=== PATIENT | male | born 1960 | race Caucasian/White ===

== ENCOUNTER 2017-06-14 07:39 | Day surgery (SDC) | payer BC, SELFPAY ==
[2017-06-09 12:35] VITALS: BMI 35.5
--- NOTE | 2017-06-10 13:46 | SUR.PREOP ---
amadeo at [facility] office notified of need for cardiac clearance on 06/09/17 0630 mayte lo
[2017-06-14] VITALS (8 sets, daily range): BP systolic 84–133; BP diastolic 56–92; PULSE 73–80; RESP 18–20; TEMP 36.2–36.7; O2SAT 92–98
--- NOTE | 2017-06-14 08:28 | HMH.ANESCL ---
[facility] Anesthesia Checklist - Patient Identification Patient Identification: Arm Band, Verbal (Name & ) - Structural Data Admitted From: Home Planned Operative Procedure/s: egd/colon Consent for Planned Operative Procedure(s) Verified: Yes Verified Documents: Surgical Consent - NPO Status Verified Time NPO: 00:00 - Chart Verification Results Verified: CBC, BMP - Additional verifications Patient : No Anesthesia Reactions: No Cephalosporin Allergy: No Previous Colonoscopy: No - Cardiovascular Assessment Heart Sounds: S1 & S2 Pulse Strength: Strong Pulse Rhythm: Regular Peripheral Edema: No - Airway Assessment C-Spine Mobility Assessed: Yes TMJ Mobility Assessed: Yes Dentition: Good Dentition - Neurological Assessment Level of Consciousness: Awake, Alert, Appropriate Hx Seizures: No Numbness or tingling in extremities: No - Genitourinary Assessment 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 No: Pacemaker Amputation: No Fractures: No *Family Hx:: Unable to obtain
--- NOTE | 2017-06-14 08:31 | P.PN_ITS ---
[facility] Anesthesia Checklist - Patient Identification Patient Identification: Arm Band, Verbal (Name & ) - Structural Data Admitted From: Home Planned Operative Procedure/s: egd/colon Consent for Planned Operative Procedure(s) Verified: Yes Verified Documents: Surgical Consent - NPO Status Verified Time NPO: 00:00 - Chart Verification Results Verified: CBC, BMP - Additional verifications Patient : No Anesthesia Reactions: No Cephalosporin Allergy: No Previous Colonoscopy: No - Cardiovascular Assessment Heart Sounds: S1 & S2 Pulse Strength: Strong Pulse Rhythm: Regular Peripheral Edema: No - Airway Assessment C-Spine Mobility Assessed: Yes TMJ Mobility Assessed: Yes Dentition: Good Dentition - Neurological Assessment Level of Consciousness: Awake, Alert, Appropriate Hx Seizures: No Numbness or tingling in extremities: No - Genitourinary Assessment 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 No: Pacemaker Amputation: No Fractures: No *Family Hx:: Unable to obtain
--- NOTE | 2017-06-14 09:31 | HMH.PROC ---
[facility] Procedure Note Procedure Note:: Upper Endoscopy Procedure Report: Esophagogastroduodenoscopy with cold biopsies and TTS balloon dilation Endoscopost: Des Rawls II, MD Referring Physician: Valerio Joseph MD/Piyush Malik M.D. Date of Procedure: June 14, 2017 Equipment: Olympus GIF 180 standard upper endoscope Sedation: MAC sedation Indications: Mr. Denis is a 56-year-old gentleman who is here for diagnostic upper endoscopy. He does have globus sensation with phlegm in the throat and frequent clearance of the throat. He does have chronic heartburn controlled with Protonix 40 mg p.o. twice daily. He still has some occasional reflux. He reports moderate belching and some bloating. He reports some left upper quadrant and left-sided abdominal discomfort. He has regular bowel function but does state that he has obstipation/incomplete defecation. Procedure: Prior to the procedure, a history and physical exam was performed, and patient's medications and allergies were reviewed. The risks, benefits and alternatives of the sedation and procedure were discussed with the patient. All questions were answered and informed consent was obtained. The patient was brought to the procedure room. Patient identification and proposed procedure were verified by the physician and the nurse. The patient was placed in a left lateral decubitus position and the scope was passed under direct vision. Throughout the procedure, the patient's blood pressure, pulse, and oxygen saturations were monitored continuously. The upper GI endoscopy was accomplished without difficulty. The patient tolerated the procedure well. Findings: The scope was passed directly into the upper esophagus and advanced to the third portion of the duodenum. The post bulbar duodenum and duodenal bulb were normal with normal mucosa and conniventes. The scope was withdrawn through a normal duodenal bulb and pylorus into the stomach. There was some mild linear erythema of the antrum with bile reflux. The remainder of the antrum, body and fundus of the stomach were grossly normal. Upon retroflexion there was no hiatal hernia. 2 biopsies were taken in the antrum and along the lesser curvature for histology and/or CLOtest. The scope was then withdrawn into the esophagus. There was a serrated Z line with one linear erosion distally. There were tertiary contractions and moderate esophageal dysmotility. The entire esophagus was dilated to 60 Setswana/20 mm with a TTS hydrostatic balloon. There was mild resistance at the cricopharyngeus. The remainder of the esophageal mucosa was normal. Impression: 1. 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 I will discuss additional measures including dietary measures, promotility therapy and fiber bowel regimen. I will proceed with screening colonoscopy.
--- NOTE | 2017-06-14 09:41 | HMH.PROC ---
[facility] Procedure Note Procedure Note:: Colonoscopy Procedure Report: Colonoscopy with cold snare polypectomy Endoscopist: Des Rawls II, MD Referring physician: Piyush Malik M.D. Date of Procedure: June 14, 2017 Equipment: Olympus 180 variable stiffness pediatric colonoscope Sedation: MAC sedation Indication: Mr. Denis is a 56-year-old gentleman who is here for follow-up screening/surveillance colonoscopy. His last colonoscopy in [place] (Dr. Jeremiah Smallwood) in 2003 was normal. The patient's father had colon cancer in his early 70s. He does have some left upper quadrant and left-sided abdominal discomfort. He also reports some obstipation/incomplete defecation but reports regular bowel function and no change in bowel habits. He reports no rectal bleeding or weight loss. Procedure: Prior to the procedure, a history and physical exam was performed, and patient's medications and allergies were reviewed. The risks, benefits and alternatives of the sedation and procedure were discussed with the patient. All questions were answered and informed consent was obtained. The patient was brought to the procedure room. Patient identification and proposed procedure were verified by the physician and the nurse. The patient was placed in a left lateral decubitus position and the scope was passed under direct vision. Throughout the procedure, the patient's blood pressure, pulse, and oxygen saturations were monitored continuously. The colonoscopy was accomplished without difficulty. The patient tolerated the procedure well. Findings: On digital rectal examination there was normal rectal tone. There were no external hemorrhoids. The prostate was 2+, mildly firm with greater firmness in the left upper margin. The colonoscope was introduced through the anal canal to the rectum and advanced to the cecum. The ileocecal valve and appendiceal orifice were identified. The scope was advanced a short distance into the ileum which appeared grossly normal. The scope was then withdrawn into the colon. There were 3 colon polyps identified in the descending ?2 and sigmoid ?1. These ranged in size from 4-6 mm and were all removed via cold snare polypectomy. The remaining cecum, ascending, transverse, descending, sigmoid and rectum were grossly normal. There were no other mucosal abnormalities identified. Upon retroflexion within the rectum there were grade 1 internal hemorrhoids. Impression: 1. Diminutive colonic polyps ?3 2. Grade 1 internal hemorrhoids 3. Prostate firmness/asymmetry left upper margin Plan: I will follow up the polyp pathology and recommend repeat colonoscopy again in 5 years based upon the patient's family history and polyp histology. I would encourage fiber supplementation on a long-term daily maintenance basis.
--- NOTE | 2017-06-14 09:56 | P.PCN_ITS ---
[facility] Procedure Note Procedure Note:: Colonoscopy Procedure Report: Colonoscopy with cold snare polypectomy Endoscopist: Des Rawls II, MD Referring physician: Piyush Malik M.D. Date of Procedure: June 14, 2017 Equipment: Olympus 180 variable stiffness pediatric colonoscope Sedation: MAC sedation Indication: Mr. Denis is a 56-year-old gentleman who is here for follow-up screening/surveillance colonoscopy. His last colonoscopy in [place] (Dr. Jeremiah Smallwood) in 2003 was normal. The patient's father had colon cancer in his early 70s. He does have some left upper quadrant and left-sided abdominal discomfort. He also reports some obstipation/incomplete defecation but reports regular bowel function and no change in bowel habits. He reports no rectal bleeding or weight loss. Procedure: Prior to the procedure, a history and physical exam was performed, and patient' s medications and allergies were reviewed. The risks, benefits and alternatives of the sedation and procedure were discussed with the patient. All questions were answered and informed consent was obtained. The patient was brought to the procedure room. Patient identification and proposed procedure were verified by the physician and the nurse. The patient was placed in a left lateral decubitus position and the scope was passed under direct vision. Throughout the procedure, the patient's blood pressure, pulse, and oxygen saturations were monitored continuously. The colonoscopy was accomplished without difficulty. The patient tolerated the procedure well. Findings: On digital rectal examination there was normal rectal tone. There were no external hemorrhoids. The prostate was 2+, mildly firm with greater firmness in the left upper margin. The colonoscope was introduced through the anal canal to the rectum and advanced to the cecum. The ileocecal valve and appendiceal orifice were identified. The scope was advanced a short distance into the ileum which appeared grossly normal. The scope was then withdrawn into the colon. There were 3 colon polyps identified in the descending ?2 and sigmoid ?1. These ranged in size from 4-6 mm and were all removed via cold snare polypectomy. The remaining cecum, ascending, transverse, descending, sigmoid and rectum were grossly normal. There were no other mucosal abnormalities identified. Upon retroflexion within the rectum there were grade 1 internal hemorrhoids. Impression: 1. Diminutive colonic polyps ?3 2. Grade 1 internal hemorrhoids 3. Prostate firmness/asymmetry left upper margin Plan: I will follow up the polyp pathology and recommend repeat colonoscopy again in 5 years based upon the patient's family history and polyp histology. I would encourage fiber supplementation on a long-term daily maintenance basis.
== END 2017-06-14 11:00 | disposition home or self-care (01) ==
LOC: OUTP 07:41
PROVIDERS: PCP Internal Medicine Adolescent Medicine; Visit Provider Internal Medicine Gastroenterology
PROC: 0DJ08ZZ Inspection of Upper Intestinal Tract, Via Natural or Artificial Opening Endoscopic (ICD-10-PCS; CPT 43235; principal; 2017-06-14 09:00)
DX: Z12.11 Encounter for screening for malignant neoplasm of colon; K21.0 Gastro-esophageal reflux disease with esophagitis; K22.4 Dyskinesia of esophagus; D12.4 Benign neoplasm of descending colon; D12.5 Benign neoplasm of sigmoid colon; K29.50 Unspecified chronic gastritis without bleeding; K64.0 First degree hemorrhoids; Z80.0 Family history of malignant neoplasm of digestive organs
CPT/HCPCS: 43239; 43249; 45380; C1726

== ENCOUNTER 2017-07-07 22:35 | Emergency (ER) | payer BC, SELFPAY ==
[2017-07-07 22:41] VITALS: BMI 36.3
--- NOTE | 2017-07-07 22:42 | XR_ITS ---
XR chest portable HISTORY: ITS.REASON: SOB ORDERING PHYSICIAN: Denny Hardin MD PATIENT AGE: 56 years COMPARISON: 03/24/2017 FINDINGS: The cardiomediastinal silhouette and pulmonary vascularity are within normal limits. Prominent pericardial fat pad is noted on the right. In addition there may be associated atelectasis or infiltrate in the right lung base lateral to the fat pad. Recommend upright PA and lateral chest for further evaluation. No acute bony anomalies. IMPRESSION: Prominent pericardial fat pad on the right with possible superimposed atelectasis or infiltrate
[2017-07-07 22:44] VITALS: BP 141/109; PULSE 80; RESP 18; TEMP 36.4; O2SAT 95; BMI 36.3
[2017-07-07 23:13] LABS: Basophils % 0.2 % (0.1-2.0); Eosinophils # 0.1 K/mm3 (0.0-0.4); Eosinophils % 0.4 % (0.1-12.0); Hematocrit 42.8 % (42.0-52.0); Hemoglobin 14.4 g/dL (14.1-18.0); Lymphocytes # 1.1 K/mm3 (0.7-4.5); Lymphocytes % 8.1 K/mm3 (10-50); Mean Corpuscular HGB Conc 33.6 g/dL (31.8-35.4); Mean Corpuscular Hemoglobin 29.4 pg (27.0-31.2); Mean Corpuscular Volume 87.4 fl (80-94); Monocytes # 1.1 K/mm3 (0.1-1.0); Monocytes % 8.1 % (1.7-9.3); Neutrophils # 10.8 K/mm3 (1.8-7.8); Neutrophils % 83.1 % (37.0-80.0); Platelet Count 215 K/mm3 (142-424); Red Blood Count 4.89 M/mm3 (4.60-6.20); Red Cell Distribution Width 13.5 % (11.5-17.5)
[2017-07-07 23:37] LABS: Strep Scrn Group A (Rapid) Negative (Negative)
[2017-07-07 23:38] LABS: Alanine Aminotransferase 66 U/L (12-78); Albumin Level 3.5 gm/dL (3.4-5.0); Alkaline Phosphatase 120 U/L (46-116); Anion Gap 14.4 mEq/L (5-15); Aspartate Amino Transferase 26 U/L (15-37); Bilirubin,Total 0.3 mg/dL (0.2-1.0); Blood Urea Nitrogen 36 mg/dL (7-18); Calcium 8.6 mg/dL (8.5-10.1); Carbon Dioxide 26 mmol/L (21.0-32.0); Chloride 101 mmol/L (98-107); Creatine Kinase 93 U/L (39-308); Creatine Kinase MB 0.9 mg/ml (0.0-3.6); Creatinine Clearance Estimated 60 mL/min (0-300); Creatinine,Serum 1.97 mg/dL (0.70-1.30); Estimated Glomerular Filt Rate 35 ml/min (>60); GFR (African American) 43 ML/MIN (>60); Globulin 3.5 gm/dl (1.3-3.2); Glucose 236 mg/dL (74-106); Potassium 3.4 mmoL/L (3.5-5.1); Sodium 138 mmol/L (136-145); Troponin I < 0.02 ng/ml (0.00-0.06)
--- NOTE | 2017-07-08 | HMH.EDSOB ---
ED Disposition Clinical Impression: Influenza Disposition: Home, Self-Care Condition on Discharge: Good Instructions: Influenza Additional Instructions: fluids and see pcp for follow up Prescriptions: Benzonatate [Tessalon Perle 100mg Cap] 100 mg PO TID #30 cap Oseltamivir Phosphate [Tamiflu 75mg Capsule] 75 mg PO BID #10 cap Referrals: Piyush Serrano MD [Primary Care Provider] - - Critical Care Critical Care Time: No Attestation: On 07/07/17, the high probability of a clinically significant, sudden or life threatening deterioration of the following system(s) required my full and direct attention, intervention and personal management. The time I documented below is in addition to time spent performing reported procedures but includes the following listed in this critical care notation. Medical Decision Making - Medical Records Medical records reviewed: Yes: I reviewed the patient's medical records. Vital Signs: 07/07/17 22:44 Temperature 97.6 F Temperature Source Oral Pulse Rate [Right Brachial] 80 Respiratory Rate 18 Blood Pressure [Right Arm] 141/109 Blood Pressure Mean [Right Arm] 119 Blood Pressure Source [Right Arm] Automatic Cuff Blood Pressure Position [Right Arm] Supine 02 Sat by Pulse Oximetry 95 Oxygen Delivery Method Room Air - Lab Data Lab results reviewed: Yes: I reviewed the patient's lab results. Lab Results 07/07/17 23:00: WBC 13.0 H, RBC 4.89, Hgb 14.4, Hct 42.8, MCV 87.4, MCH 29.4, MCHC 33.6, RDW 13.5, Plt Count 215, MPV 9.0, Neut % (Auto) 83.1 H, Lymph % (Auto) 8.1 L, [place] % (Auto) 8.1, Eos % (Auto) 0.4, Baso % (Auto) 0.2, Neut # (Auto) 10.8 H, Lymph # (Auto) 1.1, [place] # (Auto) 1.1 H, Eos # (Auto) 0.1, Baso # (Auto) 0.0 07/07/17 23:00: Sodium 138, Potassium 3.4 L, Chloride 101, Carbon Dioxide 26, Anion Gap 14.4, BUN 36 H, Creatinine 1.97 H, Estimated Creat Clear 60, Estimated GFR 35 L, Est GFR ( Amer) 43 L, Glucose 236 H, Calcium 8.6, Total Bilirubin 0.3, AST 26, ALT 66, Alkaline Phosphatase 120 H, Total Creatine Kinase 93, CK-MB (CK-2) 0.9, CK-MB (CK-2) Rel Index 1.0, Troponin I < 0.02, Total Protein 7.0, Albumin 3.5, Globulin 3.5 H, Albumin/Globulin Ratio 1.0 L 07/07/17 23:00: Influenza Type A Ag Negative, Influenza Type B Ag Positive A, Group A Strep Rapid Negative Result diagrams: 07/07/17 23:00 07/07/17 23:00 Orders (Tests/Meds): ED MEDICATIONS Discontinued Medications Generic Name Dose Route Start Last Admin Trade Name Freq PRN Reason Stop Dose Admin Aspirin 243 mg 07/07/17 22:42 07/07/17 22:54 Aspirin 81mg Chewable Tablet PO 07/07/17 22:43 243 mg ONCE ONE Administration ORDERS Category Date Time Status XR chest portable Stat Exams 07/07/17 22:42 Taken Strep Screen Confirmation Stat Micro 07/07/17 23:00 Received ECG Request by /Dinah Stat Y 07/07/17 22:42 Ordered - Radiology Data #1 Image(s): Chest Image Reviewed: Yes I reviewed the patient's radiology image Preliminary Findings: Abnormal - ECG Data Tracing #1 I reviewed this ECG and interpreted as documented below: Normal Sinus Rhythm: Yes Ischemic changes: non-specific ST-T wave changes - Physician Consults Physician Consulted: shaan Reason -: Pt condition - Theodore Inquiry Pt receiving controlled substance: No Resp/SOB HPI - General Chief Complaint: Upper Respiratory Infection Stated Complaint: SOA Time Seen by Provider: 07/08/17 00:00 Mode of Arrival: Family Vehicle Source of Information: Patient, Spouse, Medical Record Limitations: No Limitations Description of Symptoms (Recalled from ER Triage Doc. by RN): C/O SOB AND MID CHEST PAIN WITH COUGH NONPRODUCTIVE. HAD BLACKOUT SPELL TODAY WHILE COUGHING. 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
--- NOTE | 2017-07-08 00:08 | ED_ITS ---
ED Disposition Clinical Impression: Influenza Disposition: Home, Self-Care Condition on Discharge: Good Instructions: Influenza Additional Instructions: fluids and see pcp for follow up Prescriptions: Benzonatate [Tessalon Perle 100mg Cap] 100 mg PO TID #30 cap Oseltamivir Phosphate [Tamiflu 75mg Capsule] 75 mg PO BID #10 cap Referrals: Piyush Malik MD [Primary Care Provider] - - Critical Care Critical Care Time: No Attestation: On 07/07/17, the high probability of a clinically significant, sudden or life threatening deterioration of the following system(s) required my full and direct attention, intervention and personal management. The time I documented below is in addition to time spent performing reported procedures but includes the following listed in this critical care notation. Medical Decision Making - Medical Records Medical records reviewed: Yes: I reviewed the patient's medical records. Vital Signs: 07/07/17 22:44 Temperature 97.6 F Temperature Source Oral Pulse Rate [Right Brachial] 80 Respiratory Rate 18 Blood Pressure [Right Arm] 141/109 Blood Pressure Mean [Right Arm] 119 Blood Pressure Source [Right Arm] Automatic Cuff Blood Pressure Position [Right Arm] Supine 02 Sat by Pulse Oximetry 95 Oxygen Delivery Method Room Air - Lab Data Lab results reviewed: Yes: I reviewed the patient's lab results. Lab Results 07/07/17 23:00: WBC 13.0 H, RBC 4.89, Hgb 14.4, Hct 42.8, MCV 87.4, MCH 29.4, MCHC 33.6, RDW 13.5, Plt Count 215, MPV 9.0, Neut % (Auto) 83.1 H, Lymph % (Auto ) 8.1 L, [place] % (Auto) 8.1, Eos % (Auto) 0.4, Baso % (Auto) 0.2, Neut # (Auto) 10.8 H, Lymph # (Auto) 1.1, [place] # (Auto) 1.1 H, Eos # (Auto) 0.1, Baso # (Auto ) 0.0 07/07/17 23:00: Sodium 138, Potassium 3.4 L, Chloride 101, Carbon Dioxide 26, Anion Gap 14.4, BUN 36 H, Creatinine 1.97 H, Estimated Creat Clear 60, Estimated GFR 35 L, Est GFR ( Amer) 43 L, Glucose 236 H, Calcium 8.6, Total Bilirubin 0.3, AST 26, ALT 66, Alkaline Phosphatase 120 H, Total Creatine Kinase 93, CK-MB (CK-2) 0.9, CK-MB (CK-2) Rel Index 1.0, Troponin I < 0.02, Total Protein 7.0, Albumin 3.5, Globulin 3.5 H, Albumin/Globulin Ratio 1.0 L 07/07/17 23:00: Influenza Type A Ag Negative, Influenza Type B Ag Positive A, Group A Strep Rapid Negative Result diagrams: 07/07/17 23:00 07/07/17 23:00 Orders (Tests/Meds): ED MEDICATIONS Discontinued Medications Generic Name Dose Route Start Last Admin Trade Name Freq PRN Reason Stop Dose Admin Aspirin 243 mg 07/07/17 22:42 07/07/17 22:54 Aspirin 81mg Chewable Tablet PO 07/07/17 22:43 243 mg ONCE ONE Administration ORDERS Category Date Time Status XR chest portable Stat Exams 07/07/17 22:42 Taken Strep Screen Confirmation Stat Micro 07/07/17 23:00 Received ECG Request by /Dinah Stat Y 07/07/17 22:42 Ordered - Radiology Data #1 Image(s): Chest Image Reviewed: Yes I reviewed the patient's radiology image Preliminary Findings: Abnormal - ECG Data Tracing #1 I reviewed this ECG and interpreted as documented below: Normal Sinus Rhythm: Yes Ischemic changes: non-specific ST-T wave changes - Physician Consults Physician Consulted: shaan Reason -: Pt condition - Theodore Inquiry Pt receiving controlled substance: No Resp/SOB HPI
[2017-07-08 01:17] VITALS: BP 148/88; PULSE 80; RESP 16; TEMP 37.2; O2SAT 98
== END 2017-07-08 01:20 | disposition home or self-care (01) ==
PROVIDERS: Emergency Provider Emergency Medicine; PCP Internal Medicine Adolescent Medicine
DX: J11.1 Influenza due to unidentified influenza virus with other respiratory manifestations (principal); E78.5 Hyperlipidemia, unspecified; I10 Essential (primary) hypertension; I25.10 Atherosclerotic heart disease of native coronary artery without angina pectoris; I25.2 Old myocardial infarction; G47.30 Sleep apnea, unspecified; Z79.899 Other long term (current) drug therapy
CPT/HCPCS: 71045; 80053; 82550; 82553; 84484; 85025; 87275; 87276; 87430; 93005; 99282

== ENCOUNTER → 2017-07-19 13:57 | Outpatient (CLI) | payer BC, SELFPAY | PROVIDERS: PCP Internal Medicine Adolescent Medicine; Visit Provider Internal Medicine Adolescent Medicine | DX: R55 Syncope and collapse (principal) | CPT/HCPCS: 93270 ==

== ENCOUNTER → 2017-09-06 08:42 | Outpatient (POV) | payer BC, SELFPAY | PROVIDERS: Visit Provider Nurse Practitioner Acute Care | DX: Z00.00 Encounter for general adult medical examination without abnormal findings (principal) ==

== ENCOUNTER → 2017-09-09 07:36 | Outpatient (CLI) | payer BC, SELFPAY ==
--- NOTE | 2017-09-09 07:45 | CA_ITS ---
CA echo doppler complete PROCEDURE: INDICATIONS FOR THE TEST: Chest pain COPD Heart Murmur Tobacco SmokingEX Palpitations Fatigue Syncope EdemaX HypertensionXDiabetes Mellitus Rheumatic Fever SOB DOEXObesityXHyperlipidemiaX Family History HD Additional History CAD,CHF,MARIELENA TDS POOR ACOUSTIC WINDOWS AND OBESITY PATIENT INFORMATION HEIGHT: 66 WEIGHT:230 GENDER: Male B/P:141/109 2-D/M-MODE INTERPRETATION: 2-D MEASUREMENTS OBSERVED VALUES IN CMS Right Ventricular Dimension (RVDd) 4.0 Interventricular Septum (Thickness)(IVsd) 1.0 Left Ventricular Internal Dimensions(LVIDd) 4.2 Left Ventricular Posterior Wall (Thickness)(LVPWd) 1.0 Aortic Root 4.2 Aortic Cusp Separation 2.2 Left Atrial Dimensions (LAD) 2.8 2D 1. Left atrium is qualitatively mildly enlarged, left ventricle is normal size, there is mild concentric left ventricular hypertrophy, visually estimated ejection fraction 55% with no obvious regional wall motion abnormality. 2. The right atrium and right ventricle are moderately enlarged with normal contractility. 3. The aortic valve is minimally thickened and fibrosed. 4. The mitral and tricuspid valve leaflets are minimally thickened. 5. The pulmonic valve is poorly visualized. 6. Trivial Pericardial effusion noted. DOPPLER INTERROGATION: Doppler interrogation of the aortic, mitral and tricuspid valve reveals presence of mild mitral and tricuspid regurgitation, tricuspid and jet velocity insufficient for calculation of the right ventricular systolic pressure, grade 1 diastolic dysfunction seen with tissue Doppler evidence of raised left atrial pressure. CONCLUSION: 1. Mildly enlarged left atrium, normal left ventricular size, visually estimated ejection fraction 55% with no obvious regional wall motion abnormality, endocardial surfaces are poorly visualized. Grade 1 diastolic dysfunction seen with tissue Doppler evidence of raised left atrial pressure. 2. Enlarged right atrium and right ventricle, contractility of the right ventricle is normal 3. Mild mitral and tricuspid regurgitation 4. Trivial pericardial effusion noted.
== END ==
PROVIDERS: PCP Internal Medicine Adolescent Medicine; Visit Provider Internal Medicine Adolescent Medicine
DX: I50.30 Unspecified diastolic (congestive) heart failure (principal)
CPT/HCPCS: 93306

== ENCOUNTER → 2017-11-24 07:06 | Outpatient (CLI) | payer BC, SELFPAY ==
[2017-11-24 07:10] LABS: Microscopic, Urine URINE MICROSCOPIC (MICROSCOPIC)
[2017-11-24 13:37] LABS: Appearance,Urine CLEAR (Clear); Basophils # 0.1 K/mm3 (0-0.2); Basophils % 0.6 % (0.1-2.0); Bilirubin,Urine Negative (Negative); Blood, Urine Negative (Negative); Color,Urine YELLOW (Yellow); Eosinophils # 0.3 K/mm3 (0.0-0.4); Eosinophils % 3.4 % (0.1-12.0); Glucose,Urine (UA) Negative (Negative); Hematocrit 45.4 % (42.0-52.0); Hemoglobin 14.7 g/dL (14.1-18.0); Ketones,Urine Negative (Negative); Leukocyte Esterase,Urine Negative (Negative); Lymphocytes # 1.8 K/mm3 (0.7-4.5); Lymphocytes % 22.3 K/mm3 (10-50); Mean Corpuscular HGB Conc 32.5 g/dL (31.8-35.4); Mean Corpuscular Hemoglobin 28.5 pg (27.0-31.2); Mean Corpuscular Volume 87.7 fl (80-94); Mean Platelet Volume 9.2 fl (7.4-10.4); Monocytes # 0.6 K/mm3 (0.1-1.0); Monocytes % 7.1 % (1.7-9.3); Neutrophils # 5.3 K/mm3 (1.8-7.8); Neutrophils % 66.6 % (37.0-80.0); Nitrate,Urine Negative (Negative); PH,Urine 6.5 (5.0-8.5); Platelet Count 223 K/mm3 (142-424); Protein,Urine Negative (Negative); Red Blood Count 5.18 M/mm3 (4.60-6.20); Red Cell Distribution Width 13.3 % (11.5-17.5); Urobilinogen,Urine 0.2 EU/dl (0.2)
[2017-11-24 14:09] LABS: Alanine Aminotransferase 80 U/L (12-78); Albumin Level 3.6 gm/dL (3.4-5.0); Albumin/Globulin Ratio 1.1 (1.1-1.8); Alkaline Phosphatase 105 U/L (46-116); Anion Gap 13.4 mEq/L (5-15); Aspartate Amino Transferase 38 U/L (15-37); Bilirubin,Total 0.5 mg/dL (0.2-1.0); Blood Urea Nitrogen 18 mg/dL (7-18); Calcium 8.2 mg/dL (8.5-10.1); Carbon Dioxide 27 mmol/L (21.0-32.0); Chloride 103 mmol/L (98-107); Chol/HDL Ratio 4.9 (1-3.5); Cholesterol 156 mg/dL (140-200); Creatinine,Serum 1.42 mg/dL (0.70-1.30); Estimated Glomerular Filt Rate 51 ml/min (>60); GFR (African American) 62 ML/MIN (>60); Globulin 3.2 gm/dl (1.3-3.2); Glucose 129 mg/dL (74-106); HDL Cholesterol 32 mg/dL (27-67); LDL Cholesterol 86 mg/dL (0-130); Potassium 3.4 mmoL/L (3.5-5.1); Sodium 140 mmol/L (136-145); Total Protein,Serum 6.8 gm/dL (6.4-8.2); Triglycerides 190 mg/dL (30-200); VLDL Cholesterol 38 mg/dL (0-40)
== END ==
PROVIDERS: Visit Provider Internal Medicine Adolescent Medicine
DX: R60.9 Edema, unspecified (principal); I25.10 Atherosclerotic heart disease of native coronary artery without angina pectoris
CPT/HCPCS: 36415; 80053; 80061; 81001; 85025; 87205

== ENCOUNTER → 2018-04-13 07:07 | Outpatient (CLI) | payer BC, SELFPAY ==
[2018-04-13 13:31] LABS: Alanine Aminotransferase 71 U/L (12-78); Albumin Level 3.7 gm/dL (3.4-5.0); Albumin/Globulin Ratio 1.2 (1.1-1.8); Alkaline Phosphatase 119 U/L (46-116); Anion Gap 0.6 mEq/L (5-15); Aspartate Amino Transferase 22 U/L (15-37); Bilirubin,Total 0.8 mg/dL (0.2-1.0); Blood Urea Nitrogen 25 mg/dL (7-18); Carbon Dioxide 24 mmol/L (21.0-32.0); Chloride 104 mmol/L (98-107); Chol/HDL Ratio 3.8 (1-3.5); Cholesterol 173 mg/dL (140-200); Creatinine,Serum 1.69 mg/dL (0.70-1.30); Estimated Glomerular Filt Rate 42 ml/min (>60); GFR (African American) 51 ML/MIN (>60); Globulin 3.1 gm/dl (1.3-3.2); Glucose 368 mg/dL (74-106); HDL Cholesterol 45 mg/dL (27-67); LDL Cholesterol 92 mg/dL (0-130); Potassium 3.6 mmoL/L (3.5-5.1); Sodium 125 mmol/L (136-145); Total Protein,Serum 6.8 gm/dL (6.4-8.2); Triglycerides 182 mg/dL (30-200); VLDL Cholesterol 36 mg/dL (0-40)
[2018-04-13 13:41] LABS: Basophils # 0.1 K/mm3 (0-0.2); Basophils % 0.4 % (0.1-2.0); Eosinophils # 0.2 K/mm3 (0.0-0.4); Hematocrit 47.4 % (42.0-52.0); Hemoglobin 15.5 g/dL (14.1-18.0); Lymphocytes # 2.6 K/mm3 (0.7-4.5); Lymphocytes % 21.9 % (10-50); Mean Corpuscular HGB Conc 32.7 g/dL (31.8-35.4); Mean Corpuscular Hemoglobin 27.6 pg (27.0-31.2); Mean Corpuscular Volume 84.4 fl (80-94); Mean Platelet Volume 9.6 fl (7.4-10.4); Monocytes # 0.6 K/mm3 (0.1-1.0); Monocytes % 4.9 % (1.7-9.3); Neutrophils # 8.4 K/mm3 (1.8-7.8); Neutrophils % 70.8 % (37.0-80.0); Platelet Count 208 K/mm3 (142-424); Red Blood Count 5.62 M/mm3 (4.60-6.20); Red Cell Distribution Width 13.7 % (11.5-17.5); White Blood Count 11.8 K/mm3 (4.8-10.8)
[2018-04-13 14:52] LABS: Hemoglobin A1C 9.8 % (0.0-7.0)
== END ==
PROVIDERS: PCP Internal Medicine Adolescent Medicine; Visit Provider Internal Medicine Adolescent Medicine
DX: I25.10 Atherosclerotic heart disease of native coronary artery without angina pectoris (principal); R35.8 Other polyuria
CPT/HCPCS: 36415; 80053; 80061; 83036; 85025

== ENCOUNTER 2018-04-19 16:42 | Observation (INO) ==
--- NOTE | 2018-04-19 17:23 | History & Physical Report ---
*Admission Date: 04/19/18 *Chief complaint: New onset diabetes, hyperglycemia *History of present illness: 57 year old male with history of CAD, sp STEMI last spring, with COPD/chronic bronchitis and hyperlipidemia and obesity who saw me last week with fatigue, polyuria. Fasting labs obtained with glucose levels >300 and creatinine 1.64 - came to office to discuss starting DM meds. Was tired, c/o blurry vision and polyuria. FSBS in office HI/>600 and referred to direct admit at [facility] for labs, IVF and in itiation of therapy. [facility] History I have reviewed the patient's past medical history: Yes Medical History: Reports:: Coronary Artery Disease, Hyperlipidemia, Hypertension, Lung Disease, Myocardial Infarction Denies:: Diabetes Mellitus Type 1, Diabetes Mellitus Type 2, Internal Pacemaker, Seizures Other Surgeries: Yes: Appendectomy, Cardiac Catheterization, Colonoscopy, Coronary Stent (x2), EGD. No: Pacemaker Amputation: No Fractures: No - *Social History Smoking Status: Former smoker Alcohol Intake: never Alcohol Intake Frequency:: other *Family Hx:: No significant family history, Non-contributory, Cancer, Heart Attack Review of Systems - Review of Systems Review of systems:: pertinent systems reviewed and negative unless documented below - Constitutional Reports excessive sweating, Reports fatigue, Reports increased appetite, Reports lack of energy, Denies fever(s), Denies headache(s) - Eyes Reports blurry vision, Reports change in vision, Reports double vision, Denies discharge, Denies dry eyes, Denies bulging eyes - ENT Reports dry mouth, Denies abnormal hearing, Denies difficulty swallowing, Denies ear pain - *Cardiovascular Reports shortness of breath, Reports shortness of breath with activity, Denies chest pain, Denies chest pain at rest, Denies chest pain with activity, Denies leg pain with activity, Denies irregular heart rhythm - *Respiratory Denies change in phlegm color, Denies chest congestion, Denies cough, Denies shortness of breath with activity - *Gastrointestinal Denies abdominal pain, Denies belching, Denies coffee ground vomit, Denies constipation - *Genitourinary Reports frequent nighttime urination, Reports urinary frequency, Denies difficulty urinating, Denies painful urination - *Musculoskeletal Denies abnormal walking, Denies joint pain, Denies decreased muscle mass - Integumentary/Breasts Denies acne, Denies bleeding lesions, Denies change in hair, Denies change in skin color, Denies changing lesions, Denies non-healing lesions - *Neurologic Reports loss of vision, Denies abnormal walking, Denies abnormal hearing, Denies burning sensations, Denies dizziness, Denies localized weakness, Denies memory loss - Endocrine Reports increased thirst, Reports increased hunger, Reports increased urination - Hematologic/Lymphatic Denies easy bleeding, Denies easy bruising, Denies enlarged lymph nodes Meds Home Medications Medication Instructions Recorded Confirmed Type Aspirin [Aspirin 81mg chewable 81 mg PO DAILY 06/09/17 07/07/17 History tab] Atorvastatin Calcium [Atorvastatin 80 mg PO DAILY 06/09/17 07/07/17 History 80mg Tab] Fluticasone/Vilanterol [Breo 1 each IH DAILY 06/09/17 07/07/17 History Ellipta 200-25 Mcg INH] Losartan Potassium [Cozaar] 25 mg PO DAILY 06/09/17 07/07/17 History Nitroglycerin 0.4 mg SL NEEDED PRN 06/09/17 07/07/17 History Pantoprazole Sodium [Protonix 40mg 40 mg PO BID 06/09/17 07/07/17 History tablet] Tamsulosin HCl [Flomax] 0.4 mg PO DAILY 06/09/17 07/07/17 History Bumetanide 2 mg PO BID 07/07/17 07/07/17 History Doxycycline Hyclate [Doxycycline 100 mg PO BID 07/07/17 07/07/17 History 100mg Capsule] Tiotropium [place] [Spiriva 1 caplet PO DAILY 07/07/17 07/07/17 History 18mcg/puff inhaler] Allergies Allergy/AdvReac Type Severity Reaction Status Date / Time No Known Allergies Allergy Verified 10/07/17 09:30 Exam - Constitutional no acute distress, morbidly obese - *Routine HEENT Exam Head: Present: normocephalic, atraumatic Eye: Present: EOMI, PERRL, normal accommodation ENT: Present: mucous membranes moist, dentition normal - *Routine Neck Exam Present: supple, full ROM. Absent: JVD, carotid bruit - *Routine Respiratory Exam Present: CTA bilaterally. Absent: accessory muscle use - *Routine Cardiovascular Exam Present: RRR, Normal S1, Normal S2 - *Routine Abdominal Exam Present: soft, normoactive bowel sounds. Absent: tenderness, distended - *Routine Extremities Exam Present: full ROM, pulses intact. Absent: cyanosis, clubbing, edema - *Routine Neurological Exam Present: alert, oriented X3, CN II-XII intact, moving all extremities, hearing grossly intact, normal speech. Absent: facial asymmetry Assessment and Plan (1) Hyperglycemia, unspecified Status: Acute Category: Medical Code(s): R73.9 - Hyperglycemia, unspecified Probable new onset DM II - admit for labs, IVF and assessement of plan going forward. Doubt DKA given normal VS in office.
[2018-04-19 18:34] LABS: Basophils % 0.4 % (0.1-2.0); Eosinophils # 0.1 K/mm3 (0.0-0.4); Eosinophils % 1.1 % (0.1-12.0); Hematocrit 47.1 % (42.0-52.0); Lymphocytes # 1.8 K/mm3 (0.7-4.5); Lymphocytes % 15.9 % (10-50); Mean Corpuscular HGB Conc 31.8 g/dL (31.8-35.4); Mean Corpuscular Hemoglobin 28.1 pg (27.0-31.2); Mean Corpuscular Volume 88.5 fl (80-94); Mean Platelet Volume 9.4 fl (7.4-10.4); Monocytes # 0.7 K/mm3 (0.1-1.0); Neutrophils # 8.5 K/mm3 (1.8-7.8); Neutrophils % 76.7 % (37.0-80.0); Platelet Count 220 K/mm3 (142-424); Red Blood Count 5.32 M/mm3 (4.60-6.20); Red Cell Distribution Width 13.6 % (11.5-17.5)
--- NOTE | 2018-04-19 18:48 | Pharmacy Consult Notes ---
[facility] Pharmacy VTE Monitoring - Patient Demographics Admission date: 04/19/18 Report Date: 04/19/18 Time: 18:47 Allergies/Adverse Reactions: Patient Allergies No Known Allergies Allergy (Verified 10/07/17 09:30) Height: 1.68 m Weight: 97.522 kg - VTE Risk Labs: VTE Related Lab Results Hgb 15.0 g/dL (14.1-18.0) 04/19/18 18:10 Hct 47.1 % (42.0-52.0) 04/19/18 18:10 Plt Count 220 K/mm3 (142-424) 04/19/18 18:10 Was VTE Risk Assessment Performed: Yes VTE Score: 4 VTE Risk Level: Low Risk Clinical Trial Participant: No - Prophylaxis VTE Prophylaxis Ordered?: Yes Types of VTE Prophylaxis: TEDS Knee High
[2018-04-19 19:08] LABS: Albumin Level 3.7 gm/dL (3.4-5.0); Albumin/Globulin Ratio 1.2 (1.1-1.8); Anion Gap 18.1 mEq/L (5-15); Bilirubin,Total 1.2 mg/dL (0.2-1.0); Calcium 8.4 mg/dL (8.5-10.1); Potassium 4.1 mmoL/L (3.5-5.1); Total Protein,Serum 6.7 gm/dL (6.4-8.2)
[2018-04-19 19:41] LABS: Microscopic, Urine URINE MICROSCOPIC (MICROSCOPIC)
[2018-04-19 19:48] LABS: Appearance,Urine CLEAR (Clear); Bilirubin,Urine Negative (Negative); Blood, Urine Negative (Negative); Color,Urine YELLOW (Yellow); Glucose,Urine (UA) 3+ (Negative); Ketones,Urine Negative (Negative); Leukocyte Esterase,Urine Negative (Negative); Protein,Urine Negative (Negative); Specific Gravity, Urine <= 1.005 (1.005-1.030); Urobilinogen,Urine 0.2 EU/dl (0.2)
[2018-04-19 20:02] LABS: Bacteria,Urine Trace /lpf; Squamous Epithelial Cell,Urine Occasional #/hpf (0-5); WBC,Urine Occasional #/hpf (0-3)
[2018-04-19 21:59] LABS: Phosphorous 3.9 mg/dL (2.4-4.9)
[2018-04-20 09:04] LABS: Eosinophils # 0.2 K/mm3 (0.0-0.4); Lymphocytes # 1.8 K/mm3 (0.7-4.5)
[2018-04-20 09:10] LABS: Anion Gap 11.4 mEq/L (5-15); Calcium 7.9 mg/dL (8.5-10.1); Potassium 3.4 mmoL/L (3.5-5.1)
[2018-04-20 09:15] LABS: Basophils % 0.4 % (0.1-2.0); Eosinophils % 1.8 % (0.1-12.0); Hematocrit 40.8 % (42.0-52.0); Lymphocytes % 22.1 % (10-50); Mean Corpuscular HGB Conc 32.6 g/dL (31.8-35.4); Mean Corpuscular Hemoglobin 27.6 pg (27.0-31.2); Mean Corpuscular Volume 84.7 fl (80-94); Mean Platelet Volume 9.6 fl (7.4-10.4); Monocytes # 0.4 K/mm3 (0.1-1.0); Monocytes % 5.1 % (1.7-9.3); Neutrophils # 5.8 K/mm3 (1.8-7.8); Neutrophils % 70.6 % (37.0-80.0); Platelet Count 158 K/mm3 (142-424); Red Blood Count 4.82 M/mm3 (4.60-6.20); Red Cell Distribution Width 13.8 % (11.5-17.5); White Blood Count 8.2 K/mm3 (4.8-10.8)
[2018-04-20 09:21] LABS: Hemoglobin 13.3 g/dL (14.1-18.0)
--- NOTE | 2018-04-20 11:54 | Progress Note ---
Internal Medicine - PN: Subj *Date: 04/20/18 *Time: 09:20 Interval history: Patient did well overnight, remained hemodynamically stable. Afebrile. Tolerating regular diet. Initiated insulin on arrival, required 50 units of short acting insulin with 20 units of Lantus at bedtime. Did have episode of low blood sugar in the high 60s overnight, improved with p.o. glucose intake. Denies any syncope, chest pain, nausea or vomiting. Improvement and polyuria. Exam Vital signs and Labs for Last 24 Hours: Temp Pulse Resp BP Pulse Ox 98.1 F 81 17 102/75 L 95 04/20/18 11:48 04/20/18 11:48 04/20/18 11:48 04/20/18 11:48 04/20/18 11:48 Laboratory Results - last 24 hr 04/19/18 18:10: WBC 11.0 H, RBC 5.32, Hgb 15.0, Hct 47.1, MCV 88.5, MCH 28.1, MCHC 31.8, RDW 13.6, Plt Count 220, MPV 9.4, Neut % (Auto) 76.7, Lymph % (Auto) 15.9, [place] % (Auto) 6.0, Eos % (Auto) 1.1, Baso % (Auto) 0.4, Neut # (Auto) 8.5 H, Lymph # (Auto) 1.8, [place] # (Auto) 0.7, Eos # (Auto) 0.1, Baso # (Auto) 0.0 04/19/18 18:10: Phosphorus 3.9, Magnesium 2.1 04/19/18 18:10: Acetone Level None detected 04/19/18 18:10: Sodium 123 L, Potassium 4.1, Chloride 86 L, Carbon Dioxide 23, Anion Gap 18.1 H, BUN 31 H, Creatinine 1.94 H, Estimated Creat Clear 58, Estimated GFR 36 L, Est GFR ( Amer) 43 L, Glucose 798 H*, Calcium 8.4 L, Total Bilirubin 1.2 H, AST 38 H, ALT 86 H, Alkaline Phosphatase 121 H, Total Protein 6.7, Albumin 3.7, Globulin 3.0, Albumin/Globulin Ratio 1.2 04/19/18 19:19: Urine Color Yellow, Urine Appearance Clear, Urine pH 6.0, Ur Specific [place] <= 1.005, Urine Protein Negative, Urine Glucose (UA) 3+, Urine Ketones Negative, Urine Blood Negative, Urine Nitrate Negative, Urine Bilirubin Negative, Urine Urobilinogen 0.2, Ur Leukocyte Esterase Negative, Urine RBC None, Urine WBC Occasional, Ur Squamous Epith Cells Occasional, Urine Bacteria Trace 04/19/18 21:01: POC Glucose 563 H* 04/19/18 21:27: Random Glucose 624 H* 04/20/18 00:11: POC Glucose 316 H* 04/20/18 02:59: POC Glucose 62 L 04/20/18 03:17: POC Glucose 107 04/20/18 08:59: WBC 8.2 D, RBC 4.82, Hgb 13.3 L D, Hct 40.8 L, MCV 84.7, MCH 27.6, MCHC 32.6, RDW 13.8, Plt Count 158 D, MPV 9.6, Neut % (Auto) 70.6, Lymph % (Auto) 22.1, [place] % (Auto) 5.1, Eos % (Auto) 1.8, Baso % (Auto) 0.4, Neut # (Auto) 5.8, Lymph # (Auto) 1.8, [place] # (Auto) 0.4, Eos # (Auto) 0.2, Baso # (Auto) 0.0 04/20/18 08:59: Sodium 136, Potassium 3.4 L, Chloride 101, Carbon Dioxide 27, Anion Gap 11.4, BUN 19 H D, Creatinine 1.47 H D, Estimated Creat Clear 76, Estimated GFR 49 L, Est GFR ( Amer) 60 D, Glucose 308 H D, Calcium 7.9 L I & O for Last 24 hours: Intake & Output 04/17/18 04/18/18 04/19/18 04/20/18 23:59 23:59 23:59 23:59 Intake Total 600 / 600 2928 / 2928 Output Total 500 / 500 Balance 100 / 100 2928 / 2928 Weight 97.522 kg 96.672 kg - *Routine HEENT Exam Head: Present: normocephalic, atraumatic Eye: Present: EOMI, PERRL ENT: Present: mucous membranes moist Comments: Mild pharyngeal erythema - *Routine Neck Exam Present: supple, full ROM. Absent: JVD - *Routine Respiratory Exam Present: CTA bilaterally. Absent: prolonged expiratory phase, rales, wheezes - *Routine Cardiovascular Exam Present: RRR, Normal S1, Normal S2. Absent: murmur - *Routine Abdominal Exam Present: soft, normoactive bowel sounds. Absent: tenderness - *Routine Rectal Exam Patient deferred: visual exam - *Routine Exam Patient deferred: penile exam - *Routine Extremities Exam Absent: cyanosis, clubbing, edema - *Routine Skin Exam Present: intact. Absent: cyanosis, erythema, lesions - *Routine Neurological Exam Present: alert, oriented X3, CN II-XII intact. Absent: altered mental status Assessment and Plan (1) Hyperglycemia, unspecified Current visit: No Status: Acute Category: Medical Code(s): R73.9 - Hyperglycemia, unspecified Improving with insulin treatment. Continue sliding scale insulin today. C ontinue Lantus 25 units tonight at bedtime. -Nutrition consult for diabetic education. -Instructed nursing to have patient administer own insulin as he will be doing this at time of discharge -No oral anti-hyperglycemics at this time, we will initiate on discharge -Continue fingersticks before meals and at bedtime (2) Hypertension Current visit: Yes Status: Chronic Qualifiers: Hypertension type: essential hypertension Qualified Code(s): I10 - Essential (primary) hypertension Category: Medical Code(s): I10 - Essential (primary) hypertension Holding on home antihypertensive patient is normotensive and he came in with acute kidney injury. -Resumed metoprolol -Hold losartan and Bumex at this time -Consider resumption of losartan at time of discharge if becoming hypertensive and kidney function is normal (3) Acute kidney injury Current visit: Yes Status: Acute Category: Medical Code(s): N17.9 - Acute kidney failure, unspecified Baseline creatinine approximately 1.4, elevated on admission with elevated BUN, suggestive of prerenal -Was this morning on labs. -Continue to avoid nephrotoxic's -Due to fluid rehydration, and normalization of kidney function, discontinue IV fluids, continue p.o. hydration (4) Hyponatremia Current visit: Yes Status: Acute Category: Medical Code(s): E87.1 - Hypo- osmolality and hyponatremia Present on admission, suspect due to hyperglycemia making a pseudohyponatremia -Normalized with fluid resuscitation and correction of hyperglycemia, monitor with morning labs (5) Hypokalemia Current visit: Yes Status: Acute Category: Medical Code(s): E87.6 - Hypokalemia Suspect due to treatment of diabetes and insulin use -P.o. replacement with 20 mg twice daily -Reassess with morning labs
--- NOTE | 2018-04-20 12:01 | Discharge Summary ---
General - General Admission date:: 04/19/18 <Piyush Mendez - 04/21/18 07:17> 04/19/18 <Reed Delgado - 04/20/18 12:01> Discharge date: 04/21/18 <Reed Delgado - 04/20/18 12:01> HPI HPI: 57 year old male with history of CAD, sp STEMI last spring, with COPD/chronic bronchitis and hyperlipidemia and obesity who saw me last week with fatigue, polyuria. Fasting labs obtained with glucose levels >300 and creatinine 1.64 - came to office to discuss starting DM meds. Was tired, c/o blurry vision and polyuria. FSBS in office HI/>600 and referred to direct admit at [facility] for labs, IVF and initiation of therapy. <Reed Delgado - 04/20/18 12:01> Hospital Course Hospital Course: Patient admitted for hyperglycemia, pseudohyponatremia, and [place]. Treated with aggressive fluid rehydration, IV insulin, and cessation of antihypertensive medications. Frequently improved in the first 24 hours with correction of hyperglycemia, and hyponatremia. Kidney injury resolved with aggressive hydration. Transition to oral intake. Diabetic counseling performed, patient instructed on how to give insulin. Tolerated self administration with clear goals on treatment at time of discharge. Hemodynamically stable, appropriate glucose for 24 hours prior to discharge. Plan to discharge home with continued insulin use, Lantus 25u nightly, and initiation of metformin 500mg BID. Plan for follow-up next week in [place]. Provided with basaglar pen and needles for home use during titration period. <Reed Delgado - 04/20/18 23:49> Objective Vital signs: Temp Pulse Resp BP Pulse Ox 97.6 F 70 18 110/65 95 04/21/18 03:39 04/21/18 04:00 04/21/18 03:39 04/21/18 03:39 04/21/18 03:39 <Piyush Mendez - 04/21/18 07:17> Temp Pulse Resp BP Pulse Ox 98.1 F 81 17 102/75 L 95 04/20/18 11:48 04/20/18 11:48 04/20/18 11:48 04/20/18 11:48 04/20/18 11:48 <Reed Delgado - 11/21/18 12:01> Results Labs on day of discharge: Labs from last 24 hours 04/21/18 04/21/18 04/21/18 06:00 06:00 03:35 WBC 6.5 RBC 4.40 L Hgb 12.3 L Hct 38.2 L MCV 86.7 MCH 28.0 MCHC 32.2 RDW 13.9 Plt Count 143 MPV 9.6 Neut % (Auto) 61.6 Lymph % (Auto) 29.2 [place] % (Auto) 6.2 Eos % (Auto) 2.5 Baso % (Auto) 0.6 Neut # (Auto) 4.0 Lymph # (Auto) 1.9 [place] # (Auto) 0.4 Eos # (Auto) 0.2 Baso # (Auto) 0.0 Sodium 140 Potassium 3.7 Chloride 108 H Carbon Dioxide 25 Anion Gap 10.7 BUN 14 D Creatinine 1.14 D Estimated Creat Clear 100 Estimated GFR 66 Est GFR ( Amer) 80 D Glucose 214 H D POC Glucose 201 H Calcium 8.0 L Phosphorus 2.4 D Magnesium 1.8 D 04/21/18 04/20/18 04/20/18 00:51 20:49 16:49 WBC RBC Hgb Hct MCV MCH MCHC RDW Plt Count MPV Neut % (Auto) Lymph % (Auto) [place] % (Auto) Eos % (Auto) Baso % (Auto) Neut # (Auto) Lymph # (Auto) [place] # (Auto) Eos # (Auto) Baso # (Auto) Sodium Potassium Chloride Carbon Dioxide Anion Gap BUN Creatinine Estimated Creat Clear Estimated GFR Est GFR ( Amer) Glucose POC Glucose 162 H 331 H* 279 H Calcium Phosphorus Magnesium 04/20/18 04/20/18 04/20/18 11:58 08:59 08:59 WBC 8.2 D RBC 4.82 Hgb 13.3 L D Hct 40.8 L MCV 84.7 MCH 27.6 MCHC 32.6 RDW 13.8 Plt Count 158 D MPV 9.6 Neut % (Auto) 70.6 Lymph % (Auto) 22.1 [place] % (Auto) 5.1 Eos % (Auto) 1.8 Baso % (Auto) 0.4 Neut # (Auto) 5.8 Lymph # (Auto) 1.8 [place] # (Auto) 0.4 Eos # (Auto) 0.2 Baso # (Auto) 0.0 Sodium 136 Potassium 3.4 L Chloride 101 Carbon Dioxide 27 Anion Gap 11.4 BUN 19 H D Creatinine 1.47 H D Estimated Creat Clear 76 Estimated GFR 49 L Est GFR ( Amer) 60 D Glucose 308 H D POC Glucose 253 H Calcium 7.9 L Phosphorus Magnesium <Piyush Mendez - 04/21/18 07:17> Labs from last 24 hours 04/20/18 04/20/18 04/20/18 08:59 08:59 03:17 WBC 8.2 D RBC 4.82 Hgb 13.3 L D Hct 40.8 L MCV 84.7 MCH 27.6 MCHC 32.6 RDW 13.8 Plt Count 158 D MPV 9.6 Neut % (Auto) 70.6 Lymph % (Auto) 22.1 [place] % (Auto) 5.1 Eos % (Auto) 1.8 Baso % (Auto) 0.4 Neut # (Auto) 5.8 Lymph # (Auto) 1.8 [place] # (Auto) 0.4 Eos # (Auto) 0.2 Baso # (Auto) 0.0 Sodium 136 Potassium 3.4 L Chloride 101 Carbon Dioxide 27 Anion Gap 11.4 BUN 19 H D Creatinine 1.47 H D Estimated Creat Clear 76 Estimated GFR 49 L Est GFR ( Amer) 60 D Glucose 308 H D POC Glucose 107 Random Glucose Calcium 7.9 L Phosphorus Magnesium Total Bilirubin AST ALT Alkaline Phosphatase Total Protein Albumin Globulin Albumin/Globulin Ratio Urine Color Urine Appearance Urine pH Ur Specific [place] Urine Protein Urine Glucose (UA) Urine Ketones Urine Blood Urine Nitrate Urine Bilirubin Urine Urobilinogen Ur Leukocyte Esterase Urine RBC Urine WBC Ur Squamous Epith Cells Urine Bacteria Acetone Level 04/20/18 04/20/18 04/19/18 02:59 00:11 21:27 WBC RBC Hgb Hct MCV MCH MCHC RDW Plt Count MPV Neut % (Auto) Lymph % (Auto) [place] % (Auto) Eos % (Auto) Baso % (Auto) Neut # (Auto) Lymph # (Auto) [place] # (Auto) Eos # (Auto) Baso # (Auto) Sodium Potassium Chloride Carbon Dioxide Anion Gap BUN Creatinine Estimated Creat Clear Estimated GFR Est GFR ( Amer) Glucose POC Glucose 62 L 316 H* Random Glucose 624 H* Calcium Phosphorus Magnesium Total Bilirubin AST ALT Alkaline Phosphatase Total Protein Albumin Globulin Albumin/Globulin Ratio Urine Color Urine Appearance Urine pH Ur Specific [place] Urine Protein Urine Glucose (UA) Urine Ketones Urine Blood Urine Nitrate Urine Bilirubin Urine Urobilinogen Ur Leukocyte Esterase Urine RBC Urine WBC Ur Squamous Epith Cells Urine Bacteria Acetone Level 04/19/18 04/19/18 04/19/18 21:01 19:19 18:10 WBC RBC Hgb Hct MCV MCH MCHC RDW Plt Count MPV Neut % (Auto) Lymph % (Auto) [place] % (Auto) Eos % (Auto) Baso % (Auto) Neut # (Auto) Lymph # (Auto) [place] # (Auto) Eos # (Auto) Baso # (Auto) Sodium 123 L Potassium 4.1 Chloride 86 L Carbon Dioxide 23 Anion Gap 18.1 H BUN 31 H Creatinine 1.94 H Estimated Creat Clear 58 Estimated GFR 36 L Est GFR ( Amer) 43 L Glucose 798 H* POC Glucose 563 H* Random Glucose Calcium 8.4 L Phosphorus Magnesium Total Bilirubin 1.2 H AST 38 H ALT 86 H Alkaline Phosphatase 121 H Total Protein 6.7 Albumin 3.7 Globulin 3.0 Albumin/Globulin Ratio 1.2 Urine Color Yellow Urine Appearance Clear Urine pH 6.0 Ur Specific [place] <= 1.005 Urine Protein Negative Urine Glucose (UA) 3+ Urine Ketones Negative Urine Blood Negative Urine Nitrate Negative Urine Bilirubin Negative Urine Urobilinogen 0.2 Ur Leukocyte Esterase Negative Urine RBC None Urine WBC Occasional Ur Squamous Epith Cells Occasional Urine Bacteria Trace Acetone Level 04/19/18 04/19/18 04/19/18 18:10 18:10 18:10 WBC 11.0 H RBC 5.32 Hgb 15.0 Hct 47.1 MCV 88.5 MCH 28.1 MCHC 31.8 RDW 13.6 Plt Count 220 MPV 9.4 Neut % (Auto) 76.7 Lymph % (Auto) 15.9 [place] % (Auto) 6.0 Eos % (Auto) 1.1 Baso % (Auto) 0.4 Neut # (Auto) 8.5 H Lymph # (Auto) 1.8 [place] # (Auto) 0.7 Eos # (Auto) 0.1 Baso # (Auto) 0.0 Sodium Potassium Chloride Carbon Dioxide Anion Gap BUN Creatinine Estimated Creat Clear Estimated GFR Est GFR ( Amer) Glucose POC Glucose Random Glucose Calcium Phosphorus 3.9 Magnesium 2.1 Total Bilirubin AST ALT Alkaline Phosphatase Total Protein Albumin Globulin Albumin/Globulin Ratio Urine Color Urine Appearance Urine pH Ur Specific [place] Urine Protein Urine Glucose (UA) Urine Ketones Urine Blood Urine Nitrate Urine Bilirubin Urine Urobilinogen Ur Leukocyte Esterase Urine RBC Urine WBC Ur Squamous Epith Cells Urine Bacteria Acetone Level None detected <Reed Delgado - 04/20/18 12:01> DS: Diagnosis - Discharge Diagnosis (1) Hyperglycemia, unspecified Status: Acute (2) Hypertension Status: Chronic (3) Acute kidney injury Status: Acute (4) Hyponatremia Status: Acute (5) Hypokalemia Status: Acute <Reed Delgado - 05/01/18 23:57> (1) Hyperglycemia, unspecified Status: Acute (2) Hypertension Status: Chronic (3) Acute kidney injury Status: Acute (4) Hyponatremia Status: Acute (5) Hypokalemia Status: Acute (6) Type 2 diabetes mellitus with hyperglycemia Status: Acute <Piyush Mendez - 04/21/18 07:17> Discharge Plan - Patient Discharge Instructions ACTIVITY: Continue current activity <Reed Delgado - 04/20/18 12:01> DIET: diabetic diet <Reed Delgado - 04/20/18 12:01> Patient Instructions: DI for Diabetes Type 2, DI for Hyperglycemia -- Adult <Reed Delgado - 04/20/18 12:01> Forms: <Reed Delgado - 04/20/18 12:01> - Follow up Plan Follow up with: Piyush Malik MD [Primary Care Provider] - <Reed Delgado - 04/20/18 12:01> Disposition: Home, Self-Care <Reed Delgado - 04/20/18 12:01> Home Medications: Home Medications Medication Instructions Recorded Confirmed Type RX: Aspirin [Aspirin 81mg chewable 81 mg PO DAILY 06/09/17 04/19/18 History tab] RX: Atorvastatin Calcium 80 mg PO DAILY 06/09/17 04/19/18 History [Atorvastatin 80mg Tab] RX: Fluticasone/Vilanterol [Breo 1 each IH DAILY 06/09/17 04/19/18 History Ellipta 200-25 Mcg INH] RX: Losartan Potassium [Cozaar] 25 mg PO DAILY 06/09/17 04/19/18 History RX: Nitroglycerin 0.4 mg SL NEEDED PRN 06/09/17 04/19/18 History RX: Pantoprazole Sodium [Protonix 40 mg PO BID 06/09/17 04/20/18 History 40mg tablet] RX: Metoprolol Succinate 50 mg PO DAILY 04/19/18 04/19/18 History RX: raNITIdine HCl [Ranitidine HCl] 300 mg PO HS 04/19/18 04/19/18 History RX: Clopidogrel Bisulfate [Plavix 75 mg PO DAILY 04/20/18 04/19/18 History 75mg Tab] RX: Tamsulosin HCl [Flomax 0.4mg 0.4 mg PO HS 04/20/18 04/20/18 History capsule] <Reed Delgado - 04/20/18 12:01> Prescriptions/Medication Reconciliation: New RX: Metformin HCl [Glucophage 500mg Tablet] 500 mg PO BID #60 tab RX: Insulin Glargine,Hum.rec.anlog [Insulin Glargine 100 Units/mL 3mL flexpen] 25 unit SQ HS insuln.pen Continue montelukast 10 mg tablet 10 mg PO HS 90 Days #90 tab fluticasone 50 mcg/actuation nasal spray,suspension 2 spray INTRANASAL DAILY #9.9 g RX: Aspirin [Aspirin 81mg chewable tab] 81 mg PO DAILY RX: Nitroglycerin 0.4 mg SL NEEDED PRN PRN Reason: Chest Pain RX: Losartan Potassium [Cozaar] 25 mg PO DAILY RX: Fluticasone/Vilanterol [Breo Ellipta 200-25 Mcg INH] 1 each IH DAILY RX: Atorvastatin Calcium [Atorvastatin 80mg Tab] 80 mg PO DAILY RX: Metoprolol Succinate 50 mg PO DAILY RX: raNITIdine HCl [Ranitidine HCl] 300 mg PO HS RX: Clopidogrel Bisulfate [Plavix 75mg Tab] 75 mg PO DAILY RX: Pantoprazole Sodium [Protonix 40mg tablet] 40 mg PO BID RX: Tamsulosin HCl [Flomax 0.4mg capsule] 0.4 mg PO HS Discontinued RX: Bumetanide 2 mg PO BID <Reed Delgado - 04/20/18 12:01>
[2018-04-21 06:17] LABS: Basophils % 0.6 % (0.1-2.0); Eosinophils # 0.2 K/mm3 (0.0-0.4); Eosinophils % 2.5 % (0.1-12.0); Hematocrit 38.2 % (42.0-52.0); Hemoglobin 12.3 g/dL (14.1-18.0); Lymphocytes # 1.9 K/mm3 (0.7-4.5); Lymphocytes % 29.2 % (10-50); Mean Corpuscular HGB Conc 32.2 g/dL (31.8-35.4); Mean Corpuscular Volume 86.7 fl (80-94); Mean Platelet Volume 9.6 fl (7.4-10.4); Monocytes # 0.4 K/mm3 (0.1-1.0); Monocytes % 6.2 % (1.7-9.3); Neutrophils % 61.6 % (37.0-80.0); Platelet Count 143 K/mm3 (142-424); Red Cell Distribution Width 13.9 % (11.5-17.5); White Blood Count 6.5 K/mm3 (4.8-10.8)
[2018-04-21 06:29] LABS: Anion Gap 10.7 mEq/L (5-15); Phosphorous 2.4 mg/dL (2.4-4.9); Potassium 3.7 mmoL/L (3.5-5.1)
--- NOTE | 2018-04-21 07:15 | Progress Note ---
Internal Medicine - PN: Subj *Date: 04/21/18 *Time: 07:13 Interval history: Patient reports feeling well this morning. He thought he was having a hypoglycemic event overnight, but his blood sugar was 162. This morning his biggest complaint is head and chest congestion. Exam Vital signs and Labs for Last 24 Hours: Temp Pulse Resp BP Pulse Ox 97.6 F 70 18 110/65 95 04/21/18 03:39 04/21/18 04:00 04/21/18 03:39 04/21/18 03:39 04/21/18 03:39 Laboratory Results - last 24 hr 04/20/18 08:59: WBC 8.2 D, RBC 4.82, Hgb 13.3 L D, Hct 40.8 L, MCV 84.7, MCH 27.6, MCHC 32.6, RDW 13.8, Plt Count 158 D, MPV 9.6, Neut % (Auto) 70.6, Lymph % (Auto) 22.1, [place] % (Auto) 5.1, Eos % (Auto) 1.8, Baso % (Auto) 0.4, Neut # (Auto) 5.8, Lymph # (Auto) 1.8, [place] # (Auto) 0.4, Eos # (Auto) 0.2, Baso # (Auto) 0.0 04/20/18 08:59: Sodium 136, Potassium 3.4 L, Chloride 101, Carbon Dioxide 27, Anion Gap 11.4, BUN 19 H D, Creatinine 1.47 H D, Estimated Creat Clear 76, Estimated GFR 49 L, Est GFR ( Amer) 60 D, Glucose 308 H D, Calcium 7.9 L 04/20/18 11:58: POC Glucose 253 H 04/20/18 16:49: POC Glucose 279 H 04/20/18 20:49: POC Glucose 331 H* 04/21/18 00:51: POC Glucose 162 H 04/21/18 03:35: POC Glucose 201 H 04/21/18 06:00: WBC 6.5, RBC 4.40 L, Hgb 12.3 L, Hct 38.2 L, MCV 86.7, MCH 28.0, MCHC 32.2, RDW 13.9, Plt Count 143, MPV 9.6, Neut % (Auto) 61.6, Lymph % (Auto) 29.2, [place] % (Auto) 6.2, Eos % (Auto) 2.5, Baso % (Auto) 0.6, Neut # (Auto) 4.0, Lymph # (Auto) 1.9, [place] # (Auto) 0.4, Eos # (Auto) 0.2, Baso # (Auto) 0.0 04/21/18 06:00: Sodium 140, Potassium 3.7, Chloride 108 H, Carbon Dioxide 25, An ion Gap 10.7, BUN 14 D, Creatinine 1.14 D, Estimated Creat Clear 100, Estimated GFR 66, Est GFR ( Amer) 80 D, Glucose 214 H D, Calcium 8.0 L, Phosphorus 2.4 D, Magnesium 1.8 D I & O for Last 24 hours: Intake & Output 04/18/18 04/19/18 04/20/18 04/21/18 11:59 11:59 11:59 11:59 Intake Total 3528 / 3528 1353 / 1353 Output Total 500 / 500 Balance 3028 / 3028 1353 / 1353 Weight 213 lb 2 oz 217 lb Narrative: He is awake and alert. Lungs are clear to auscultation. Heart has a regular rate and rhythm. The abdomen is soft Assessment and Plan (1) Hyperglycemia, unspecified Current visit: No Status: Acute Category: Medical Code(s): R73.9 - Hyperglycemia, unspecified (2) Hypertension Current visit: Yes Status: Chronic Qualifiers: Hypertension type: essential hypertension Qualified Code(s): I10 - Essential (primary) hypertension Category: Medical Code(s): I10 - Essential (primary) hypertension (3) Acute kidney injury Current visit: Yes Status: Acute Category: Medical Code(s): N17.9 - Acute kidney failure, unspecified (4) Hyponatremia Current visit: Yes Status: Acute Category: Medical Code(s): E87.1 - Hypo- osmolality and hyponatremia (5) Hypokalemia Current visit: Yes Status: Acute Category: Medical Code(s): E87.6 - Hypokalemia (6) Type 2 diabetes mellitus with hyperglycemia Current visit: Yes Status: Acute Category: Medical Code(s): E11.65 - Type 2 diabetes mellitus with hyperglycemia - Assessment and plan all Dx Assessment and Plan for all problems:: Plan will be to discharge home today. Patient will gradually titrate his insulin and will be started on metformin 500 mg twice daily
== END 2018-04-21 09:00 | disposition home or self-care (01) ==
LOC: 2ND
PROVIDERS: ADMIT Internal Medicine Adolescent Medicine; ATTEND Internal Medicine Adolescent Medicine

== ENCOUNTER 2018-05-14 18:18 | Observation (INO) ==
--- NOTE | 2018-05-14 18:27 | Emergency Department Note ---
ED Disposition Clinical Impression: Chest pain, Coronary artery disease, Hypertension, Diabetes mellitus Disposition: Still a Patient Condition on Discharge: Fair - Critical Care Critical Care Time: No Attestation: On , the high probability of a clinically significant, sudden or life threatening deterioration of the following system(s) required my full and direct attention, intervention and personal management. The time I documented below is in addition to time spent performing reported procedures but includes the following listed in this critical care notation. Medical Decision Making - Theodore Inquiry Pt receiving controlled substance: No Theodore was queried for this patient: No Vital Signs: 05/14/18 18:21 Temperature 97.8 F Temperature Source Oral Pulse Rate [Right Brachial] 82 Respiratory Rate 17 Blood Pressure [Right Arm] 145/97 H Blood Pressure Mean [Right Arm] 113 Blood Pressure Source [Right Arm] Automatic Cuff Blood Pressure Position [Right Arm] Sitting 02 Sat by Pulse Oximetry 96 Oxygen Delivery Method Room Air - Lab Data Lab Results 05/14/18 18:20: WBC 9.8, RBC 5.13, Hgb 14.7, Hct 45.2, MCV 88.1, MCH 28.6, MCHC 32.5, RDW 15.1, Plt Count 262, MPV 7.7, Neut % (Auto) 70.5, Lymph % (Auto) 18.4, [place] % (Auto) 7.5, Eos % (Auto) 3.2, Baso % (Auto) 0.4, Neut # (Auto) 6.9, Lymph # (Auto) 1.8, [place] # (Auto) 0.7, Eos # (Auto) 0.3, Baso # (Auto) 0.0 05/14/18 18:20: D-Dimer 114 05/14/18 18:20: Sodium 137, Potassium 4.3, Chloride 105, Carbon Dioxide 23, Anion Gap 13.3, BUN 23 H, Creatinine 1.17, Estimated Creat Clear 96, Estimated GFR 64, Est GFR ( Amer) 78, Glucose 114 H, Calcium 8.6, Total Bilirubin 0.5, AST 30, ALT 65, Alkaline Phosphatase 97, Troponin I < 0.02, Total Protein 7.3, Albumin 3.5, Globulin 3.8 H, Albumin/Globulin Ratio 0.9 L 05/14/18 18:20: B-Natriuretic Peptide 24 Result diagrams: 05/14/18 18:20 05/14/18 18:20 Orders (Tests/Meds): ED MEDICATIONS Generic Name Dose Route Start Last Admin Trade Name Freq PRN Reason Stop Dose Admin Sodium Chloride 1,000 mls @ 500 mls/hr 05/14/18 18:30 05/14/18 18:26 Sod Chlor 0.9% 1000ml Bag IV 05/14/18 20:29 500 mls/hr .Q2H ILENE Administration Discontinued Medications Generic Name Dose Route Start Last Admin Trade Name Freq PRN Reason Stop Dose Admin Enoxaparin Sodium 80 mg 05/14/18 18:22 05/14/18 18:25 Lovenox 80mg/0.8ml Syringe SQ 05/14/18 18:23 80 mg ONCE ONE Administration Famotidine 20 mg 05/14/18 18:22 05/14/18 18:25 Pepcid 20mg/2ml Vial IV 05/14/18 18:23 20 mg ONCE ONE Administration Metoprolol Tartrate 5 mg 05/14/18 18:28 Metoprolol Tartrate 5mg/5ml Vial IV 05/14/18 18:29 ONCE ONE Morphine Sulfate 2 mg 05/14/18 18:23 05/14/18 18:25 Morphine 2mg/Ml Syringe IV 05/14/18 18:24 2 mg ONCE ONE Administration Nitroglycerin 0.5 gm 05/14/18 18:22 05/14/18 18:25 Nitroglycerin 1 Inch Oint Udp TD 05/14/18 18:23 0.5 gm ONCE ONE Administration ORDERS Category Date Time Status Chest XR -- portable [XR chest portable] Stat Exams 05/14/18 18:22 Taken - ECG Data Tracing #1 Normal sinus rhythm 82/min nonspecific ST segment changes normal T waves no acute finding. ECG initial impression date: 05/14/18 ECG initial impression time: 18:20 Medical Decision Narrative: She will receive the Lovenox nitroglycerin paste and Lopressor IV with reduction of his chest pain to 2/10. His first set of enzymes are negative so I spoke with Dr. Mendez who agreed to admit him for symmetry and serial enzymes. I discussed with the patient was agreeable.. Chest Pain HPI - General Chief Complaint: Chest Pain Stated Complaint: chest pain,jaw pain Time Seen by Provider: 05/14/18 18:20 Mode of Arrival: Ambulatory Source of Information: Patient, Spouse Limitations: No Limitations - History of Present Illness HPI narrative: 57 years old white male with history of coronary artery disease status post stenting 2 years ago recently diagnosed with diabetes mellitus. Today at 2:30 PM he developed retrosternal chest pressure radiating to the jaws similar to his prior STEMI. The patient rated the pain/3/10 use nitroglycerin with relief but the pain came back rated 6/10 was brought by his for evaluation underwent the study 1212-lead EKG which was normal sinus rhythm 82/min nonspecific ST and T wave changes no acute finding. He denies having shortness of breath palpitations nausea vomiting diarrhea hematuria dysuria or frequency.. Denies having hematemesis coffee-ground emesis melanotic stool or bleeding per rectum.. MD complaint: chest pain indicative of cardiac Onset (ago): hour(s) (4 hours.) Time: 14:30 Duration: constant Activity at onset: during rest Pain location: substernal Severity: moderate Severity scale (1-10): 6 Quality: aching, dull Pain radiation: jaw/teeth Relieving factors: nitroglycerin Exacerbating factors: nothing Risk Factors for CAD: Hypertension, Diabetes Treatments prior to or on arrival for Cardiac Chest Pain: aspirin, nitroglycerin - Related Data Home Medications Medication Instructions Recorded Confirmed Aspirin [Aspirin 81mg chewable 81 mg PO DAILY 06/09/17 04/19/18 tab] Atorvastatin Calcium [Atorvastatin 80 mg PO DAILY 06/09/17 04/19/18 80mg Tab] Fluticasone/Vilanterol [Breo 1 each IH DAILY 06/09/17 04/19/18 Ellipta 200-25 Mcg INH] Losartan Potassium [Cozaar] 25 mg PO DAILY 06/09/17 04/19/18 Nitroglycerin 0.4 mg SL NEEDED PRN 06/09/17 04/19/18 Pantoprazole Sodium [Protonix 40mg 40 mg PO BID 06/09/17 04/20/18 tablet] Metoprolol Succinate 50 mg PO DAILY 04/19/18 04/19/18 raNITIdine HCl [Ranitidine HCl] 300 mg PO HS 04/19/18 04/19/18 Tamsulosin HCl [Flomax 0.4mg 0.4 mg PO HS 04/20/18 04/20/18 capsule] Previous Rx's Medication Instructions Recorded montelukast 10 mg tablet 10 mg PO HS 90 Days #90 tab 09/17/17 fluticasone 50 mcg/actuation nasal 2 spray INTRANASAL DAILY #9.9 g 09/30/17 spray,suspension Insulin Glargine,Hum.rec.anlog 25 unit SQ HS insuln.pen 04/20/18 [Insulin Glargine 100 Units/mL 3mL flexpen] Metformin HCl [Glucophage 500mg 500 mg PO BID #60 tab 04/20/18 Tablet] clopidogrel 75 mg tablet 75 mg PO DAILY #30 tab 05/03/18 Allergies Allergy/AdvReac Type Severity Reaction Status Date / Time No Known Allergies Allergy Verified 10/07/17 09:30 [facility] History - Hepatitis A Screen Attestation statement:: This patient has been screened for Hepatitis A risk factors. Medical History: Reports:: Coronary Artery Disease, Hyperlipidemia, Hypertension, Lung Disease, Myocardial Infarction Denies:: Cancer, Diabetes Mellitus Type 1, Diabetes Mellitus Type 2, Internal Pacemaker, MRSA, Seizures Other Medical History: Reports: Arthritis Other Surgeries: Yes: Appendectomy, Cardiac Catheterization, Colonoscopy, Coronary Stent (x2), EGD. No: Pacemaker Amputation: No Fractures: No - Social History Smoking Status: Former smoker Tobacco Type: cigarettes #Yrs smoked (if former smoker): 30 Alcohol Intake: never Alcohol Intake Frequency:: other Occupational Status: employed Housing: house Household Members: spouse Family Hx:: No significant family history, Non-contributory, Cancer, Heart Attack ROS Obtained: Yes All systems reviewed & no additional complaints Physical Exam - General General appearance: alert, in no apparent distress - Head Head exam: atraumatic, normocephalic, normal inspection - Eye Eye exam: Present: normal appearance, PERRL, EOMI. Absent: scleral icterus, nystagmus - ENT ENT exam: Present: normal exam, normal oropharynx, mucous membranes moist, TM's normal bilaterally, normal external ear exam - Neck Neck exam: Present: normal inspection, full ROM, trachea midline. Absent: tenderness, meningismus, lymphadenopathy - Chest Chest inspection: Present: normal inspection, symmetric chest wall rise. Absent: tenderness - Respiratory Respiratory exam: Present: normal lung sounds bilaterally. Absent: respiratory distress - Cardiovascular Cardiovascular exam: Present: regular rate, normal rhythm, normal heart sounds. Absent: JVD - Abdominal Exam Abdominal exam: Present: soft, normal bowel sounds, other (Large obese abdomen. ). Absent: distention, tenderness, guarding, rebound, rigidity, Noble's sign, tenderness at McBurney's Point - Extremities Exam Extremities exam: Present: normal inspection, full ROM, normal capillary refill. Absent: calf tenderness - Back Exam Back exam: Present: normal inspection. Absent: tenderness, CVA tenderness (R), CVA tenderness (L) - Neurological Exam Neurological exam: Present: alert, oriented X3, CN II-XII intact, motor sensory deficit, reflexes normal - Psychiatric Psychiatric exam: Present: normal affect, normal mood - Skin Skin exam: Present: warm, dry, intact, normal color - Lymphatic Lymphatic Findings: no adenopathy
[2018-05-14 18:38] LABS: Basophils % 0.4 % (0.1-2.0); Eosinophils # 0.3 K/mm3 (0.0-0.4); Eosinophils % 3.2 % (0.1-12.0); Hematocrit 45.2 % (42.0-52.0); Hemoglobin 14.7 g/dL (14.1-18.0); Lymphocytes # 1.8 K/mm3 (0.7-4.5); Lymphocytes % 18.4 % (10-50); Mean Corpuscular HGB Conc 32.5 g/dL (31.8-35.4); Mean Corpuscular Hemoglobin 28.6 pg (27.0-31.2); Mean Corpuscular Volume 88.1 fl (80-94); Mean Platelet Volume 7.7 fl (7.4-10.4); Monocytes # 0.7 K/mm3 (0.1-1.0); Monocytes % 7.5 % (1.7-9.3); Neutrophils # 6.9 K/mm3 (1.8-7.8); Neutrophils % 70.5 % (37.0-80.0); Platelet Count 262 K/mm3 (142-424); Red Blood Count 5.13 M/mm3 (4.60-6.20); Red Cell Distribution Width 15.1 % (11.5-17.5); White Blood Count 9.8 K/mm3 (4.8-10.8)
[2018-05-14 18:49] LABS: Alanine Aminotransferase 65 U/L (12-78); Albumin Level 3.5 gm/dL (3.4-5.0); Albumin/Globulin Ratio 0.9 (1.1-1.8); Alkaline Phosphatase 97 U/L (46-116); Anion Gap 13.3 mEq/L (5-15); Aspartate Amino Transferase 30 U/L (15-37); Bilirubin,Total 0.5 mg/dL (0.2-1.0); Blood Urea Nitrogen 23 mg/dL (7-18); Calcium 8.6 mg/dL (8.5-10.1); Carbon Dioxide 23 mmol/L (21.0-32.0); Chloride 105 mmol/L (98-107); Globulin 3.8 gm/dl (1.3-3.2); Glucose 114 mg/dL (74-106); Potassium 4.3 mmoL/L (3.5-5.1); Sodium 137 mmol/L (136-145); Total Protein,Serum 7.3 gm/dL (6.4-8.2)
[2018-05-15 06:13] LABS: Basophils % 0.4 % (0.1-2.0); Eosinophils # 0.3 K/mm3 (0.0-0.4); Eosinophils % 3.9 % (0.1-12.0); Hematocrit 39.8 % (42.0-52.0); Lymphocytes # 1.7 K/mm3 (0.7-4.5); Lymphocytes % 26.2 % (10-50); Mean Corpuscular Hemoglobin 28.1 pg (27.0-31.2); Mean Corpuscular Volume 87.9 fl (80-94); Mean Platelet Volume 8.9 fl (7.4-10.4); Monocytes # 0.6 K/mm3 (0.1-1.0); Monocytes % 9.6 % (1.7-9.3); Neutrophils # 3.8 K/mm3 (1.8-7.8); Neutrophils % 59.8 % (37.0-80.0); Platelet Count 204 K/mm3 (142-424); Red Blood Count 4.52 M/mm3 (4.60-6.20); Red Cell Distribution Width 15.1 % (11.5-17.5); White Blood Count 6.4 K/mm3 (4.8-10.8)
[2018-05-15 06:15] LABS: Hemoglobin 12.7 g/dL (14.1-18.0)
[2018-05-15 06:21] LABS: Anion Gap 10.5 mEq/L (5-15); Calcium 7.9 mg/dL (8.5-10.1); Potassium 4.5 mmoL/L (3.5-5.1)
--- NOTE | 2018-05-15 11:03 | H&P/Discharge Summary ---
General - General Admission date:: 05/14/18 Discharge date: 05/15/18 *Admission Date: 05/14/18 *Chief complaint: chest pain *History of present illness: Mr. Saucedo is a 57-year-old patient well-known to our practice with history of coronary artery disease, hiatal hernia, insulin-dependent diabetes, who presented yesterday to the ER with severe substernal and epigastric chest pain with radiation to right shoulder. Had tried nitroglycerin at home with brief benefit and then recurrence. Received treatment for angina in the ER with no benefit. EKG normal, troponins negative. Had resolution of pain after receiv ing GI cocktail. Admitted to medicine service for further management. [facility] History I have reviewed the patient's past medical history: Yes Medical History: Reports:: Coronary Artery Disease, Diabetes Mellitus Type 2, Hyperlipidemia, Hypertension, Lung Disease, Myocardial Infarction Denies:: Cancer, Diabetes Mellitus Type 1, Internal Pacemaker, MRSA, Seizures Other Medical History: Reports: Arthritis Other Surgeries: Yes: Appendectomy, Cardiac Catheterization, Colonoscopy, Coronary Stent (x2), EGD. No: Pacemaker Amputation: No Fractures: No - *Social History Educational Level: Completed GED/General Educational Development Smoking Status: Former smoker Tobacco Type: cigarettes #Yrs smoked (if former smoker): 30 Alcohol Intake: never Alcohol Intake Frequency:: other Occupational Status: employed Housing: house Household Members: spouse - Psychiatric History Expresses thoughts of harming self/others: None Suicide Plan Description: No Plan *Family Hx:: No significant family history, Non-contributory, Cancer, Heart Attack Review of Systems - Review of Systems Review of systems:: pertinent systems reviewed and negative unless documented below - Constitutional Denies body ache(s), Denies chills - Eyes Reports blurry vision - *Cardiovascular Reports chest pain, Denies chest pain with activity, Denies shortness of breath - *Respiratory Denies change in phlegm color, Denies chest congestion - *Gastrointestinal Reports abdominal pain (Epigastric) Exam Vital signs and Labs for Last 24 Hours: Temp Pulse Resp BP Pulse Ox 98.1 F 80 17 126/82 95 05/15/18 08:00 05/15/18 08:00 05/15/18 08:00 05/15/18 08:00 05/15/18 08:00 Laboratory Results - last 24 hr 05/14/18 18:20: WBC 9.8, RBC 5.13, Hgb 14.7, Hct 45.2, MCV 88.1, MCH 28.6, MCHC 32.5, RDW 15.1, Plt Count 262, MPV 7.7, Neut % (Auto) 70.5, Lymph % (Auto) 18.4, [place] % (Auto) 7.5, Eos % (Auto) 3.2, Baso % (Auto) 0.4, Neut # (Auto) 6.9, Lymph # (Auto) 1.8, [place] # (Auto) 0.7, Eos # (Auto) 0.3, Baso # (Auto) 0.0 05/14/18 18:20: D-Dimer 114 05/14/18 18:20: Sodium 137, Potassium 4.3, Chloride 105, Carbon Dioxide 23, Anion Gap 13.3, BUN 23 H, Creatinine 1.17, Estimated Creat Clear 96, Estimated GFR 64, Est GFR ( Amer) 78, Glucose 114 H, Calcium 8.6, Total Bilirubin 0.5, AST 30, ALT 65, Alkaline Phosphatase 97, Troponin I < 0.02, Total Protein 7 .3, Albumin 3.5, Globulin 3.8 H, Albumin/Globulin Ratio 0.9 L 05/14/18 18:20: B-Natriuretic Peptide 24 05/14/18 19:07: POC Glucose 84 05/14/18 22:25: Troponin I < 0.02 05/14/18 23:50: POC Glucose 129 H 05/15/18 01:20: Troponin I < 0.02 05/15/18 05:55: WBC 6.4 D, RBC 4.52 L, Hgb 12.7 L D, Hct 39.8 L, MCV 87.9, MCH 28.1, MCHC 32.0, RDW 15.1, Plt Count 204, MPV 8.9, Neut % (Auto) 59.8, Lymph % (Auto) 26.2, [place] % (Auto) 9.6 H, Eos % (Auto) 3.9, Baso % (Auto) 0.4, Neut # (Auto) 3.8, Lymph # (Auto) 1.7, [place] # (Auto) 0.6, Eos # (Auto) 0.3, Baso # ( Auto) 0.0 05/15/18 05:55: Sodium 141, Potassium 4.5, Chloride 109 H, Carbon Dioxide 26, Anion Gap 10.5, BUN 16 D, Creatinine 1.17, Estimated Creat Clear 98, Estimated GFR 64, Est GFR ( Amer) 78, Glucose 88 D, Calcium 7.9 L I & O for Last 24 hours: Intake & Output 05/12/18 05/13/18 05/14/18 05/15/18 23:59 23:59 23:59 23:59 Intake Total 240 / 240 Balance 240 / 240 Weight 99.337 kg - Constitutional no acute distress, obese - *Routine HEENT Exam Head: Present: normocephalic, atraumatic Eye: Present: EOMI, PERRL ENT: Present: mucous membranes moist - *Routine Neck Exam Present: supple. Absent: JVD, lymphadenopathy - *Routine Respiratory Exam Present: CTA bilaterally. Absent: accessory muscle use, prolonged expiratory phase, wheezes, crackles - *Routine Cardiovascular Exam Present: RRR, Normal S1, Normal S2. Absent: murmur - *Routine Abdominal Exam Present: soft, tenderness (Epigastric) - *Routine Rectal Exam Patient deferred: visual exam - *Routine Exam Patient deferred: penile exam - *Routine Extremities Exam Absent: cyanosis, clubbing, edema - *Routine Skin Exam Present: intact. Absent: cyanosis, erythema - *Routine Neurological Exam Present: alert. Absent: altered mental status Hospital Course Hospital Course: Admitted to medicine overnight. Troponin monitored and negative on serial measurements. EKG normal with no changes. Received GI cocktail with resolution of presenting symptoms. Remained asymptomatic thereafter. Tolerating regular diet. Hemodynamically stable and afebrile. Medically stable for discharge home. Patient ready has follow-up scheduled for Wednesday, will keep this appointment. Have contacted PCP office to try and schedule appointment for patient to see gastroenterology or surgery to address his hiatal hernia and came for repair to decrease recurrence of symptoms. Initiated patient on Protonix twice daily and ranitidine at time of discharge. Results Labs on day of discharge: Labs from last 24 hours 05/15/18 05/15/18 05/15/18 05:55 05:55 01:20 WBC 6.4 D RBC 4.52 L Hgb 12.7 L D Hct 39.8 L MCV 87.9 MCH 28.1 MCHC 32.0 RDW 15.1 Plt Count 204 MPV 8.9 Neut % (Auto) 59.8 Lymph % (Auto) 26.2 [place] % (Auto) 9.6 H Eos % (Auto) 3.9 Baso % (Auto) 0.4 Neut # (Auto) 3.8 Lymph # (Auto) 1.7 [place] # (Auto) 0.6 Eos # (Auto) 0.3 Baso # (Auto) 0.0 D-Dimer Sodium 141 Potassium 4.5 Chloride 109 H Carbon Dioxide 26 Anion Gap 10.5 BUN 16 D Creatinine 1.17 Estimated Creat Clear 98 Estimated GFR 64 Est GFR ( Amer) 78 Glucose 88 D POC Glucose Calcium 7.9 L Total Bilirubin AST ALT Alkaline Phosphatase Troponin I < 0.02 B-Natriuretic Peptide Total Protein Albumin Globulin Albumin/Globulin Ratio 05/14/18 05/14/18 05/14/18 23:50 22:25 19:07 WBC RBC Hgb Hct MCV MCH MCHC RDW Plt Count MPV Neut % (Auto) Lymph % (Auto) [place] % (Auto) Eos % (Auto) Baso % (Auto) Neut # (Auto) Lymph # (Auto) [place] # (Auto) Eos # (Auto) Baso # (Auto) D-Dimer Sodium Potassium Chloride Carbon Dioxide Anion Gap BUN Creatinine Estimated Creat Clear Estimated GFR Est GFR ( Amer) Glucose POC Glucose 129 H 84 Calcium Total Bilirubin AST ALT Alkaline Phosphatase Troponin I < 0.02 B-Natriuretic Peptide Total Protein Albumin Globulin Albumin/Globulin Ratio 05/14/18 05/14/18 05/14/18 18:20 18:20 18:20 WBC RBC Hgb Hct MCV MCH MCHC RDW Plt Count MPV Neut % (Auto) Lymph % (Auto) [place] % (Auto) Eos % (Auto) Baso % (Auto) Neut # (Auto) Lymph # (Auto) [place] # (Auto) Eos # (Auto) Baso # (Auto) D-Dimer 114 Sodium 137 Potassium 4.3 Chloride 105 Carbon Dioxide 23 Anion Gap 13.3 BUN 23 H Creatinine 1.17 Estimated Creat Clear 96 Estimated GFR 64 Est GFR ( Amer) 78 Glucose 114 H POC Glucose Calcium 8.6 Total Bilirubin 0.5 AST 30 ALT 65 Alkaline Phosphatase 97 Troponin I < 0.02 B-Natriuretic Peptide 24 Total Protein 7.3 Albumin 3.5 Globulin 3.8 H Albumin/Globulin Ratio 0.9 L 05/14/18 18:20 WBC 9.8 RBC 5.13 Hgb 14.7 Hct 45.2 MCV 88.1 MCH 28.6 MCHC 32.5 RDW 15.1 Plt Count 262 MPV 7.7 Neut % (Auto) 70.5 Lymph % (Auto) 18.4 [place] % (Auto) 7.5 Eos % (Auto) 3.2 Baso % (Auto) 0.4 Neut # (Auto) 6.9 Lymph # (Auto) 1.8 [place] # (Auto) 0.7 Eos # (Auto) 0.3 Baso # (Auto) 0.0 D-Dimer Sodium Potassium Chloride Carbon Dioxide Anion Gap BUN Creatinine Estimated Creat Clear Estimated GFR Est GFR ( Amer) Glucose POC Glucose Calcium Total Bilirubin AST ALT Alkaline Phosphatase Troponin I B-Natriuretic Peptide Total Protein Albumin Globulin Albumin/Globulin Ratio DS: Diagnosis - Discharge Diagnosis (1) GERD (gastroesophageal reflux disease) Status: Acute Problem details: Presenting symptoms most consistent with severe GERD, resolved with GI cocktail. Continue Protonix twice daily along with ranitidine. Prescribed viscous lidocaine and Maalox for home use if has recurrence of symptoms. follow-up Wednesday. Referred to GI/surgery for discussion of hiatal hernia repair (2) Chest pain Status: Resolved (3) Coronary artery disease Status: Chronic Problem details: Continued home medications (4) Diabetes mellitus Status: Chronic Problem details: Continued insulin (5) Hypertension Status: Chronic Problem details: Continued home meds. Stable during admission Discharge Medications - Medications for Discharge Home Medication List at Discharge: Continue montelukast 10 mg tablet 10 mg PO HS 90 Days #90 tab clopidogrel 75 mg tablet 75 mg PO DAILY #30 tab fluticasone 50 mcg/actuation nasal spray,suspension 2 spray INTRANASAL DAILY #9.9 g Aspirin [Aspirin 81mg chewable tab] 81 mg PO DAILY Nitroglycerin 0.4 mg SL NEEDED PRN PRN Reason: Chest Pain Losartan Potassium [Cozaar] 25 mg PO DAILY Fluticasone/Vilanterol [Breo Ellipta 200-25 Mcg INH] 1 each IH DAILY Atorvastatin Calcium [Atorvastatin 80mg Tab] 80 mg PO DAILY Metoprolol Succinate 50 mg PO DAILY raNITIdine HCl [Ranitidine HCl] 300 mg PO HS Metformin HCl [Glucophage 500mg Tablet] 500 mg PO BID #60 tab Insulin Glargine,Hum.rec.anlog [Insulin Glargine 100 Units/mL 3mL flexpen] 25 unit SQ HS Pantoprazole Sodium [Protonix 40mg tablet] 40 mg PO BID Tamsulosin HCl [Flomax 0.4mg capsule] 0.4 mg PO HS Disposition Disposition: Home, Self-Care
--- NOTE | 2018-05-15 11:17 | Pharmacy Consult Notes ---
[facility] Pharmacy VTE Monitoring - Patient Demographics Admission date: 05/14/18 Report Date: 05/15/18 Time: 11:16 Allergies/Adverse Reactions: Patient Allergies No Known Allergies Allergy (Verified 10/07/17 09:30) Height: 1.68 m Weight: 99.337 kg Patient Problems: Current Active Problems Hypertension (Chronic) Coronary artery disease (Chronic) Diabetes mellitus (Chronic) GERD (gastroesophageal reflux disease) (Acute) - VTE Risk Labs: VTE Related Lab Results Hgb 12.7 g/dL (14.1-18.0) L D 05/15/18 05:55 Hct 39.8 % (42.0-52.0) L 05/15/18 05:55 Plt Count 204 K/mm3 (142-424) 05/15/18 05:55 BUN 16 mg/dL (7-18) D 05/15/18 05:55 Creatinine 1.17 mg/dL (0.70-1.30) 05/15/18 05:55 Estimated Creat Clear 98 mL/min (50-200) 05/15/18 05:55 Was VTE Risk Assessment Performed: Yes VTE Score: 7 VTE Risk Level: Moderate Risk - Prophylaxis VTE Prophylaxis Ordered?: Yes Types of VTE Prophylaxis: Pharmacological Pharmacologic Type: Enoxaparin
== END 2018-05-15 11:38 | disposition home or self-care (01) ==
LOC: 2ND 18:18 → ER 18:18 → 2ND 21:03
PROVIDERS: ADMIT Family Medicine; ATTEND Internal Medicine Adolescent Medicine

== ENCOUNTER → 2018-06-07 09:27 | Outpatient (CLI) | payer BC, SELFPAY | PROVIDERS: PCP Internal Medicine Adolescent Medicine; Visit Provider Internal Medicine Adolescent Medicine | DX: Z71.3 Dietary counseling and surveillance (principal); E11.69 Type 2 diabetes mellitus with other specified complication | CPT/HCPCS: 97802 ==

== ENCOUNTER → 2018-06-20 14:09 | Outpatient (POV) | payer BC, SELFPAY | PROVIDERS: Visit Provider Nurse Practitioner Acute Care | DX: Z00.00 Encounter for general adult medical examination without abnormal findings (principal) ==

== ENCOUNTER → 2018-07-06 07:06 | Outpatient (CLI) | payer BC, SELFPAY ==
[2018-07-06 14:00] LABS: Basophils % 0.4 % (0.1-2.0); Eosinophils # 0.2 K/mm3 (0.0-0.4); Eosinophils % 2.3 % (0.1-12.0); Hemoglobin 15.1 g/dL (14.1-18.0); Lymphocytes # 1.6 K/mm3 (0.7-4.5); Lymphocytes % 20.9 % (10-50); Mean Corpuscular HGB Conc 33.6 g/dL (31.8-35.4); Mean Corpuscular Hemoglobin 29.1 pg (27.0-31.2); Mean Corpuscular Volume 86.7 fl (80-94); Mean Platelet Volume 8.1 fl (7.4-10.4); Monocytes # 0.6 K/mm3 (0.1-1.0); Monocytes % 7.5 % (1.7-9.3); Neutrophils # 5.3 K/mm3 (1.8-7.8); Platelet Count 228 K/mm3 (142-424); Red Blood Count 5.19 M/mm3 (4.60-6.20); Red Cell Distribution Width 14.1 % (11.5-17.5); White Blood Count 7.6 K/mm3 (4.8-10.8)
[2018-07-06 14:53] LABS: Alanine Aminotransferase 48 U/L (12-78); Albumin Level 3.9 gm/dL (3.4-5.0); Albumin/Globulin Ratio 1.3 (1.1-1.8); Alkaline Phosphatase 80 U/L (46-116); Aspartate Amino Transferase 21 U/L (15-37); Bilirubin,Total 0.4 mg/dL (0.2-1.0); Blood Urea Nitrogen 23 mg/dL (7-18); Calcium 9.6 mg/dL (8.5-10.1); Carbon Dioxide 24 mmol/L (21.0-32.0); Chloride 104 mmol/L (98-107); Chol/HDL Ratio 4.3 (1-3.5); Cholesterol 146 mg/dL (140-200); Creatinine,Serum 1.26 mg/dL (0.70-1.30); Estimated Glomerular Filt Rate 59 ml/min (>60); GFR (African American) 71 ML/MIN (>60); Glucose 116 mg/dL (74-106); HDL Cholesterol 34 mg/dL (27-67); LDL Cholesterol 79 mg/dL (0-130); Sodium 141 mmol/L (136-145); Total Protein,Serum 6.9 gm/dL (6.4-8.2); Triglycerides 165 mg/dL (30-200); VLDL Cholesterol 33 mg/dL (0-40)
[2018-07-06 17:04] LABS: Hemoglobin A1C 6.3 % (0.0-7.0)
== END ==
PROVIDERS: PCP Internal Medicine Adolescent Medicine; Visit Provider Internal Medicine Adolescent Medicine
DX: I25.10 Atherosclerotic heart disease of native coronary artery without angina pectoris (principal); E11.69 Type 2 diabetes mellitus with other specified complication; I10 Essential (primary) hypertension
CPT/HCPCS: 36415; 80053; 80061; 83036; 85025

== ENCOUNTER → 2018-07-27 16:28 | Outpatient (CLI) | payer BC, SELFPAY ==
--- NOTE | 2018-07-27 16:33 | XR_ITS ---
EXAM: XR lumbar spine min 4V HISTORY: Low back pain ORDERING PHYSICIAN: Piyush Malik MD PATIENT AGE: 57 years COMPARISON: None FINDINGS: Normal alignment. No fracture or dislocation. There is mild degenerative disc disease in the lower thoracic spine and at L1-L2. There is a faint longitudinal density along the anterior aspect of L3 vertebral body at the cortex region. This is of questionable clinical significance and may be due to subadjacent vascular calcification. IMPRESSION: 1. Mild degenerative change. 2. Faint longitudinal density along the anterior aspect of L3 vertebral body of questioned clinical significance and may be better evaluated with CT if clinically warranted
--- NOTE | 2018-07-27 16:33 | XR_ITS ---
EXAM: XR thoracic spine 3V HISTORY: Back pain Comparison: None FINDINGS: There is minimal lower thoracic curvature convex left. There is normal alignment. No fracture or dislocation. There is mild spurring with slight decrease in the disc space in the lower thoracic spine. No lytic or blastic change. IMPRESSION: Minimal degenerative change, no acute finding
== END ==
PROVIDERS: PCP Internal Medicine Adolescent Medicine; Visit Provider Internal Medicine Adolescent Medicine
DX: M54.6 Pain in thoracic spine (principal); M54.5 Low back pain
CPT/HCPCS: 72072; 72110

== ENCOUNTER 2018-08-22 16:30 | Outpatient (RCR) | payer BC, SELFPAY ==
--- NOTE | 2018-08-02 18:02 | HMH.PTOPEV ---
PT Outpatient Evaluation Rehab PT Outpatient Evaluation Start: 08/02/18 17:40 Freq: Status: Active Protocol: Document 08/02/18 17:40 PDESEROUX (Rec: 08/02/18 18:02 PDESEROUX [id number]) Electronically Signed By Jean Claude Castorena PT 08/02/18 17:40 Outpatient Therapy Subjective History Subjective History Pt. is a 57 year old male who presents to outpatient PT with complaints of R shoulder/RUE acute pain of insidious onset since 05/31. Pt. reports a constant, sharp ache in his R shoulder and down to his R elbow that gets worse with sitting. Pt. reports elevating and positioning his RUE over his head provides some symptom relief. Pt. denies having recent diagnostic imaging nor injections for his current pathology. Pt. denies radiating pain inferior to R elbow. Pt. reports he RTMD on 08/16/18. See chart for current medications. PMH includes an appendectomy, herniorrhaphy, 2 cardiovascular stents in and July of 2016, HTN, high cholesterol, and diabetes. Chief Complaint Pain Symptom Type Sharp Shooting Symptoms Relieved By Rest/Positioning Symptoms Aggravated By Sitting Prior Functional Limitations None Current Functional Limitations Lifting Desk Work/Reading Sleeping Sitting Recreation Activity Symptom Description Constant and Continuous Level of pain today (0-10) 7 Pain scale - at its best (0-10) 4 Pain scale - at its worst (0-10) 10 Cervical Eval Palpation Cervical Muscles R SCM L SCM R CT Junction L CT Junction R Upper Trapezius L Upper Trapezius Cervical/Thoracic Palpation Findings Tenderness Posture Head/C-Spine Posture Sitting Position Flexed Head/C-Spine Posture Standing Position Flexed Flexibility Deficits Upper Trapezius Muscle Length (R) Severe Tig
== END 2018-09-12 14:27 | disposition home or self-care (01) ==
LOC: PT 16:30
PROVIDERS: Visit Provider Internal Medicine Adolescent Medicine
DX: M54.6 Pain in thoracic spine (principal); M54.5 Low back pain
CPT/HCPCS: 97010; 97012; 97014; 97110; 97163; G0283

== ENCOUNTER → 2018-11-29 09:19 | Outpatient (POV) | payer BC, SELFPAY | PROVIDERS: Visit Provider Dermatology | DX: Z00.00 Encounter for general adult medical examination without abnormal findings (principal) ==

== ENCOUNTER → 2019-03-22 15:10 | Outpatient (CLI) | payer BC, SELFPAY ==
--- NOTE | 2019-03-22 15:12 | CT_ITS ---
PROCEDURE: CT LUNG SCREENING CLINICAL INDICATION: HX TOBACCO USE Eighty pack-year smoking history, asymptomatic for lung cancer COMPARISON: LDCTLCAS LDCT FOR LUNG CA SCREEN from 01/18/2017 TECHNIQUE: The exam was performed on a GE Light Speed [address] scanner using 2.90 mGy CTDI. A low dose helical CT CHEST was performed on a multi-detector scanner. All CT scans at the facility use one or more dose reduction, viz: automated exposure control, ma/kV adjustment per patient size (including targeted exams where dose is matched to indication, i.e. head), or iterative reconstruction technique. The LDCT was performed in a facility that meets the criteria for the screening program. Data regarding this exam was submitted to ACR which is an approved registry. The order for this exam indicates that it came as a result of a lung cancer screening counseling shard decision-making visit that included all the elements required of such a visit including smoking cessation. The radiologist interpreting this exam meets the CMS criteria for the LDCT lung cancer screening program. The exam is reported using the Lung-RADS classification scale and reported to the ACR registry. NOTE: This study was performed for the specific purposes of lung cancer screening and is not an alternative to diagnostic chest CT. RADIATION DOSE: CTDI vol(CT dose Index-volume) = 2.90mG DLP (Dose Length Product) = 105.51 mGcm FINDINGS: Coronary artery calcifications. Minimal calcification noted along the left ventricle medially. COPD with scarring in scattered areas. Minimal atelectatic change right lung base. 4 mm nodule extreme right lung base able OTHER FINDINGS: No other pertinent findings evident. IMPRESSION: Lung rads category 2 benign Recommend continued annual screening LD CT Dictated by: Jj Harris MD 03/23/2019 06:41 Electronically signed by Jj Harris MD in [place] 04/09/2019 06:13
== END ==
PROVIDERS: PCP Internal Medicine Adolescent Medicine; Visit Provider Internal Medicine Adolescent Medicine
DX: Z87.891 Personal history of nicotine dependence (principal); Z12.2 Encounter for screening for malignant neoplasm of respiratory organs

== ENCOUNTER → 2019-04-11 13:28 | Outpatient (CLI) | payer BC, SELFPAY ==
--- NOTE | 2019-04-11 13:58 | MR_ITS ---
PROCEDURE: MR HEAD/BRAIN WO CON CLINICAL INDICATION: head ache Severe headache with blurry vision COMPARISON: CT HEAD/BRAIN WO CON from 04/04/2019 TECHNIQUE: Routine multiplanar multi echo sequences are performed without gadolinium enhancement. FINDINGS: No midline shift, mass effect, intracranial hemorrhage, or hydrocephalus. No evidence of acute infarction. The cerebellopontine angles, cerebellum and brainstem have an unremarkable appearance. The pituitary, optic chiasm, corpus callosum, and craniocervical junction have an unremarkable appearance. No mastoid effusion or sinus air-fluid level. There is mild mucosal thickening of the right maxillary sinus.. IMPRESSION: No acute intracranial findings Dictated by: Jj Harris MD 04/11/2019 17:59 Electronically signed by Jj Harris MD in [place] 04/12/2019 05:01
== END ==
PROVIDERS: PCP Internal Medicine Adolescent Medicine; Visit Provider Nurse Practitioner Family
DX: R51 Headache (principal); I25.10 Atherosclerotic heart disease of native coronary artery without angina pectoris
CPT/HCPCS: 70551

== ENCOUNTER → 2019-07-12 07:00 | Outpatient (CLI) | payer BC, SELFPAY ==
[2019-07-12 14:15] LABS: Basophils % 0.6 % (0.1-2.0); Eosinophils # 0.2 K/mm3 (0.0-0.4); Eosinophils % 3.8 % (0.1-12.0); Hematocrit 44.3 % (42.0-52.0); Hemoglobin 14.7 g/dL (14.1-18.0); Lymphocytes # 1.5 K/mm3 (0.7-4.5); Lymphocytes % 25.9 % (10-50); Mean Corpuscular HGB Conc 33.1 g/dL (31.8-35.4); Mean Corpuscular Hemoglobin 28.8 pg (27.0-31.2); Mean Corpuscular Volume 87.1 fl (80-94); Mean Platelet Volume 9.5 fl (7.4-10.4); Monocytes # 0.5 K/mm3 (0.1-1.0); Monocytes % 8.5 % (1.7-9.3); Neutrophils # 3.6 K/mm3 (1.8-7.8); Neutrophils % 61.3 % (37.0-80.0); Platelet Count 202 K/mm3 (142-424); Red Blood Count 5.09 M/mm3 (4.60-6.20); Red Cell Distribution Width 13.1 % (11.5-17.5); White Blood Count 5.9 K/mm3 (4.8-10.8)
[2019-07-12 14:21] LABS: Hemoglobin A1C 6.2 % (0.0-7.0)
[2019-07-12 14:30] LABS: Alanine Aminotransferase 65 U/L (21-72); Albumin Level 3.5 g/dL (3.4-5.0); Albumin/Globulin Ratio 1.3 (1.1-1.8); Alkaline Phosphatase 64 U/L (46-116); Anion Gap 15.5 mEq/L (5-15); Aspartate Amino Transferase 29 U/L (15-37); Bilirubin,Total 0.3 mg/dL (0.2-1.0); Blood Urea Nitrogen 16 mg/dL (7-18); Calcium 8.1 mg/dL (8.5-10.1); Carbon Dioxide 24 mmol/L (21.0-32.0); Chloride 111 mmol/L (98-107); Chol/HDL Ratio 5.2 (1-3.5); Cholesterol 124 mg/dL (140-200); Creatinine,Serum 1.47 mg/dL (0.70-1.30); Estimated Glomerular Filt Rate 49 ml/min (>60); GFR (African American) 60 ML/MIN (>60); Globulin 2.7 gm/dl (1.3-3.2); Glucose 102 mg/dL (74-106); HDL Cholesterol 24 mg/dL (27-67); LDL Cholesterol 65 mg/dL (0-130); Potassium 4.5 mmoL/L (3.5-5.1); Sodium 146 mmol/L (137-145); Total Protein,Serum 6.2 g/dL (6.4-8.2); Triglycerides 176 mg/dL (30-200); VLDL Cholesterol 35 mg/dL (0-40)
== END ==
PROVIDERS: Visit Provider Internal Medicine Adolescent Medicine
DX: I50.30 Unspecified diastolic (congestive) heart failure (principal); E11.9 Type 2 diabetes mellitus without complications; Z79.84 Long term (current) use of oral hypoglycemic drugs
CPT/HCPCS: 36415; 80053; 80061; 83036; 85025

== ENCOUNTER → 2019-12-06 06:56 | Outpatient (CLI) | payer BC, SELFPAY ==
[2019-12-06 13:32] LABS: Basophils % 0.5 % (0.1-2.0); Eosinophils # 0.2 K/mm3 (0.0-0.4); Eosinophils % 2.6 % (0.1-12.0); Hematocrit 44.6 % (42.0-52.0); Lymphocytes # 1.5 K/mm3 (0.7-4.5); Mean Corpuscular HGB Conc 33.7 g/dL (31.8-35.4); Mean Corpuscular Hemoglobin 29.5 pg (27.0-31.2); Mean Corpuscular Volume 87.4 fl (80-94); Mean Platelet Volume 9.8 fl (7.4-10.4); Monocytes # 0.6 K/mm3 (0.1-1.0); Monocytes % 8.7 % (1.7-9.3); Neutrophils # 4.6 K/mm3 (1.8-7.8); Neutrophils % 66.2 % (37.0-80.0); Platelet Count 177 K/mm3 (142-424); Red Blood Count 5.11 M/mm3 (4.60-6.20); Red Cell Distribution Width 14.2 % (11.5-17.5); White Blood Count 6.9 K/mm3 (4.8-10.8)
[2019-12-06 13:36] LABS: Alanine Aminotransferase 36 U/L (12-78); Albumin/Globulin Ratio 1.7 (1.1-1.8); Alkaline Phosphatase 88 U/L (38-126); Anion Gap 14.3 mEq/L (5-15); Aspartate Amino Transferase 37 U/L (17-59); Bilirubin,Total 0.6 mg/dl (0.2-1.3); Blood Urea Nitrogen 18 mg/dl (9-20); Calcium 9.1 mg/dl (8.4-10.2); Carbon Dioxide 22 mmol/L (22.0-30.0); Chloride 105 mmol/L (98-107); Chol/HDL Ratio 3.7 (1-3.5); Cholesterol 141 mg/dl (140-200); Estimated Glomerular Filt Rate 57 ml/min (>60); GFR (African American) 68 ML/MIN (>60); Globulin 2.3 g/dL (1.3-3.2); Glucose 114 mg/dl (74-100); HDL Cholesterol 38 mg/dl (40-60); Potassium 4.3 mmoL/L (3.5-5.1); Sodium 137 mmol/L (136-145); Total Protein,Serum 6.3 g/dl (6.3-8.2); Triglycerides 124 mg/dl (30-150); VLDL Cholesterol 25 mg/dL (0-40)
[2019-12-06 13:47] LABS: Direct LDL Cholesterol 86.47 mg/dL (100-129)
[2019-12-06 14:07] LABS: Prostate Specific Ag Screen 0.3 ng/ml (0.0-4.0)
== END ==
PROVIDERS: Visit Provider Internal Medicine Adolescent Medicine
DX: I25.10 Atherosclerotic heart disease of native coronary artery without angina pectoris (principal); I10 Essential (primary) hypertension; E11.69 Type 2 diabetes mellitus with other specified complication; Z79.84 Long term (current) use of oral hypoglycemic drugs
CPT/HCPCS: 36415; 80053; 80061; 83036; 85025; G0103

== ENCOUNTER → 2020-01-08 17:04 | Outpatient (CLI) | payer BC, SELFPAY | PROVIDERS: PCP Internal Medicine Adolescent Medicine; Visit Provider Internal Medicine Adolescent Medicine | DX: Z03.818 Encounter for observation for suspected exposure to other biological agents ruled out (principal); R05 Cough | CPT/HCPCS: U0003 ==

== ENCOUNTER → 2020-01-12 06:14 | Outpatient (CLI) | payer BC, SELFPAY ==
--- NOTE | 2020-01-12 06:18 | CA_ITS ---
APPROVED REPORT EXAM: Comprehensive 2D, Doppler, and color-flow Echocardiogram Radio Station Operator: Christina Garibay RT(R) Ht: 5 ft 6 in Wt: 220lbs BSA: 2.08 BP: 127/86 mmHg Indications: CP, COPD, ex smoker, HTN, hyperlipidemia, DM, stent, CAD, GERD, PAD 2D Dimensions LVOT 2.01 cm (M/F) 1.5-2.5 M-Mode Dimensions RVDd 2.66 cm (0.9-2.6) LVDd 5.52 cm (3.5-5.7) LVDs 4.59 cm (3.5-5.7) IVSd 0.74 cm (0.6-1.1) PWd 0.89 cm (0.6-1.1) EF (Teich) 34.90% FS 16.80% EDV (Teich) 148.70 mL ESV (Teich) 96.80 mL LV Diastology E/A Ratio 1.29 Mitral Valve MV A Velocity 76.00 (40-130 cm/s) Left Ventricle Left atrium is mildly enlarged, left ventricle is normal size, mild concentric left ventricular hypertrophy, visually estimated ejection fraction 50%, there is moderate hypokinesis involving the inferior basal wall, endocardial surfaces are poorly visualized, grade 2 diastolic dysfunction seen with tissue Doppler evidence of raise left atrial pressure. Right Ventricle Right atrium and right ventricular qualitatively mildly enlarged with normal contractility. Aortic Valve Aortic valve is minimally thickened and fibrosed, there is no aortic stenosis or aortic insufficiency. Mitral Valve Mitral valve leaflets are minimally thickened, there is mild mitral regurgitation. Tricuspid Valve Tricuspid valve is grossly normal, there is mild tricuspid regurgitation, tricuspid regurgitation jet velocity is inadequate for calculation of the right ventricular systolic pressure. Pulmonic Valve Pulmonic valve is poorly visualized. Great Vessels Aortic root is normal size. Pericardium No significant pericardial effusion noted. Conclusion 1. Mild biatrial enlargement, normal left ventricular size, mild concentric left ventricular hypertrophy, visually estimated ejection fraction 50% with segmental wall motion abnormality, endocardial surfaces are poorly visualized. Grade 2 diastolic dysfunction seen with tissue Doppler evidence of raise left atrial pressure. 2. Mildly enlarged right ventricle with normal contractility. 3. Mild mitral and tricuspid regurgitation. 4. No significant pericardial effusion noted. Electronically signed by : Peewee Yoder, 01/12/2020 13:26:13
--- NOTE | 2020-01-12 06:23 | CA_ITS ---
APPROVED REPORT Exam: Pharmacologic Technologist: Brittany Sanchez, Ht: 5 ft 6 in Wt: 223 lbs BSA: 2.09 m2 HR: 66 bpm BP: 138/52 mmHg Rhythm: NSR,ANTERIOR T WAVE ABN Medical History Medical History: HTN, Hyperlipidemia, Diabetic ??? Noninsulin Medications: Metoprolol,,,,, Metformin,,,,, Trazadone,,,,, Gabapentin,,,,, Losartan,,,,, Pantoprazole,,,,, Atorvastatin,,,,, Montelukast,,,,, MeLOXICAM,,,,, Plavix,,,,, Sitagliptin,,,,, Allergies: No known drug allergies Cardiac Risk Factors: HTN, Hyperlipidemia, Diabetes (non-insulin) Stress Test Details Test: LEXISCAN HR Resting HR: 66 bpm Max Heart Rate (APMHR): 161 bpm Max HR Achieved: 99 bpm Target HR (85% APMHR): 136 bpm % of APMHR: 61 Recovery HR: 86 bpm BP Resting BP: 138.0/82.0 mmHg Max BP: 138.0/82.0 mmHg Recovery BP: 125.0/86.0 mmHg ECG Resting ECG: NSR,ANTERIOR T WAVE ABN Clinical Exercise duration: 04:16 min Highest Stage Achieved: Exercise capacity: 1.0 METs Stress ECG Conclusion DURING INFUSION PATIENT HAD SOA,MALAISE AND MILD NAUSEA. NO CHEST PAIN. NO ARRHYTHMIAS/ECTOPY. NO SIGNIFICANT ST-T CHANGES. UNREMARKABLE LEXISCAN STRESS. MYOVIEW IMAGES REPORTED SEPARATELY. Test Summary RECOVERY 03:31 . . 88 . 134/ 85 . . REST 02:41 . . 66 . 138/ 82 . . Stage 1 . . . . . . . Cardiolite injected Stage 1 01:00 . . 96 . . . . Stage 2 01:00 . . 91 . 134/ 81 . . Stage 3 01:00 . . 84 . 135/ 82 . . Stage 4 01:00 . . 82 . 129/ 83 . . Stage 4 01:16 . . 82 . 133/ 81 . Stop exercise at 04:16 RECOVERY 01:00 . . 79 . . . . RECOVERY 02:00 . . 85 . 125/ 86 . . RECOVERY 03:00 . . 80 . 124/ 89 . . RECOVERY 03:31 . . 88 . 134/ 85 . . Electronically signed by : Peewee Yoder, 01/12/2020 12:25:54
--- NOTE | 2020-01-12 06:23 | NM_ITS ---
APPROVED REPORT Exam: Nuclear Stress Test Indication: CAD,1 STENT, HX DC, HTN, DM, HYPERLIPIDEMIA Patient Location: Outpatient Stress Tech: Annie Harveynkson DC Tech:AMANDA Sheriff RT(R)(N) Ht: 5 ft 6 in Wt: 220 lbs HR: 66 bpm BP: 131/82 mmHg BSA: 2.08 m2 BMI: 35.5 History: CAD,1 STENT, HX DC, HTN, DM, HYPERLIPIDEMIA Procedure: Patient received a 0.4 mg of intravenous Lexiscan, resting heart rate 66 bpm, resting blood pressure 131/82 mmHg, with Lexiscan maximum heart rate achived was 97 bpm which is Less than 85 % of the maximum predicted heart rate and blood pressure was 134/81 mmHg. Electrocardiogram Resting electrocardiogram showed sinus rhythm nonspecific ST-T changes, with Lexiscan there is less than 1.[address] segment depression noted from the baseline EKG. The EKG portion of the Lexiscan Myoview is nondiagnostic. Cardiac Stress and Resting SPECT Images: Cardiac Stress and Resting SPECT images were obtained using technetium 99m Myoview 31.4 mCi stress and 10.33 mCi at rest. Gated SPECT with analysis of segmental wall motion and calculation of the ejection fraction also done. Cardiac stress and resting SPECT images show a fixed defect at the apex with normal contractility gated SPECT is likely secondary to apical thinning, no reversible ischemia seen. Computer derived ejection fraction is over 65% with no regional wall motion abnormality, right ventricle is normal size and contractility. Conclusion: 1. The EKG portion of the Lexiscan Myoview is nondiagnostic. 2. No scintigraphic evidence of reversible ischemia seen, computer derived ejection fraction is over 65% with no regional wall motion abnormality, right ventricle is normal size and contractility. 3. Likely normal Lexiscan Myoview study. Electronically signed by : Peewee Yoder, 01/12/2020 12:28:48
== END ==
PROVIDERS: PCP Internal Medicine Adolescent Medicine; Visit Provider Urology
DX: I20.9 Angina pectoris, unspecified (principal)
CPT/HCPCS: 78452; 93017; 93306; A9502; J2785

== ENCOUNTER → 2020-04-10 14:31 | Outpatient (CLI) | payer BC, SELFPAY ==
--- NOTE | 2020-04-10 | CT_ITS ---
PROCEDURE: CT LUNG SCREENING CLINICAL INDICATION: H/O NICOTINE DEPENDENCE FORMER SMOKER QUIT 3 YEARS AGO 60 pack year smoking history CAD PRIOR 03/22/19 COMPARISON: CT CHWO CT CHEST W/O CONTRAST from 06/25/[address] LUNG SCREENING from 03/22/2019 TECHNIQUE: The exam was performed on a [employer] Light Speed [address] scanner using 2.90 mGy CTDI. A low dose helical CT CHEST was performed on a multi-detector scanner. All CT scans at the facility use one or more dose reduction, viz: automated exposure control, ma/kV adjustment per patient size (including targeted exams where dose is matched to indication, i.e. head), or iterative reconstruction technique. The LDCT was performed in a facility that meets the criteria for the screening program. Data regarding this exam was submitted to ACR which is an approved registry. The order for this exam indicates that it came as a result of a lung cancer screening counseling shard decision-making visit that included all the elements required of such a visit including smoking cessation. The radiologist interpreting this exam meets the CMS criteria for the LDCT lung cancer screening program. The exam is reported using the Lung-RADS classification scale and reported to the ACR registry. NOTE: This study was performed for the specific purposes of lung cancer screening and is not an alternative to diagnostic chest CT. RADIATION DOSE: CTDI vol(CT dose Index-volume) = 2.90mG DLP (Dose Length Product) = 96.38 mGcm FINDINGS: COPD changes. Scattered areas of scarring. No suspicious pulmonary nodules apparent. No change 4 mm nodule right lung base. OTHER FINDINGS: Coronary artery calcifications and/or stent IMPRESSION: Lung-RADS Category 1 Negative Follow-up: Continue annual screening with LDCT in 12 months Dictated by: Jj Harris MD 04/27/2020 12:03 Jj Harris MD in [place] 04/27/2020 12:03
== END ==
PROVIDERS: PCP Internal Medicine Adolescent Medicine; Visit Provider Internal Medicine Adolescent Medicine
DX: Z87.891 Personal history of nicotine dependence (principal); Z12.2 Encounter for screening for malignant neoplasm of respiratory organs

== ENCOUNTER → 2020-09-18 06:59 | Outpatient (CLI) | payer BC, OTHER, SELFPAY ==
[2020-09-18 13:52] LABS: Basophils % 0.5 % (0.1-2.0); Eosinophils # 0.2 K/mm3 (0.0-0.4); Eosinophils % 3.2 % (0.1-12.0); Hematocrit 43.4 % (42.0-52.0); Hemoglobin 14.4 g/dL (14.1-18.0); Lymphocytes # 1.7 K/mm3 (0.7-4.5); Lymphocytes % 24.7 % (10-50); Mean Corpuscular HGB Conc 33.3 g/dL (31.8-35.4); Mean Corpuscular Hemoglobin 29.1 pg (27.0-31.2); Mean Corpuscular Volume 87.4 fl (80-94); Monocytes # 0.5 K/mm3 (0.1-1.0); Monocytes % 6.9 % (1.7-9.3); Neutrophils # 4.4 K/mm3 (1.8-7.8); Neutrophils % 64.7 % (37.0-80.0); Platelet Count 201 K/mm3 (142-424); Red Blood Count 4.96 M/mm3 (4.60-6.20); Red Cell Distribution Width 14.3 % (11.5-17.5); White Blood Count 6.8 K/mm3 (4.8-10.8)
[2020-09-18 13:57] LABS: Chloride 105 mmol/L (98-107); Potassium 4.4 mmoL/L (3.5-5.1); Sodium 139 mmol/L (136-145)
[2020-09-18 13:59] LABS: Alanine Aminotransferase 58 U/L (12-78); Alkaline Phosphatase 79 U/L (38-126); Aspartate Amino Transferase 39 U/L (17-59); Bilirubin,Total 0.8 mg/dl (0.2-1.3); Blood Urea Nitrogen 14 mg/dl (9-20); Estimated Glomerular Filt Rate 56 ml/min (>60); GFR (African American) 68 ML/MIN (>60)
[2020-09-18 14:00] LABS: Albumin Level 4.2 g/dl (3.5-5.0); Albumin/Globulin Ratio 1.8 (1.1-1.8); Anion Gap 14.4 mEq/L (5-15); Calcium 9.5 mg/dl (8.4-10.2); Carbon Dioxide 24 mmol/L (22.0-30.0); Chol/HDL Ratio 4.1 (1-3.5); Cholesterol 140 mg/dl (140-200); Globulin 2.4 g/dL (1.3-3.2); Glucose 126 mg/dl (74-100); HDL Cholesterol 34 mg/dl (40-60); Total Protein,Serum 6.6 g/dl (6.3-8.2); Triglycerides 127 mg/dl (30-150); VLDL Cholesterol 25 mg/dL (0-40)
[2020-09-18 14:11] LABS: Direct LDL Cholesterol 81.43 mg/dL (100-129)
[2020-09-18 14:55] LABS: Hemoglobin A1C 6.5 % (4.0-6.0)
== END ==
PROVIDERS: Visit Provider Internal Medicine Adolescent Medicine
DX: I25.10 Atherosclerotic heart disease of native coronary artery without angina pectoris (principal); E11.69 Type 2 diabetes mellitus with other specified complication; Z79.4 Long term (current) use of insulin
CPT/HCPCS: 36415; 80053; 80061; 83036; 85025

== ENCOUNTER 2020-11-28 19:52 | Observation (INO) | payer BC, OTHER, SELFPAY ==
[2020-11-28] VITALS (8 sets, daily range): BP systolic 109–134; BP diastolic 75–92; PULSE 53–79; RESP 11–18; TEMP 36.7; O2SAT 95–99; BMI 36.5; BMI 36.8
--- NOTE | 2020-11-28 19:52 | ECG_ITS ---
APPROVED REPORT Exam: Resting ECG HR:64 bpm ECG Measurements Heart Rate 64 AXES SD 144 P 49 QRSd 66 QRS 76 QT 404 T 50 QTc 416 Conclusion Normal sinus rhythm Normal ECG Electronically signed by : Piyush Malik, 11/30/2020 07:30:35
--- NOTE | 2020-11-28 20:06 | XR_ITS ---
PROCEDURE INFORMATION: Exam: XR Chest Exam date and time: 11/28/2020 8:06 PM Age: 60 years old Clinical indication: Angina pectoris; Patient HX: Chest pain. HX of stents in 2017. Non smoker TECHNIQUE: Imaging protocol: XR of the chest. Views: 1 view. Total images: 1 COMPARISON: CR XR CHEST 2V 04/04/2019 8:16 AM FINDINGS: Lungs: Normal pulmonary expansion. Pulmonary vasculature grossly normal. No gross pulmonary infiltrates. Indistinct right and left heart margins is unchanged from 2019 and felt to be due to pericardial fat pads. Pleural spaces: No pleural effusion. No pneumothorax. Heart/Mediastinum: Heart size within normal limits for portable AP technique. No tracheal/mediastinal shift. Bones/joints: No acute osseous abnormalities are identified. IMPRESSION: No acute thoracic process.
[2020-11-28 20:15] LABS: Chloride 105 mmol/L (98-107); Potassium 4.1 mmoL/L (3.5-5.1); Sodium 140 mmol/L (136-145)
[2020-11-28 20:17] LABS: Blood Urea Nitrogen 14 mg/dl (9-20); Creatinine Clearance Estimated 101 mL/min (50-200); Estimated Glomerular Filt Rate 62 ml/min (>60); GFR (African American) 75 ML/MIN (>60)
[2020-11-28 20:18] LABS: Alanine Aminotransferase 55 U/L (12-78); Albumin Level 4.3 g/dl (3.5-5.0); Alkaline Phosphatase 81 U/L (38-126); Anion Gap 12.1 mEq/L (5-15); Aspartate Amino Transferase 36 U/L (17-59); Bilirubin,Direct 0.4 mg/dl (0.0-0.4); Bilirubin,Indirect 0.1 mg/dL (0.0-0.9); Bilirubin,Total 0.5 mg/dl (0.2-1.3); Bilirubin,Unconjugated 0.1 mg/dL (0.0-1.1); Calcium 9.1 mg/dl (8.4-10.2); Carbon Dioxide 27 mmol/L (22.0-30.0); Glucose 147 mg/dl (74-100); Total Protein,Serum 6.8 g/dl (6.3-8.2)
[2020-11-28 20:20] LABS: Basophils # 0.1 K/mm3 (0-0.2); Basophils % 0.6 % (0.1-2.0); Eosinophils # 0.3 K/mm3 (0.0-0.4); Eosinophils % 2.9 % (0.1-12.0); Hematocrit 42.7 % (42.0-52.0); Hemoglobin 14.3 g/dL (14.1-18.0); Lymphocytes # 2.4 K/mm3 (0.7-4.5); Lymphocytes % 23.9 % (10-50); Mean Corpuscular HGB Conc 33.5 g/dL (31.8-35.4); Mean Corpuscular Hemoglobin 28.8 pg (27.0-31.2); Mean Corpuscular Volume 85.7 fl (80-94); Mean Platelet Volume 8.8 fl (7.4-10.4); Monocytes # 0.7 K/mm3 (0.1-1.0); Monocytes % 7.2 % (1.7-9.3); Neutrophils # 6.6 K/mm3 (1.8-7.8); Neutrophils % 65.5 % (37.0-80.0); Platelet Count 195 K/mm3 (142-424); Red Blood Count 4.98 M/mm3 (4.60-6.20); Red Cell Distribution Width 13.5 % (11.5-17.5); White Blood Count 10.1 K/mm3 (4.8-10.8)
[2020-11-28 20:31] LABS: Troponin I < 0.01 ng/ml (0.00-0.034)
--- NOTE | 2020-11-28 20:34 | HMH.EDGENADL ---
ED Disposition Clinical Impression: Chest pain Qualifiers: Chest pain type: unspecified Qualified Code(s): R07.9 - Chest pain, unspecified Disposition: Admitted as Observation Condition on Discharge: Fair Time of Disposition: 00:00 - Critical Care Critical Care Time: No Attestation: On 11/28/20, the high probability of a clinically significant, sudden or life threatening deterioration of the following system(s) required my full and direct attention, intervention and personal management. The time I documented below is in addition to time spent performing reported procedures but includes the following listed in this critical care notation. Medical Decision Making - Medical Records Medical records reviewed: Yes: I reviewed the patient's medical records. - Theodore Inquiry Pt receiving controlled substance: No Vital Signs: 11/28/20 19:52 11/28/20 20:00 11/28/20 20:30 Temperature 98.1 F Temperature Source Oral Pulse Rate 70 69 Pulse Rate [Right Brachial] 79 Respiratory Rate 14 13 Blood Pressure 121/76 114/77 Blood Pressure [Right Arm] 128/91 H Blood Pressure Mean [Right Arm] 103 Blood Pressure Source [Right Arm] Automatic Cuff Blood Pressure Position [Right Arm] Sitting 02 Sat by Pulse Oximetry 96 95 97 Oxygen Delivery Method Room Air 11/28/20 21:00 11/28/20 21:30 11/28/20 22:45 Temperature Temperature Source Pulse Rate 63 53 L 66 Pulse Rate [Right Brachial] Respiratory Rate 14 17 11 L Blood Pressure 115/84 109/75 L 122/90 Blood Pressure [Right Arm] Blood Pressure Mean [Right Arm] Blood Pressure Source [Right Arm] Blood Pressure Position [Right Arm] 02 Sat by Pulse Oximetry 95 99 96 Oxygen Delivery Method 11/28/20 23:00 11/28/20 23:30 11/29/20 00:00 Temperature Temperature Source Pulse Rate 67 62 59 L Pulse Rate [Right Brachial] Respiratory Rate 17 18 16 Blood Pressure 134/92 H 113/86 114/83 Blood Pressure [Right Arm] Blood Pressure Mean [Right Arm] Blood Pressure Source [Right Arm] Blood Pressure Position [Right Arm] 02 Sat by Pulse Oximetry 95 96 96 Oxygen Delivery Method Room Air Room Air 11/29/20 00:22 Temperature Temperature Source Pulse Rate Pulse Rate [Right Brachial] Respiratory Rate Blood Pressure Blood Pressure [Right Arm] Blood Pressure Mean [Right Arm] Blood Pressure Source [Right Arm] Blood Pressure Position [Right Arm] 02 Sat by Pulse Oximetry Oxygen Delivery Method Room Air - Lab Data Lab Results 11/28/20 19:54: WBC 10.1, RBC 4.98, Hgb 14.3, Hct 42.7, MCV 85.7, MCH 28.8, MCHC 33.5, RDW 13.5, Plt Count 195, MPV 8.8, Neut % (Auto) 65.5, Lymph % (Auto) 23.9, George % (Auto) 7.2, Eos % (Auto) 2.9, Baso % (Auto) 0.6, Neut # (Auto) 6.6, Lymph # (Auto) 2.4, George # (Auto) 0.7, Eos # (Auto) 0.3, Baso # (Auto) 0.1 11/28/20 19:54: Sodium 140, Potassium 4.1, Chloride 105, Carbon Dioxide 27, Anion Gap 12.1, BUN 14, Creatinine 1.20, Estimated Creat Clear 101, Estimated GFR 62, Est GFR ( Amer) 75, Glucose 147 H, Calcium 9.1, Total Bilirubin 0.5, Direct Bilirubin 0.4, Conjugated Bilirubin 0.0, Indirect Bilirubin 0.1, Unconjugated Bilirubin 0.1, AST 36, ALT 55, Alkaline Phosphatase 81, Troponin I < 0.01, Total Protein 6.8, Albumin 4.3 11/28/20 20:45: Troponin I < 0.01 Result diagrams: 11/28/20 19:54 11/28/20 19:54 Orders (Tests/Meds): ED MEDICATIONS Generic Name Dose Route Start Last Admin Trade Name Freq PRN Reason Stop Dose Admin Nitroglycerin 0.4 mg 11/28/20 20:06 11/28/20 19:55 Nitroglycerin 0.4mg Sl Tablet SL 12/28/20 20:05 1 tab [id number] PRN Administration Chest Pain Sodium Chloride 8 ml 11/28/20 21:18 Sodium Chloride 0.9% 10ml Vial IV 12/28/20 21:17 NEEDED PRN dilute pepcid Discontinued Medications Generic Name Dose Route Start Last Admin Trade Name Freq PRN Reason Stop Dose Admin Aspirin 324 mg 11/28/20 20:06 11/28/20 20:09 Aspirin 81mg
--- NOTE | 2020-11-28 20:37 | PC.NURSE ---
Pt and family updated on POC and lab times
--- NOTE | 2020-11-28 21:18 | ECG_ITS ---
APPROVED REPORT Exam: Resting ECG HR:55 bpm ECG Measurements Heart Rate 55 AXES VA 152 P 55 QRSd 80 QRS 70 QT 430 T 55 QTc 411 Conclusion Sinus bradycardia Otherwise normal ECG Electronically signed by : Piyush Malik, 11/30/2020 07:30:23
[2020-11-28 23:19] LABS: Troponin I < 0.01 ng/ml (0.00-0.034)
--- NOTE | 2020-11-28 23:26 | PC.NURSE ---
dr bolaños called back.
[2020-11-29] VITALS (8 sets, daily range): BP systolic 105–133; BP diastolic 53–83; PULSE 50–80; RESP 16–18; TEMP 36.4–36.8; O2SAT 93–98; BMI 36.6
--- NOTE | 2020-11-29 00:24 | PC.NURSE ---
called report to Shahid Powell RN
[2020-11-29 00:30] LABS: Coronavirus 19, PCR Not Detected (NotDetected); Influenza A, PCR Not Detected (NotDetected); Influenza B, PCR Not Detected (NotDetected)
--- NOTE | 2020-11-29 00:39 | PC.NURSE ---
patient up to floor via wheelchair.
[2020-11-29 03:37] LABS: Troponin I < 0.01 ng/ml (0.00-0.034)
[2020-11-29 06:14] LABS: Basophils # 0.1 K/mm3 (0-0.2); Basophils % 0.6 % (0.1-2.0); Eosinophils # 0.2 K/mm3 (0.0-0.4); Eosinophils % 2.5 % (0.1-12.0); Hematocrit 38.3 % (42.0-52.0); Lymphocytes % 22.3 % (10-50); Mean Corpuscular HGB Conc 33.9 g/dL (31.8-35.4); Mean Corpuscular Hemoglobin 29.3 pg (27.0-31.2); Mean Corpuscular Volume 86.3 fl (80-94); Mean Platelet Volume 8.8 fl (7.4-10.4); Monocytes # 0.8 K/mm3 (0.1-1.0); Monocytes % 8.3 % (1.7-9.3); Neutrophils # 6.1 K/mm3 (1.8-7.8); Neutrophils % 66.4 % (37.0-80.0); Platelet Count 173 K/mm3 (142-424); Red Blood Count 4.44 M/mm3 (4.60-6.20); Red Cell Distribution Width 13.7 % (11.5-17.5); White Blood Count 9.2 K/mm3 (4.8-10.8)
--- NOTE | 2020-11-29 06:31 | ECG_ITS ---
APPROVED REPORT Exam: Resting ECG HR:61 bpm ECG Measurements Heart Rate 61 AXES IA 148 P 47 QRSd 74 QRS 51 QT 438 T 36 QTc 440 Conclusion Normal sinus rhythm Low voltage QRS T wave abnormality, consider anterior ischemia Abnormal ECG Electronically signed by : Piyush Malik, 11/30/2020 07:30:15
[2020-11-29 06:39] LABS: Anion Gap 11.4 mEq/L (5-15); Blood Urea Nitrogen 15 mg/dl (9-20); Calcium 8.4 mg/dl (8.4-10.2); Carbon Dioxide 26 mmol/L (22.0-30.0); Chloride 105 mmol/L (98-107); Creatinine Clearance Estimated 96 mL/min (50-200); Estimated Glomerular Filt Rate 62 ml/min (>60); GFR (African American) 75 ML/MIN (>60); Glucose 108 mg/dl (74-100); Potassium 4.4 mmoL/L (3.5-5.1); Sodium 138 mmol/L (136-145)
--- NOTE | 2020-11-29 07:38 | P.CONPHA_ITS ---
[facility] Pharmacy VTE Monitoring - Patient Demographics Admission date: 11/29/20 Report Date: 11/29/20 Time: 07:38 Allergies/Adverse Reactions: Patient Allergies No Known Allergies Allergy (Verified 08/30/20 08:50) Height: 1.68 m Weight: 103.476 kg Patient Problems: Current Active Problems (Last Updated 01/20/19 @ 09:41 by Kanchan Shetty RN) Chest pain (Acute) - VTE Risk Labs: VTE Related Lab Results Hgb 13.0 g/dL (14.1-18.0) L 11/29/20 05:38 Hct 38.3 % (42.0-52.0) L 11/29/20 05:38 Plt Count 173 K/mm3 (142-424) 11/29/20 05:38 BUN 15 mg/dl (9-20) 11/29/20 06:00 Creatinine 1.20 mg/dl (0.66-1.25) 11/29/20 06:00 Estimated Creat Clear 96 mL/min (50-200) 11/29/20 06:00 Clinical Trial Participant: No - Prophylaxis VTE Prophylaxis Ordered?: Yes Types of VTE Prophylaxis: TEDS Knee High
--- NOTE | 2020-11-29 07:53 | HMH.CNCARD ---
History of Present Illness Consult date: 11/29/20 Requesting physician: Reed Delgado Consult reason: chest pain Chief complaint: chest pain Additional Medical History:: 1. Hypertension 2. Cardiomegaly by chest x-ray 3. Tobacco abuse, stopped 2016 4. Hyperlipidemia 5. Reflux A. History of esophageal dilatation B. Hiatal hernia by history 6. History of asbestos exposure 7. Umbilical hernia repair 2013 8. CAD A. History of normal cardiac cath 2011 Dr. Hardin [facility] B. STEMI, 07/2016, SOHEILA to RCA C. [place] with abnormal stress test, 07/2016, SOHEILA to LAD D. LHC, 10/2016, patent LAD and RCA stents. Endothelial dysfunction noted. E. [facility], 2018, Widely patent ostial proximal left main stent, Evidence of endothelial dysfunction involving the dominant right coronary artery Normal ejection fraction Mildly elevated LVEDP F. Darshan myoview, 12/2019, 1. The EKG portion of the Lexiscan Myoview is nondiagnostic. 2. No scintigraphic evidence of reversible ischemia seen, computer derived ejection fraction is over 65% with no regional wall motion abnormality, right ventricle is normal size and contractility. 3. Likely normal Lexiscan Myoview study. 10. Abnormal electrocardiogram June 25, 2014 possible old anterior myocardial infarction 11. MARIELENA, untreated History of present illness: 60 yo male presenting to the emergency department with chest pain. Started earlier this evening, around 1 hour ago, while he was sitting at home. Pain is described as tightness and squeezing. Located anterior. Radiates in the left side of his jaw. Not to back or arm. No shortness of breath. No pain with inspiration. No leg swelling. No headache, vomiting, syncope. No recent exertional chest pain. he took nitro prior to arrival, this helped. No other medication. No aspirin. takes daily Plavix. He had an LAD stent a few years ago. [facility] 01/2019 showed patent stent. Stress test 12/2019 was stopped due to SOA and malaise. In summary this is a 60-year-old male with history of coronary artery disease and hypertension presenting to the emergency department with chest pain. Patient clinically stable on arrival. Vital signs are within normal limits. Concern for ACS, vasospasm, stent occlusion. Will obtain CBC, BMP, chest x-ray, EKG, troponin profile. Patient given 325 chewable aspirin. Given additional dose of 0.4 mg sublingual nitroglycerin. EKG reassuring. T wave inversions in V1. No signs of evolving or changing ischemia. Patient felt better after nitroglycerin, but had recurrence of pain. Nitropaste applied. Initial labs reassuring. Troponin undetectable. No anemia. No elevation in BUN to suggest GI bleed. On reassessment patient continues to have epigastric pain. Nausea. Repeat EKG and troponin do not show signs of ischemia. Patient has significant cardiac history. Will admit for trending of troponin and further management as indicated. Cardiology consult in the morning. Case discussed with Dr. Delgado on-call for Dr. Malik. The Above per Dr. Pitts The above confirmed with patient. No recent exertional CP, SOA. While speaking to patient, he relayed some left sided chest sensation that resolved within 5 min without associated Nausea, diaphoresis, SOA or radiation of symptoms. He did eat breakfast this AM. Last esophageal dilatation was 2018. Troponins normal X 3 with EKG showing NSR and old anteroseptal LA changes. [facility] History Medical History: Reports:: Chronic Obstructive Pulmonary Disease (COPD), Coronary Artery Disease, Diabetes Mellitus Type 2, Gastroesophageal Reflux Disease(GERD), Hyperlipidemia, Hypertension, Lung Disease, Myocardial Infarction, Peripheral Artery Disease Denies:: Cancer, Diabetes Mellitus Type 1, Internal Pacemaker, MRSA, Seizures *Have you ever received a pneumonia vaccine?: Yes *Have you received a flu vaccine this season?: Yes Other Medical History: Reports: Arthritis Other Surgeries: Ye
--- NOTE | 2020-11-29 07:55 | HMH.PHAINT ---
home medication list clarified using list from [facility] Pharm[facility]
--- NOTE | 2020-11-29 07:59 | HMH.HPDC ---
General - General Admission date:: 11/29/20 Discharge date: 11/29/20 *Admission Date: 11/29/20 *Chief complaint: chest pain *History of present illness: Gunjan is a 60-year-old male with history of coronary artery disease, last heart cath January 2019, who presented to the ER last night because of onset of chest pain. States he was at rest at home sitting in his chair when he had acute onset of chest pain across his chest that radiated to his jaw. Developed pain into his lower back after getting to the hospital. No referred pain to either shoulder. Took nitro at home with improvement in pain by the time he arrived to the ER via personal vehicle. Denies having any shortness of breath, altered mental status, palpitations, headache, nausea or vomiting. Additionally he denies any exertional chest pain. Initial work-up with EKG and troponins unremarkable in the ER however given risk factors and history, patient was admitted for observation overnight and serial enzymes. On assessment this morning, he complains of back pain but chest pain is resolved. Also states he has some mild discomfort in left chest that is vague and around his nipple. Known history of GERD. Recent concern per outpatient notes of possible gallbladder disease. Denies any alcohol intake. Denies pain with exertion. Denies pain associated with eating. Overall feels well this morning Afebrile and hemodynamically stable Troponins normal X 3 with EKG showing NSR and old anteroseptal PA changes. [facility] History I have reviewed the patient's past medical history: Yes Medical History: Reports:: Chronic Obstructive Pulmonary Disease (COPD), Coronary Artery Disease, Diabetes Mellitus Type 2, Gastroesophageal Reflux Disease(GERD), Hyperlipidemia, Hypertension, Lung Disease, Myocardial Infarction, Peripheral Artery Disease Denies:: Cancer, Diabetes Mellitus Type 1, Internal Pacemaker, MRSA, Seizures *Have you ever received a pneumonia vaccine?: Yes *Have you received a flu vaccine this season?: Yes Other Medical History: Reports: Arthritis Other Surgeries: Yes: Appendectomy, Cardiac Catheterization, Colonoscopy, Coronary Stent (x2), EGD. No: Pacemaker Amputation: No Fractures: No - *Social History Last grade of school completed: Some college Smoking Status: Former smoker Tobacco Type: cigarettes #Yrs smoked (if former smoker): 30 Alcohol Intake: former Alcohol Intake Frequency:: 0-2 drinks per day Substance Use Type: denies use *Occupational Status:: employed Housing: house Household Members: spouse *Travel in the last 8 weeks: None Family Hx:: Unable to obtain Review of Systems - Review of Systems Review of systems:: pertinent systems reviewed and negative unless documented below (14 point review of systems performed, pertinent positives and negatives as per HPI) - *Neurologic Denies headache(s), Denies numbness, Denies fainting Exam Vital signs and Labs for Last 24 Hours: Temp Pulse Resp BP Pulse Ox 98.1 F 64 18 133/77 96 11/29/20 07:33 11/29/20 07:33 11/29/20 07:33 11/29/20 07:33 11/29/20 07:33 Laboratory Results - last 24 hr 11/28/20 19:54: WBC 10.1, RBC 4.98, Hgb 14.3, Hct 42.7, MCV 85.7, MCH 28.8, MCHC 33.5, RDW 13.5, Plt Count 195, MPV 8.8, Neut % (Auto) 65.5, Lymph % (Auto) 23.9, [place] % (Auto) 7.2, Eos % (Auto) 2.9, Baso % (Auto) 0.6, Neut # (Auto) 6.6, Lymph # (Auto) 2.4, [place] # (Auto) 0.7, Eos # (Auto) 0.3, Baso # (Auto) 0.1 11/28/20 19:54: Sodium 140, Potassium 4.1, Chloride 105, Carbon Dioxide 27, Anion Gap 12.1, BUN 14, Creatinine 1.20, Estimated Creat Clear 101, Estimated GFR 62, Est GFR ( Amer) 75, Glucose 147 H, Calcium 9.1, Total Bilirubin 0.5, Direct Bilirubin 0.4, Conjugated Bilirubin 0.0, Indirect Bilirubin 0.1, Unconjugated Bilirubin 0.1, AST 36, ALT 55, Alkaline Phosphatase 81, Troponin I < 0.01, Total Protein 6.8, Albumin 4.3 11/28/20 20:45: Troponin I < 0.01 11/29/20 00:00: SARS-CoV-2 (PCR) Not detected, Influenza
--- NOTE | 2020-11-29 08:40 | CT_ITS ---
PROCEDURE: CT ABDOMEN PELVIS W CON CLINICAL INDICATION: abdominal pain, CVA tenderness COMPARISON: No exams were available for comparison TECHNIQUE: IV Contrast: 75ML Isovue 370 Oral Contrast None Axial images obtained with sagittal and coronal reformats. All CT scans at the facility use one or more dose reduction, viz: automated exposure control, ma/kV adjustment per patient size (including targeted exams where dose is matched to indication, i.e. head), or iterative reconstruction technique. FINDINGS: LOWER THORAX: There is some minimal coronary artery and mitral valve annular calcification. ABDOMEN & PELVIS: Diffuse fatty liver infiltration. Small hiatal hernia. The liver, spleen, pancreas, adrenal glands, and kidneys have an unremarkable appearance other than a small right renal cortical cyst. No renal or ureteral calculi.. No hydronephrosis. The urinary bladder has an unremarkable appearance. No intestinal obstruction or free air. There is some increased density posterior to the and bili cul region which could be due to postsurgical changes. No acute bony anomalies. IMPRESSION: No acute finding Dictated by: Jj Harris MD 11/29/2020 11:28 Jj Harris MD in [facility] 11/29/2020 11:28
[2020-11-29 09:42] LABS: Microscopic, Urine URINE MICROSCOPIC (MICROSCOPIC)
[2020-11-29 09:50] LABS: Appearance,Urine CLEAR (Clear); Bilirubin,Urine Negative (Negative); Blood, Urine Negative (Negative); Color,Urine YELLOW (Yellow); Glucose,Urine (UA) Negative (Negative); Ketones,Urine Negative (Negative); Leukocyte Esterase,Urine Negative (Negative); Nitrate,Urine Negative (Negative); Protein,Urine Negative (Negative); Urobilinogen,Urine 0.2 EU/dl (0.2)
[2020-11-29 10:02] LABS: Bacteria,Urine Trace /lpf; Squamous Epithelial Cell,Urine Occasional #/hpf (0-5)
[2020-11-29 10:20] LABS: Troponin I < 0.01 ng/ml (0.00-0.034)
== END 2020-11-29 14:00 | disposition home or self-care (01) ==
LOC: ER 21:41 → 2ND 11-29 00:45
PROVIDERS: Admitting Provider Internal Medicine Adolescent Medicine; Emergency Provider Emergency Medicine; PCP Internal Medicine Adolescent Medicine; Visit Provider Internal Medicine Adolescent Medicine
DX: I25.118 Atherosclerotic heart disease of native coronary artery with other forms of angina pectoris (principal); E11.9 Type 2 diabetes mellitus without complications; K21.9 Gastro-esophageal reflux disease without esophagitis; I10 Essential (primary) hypertension; Z95.5 Presence of coronary angioplasty implant and graft; I25.2 Old myocardial infarction; J44.9 Chronic obstructive pulmonary disease, unspecified; Z79.84 Long term (current) use of oral hypoglycemic drugs; Z79.899 Other long term (current) drug therapy
CPT/HCPCS: 36415; 71045; 74177; 80048; 80076; 81001; 84484; 85025; 93005; 96375; 99284; 99291; G0378; J2405; Q9967; U0003

== ENCOUNTER → 2020-12-05 08:41 | Outpatient (CLI) | payer BC, OTHER, SELFPAY ==
--- NOTE | 2020-12-05 08:43 | US_ITS ---
PROCEDURE: US GALLBLADDER CLINICAL INDICATION: RUQ PAIN COMPARISON: CT CT ABDOMEN PELVIS W CON from 11/29/2020 FINDINGS: Pancreas: Unremarkable/Not well seen Liver: Diffuse increased echogenicity of the liver with poor through transmission of sound consistent with hepatic steatosis. No focal liver lesion demonstrated. There is appropriate direction of blood flow within non dilated portal vein.There is appropriate direction of blood flow within a non dilated portal vein. Right kidney: Unremarkable appearing. No hydronephrosis. Gallbladder: No stones are evident. There is no gallbladder wall thickening. Common duct is normal in diameter. IMPRESSION: Fatty liver otherwise negative Dictated by: Jj Harris MD 12/05/2020 09:59 Jj Harris MD in [facility] 12/05/2020 09:59
== END ==
PROVIDERS: PCP Internal Medicine Adolescent Medicine; Visit Provider Nurse Practitioner Family
DX: R10.11 Right upper quadrant pain (principal)
CPT/HCPCS: 76705

== ENCOUNTER → 2020-12-19 06:33 | Outpatient (CLI) | payer BC, OTHER, SELFPAY ==
--- NOTE | 2020-12-19 06:57 | NM_ITS ---
PROCEDURE: NM HEPATOBILIARY W PHARM CLINICAL INDICATION: RUQ ABD PAIN COMPARISON: No exams were available for comparison TECHNIQUE: DOSE: 5.1 mCi of TC Choletec. Ensure was given. FINDINGS: Homogeneous activity is present within the hepatic parenchyma. Activity is present in the gallbladder by 20 minutes. Activity is present in the small bowel by 40 minutes. The gallbladder ejection fraction is calculated to be 68 percent. CCK-The patient did not report pain or other symptoms during CCK infusion. IMPRESSION: Unremarkable HIDA scan. Dictated by: Joycelyn Gar 12/19/2020 13:53 Joycelyn Gar in [facility] 12/19/2020 13:53
== END ==
PROVIDERS: PCP Internal Medicine Adolescent Medicine; Visit Provider Internal Medicine Adolescent Medicine
DX: R10.11 Right upper quadrant pain (principal)
CPT/HCPCS: 78227; A9537

== ENCOUNTER → 2021-01-03 09:32 | Outpatient (CLI) | payer BC, OTHER, SELFPAY ==
--- NOTE | 2021-01-03 09:35 | FL_ITS ---
PROCEDURE: FL UPPER GI SMALL BOWEL CLINICAL INDICATION: RUQ ABD PAIN,ABD DISTENTION COMPARISON: No exams were available for comparison FINDINGS: The esophagus, stomach, and duodenum have an unremarkable appearance. No evidence of hiatal hernia ulcer or mass. The small bowel has an unremarkable appearance. No obstructing lesions, mass, or mucosal abnormalities are evident. Fluoroscopy time: 3.34 minutes IMPRESSION: Negative upper GI and small-bowel follow-through. Dictated by: Jj Harris MD 01/03/2021 12:11 Jj Harris MD in [facility] 01/03/2021 12:11
== END ==
PROVIDERS: PCP Internal Medicine Adolescent Medicine; Visit Provider Internal Medicine Adolescent Medicine
DX: R10.11 Right upper quadrant pain (principal); R14.0 Abdominal distension (gaseous)
CPT/HCPCS: 74246; 74248

== ENCOUNTER → 2021-01-27 09:44 | Outpatient (POV) | payer BC, OTHER, SELFPAY | PROVIDERS: Visit Provider Nurse Practitioner Family | DX: Z00.00 Encounter for general adult medical examination without abnormal findings (principal) ==

== ENCOUNTER 2021-01-31 10:23 | Outpatient (CLI) | payer BC, OTHER, SELFPAY ==
[2021-01-31] VITALS (10 sets, daily range): BP systolic 113–127; BP diastolic 64–73; PULSE 70–93; RESP 15–20; TEMP 36.9; O2SAT 95–97
== END 2021-01-31 12:30 | disposition home health service (06) ==
LOC: INF 10:24
PROVIDERS: PCP Internal Medicine Adolescent Medicine; Visit Provider Internal Medicine Adolescent Medicine
DX: U07.1 COVID-19 (principal)
CPT/HCPCS: 96365

== ENCOUNTER → 2021-03-18 18:42 | Outpatient (CLI) | payer BC, OTHER, SELFPAY ==
[2021-03-18 19:16] LABS: Basophils # 0.1 K/mm3 (0-0.2); Basophils % 0.6 % (0.1-2.0); Eosinophils # 0.2 K/mm3 (0.0-0.4); Eosinophils % 2.1 % (0.1-12.0); Hematocrit 47.3 % (42.0-52.0); Hemoglobin 14.8 g/dL (14.1-18.0); Lymphocytes # 2.2 K/mm3 (0.7-4.5); Lymphocytes % 21.3 % (10-50); Mean Corpuscular HGB Conc 31.4 g/dL (31.8-35.4); Mean Corpuscular Hemoglobin 28.8 pg (27.0-31.2); Mean Corpuscular Volume 91.8 fl (80-94); Mean Platelet Volume 8.9 fl (7.4-10.4); Monocytes # 0.8 K/mm3 (0.1-1.0); Monocytes % 8.1 % (1.7-9.3); Neutrophils # 6.9 K/mm3 (1.8-7.8); Neutrophils % 67.9 % (37.0-80.0); Platelet Count 218 K/mm3 (142-424); Red Blood Count 5.15 M/mm3 (4.60-6.20); Red Cell Distribution Width 13.6 % (11.5-17.5); White Blood Count 10.1 K/mm3 (4.8-10.8)
[2021-03-18 19:51] LABS: Alanine Aminotransferase 57 U/L (12-78); Albumin Level 4.1 g/dl (3.5-5.0); Albumin/Globulin Ratio 1.6 (1.1-1.8); Alkaline Phosphatase 73 U/L (38-126); Anion Gap 13.6 mEq/L (5-15); Aspartate Amino Transferase 41 U/L (17-59); Bilirubin,Total 0.5 mg/dl (0.2-1.3); Blood Urea Nitrogen 13 mg/dl (9-20); Calcium 9.4 mg/dl (8.4-10.2); Carbon Dioxide 27 mmol/L (22.0-30.0); Chloride 104 mmol/L (98-107); Chol/HDL Ratio 4.5 (1-3.5); Cholesterol 154 mg/dl (140-200); Estimated Glomerular Filt Rate 62 ml/min (>60); GFR (African American) 75 ML/MIN (>60); Globulin 2.6 g/dL (1.3-3.2); Glucose 103 mg/dl (74-100); HDL Cholesterol 34 mg/dl (40-60); Potassium 4.6 mmoL/L (3.5-5.1); Sodium 140 mmol/L (136-145); Total Protein,Serum 6.7 g/dl (6.3-8.2); Triglycerides 237 mg/dl (30-150); VLDL Cholesterol 47 mg/dL (0-40)
[2021-03-18 20:01] LABS: Direct LDL Cholesterol 82.54 mg/dL (100-129)
[2021-03-18 20:02] LABS: Hemoglobin A1C 8.3 % (4.0-6.0)
[2021-03-18 20:19] LABS: Prostate Specific Ag Screen 0.3 ng/ml (0.0-4.0)
== END ==
PROVIDERS: Visit Provider Internal Medicine Adolescent Medicine
DX: I25.10 Atherosclerotic heart disease of native coronary artery without angina pectoris (principal); E11.69 Type 2 diabetes mellitus with other specified complication; N40.1 Benign prostatic hyperplasia with lower urinary tract symptoms; Z12.5 Encounter for screening for malignant neoplasm of prostate
CPT/HCPCS: 80053; 80061; 83036; 85025; G0103

== ENCOUNTER → 2021-04-01 15:20 | Outpatient (POV) | payer BC, OTHER, SELFPAY | PROVIDERS: Visit Provider Dermatology | DX: Z00.00 Encounter for general adult medical examination without abnormal findings (principal) ==

== ENCOUNTER → 2021-04-14 12:34 | Outpatient (CLI) | payer BC, OTHER, SELFPAY ==
--- NOTE | 2021-04-14 12:42 | CT_ITS ---
PROCEDURE: CT LUNG SCREENING CLINICAL INDICATION: H/O NICTOINE DEPENDENCE COMPARISON: CT CT LUNG SCREENING from 04/10/[address] ABDOMEN PELVIS W CON from 11/29/2020 TECHNIQUE: The exam was performed on a [employer] Light Speed [address] scanner using 2.90 mGy CTDI. A low dose helical CT CHEST was performed on a multi-detector scanner. All CT scans at the facility use one or more dose reduction, viz: automated exposure control, ma/kV adjustment per patient size (including targeted exams where dose is matched to indication, i.e. head), or iterative reconstruction technique. The LDCT was performed in a facility that meets the criteria for the screening program. Data regarding this exam was submitted to ACR which is an approved registry. The order for this exam indicates that it came as a result of a lung cancer screening counseling shard decision-making visit that included all the elements required of such a visit including smoking cessation. The radiologist interpreting this exam meets the CMS criteria for the LDCT lung cancer screening program. The exam is reported using the Lung-RADS classification scale and reported to the ACR registry. NOTE: This study was performed for the specific purposes of lung cancer screening and is not an alternative to diagnostic chest CT. RADIATION DOSE: CTDI vol(CT dose Index-volume) = 2.90mG DLP (Dose Length Product) = 103.94 mGcm FINDINGS: COPD changes with scattered areas of scarring. Stable 4 mm mm nodule right upper lobe laterally image 35 series 3. Stable 4 mm nodule right lung base centrally. OTHER FINDINGS: Coronary artery calcifications and/or stents. IMPRESSION: Lung-RADS Category 2 Benign Appearance or Behavior Follow-up: Continue annual screening with LDCT in 12 months Dictated by: Jj Harris MD 04/19/2021 08:32 Jj Harris MD in [place] 04/19/2021 08:32
== END ==
PROVIDERS: PCP Internal Medicine Adolescent Medicine; Visit Provider Internal Medicine Adolescent Medicine
DX: Z87.891 Personal history of nicotine dependence (principal); Z12.2 Encounter for screening for malignant neoplasm of respiratory organs
CPT/HCPCS: 71271

== ENCOUNTER → 2021-05-19 07:02 | Outpatient (CLI) | payer BC, OTHER, SELFPAY | PROVIDERS: Visit Provider Surgery | DX: Z01.812 Encounter for preprocedural laboratory examination (principal); Z11.52 Encounter for screening for COVID-19; Z12.11 Encounter for screening for malignant neoplasm of colon | CPT/HCPCS: C9803; U0003; U0005 ==

== ENCOUNTER 2021-05-21 06:21 | Day surgery (SDC) | payer BC, OTHER, SELFPAY ==
[2021-05-14 16:12] VITALS: BMI 37.9
[2021-05-21 06:37] VITALS: BP 116/84; PULSE 99; RESP 18; TEMP 36.3; O2SAT 95
[2021-05-21 07:16] VITALS: O2SAT 95
--- NOTE | 2021-05-21 07:39 | HMH.SCOPE ---
- Procedure: Date: 05/21/21 Patient Date of :: 1960 Procedure Performed:: Total colonoscopy to terminal ileum Indications:: Patient is a 60-year-old male from [place] with history of coronary artery disease, previous myocardial infarction, hypertension, diabetes mellitus. He was scheduled for a colonoscopy. Patient did have a upper endoscopy and colonoscopy by Dr. Des Rawls on 06/14/2017. EGD revealed reflux esophagitis, mild linear reactive gastropathy, mild esophageal dysmotility, cricopharyngeal spasm. Colonoscopy revealed diminutive polyp x3 with some grade 1 internal hemorrhoids. Patient did undergo another EGD by Dr. Rawls on 07/04/2018 for atypical chest pain which revealed nonerosive GERD, moderate esophageal dysmotility/dyskinesia, linear reactive gastropathy with bile reflux. He was dilated to 20 cm. Patient does have a family history of colon cancer in his father in his 70s. Recently he has had some right-sided abdominal pain. This seems to be a constant ache and discomfort. He did undergo gallbladder work-up reportedly which was unremarkable. He was scheduled for colonoscopy. Performing Provider:: Vlad Meehan MD Referring Provider:: Piyush Malik MD Sedation:: MAC sedation Procedure:: Patient was taken to endoscopy procedure room. He was positioned in lateral decubitus position. Adequate intravenous sedation was achieved with anesthesia titration of propofol. Digital examination was performed which revealed minimally uniformly enlarged prostate. Variable stiffness Olympus colonoscope was inserted via the anus. Advanced to the cecum without difficulty. Colonic preparation was good. Visualization was good. Ileocecal valve and appendiceal orifice were clearly identified. Colonoscope was advanced generous distance into the terminal ileum which appeared grossly normal. Colonoscope was slowly withdrawn through the colon with very careful surveillance. There were 1 or 2 minimal small sigmoid diverticuli. Retroflexion within the rectum revealed nonpathologic internal hemorrhoids. Colonoscope was withdrawn. Findings:: Very rare, 1 or 2, sigmoid diverticuli Otherwise unremarkable colonoscopy to terminal ileum Recommendations:: No etiology for his right-sided abdominal pain on colonoscopy. Given family history likely repeat colonoscopy 5 years. Complications:: None Estimated blood obtained (mL): 0
[2021-05-21 07:41] VITALS: BP 105/54; PULSE 94; RESP 18; TEMP 36.4; O2SAT 90
[2021-05-21 08:04] VITALS: BP 136/82; PULSE 87; RESP 18; TEMP 36.4; O2SAT 96
[2021-05-21 08:13] VITALS: BP 132/86; PULSE 87; RESP 18; TEMP 36.4; O2SAT 97
--- NOTE | 2021-05-21 11:57 | P.PN_ITS ---
[facility] Anesthesia Checklist - Patient Identification Patient Identification: Arm Band, Verbal (Name & ) - Structural Data Admitted From: Home Planned Operative Procedure/s: Colonoscopy Consent for Planned Operative Procedure(s) Verified: Yes Verified Documents: Surgical Consent - Chart Verification Results Verified: None - Additional verifications Anesthesia Reactions: No - Airway Assessment C-Spine Mobility Assessed: Yes TMJ Mobility Assessed: Yes Dentition: Good Dentition - Neurological Assessment Level of Consciousness: Awake, Alert, Appropriate - Anesthesia Plan Anesthesia Risk discussed: Yes ASA Class: III Anesthesia Type: General [facility] History Medical History: Reports:: Chronic Obstructive Pulmonary Disease (COPD), Coronary Artery Disease, Diabetes Mellitus Type 2, Gastroesophageal Reflux Disease(GERD), Hyperlipidemia, Hypertension, Lung Disease, Myocardial Infarction, Peripheral Artery Disease Denies:: Cancer, Diabetes Mellitus Type 1, Internal Pacemaker, MRSA, Seizures *Have you ever received a pneumonia vaccine?: No *Have you received a flu vaccine this season?: No Other Medical History: Reports: Arthritis Anesthesia experience/problems:: none Other Surgeries: Yes: Appendectomy, Cardiac Catheterization, Colonoscopy, Coronary Stent, EGD. No: Pacemaker Amputation: No Fractures: No - *Social History Last grade of school completed: High school graduate Smoking Status: Former smoker Tobacco Type: cigarettes #Yrs smoked (if former smoker): 30 Alcohol Intake: former Alcohol Intake Frequency:: 0-2 drinks per day Substance Use Type: denies use *Occupational Status:: employed Housing: house Household Members: spouse *Travel in the last 8 weeks: Inside the [facility] Family Hx:: Unable to obtain
[2022-02-26 10:55] LABS: POC Glucose,Bedside 120 (70-110)
== END 2021-05-21 08:24 | disposition home or self-care (01) ==
LOC: OUTP 06:23
PROVIDERS: PCP Internal Medicine Adolescent Medicine; Visit Provider Surgery
PROC: 0DJD8ZZ Inspection of Lower Intestinal Tract, Via Natural or Artificial Opening Endoscopic (ICD-10-PCS; CPT 45378; principal; 2021-05-21 07:30)
DX: Z12.11 Encounter for screening for malignant neoplasm of colon (principal); Z86.010 Personal history of colon polyps; Z80.0 Family history of malignant neoplasm of digestive organs; Z87.19 Personal history of other diseases of the digestive system; K57.30 Diverticulosis of large intestine without perforation or abscess without bleeding; I25.10 Atherosclerotic heart disease of native coronary artery without angina pectoris; I10 Essential (primary) hypertension; E11.9 Type 2 diabetes mellitus without complications; J44.9 Chronic obstructive pulmonary disease, unspecified; K21.9 Gastro-esophageal reflux disease without esophagitis; E78.5 Hyperlipidemia, unspecified; I73.9 Peripheral vascular disease, unspecified
CPT/HCPCS: 45378; 82962

== ENCOUNTER → 2021-07-10 07:01 | Outpatient (CLI) | payer BC, OTHER, SELFPAY ==
[2021-07-10 15:04] LABS: Alanine Aminotransferase 51 U/L (12-78); Albumin Level 4.5 g/dl (3.5-5.0); Albumin/Globulin Ratio 1.9 (1.1-1.8); Alkaline Phosphatase 77 U/L (38-126); Anion Gap 14.6 mEq/L (5-15); Aspartate Amino Transferase 35 U/L (17-59); Bilirubin,Total 0.9 mg/dl (0.2-1.3); Blood Urea Nitrogen 20 mg/dl (9-20); Calcium 9.4 mg/dl (8.4-10.2); Carbon Dioxide 22 mmol/L (22.0-30.0); Chloride 105 mmol/L (98-107); Cholesterol 140 mg/dl (140-200); Estimated Glomerular Filt Rate 52 ml/min (>60); GFR (African American) 63 ML/MIN (>60); Globulin 2.4 g/dL (1.3-3.2); Glucose 135 mg/dl (74-100); HDL Cholesterol 35 mg/dl (40-60); Potassium 4.6 mmoL/L (3.5-5.1); Sodium 137 mmol/L (136-145); Total Protein,Serum 6.9 g/dl (6.3-8.2); Triglycerides 146 mg/dl (30-150); VLDL Cholesterol 29 mg/dL (0-40)
[2021-07-10 15:13] LABS: Basophils # 0.1 K/mm3 (0-0.2); Basophils % 0.5 % (0.1-2.0); Eosinophils # 0.3 K/mm3 (0.0-0.4); Eosinophils % 2.2 % (0.1-12.0); Hematocrit 48.1 % (42.0-52.0); Hemoglobin 15.1 g/dL (14.1-18.0); Lymphocytes # 1.8 K/mm3 (0.7-4.5); Lymphocytes % 15.5 % (10-50); Mean Corpuscular HGB Conc 31.4 g/dL (31.8-35.4); Mean Corpuscular Hemoglobin 28.1 pg (27.0-31.2); Mean Corpuscular Volume 89.6 fl (80-94); Mean Platelet Volume 10.3 fl (7.4-10.4); Monocytes # 0.8 K/mm3 (0.1-1.0); Monocytes % 7.3 % (1.7-9.3); Neutrophils # 8.4 K/mm3 (1.8-7.8); Neutrophils % 74.5 % (37.0-80.0); Platelet Count 247 K/mm3 (142-424); Red Blood Count 5.37 M/mm3 (4.60-6.20); Red Cell Distribution Width 14.1 % (11.5-17.5); White Blood Count 11.3 K/mm3 (4.8-10.8)
[2021-07-10 15:15] LABS: Direct LDL Cholesterol 83.07 mg/dL (100-129)
[2021-07-10 16:59] LABS: Hemoglobin A1C 6.3 % (4.0-6.0)
== END ==
PROVIDERS: Visit Provider Internal Medicine Adolescent Medicine
DX: E11.69 Type 2 diabetes mellitus with other specified complication (principal); Z86.79 Personal history of other diseases of the circulatory system; Z79.84 Long term (current) use of oral hypoglycemic drugs
CPT/HCPCS: 36415; 80053; 80061; 83036; 85025

== ENCOUNTER 2021-07-22 20:01 | Emergency (ER) | payer BC, OTHER, SELFPAY ==
[2021-07-22 20:02] VITALS: BP 141/99; PULSE 73; RESP 20; TEMP 36.6; O2SAT 98; BMI 37.1
[2021-07-22 20:07] VITALS: BMI 37.1
--- NOTE | 2021-07-22 20:08 | CT_ITS ---
PROCEDURE INFORMATION: Exam: CT Chest Without Contrast; Diagnostic Exam date and time: 07/22/2021 8:08 PM Age: 60 years old Clinical indication: Chest wall pain and left-sided; Patient HX: PT states he sneezed and his now having left sided chest/rib pain; Additional info: Injured ribs TECHNIQUE: Imaging protocol: Diagnostic computed tomography of the chest without contrast. 3D rendering (Not supervised by radiologist): MIP and/or 3D reconstructed images were created by the technologist. Total images: 521 Radiation optimization: All CT scans at this facility use at least one of these dose optimization techniques: automated exposure control; mA and/or kV adjustment per patient size (includes targeted exams where dose is matched to clinical indication); or iterative reconstruction. COMPARISON: CR XR CHEST 2V 07/22/2021 8:07 PM FINDINGS: Thyroid: The visualized thyroid gland is unremarkable. Lungs: No acute tracheobronchial abnormalities. No infiltrates or edema. Mild atelectasis in the lung bases. 3 mm juxtapleural nodule versus nodular scarring in the lateral right upper lobe on series 3, image 23 is unchanged from 04/10/2020 and does not require further assessment. 3.5 mm noncalcified juxtapleural nodule in the lateral right upper lobe on image 43 is unchanged from 04/10/2020 and does not require further assessment. Mild centrilobular emphysematous changes in the pulmonary apices. Pleural spaces: No pleural effusions. No pneumothorax. Mild bilateral apical pleural/parenchymal scarring. Heart: Heart size normal. Probable stents in the mid LAD and mid RCA distributions, correlate with procedural history. Mediastinal space: The esophagus is largely contracted without gross abnormality. Pulmonary arteries: The pulmonary arteries demonstrate no gross abnormality. Aorta: Unremarkable. No aortic aneurysm. Other arteries: Mild aortic calcific atherosclerosis. No mediastinal hematoma. Lymph nodes: No supraclavicular or axillary adenopathy. No mediastinal or hilar adenopathy. Liver: Question mild generalized fatty infiltration of the liver. Kidneys and ureters: Mild bilateral symmetrical perinephric stranding, nonspecific. This is unchanged and may relate to chronic perirenal scarring. Bones/joints: No acute osseous abnormalities are identified. Soft tissues: Soft tissues of the thoracic wall demonstrate no acute abnormality. IMPRESSION: 1. No acute thoracic process is identified. No fractures or pneumothorax. 2. Nonemergent findings detailed above.
--- NOTE | 2021-07-22 20:08 | XR_ITS ---
PROCEDURE INFORMATION: Exam: XR Chest Exam date and time: 07/22/2021 8:08 PM Age: 60 years old Clinical indication: Chest wall pain and left-sided; Patient HX: PT states he sneezed and his now having left sided chest/rib pain; Additional info: Injured ribs TECHNIQUE: Imaging protocol: XR of the chest. Views: 2 views. Total images: 2 COMPARISON: CR XR CHEST PORTABLE 11/28/2020 8:24 PM FINDINGS: Lungs: Low lung volumes. Pulmonary vasculature grossly normal. No gross pulmonary infiltrates or edema pattern. Pleural spaces: No pleural effusion. No pneumothorax. Heart/Mediastinum: Heart size normal. No tracheal/mediastinal shift. Bones/joints: No fractures are evident with routine two-view chest x-ray technique. CT or rib detail views would be more sensitive if clinically indicated. IMPRESSION: No acute thoracic process.
--- NOTE | 2021-07-22 20:24 | HMH.EDGENADL ---
ED Disposition Clinical Impression: Acute chest wall pain Disposition: Home, Self-Care Condition on Discharge: Good Instructions: DI for Acute Pain -- Adult Additional Instructions: use meds and call pcp for follow up Prescriptions: Ketorolac Tromethamine [Toradol 10mg tablet] 10 mg PO Q6HP PRN #8 tab MDD 40mg/day PRN Reason: Moderate To Severe Pain Transmission Status: Pending to Clinic Pharm[facility] Referrals: Piyush Malik MD [Primary Care Provider] - - Critical Care Critical Care Time: No Attestation: On 07/22/21, the high probability of a clinically significant, sudden or life threatening deterioration of the following system(s) required my full and direct attention, intervention and personal management. The time I documented below is in addition to time spent performing reported procedures but includes the following listed in this critical care notation. Medical Decision Making - Medical Records Medical records reviewed: Yes: I reviewed the patient's medical records. - Theodore Inquiry Pt receiving controlled substance: No Vital Signs: 07/22/21 20:02 Temperature 98 F Temperature Source Oral Pulse Rate [Left Radial] 73 Respiratory Rate 20 Blood Pressure [Right Arm] 141/99 H Blood Pressure Mean [Right Arm] 113 Blood Pressure Source [Right Arm] Automatic Cuff Blood Pressure Position [Right Arm] Sitting 02 Sat by Pulse Oximetry 98 Oxygen Delivery Method Room Air - Lab Data Lab results reviewed: Yes: I reviewed the patient's lab results. Orders (Tests/Meds): ED MEDICATIONS Discontinued Medications Generic Name Dose Route Start Last Admin Trade Name Freq PRN Reason Stop Dose Admin Ketorolac Tromethamine 60 mg 07/22/21 20:52 07/22/21 20:55 Ketorolac 60mg/2ml Vial IM 07/22/21 20:53 60 mg ONCE ONE Administration - Radiology Data #1 Image(s): Chest Image Reviewed: Yes I have reviewed radiologist's interpretation Preliminary Findings: Normal/NAD - CT Data CT Scan: Chest Time Received: 20:[address] Reviewed: Yes: I have viewed the radiologist's interpretation Preliminary Findings: Normal/NAD, Abnormal Medical Decision Narrative: has chest wall pain after cough and stable exam and xrays General Adult HPI - General Chief complaint: PAIN Stated complaint: ribs injured Time Seen by Provider: 07/22/21 20:24 Mode of Arrival: Ambulatory Source of Information: Patient, Medical Record Limitations: No Limitations Description of Symptoms (Recalled from ER Triage Doc. by RN): COLD SYMPTOMS X 1 WEEK; HAS BEEN TESTED FOR COVID AND WAS NEG. PT REPORTS SNEEZING AND NOW HAVING RIB PAIN 12/07. PT STATES THIS HAS HAPPENED PREVIOUSLY WITH COUGHING. - History of Present Illness HPI narrative: had recent resp illness and tonight after cough had lt lat rib pain - on abx Onset (ago): hour(s) Location: chest Severity: moderate Associated symptoms: denies other symptoms Treatments prior to arrival: none - Related Data Home Medications Medication Instructions Recorded Confirmed Atorvastatin Calcium [Lipitor 80mg 80 mg PO DAILY 06/09/17 07/22/21 Tab] Losartan Potassium [Cozaar 25mg 25 mg PO DAILY 06/09/17 07/22/21 Tablets] Tamsulosin HCl [Flomax 0.4mg 0.4 mg PO HS 04/20/18 07/22/21 capsule] pantoprazole 40 mg tablet,delayed 40 mg PO DAILY tab 07/22/18 07/22/21 release trazodone 50 mg tablet 50 mg PO DAILY 07/22/18 07/22/21 Montelukast Sodium [Montelukast 10 mg PO QPM 04/04/19 07/22/21 10mg Tab] meloxicam 7.5 mg tablet 7.5 mg PO DAILY tab 01/03/20 07/22/21 metformin 1,000 mg tablet 1,000 mg PO BID tab 01/03/20 07/22/21 sitagliptin 100 mg tablet 100 mg PO DAILY tab 01/03/20 07/22/21 metoprolol succinate 50 mg 50 mg PO DAILY tab 08/30/20 07/22/21 tablet,extended release 24 hr nitroglycerin 0.4 mg sublingual 0.4 mg SUBLINGUAL Q5-15M PRN tab 08/30/20 07/22/21 tablet Clopidogrel Bisulfate [Plavix] 75 mg PO DAILY 11/28/20 07/22/21
[2021-07-22 21:00] VITALS: BP 139/90; PULSE 71; O2SAT 96
[2021-07-22 21:17] VITALS: BP 140/90; PULSE 70; RESP 20; TEMP 36.7; O2SAT 99
== END 2021-07-22 21:21 | disposition home or self-care (01) ==
PROVIDERS: Emergency Provider Emergency Medicine; PCP Internal Medicine Adolescent Medicine
DX: R07.89 Other chest pain (principal); I25.10 Atherosclerotic heart disease of native coronary artery without angina pectoris; E11.9 Type 2 diabetes mellitus without complications; K21.9 Gastro-esophageal reflux disease without esophagitis; I10 Essential (primary) hypertension; J44.9 Chronic obstructive pulmonary disease, unspecified; Z79.899 Other long term (current) drug therapy
CPT/HCPCS: 71046; 71250; 96372; 99282; 99284

== ENCOUNTER → 2022-02-20 09:39 | Outpatient (CLI) | payer BC, OTHER, SELFPAY ==
[2022-02-20 11:59] LABS: Chloride 104 mmol/L (98-107); Potassium 4.2 mmoL/L (3.5-5.1); Sodium 141 mmol/L (136-145)
[2022-02-20 12:02] LABS: Anion Gap 16.2 mEq/L (5-15); Blood Urea Nitrogen 17 mg/dl (9-20); Calcium 8.9 mg/dl (8.4-10.2); Carbon Dioxide 25 mmol/L (22.0-30.0); Estimated Glomerular Filt Rate 52 ml/min (>60); GFR (African American) 62 ML/MIN (>60); Glucose 130 mg/dl (74-100)
[2022-02-20 12:12] LABS: NT Pro Brain Natriuretic Pep. 77.5 pg/mL (0-125)
== END ==
PROVIDERS: PCP Internal Medicine Adolescent Medicine; Visit Provider Internal Medicine Cardiovascular Disease
DX: R06.00 Dyspnea, unspecified (principal); I25.10 Atherosclerotic heart disease of native coronary artery without angina pectoris; I10 Essential (primary) hypertension; I25.2 Old myocardial infarction; E78.2 Mixed hyperlipidemia; Z95.5 Presence of coronary angioplasty implant and graft
CPT/HCPCS: 36415; 80048; 83880

== ENCOUNTER → 2022-03-03 06:05 | Outpatient (CLI) | payer BC, OTHER, SELFPAY ==
--- NOTE | 2022-03-03 06:07 | CA_ITS ---
APPROVED REPORT EXAM: Comprehensive 2D, Doppler, and color-flow Echocardiogram Piping Manager: Emily Martinez, JOEL, RVS Ht: 5 ft 6 in Wt: 228lbs BSA: 2.11 BP: 135/78 mmHg Indications: SOB, COPD, CAD, Hx- old MS, Ex-smoker, dm,htn, hld 2D Dimensions Aortic Root 3.24 cm LA Volume 51.80 mL Left Atrium 3.43 cm LA Volume Index [id number] mL/m2 (M/F) 16-34 LVOT 2.10 cm (M/F) 1.5-2.5 M-Mode Dimensions RVDd 2.12 cm (0.9-2.6) LA Diam 4.00 cm (1.9-4.0) LVDd 5.68 cm (3.5-5.7) Ao Diam 3.24 cm (2.0-3.7) LVDs 4.24 cm (3.5-5.7) IVSd 1.31 cm (0.6-1.1) PWd 0.76 cm (0.6-1.1) EF (Teich) 49.40% EPSs 0.68 cm FS 25.40% EDV (Teich) 158.80 mL TAPSE 1.66 (<1.7) ESV (Teich) 80.40 mL LV Diastology E Decel Time 213.00 (160-240 msec) E/A Ratio 0.77 MED E' 8.20 (< 7 cm/sec) MED A' 11.80 cm/s E'/MED E' Ratio 10.05 (>14) LAT E' 5.00 (<10 cm/sec) LAT A' 8.10 cm/s E/LAT E' Ratio 16.48 (>14) Aortic Valve LVOT Max 81.00 (70-110 cm/s) LVOT VTI 19.51 cm AoV Peak Blanco. 112.00 (50-130 cm/s) AO Peak GR. 5.00 mmHg AO Mean GR. 2.50 (<5 mmHg) AO VTI 24.54 (18-25 cm) GIL (VTI) 2.75 (2.5-4.5 cm2) Mitral Valve MV A Velocity 107.00 (40-130 cm/s) E/A Ratio 0.77 MV Decel. Time 213.00 (160-240 ms) MV Mean Gr. 2.50 (<2mmHg) Pulmonary Valve PV Peak Velocity 83.00 (50-150 cm/s) Left Ventricle Left atrium is mildly enlarged, left ventricle is normal size mild concentric left ventricular hypertrophy, estimated ejection fraction 55% with no regional wall motion abnormality, endocardial surfaces are poorly visualized, grade 1 diastolic dysfunction seen without tissue Doppler evidence of raise left atrial pressure. Right Ventricle Right atrium and right ventricle are mildly enlarged with normal contractility. Aortic Valve Aortic valve is minimally thickened and calcified without aortic stenosis or aortic insufficiency. Mitral Valve Mitral valve leaflets are minimally thickened, there is mild to moderate mitral regurgitation. Tricuspid Valve Tricuspid valve is grossly normal, there is mild tricuspid regurgitation, tricuspid regurgitation jet velocity is inadequate for calculation of the right ventricular systolic pressure. Pulmonic Valve Pulmonic valve is poorly visualized. Great Vessels Aortic root is normal size. Inferior vena cava is poorly visualized. Pericardium Trivial pericardial effusion noted. Conclusion 1. Biatrial enlargement, normal left ventricular size, mild concentric left ventricular hypertrophy, estimated ejection fraction 55% with no regional wall motion abnormality, grade 1 diastolic dysfunction seen without tissue Doppler evidence of raise left atrial pressure, endocardial surfaces are poorly visualized. 2. Mildly enlarged right ventricle with normal contractility. 3. Mild to moderate mitral and mild tricuspid regurgitation. 4. Trivial pericardial effusion noted. 5. Inferior vena cava is poorly visualized. Electronically signed by : Peewee Yoder MD 03/04/2022 05:30:27
--- NOTE | 2022-03-03 06:07 | NM_ITS ---
APPROVED REPORT Exam: Nuclear Stress Test Indication: SOB, Fatigue, CAD, HTN, DM, High cholesterol, Family history Patient Location: Outpatient Stress Tech: Kenia Mercado [place] Tech:Kirstie Franklin, ARRT, RT (R)(N) Ht: 5 ft 6 in Wt: 230 lbs HR: 65 bpm BP: 118/76 mmHg BSA: 2.12 m2 TID: 1.15 BMI: 37.1 History: SOB, Fatigue, CAD, HTN, DM, High cholesterol, Family history Procedure: Patient received a 0.4 mg of intravenous Lexiscan, resting heart rate 65 bpm, resting blood pressure 118/76 mmHg, with Lexiscan maximum heart rate achived was 106 bpm which is Less than 85 % of the maximum predicted heart rate and blood pressure was 145/82 mmHg. With Lexiscan, patient denied any complaint of chest pain. Electrocardiogram Resting electrocardiogram showed sinus rhythm with anterior ST-T changes, with Lexiscan there is less than 1.[address] segment depression noted from the baseline EKG. The EKG portion of the Lexiscan is nondiagnostic. Cardiac Stress and Resting SPECT Images: Cardiac Stress and Resting SPECT images were obtained using technetium 99m Myoview 29.7 mCi stress and 10.43 mCi at rest. Gated SPECT analysis of segmental wall motion and calculation of the ejection fraction also done. Cardiac stress and rest SPECT images show reversible ischemia involving the apex and anterolateral wall, computer ejection fraction is 54% with no regional wall motion abnormality, right ventricle is normal size and contractility. Conclusion: 1. The EKG portion of the Lexiscan is nondiagnostic. 2. Scintigraphic evidence of reversible ischemia involving the apex and inferolateral wall, computer derived ejection fraction 54% with no regional wall motion abnormality, right ventricle is normal size and contractility. 3. Abnormal Lexiscan Myoview study. Electronically signed by : Peewee Yoder MD 03/04/2022 06:33:44
--- NOTE | 2022-03-03 06:07 | CA_ITS ---
APPROVED REPORT Exam: Pharmacologic Technologist: Kenia Mercado Ht: 5 ft 6 in Wt: 228 lbs BSA: 2.11 m2 HR: 62 bpm BP: 118/76 mmHg Indications: Shortness of Air (R06.02) Medical History Medications: Metoprolol,,,,, Metformin,,,,, Losartan,,,,, Atorvastatin,,,,, TAMSULOSIN,,,,, Montelukast,,,,, MeLOXICAM,,,,, CloPIdogrel,,,,, Nitroglycerin,,,,, Trazodone,,,,, JaRDiance,,,,, Flucticasone,,,,, Stress Test Details Test: LEXISCAN HR Resting HR: 65 bpm Max Heart Rate (APMHR): 159.999906 bpm Max HR Achieved: 106 bpm Target HR (85% APMHR): 135.469569 bpm % of APMHR: 66.67 Recovery HR: 82 bpm BP Resting BP: 118.0/76.0 mmHg Max BP: 145.0/82.0 mmHg Recovery BP: 145.0/82.0 mmHg ECG Resting ECG: Normal sinus rhythm, low voltage QRS, anterior T wave abnormalities. Clinical Exercise duration: 04:00 min Highest Stage Achieved: Exercise capacity: 1.0 METs Stress ECG Conclusion Symptoms: Shortness of air, mild [place], head discomfort. No chest pain. Arrhythmias/Ectopy: None ST-T Changes: No significant changes. Conclusion: Unremarkable Lexiscan stress. Myoview images reported separately. Electronically signed by : Peewee Yoder MD 03/04/2022 06:27:52
--- NOTE | 2022-03-03 08:14 | HMH.ITSHM ---
Current Home Medications as stated by this patient Santhosh Denis or field service representative. []TRAZODONE TAMSULOSIN SITAGLIPTIN PANTOPRAZOLE NITRO MONTELUKAST METOPROLOL LOSARTAN FLUTICASONE EMPAGLIFLOZIN CLOPIDOGREL ATORVASTATIN
== END ==
PROVIDERS: PCP Family Medicine; Visit Provider Internal Medicine Cardiovascular Disease
DX: I10 Essential (primary) hypertension (principal); I25.10 Atherosclerotic heart disease of native coronary artery without angina pectoris; R06.00 Dyspnea, unspecified; I25.2 Old myocardial infarction; E78.2 Mixed hyperlipidemia; Z95.5 Presence of coronary angioplasty implant and graft
CPT/HCPCS: 78452; 93017; 93306; A9502; J2785

== ENCOUNTER 2022-03-06 11:13 | Observation (INO) | payer BC, OTHER, SELFPAY ==
[2022-03-06] VITALS (10 sets, daily range): BP systolic 105–142; BP diastolic 70–81; PULSE 64–92; RESP 15–20; TEMP 36.6–36.9; O2SAT 95–98; BMI 37.1
--- NOTE | 2022-03-06 11:13 | ECG_ITS ---
APPROVED REPORT Exam: Resting ECG HR:94 bpm ECG Measurements Heart Rate 94 AXES KS 140 P 38 QRSd 85 QRS 52 QT 334 T 19 QTc 386 Conclusion SINUS RHYTHM LOW QRS VOLTAGE IN PRECORDIAL LEADS [QRS DEFLECTION < 1.0 mV IN CHEST LEADS] NONSPECIFIC T-WAVE ABNORMALITY BORDERLINE ECG UNCONFIRMED REPORT Electronically signed by : Piyush Malik MD 03/09/2022 18:03:18
--- NOTE | 2022-03-06 11:29 | XR_ITS ---
FINAL REPORT CLINICAL HISTORY: Precordial chest pain COMPARISON: 07/23/2021 FINDINGS: A single view of the chest was obtained. The heart is enlarged. The mediastinum is unremarkable. Is mild right base atelectasis or scarring. There is no acute pulmonary abnormality. There is no pleural effusion. There is no pneumothorax. There is no acute osseous abnormality. IMPRESSION: No acute cardiopulmonary process. Reviewed, Interpreted and Dictated by Vlad Fernandes III, MD Transcribed by Michelle Witt Authenticated and [facility]
--- NOTE | 2022-03-06 11:33 | PC.NURSE ---
IV established and blood sent to the lab. daughter in law at the bedside
--- NOTE | 2022-03-06 11:36 | HMH.EDGENADL ---
Discharge Plan Disposition Patient Disposition: Admitted As Inpatient Clinical Impressions Clinical Impression: Unstable angina Discharge ED Provider: Cyril Stephenson General Adult HPI General Chief complaint: Chest Pain Stated complaint: chest pain Time Seen by Provider: 03/06/22 11:30 History of Present Illness HPI narrative: Patient is a 61-year-old male with past medical history of diabetes, CKD, prior ACS status post stenting who presents emergency department for evaluation of chest pain. Onset was acute occurring midmorning, substernal, intermittently radiating to his jaws, moderate in intensity, nonmodifiable. Symptoms are refractory to ACS in route. Related Data Home Medications Medication Instructions Recorded Confirmed atorvastatin 80 mg tablet 80 mg PO DAILY Cholesterol 06/09/17 03/06/22 losartan 25 mg tablet 25 mg PO DAILY Hypertension 06/09/17 03/06/22 tamsulosin 0.4 mg capsule 0.4 mg PO HS prostate 04/20/18 03/06/22 pantoprazole 40 mg tablet,delayed 40 mg PO DAILY acid reflux 07/22/18 03/06/22 release trazodone 50 mg tablet 50 mg PO HS sleep 07/22/18 03/06/22 montelukast 10 mg tablet 10 mg PO QPM Allergy symptoms 04/04/19 03/06/22 meloxicam 7.5 mg tablet 7.5 mg PO DAILY Pain 01/03/20 03/06/22 sitagliptin 100 mg tablet 100 mg PO DAILY Diabetes 01/03/20 03/06/22 nitroglycerin 0.4 mg sublingual 0.4 mg sublingual Q5-15M PRN Chest 08/30/20 03/06/22 tablet Pain fluticasone propionate 50 1 spray intranasal DAILY Allergy 11/29/20 03/06/22 mcg/actuation nasal symptoms spray,suspension metformin 1,000 mg tablet 1,000 mg PO BID Diabetes 02/20/22 03/06/22 empagliflozin 25 mg tablet 25 mg PO DAILY Diabetes 03/06/22 03/06/22 (Jardiance) fluticasone furoate 200 1 inh inhalation DAILY lung disease 03/06/22 03/06/22 mcg-vilanterol 25 mcg/dose inhalation powder (Breo Ellipta) metoprolol succinate 50 mg 50 mg PO DAILY Hypertension 03/06/22 03/06/22 tablet,extended release 24 hr Previous Rx's Medication Instructions Recorded clopidogrel 75 mg tablet 75 mg PO DAILY platelet inhibitor 01/28/22 #90 tabs albuterol sulfate 90 mcg/actuation 1 inh inhalation QID PRN shortness 03/05/22 aerosol inhaler of breath or wheezing #8.5 grams Allergies Allergy/AdvReac Type Severity Reaction Status Date / Time No Known Allergies Allergy Verified 03/05/22 08:11 PFSH PFSH Medical History Coronary artery disease Diabetes mellitus Diastolic dysfunction Hernia HLD (hyperlipidemia) Hypertension Type 2 diabetes mellitus with hyperglycemia Family History Family history of gout Family history of acute heart failure Family history of prostate cancer Prostate cancer Family history of arthritis Family history of hypertension Family history of Alzheimer's disease Family history of diabetes mellitus type II Family history of myocardial infarction Family history of cataracts Social History Smoking Status: Former smoker pack-years: 30 second hand exposure: No alcohol intake: current substance use type: denies use current occupational status: employed Travel in the last 8 weeks: Inside the [place] household members: spouse housing: house current occupation: [employer] current occupational exposures/hazards: Yes caffeine: Yes ROS Obtained: Yes All systems reviewed & no additional complaints except as documented Physical Exam General General appearance: alert and in no apparent distress Head Head exam: atraumatic and normocephalic Eye Eye exam: Present PERRL and EOMI ENT ENT exam: Present mucous membranes moist Neck Neck exam: Present normal inspection Chest Chest inspection: Present normal inspection and symmetric chest wall rise Respiratory Respiratory exam: Present normal lung sounds bilaterally;
--- NOTE | 2022-03-06 11:39 | PC.NURSE ---
verbal order for aspirin given by
[2022-03-06 11:42] LABS: Chloride 107 mmol/L (98-107)
[2022-03-06 11:43] LABS: Potassium 3.9 mmoL/L (3.5-5.1); Sodium 142 mmol/L (136-145)
[2022-03-06 11:45] LABS: Alanine Aminotransferase 38 U/L (12-78); Albumin Level 4.2 g/dl (3.5-5.0); Albumin/Globulin Ratio 1.8 (1.1-1.8); Alkaline Phosphatase 86 U/L (38-126); Anion Gap 13.9 mEq/L (5-15); Aspartate Amino Transferase 40 U/L (17-59); Bilirubin,Total 0.3 mg/dl (0.2-1.3); Blood Urea Nitrogen 13 mg/dl (9-20); Carbon Dioxide 25 mmol/L (22.0-30.0); Creatinine Clearance Estimated 88 mL/min (50-200); Estimated Glomerular Filt Rate 56 ml/min (>60); GFR (African American) 68 ML/MIN (>60); Globulin 2.3 g/dL (1.3-3.2); Total Protein,Serum 6.5 g/dl (6.3-8.2)
[2022-03-06 11:46] LABS: Basophils % 0.5 % (0.1-2.0); Calcium 8.8 mg/dl (8.4-10.2); Eosinophils # 0.2 K/mm3 (0.0-0.4); Eosinophils % 1.9 % (0.1-12.0); Glucose 176 mg/dl (74-100); Hematocrit 41.2 % (42.0-52.0); Hemoglobin 11.6 g/dL (14.1-18.0); Lymphocytes # 1.6 K/mm3 (0.7-4.5); Lymphocytes % 19.9 % (10-50); Mean Corpuscular HGB Conc 28.3 g/dL (31.8-35.4); Mean Corpuscular Hemoglobin 23.2 pg (27.0-31.2); Mean Corpuscular Volume 81.9 fl (80-94); Mean Platelet Volume 8.4 fl (7.4-10.4); Monocytes # 0.6 K/mm3 (0.1-1.0); Monocytes % 7.2 % (1.7-9.3); Neutrophils # 5.6 K/mm3 (1.8-7.8); Neutrophils % 70.6 % (37.0-80.0); Platelet Count 235 K/mm3 (142-424); Red Blood Count 5.03 M/mm3 (4.60-6.20); Red Cell Distribution Width 14.7 % (11.5-17.5); White Blood Count 7.9 K/mm3 (4.8-10.8)
[2022-03-06 11:58] LABS: Troponin I < 0.01 ng/ml (0.00-0.034)
--- NOTE | 2022-03-06 12:04 | PC.NURSE ---
rounded on pt. no needs voiced
--- NOTE | 2022-03-06 12:33 | PC.NURSE ---
obtained covid swab
[2022-03-06 12:42] LABS: Coronavirus 19, PCR Not Detected (NotDetected); Influenza A, PCR Not Detected (NotDetected); Influenza B, PCR Not Detected (NotDetected)
--- NOTE | 2022-03-06 12:59 | PC.NURSE ---
pt given warm blanket, updated pt on current POC (repeat 2nd troponin at 3 hour roger)
--- NOTE | 2022-03-06 13:08 | PC.NURSE ---
notified cardiology office of pt consult per ER MD request. Office staff states they will notify jadon
--- NOTE | 2022-03-06 13:14 | ECG_ITS ---
APPROVED REPORT Exam: Resting ECG HR:68 bpm ECG Measurements Heart Rate 68 AXES TX 142 P 57 QRSd 102 QRS 49 QT 373 T 28 QTc 391 Conclusion SINUS RHYTHM LOW QRS VOLTAGE IN PRECORDIAL LEADS [QRS DEFLECTION < 1.0 mV IN CHEST LEADS] NONSPECIFIC T-WAVE ABNORMALITY BORDERLINE ECG UNCONFIRMED REPORT Electronically signed by : Piyush Malik MD 03/09/2022 18:03:06
--- NOTE | 2022-03-06 13:16 | PC.NURSE ---
repeat ekg performed and given to MD per request
--- NOTE | 2022-03-06 13:20 | PC.NURSE ---
millie robbinsn at [facility]
--- NOTE | 2022-03-06 13:26 | PC.NURSE ---
cardiology seen pt at the bedside. states she is going to speak with dr price for a probable cath. will come back to the ed to speak to ED MD for final plan.
--- NOTE | 2022-03-06 13:36 | PC.NURSE ---
MEGAN MONK speaking with Dr. Delgado -[facility] hospitalist
--- NOTE | 2022-03-06 13:39 | EXP.CARD.CON ---
History of Present Illness History of Present Illness Consult date: 03/06/22 Requesting physician: Cyril Stephenson Consult reason: chest pain Chief complaint: chest pain Additional Medical History:: Significant past medical history Coronary artery disease-STEMI with SOHEILA 2016, medical management heart cath 2019 DMII Mixed hyperlipidemia Essential hypertension Diastolic dysfunction grade 1 Stress test 03/03/2022 Conclusion: 1.? The EKG portion of the Lexiscan is nondiagnostic. 2.? Scintigraphic evidence of reversible ischemia involving the apex and inferolateral wall, computer derived ejection fraction 54% with no regional wall motion abnormality, right ventricle is normal size and contractility. 3.? Abnormal Lexiscan Myoview study. Echo 03/03/2022 Conclusion 1.? Biatrial enlargement, normal left ventricular size, mild concentric left ventricular hypertrophy, estimated ejection fraction 55% with no regional wall motion abnormality, grade 1 diastolic dysfunction seen without tissue Doppler evidence of raise left atrial pressure, endocardial surfaces are poorly visualized. 2.? Mildly enlarged right ventricle with normal contractility. 3.? Mild to moderate mitral and mild tricuspid regurgitation. 4.? Trivial pericardial effusion noted. 5.? Inferior vena cava is poorly visualized. History of present illness: 61-year-old white male with above past medical history presented to ER with complaint of midsternal chest pressure 8 out of 10 radiating to bilateral arms and into neck starting at approximately 9 AM today associated with soa. Patient reports had a busy morning today and had left [place] and was sitting in truck at rest when symptoms began. Patient states he has experienced similar episodes over the past 6 weeks increasing in frequency and intensity often times at rest. Patient took 2 nitro prior to arrival to ER with no relief of symptoms. Patient was evaluated in our cardiology office last month and was scheduled for outpatient stress test and echo with follow-up next week. Echo showed a normal EF with grade 1 diastolic dysfunction. Stress test showed new evidence of reversible ischemia involving the apex and inferolateral wall. Upon presentation to ER vitals were stable. Initial troponin was negative. EKG negative for acute ischemic changes. Chest x-ray negative for acute cardiopulmonary process. Continues to have midsternal chest pressure despite 2 nitros prior to arrival. PFSH PFSH Medical History Coronary artery disease Diabetes mellitus Diastolic dysfunction HLD (hyperlipidemia) Hypertension Type 2 diabetes mellitus with hyperglycemia Social History Smoking Status: Former smoker pack-years: 30 second hand exposure: No alcohol intake: current substance use type: denies use current occupational status: employed Travel in the last 8 weeks: [place] the [place] household members: spouse housing: house current occupation: [employer] current occupational exposures/hazards: Yes caffeine: Yes Review of Systems Review of Systems Review of systems:: pertinent systems reviewed and negative unless documented below Constitutional Constitutional: Reports system reviewed and no additional complaints, except as documented *Cardiovascular Cardiovascular: Reports chest pain and Reports dyspnea *Respiratory Respiratory: Reports system reviewed and no additional complaints, except as documented and Reports dyspnea *Gastrointestinal Gastrointestinal: Reports system reviewed and no additional complaints, except as documented *Neurologic Neurologic: Reports system reviewed and no additional complaints, except as documented and Denies confusion Psychiatric Psychiatric: Reports system reviewed and no additional complaints, except as documented and Denies confusion Exam Data for Last 24 hours Vital signs
--- NOTE | 2022-03-06 13:42 | PC.NURSE ---
notified care management of admission, spoke with marilyn
--- NOTE | 2022-03-06 14:14 | PC.NURSE ---
pt reports nausea. MD notified. verbal order for zofran given by
--- NOTE | 2022-03-06 14:21 | PC.NURSE ---
second troponin sent to lab
--- NOTE | 2022-03-06 14:28 | PC.NURSE ---
report called to owen baires rn
--- NOTE | 2022-03-06 14:41 | PC.NURSE ---
patient arrived from ed by wheelchair
[2022-03-06 14:49] LABS: Troponin I < 0.01 ng/ml (0.00-0.034)
--- NOTE | 2022-03-06 15:03 | P.CONPHA_ITS ---
[facility] Pharmacy VTE Monitoring Patient Demographics Admission date: 03/06/22 Report Date: 03/06/22 Time: 15:03 Patient Allergies No Known Allergies Allergy (Verified 03/05/22 08:11) Height: 1.68 m Weight: 104.326 kg Current Active Problems (Updated 03/06/22 @ 14:53 by Rossy Gleason RN) Unstable angina (Acute) Acute kidney injury (Acute) Unstable angina (Acute) Diastolic dysfunction (Chronic) Hypertension (Chronic) Coronary artery disease (Chronic) Diabetes mellitus (Chronic) HLD (hyperlipidemia) (Chronic) VTE Risk Labs: VTE Related Lab Results Hgb 11.6 g/dL (14.1-18.0) L 03/06/22 11:20 Hct 41.2 % (42.0-52.0) L 03/06/22 11:20 Plt Count 235 K/mm3 (142-424) 03/06/22 11:20 BUN 13 mg/dl (9-20) 03/06/22 11:20 Creatinine 1.30 mg/dl (0.66-1.25) H 03/06/22 11:20 Estimated Creat Clear 88 mL/min (50-200) 03/06/22 11:20 Prophylaxis VTE Prophylaxis Ordered?: Yes Types of VTE Prophylaxis: Pharmacological Pharmacologic Type: Heparin
--- NOTE | 2022-03-06 16:30 | EXP.HP ---
History of Present Illness *Admission Date: 03/06/22 *Reason for visit:: chest pain *History of present illness: Mr. Denis is a 61-year-old male with significant past medical history of diabetes, hypertension, coronary artery disease, who presented to the ER with chest pain that is pressure-like occurring after exerting himself today. Of note he performed a stress test earlier this week that showed reversible ischemic changes and was in the process of being scheduled for an outpatient work-up. Unfortunately his pain has become more acute and is not remitting at home while at rest. He came to the ER for further evaluation. On arrival EKG was obtained, chest x-ray, serial troponins. Initial troponins and EKG with no acute changes however given unstable nature of his chest pain, medicine was consulted for admission and monitoring overnight. On interview after arriving to the floor, patient states he has become very anxious about finding out that his stress test was abnormal. His substernal pain is reminiscent of his last heart attack. He denies any acute shortness of breath, confusion, dizziness. No nausea or vomiting. No dysuria, diarrhea. Due to high risk persistent chest pain the case was discussed with cardiology and they recommend admission.? Stephanie score intermediate risk. Cardiac history as follows: Hx of SOHEILA in 2017 with STEMI. Medical management in 01/2019. On Plavix. HTN-BP acceptable. HLD-LDL goal is < 55 PFSH PFSH Medical History Coronary artery disease Diabetes mellitus Diastolic dysfunction Hernia HLD (hyperlipidemia) Hypertension Type 2 diabetes mellitus with hyperglycemia Family History Family history of gout Family history of acute heart failure Family history of prostate cancer Prostate cancer Family history of arthritis Family history of hypertension Family history of Alzheimer's disease Family history of diabetes mellitus type II Family history of myocardial infarction Family history of cataracts Social History Smoking Status: Former smoker pack-years: 30 second hand exposure: No alcohol intake: current substance use type: denies use current occupational status: employed Travel in the last 8 weeks: [place] the [place] household members: spouse housing: house current occupation: [employer] current occupational exposures/hazards: Yes caffeine: Yes Review of Systems Review of Systems Review of systems (narrative): Complete review of systems performed, pertinent positives and negatives as per HPI *Neurologic Neurologic: Reports system reviewed and no additional complaints, except as documented and Denies confusion Psychiatric Psychiatric: Denies confusion Meds Home Medications and Allergies Home Medications Medication Instructions Recorded Confirmed Type atorvastatin 80 mg tablet 80 mg PO DAILY Cholesterol 06/09/17 03/06/22 History losartan 25 mg tablet 25 mg PO DAILY Hypertension 06/09/17 03/06/22 History tamsulosin 0.4 mg capsule 0.4 mg PO HS prostate 04/20/18 03/06/22 History pantoprazole 40 mg tablet,delayed 40 mg PO DAILY acid reflux 07/22/18 03/06/22 History release trazodone 50 mg tablet 50 mg PO HS sleep 07/22/18 03/06/22 History montelukast 10 mg tablet 10 mg PO QPM Allergy symptoms 04/04/19 03/06/22 History meloxicam 7.5 mg tablet 7.5 mg PO DAILY Pain 01/03/20 03/06/22 History sitagliptin 100 mg tablet 100 mg PO DAILY Diabetes 01/03/20 03/06/22 History nitroglycerin 0.4 mg sublingual 0.4 mg sublingual Q5-15M PRN Chest 08/30/20 03/06/22 History tablet Pain fluticasone propionate 50 1 spray intranasal DAILY Allergy 11/29/20 03/06/22 History mcg/actuation nasal symptoms spray,suspension clopidogrel 75 mg tablet 75 mg PO DAILY platelet inhibitor 01/28/22 03/06/22 Rx #90 tabs
[2022-03-06 16:52] LABS: POC Glucose,Bedside 116 (70-110)
[2022-03-06 19:38] LABS: Troponin I < 0.01 ng/ml (0.00-0.034)
[2022-03-06 19:45] LABS: POC Glucose,Bedside 95 (70-110)
--- NOTE | 2022-03-06 21:15 | PC.NURSE ---
While administering 2100 scheduled meds. 1 40mg lipitor tablet fell on the floor and was discarded into sharps container. 1 40 mg lipitor tablet pulled from omini for pt scheduled 80mg lipitor.
[2022-03-06 21:27] LABS: POC Glucose,Bedside 109 (70-110)
[2022-03-07] VITALS (11 sets, daily range): BP systolic 102–129; BP diastolic 65–78; PULSE 54–97; RESP 18–20; TEMP 36.6–37.1; O2SAT 93–98
--- NOTE | 2022-03-07 | IR_ITS ---
APPROVED REPORT Patient Location: Inpatient [facility] Agent: AMANDA Alegria RT (R) PROCEDURES 1. Left heart catheterization 2. Selective coronary arteriography 3. Left ventriculography INDICATION 1. Unstable angina, 2. Abnormal Myoview SCAI INDICATION Patient is a 61-year-old white male who presented with progressive chest pain. Had an abnormal stress test. Secondary to this referred for left heart catheterization Informed consent was obtained prior to the procedure. COMPLICATIONS None Estimated Blood Loss: Less than 10 mls TECHNIQUE One percent lidocaine was used to anesthetize the right groin. The right femoral artery was accessed via the Seldinger technique. A 4-Gambian sheath was placed in the right femoral artery. The JL-4 and JR-4 catheter was also used to perform left heart catheterization left ventriculogram and selective coronary angiogram. At the end of the procedure the patient was transferred to the post-op holding area in stable condition for arterial sheath removal. ANGIOGRAPHIC RESULTS The left main artery Long and angiographically normal The left anterior descending artery Smooth 20% mid stenosis The circumflex artery Large in size with mild luminal irregularities The right coronary artery Large and dominant. Smooth 20% ostial/proximal stenosis with smooth 20% mid stenosis The MENJIVAR ventriculogram reveals Normal left ventricular systolic function with an ejection fraction of 55 to 60% The left ventricular end-diastolic pressure 15 Right, retrograde femoral arteriogram performed. Sheath placed in the right common femoral artery. Secondary to this an Angio-Seal device was deployed without difficulty IMPRESSION 1. Mild diffuse coronary artery disease 2. Normal left ventricular systolic function 3. Normal left ventricular end-diastolic pressure 4. Successful placement of an Angio-Seal device in the right common femoral artery PLAN 1. Mild diffuse coronary artery disease. Left ventricular systolic function is normal. Look for noncardiac causes of chest pain. Follow-up in cardiology clinic in 1 to 2 weeks for further evaluation and treatment Electronically signed by : Pan Peoples MD 03/07/2022 11:27:07
[2022-03-07 06:28] LABS: POC Glucose,Bedside 103 (70-110)
--- NOTE | 2022-03-07 06:31 | PC.NURSE ---
No c/o of pain voiced to staff t/o night. Pt has been NSR on tele. Pt verbalizes understanding of heart cath procedure today, consent form signed. Call light within reach.
[2022-03-07 09:21] LABS: Basophils # 0.1 K/mm3 (0-0.2); Basophils % 0.9 % (0.1-2.0); Eosinophils # 0.2 K/mm3 (0.0-0.4); Hematocrit 35.1 % (42.0-52.0); Hemoglobin 11.5 g/dL (14.1-18.0); Lymphocytes # 1.5 K/mm3 (0.7-4.5); Lymphocytes % 23.7 % (10-50); Mean Corpuscular HGB Conc 32.7 g/dL (31.8-35.4); Mean Corpuscular Hemoglobin 25.4 pg (27.0-31.2); Mean Corpuscular Volume 77.5 fl (80-94); Mean Platelet Volume 9.7 fl (7.4-10.4); Monocytes # 0.5 K/mm3 (0.1-1.0); Monocytes % 8.6 % (1.7-9.3); Neutrophils % 63.8 % (37.0-80.0); Platelet Count 230 K/mm3 (142-424); Red Blood Count 4.52 M/mm3 (4.60-6.20); Red Cell Distribution Width 15.9 % (11.5-17.5); White Blood Count 6.2 K/mm3 (4.8-10.8)
[2022-03-07 09:22] LABS: Chloride 107 mmol/L (98-107); Sodium 141 mmol/L (136-145)
[2022-03-07 09:25] LABS: Alanine Aminotransferase 30 U/L (12-78); Alkaline Phosphatase 80 U/L (38-126); Aspartate Amino Transferase 33 U/L (17-59); Bilirubin,Total < 0.1 mg/dl (0.2-1.3); Blood Urea Nitrogen 13 mg/dl (9-20); Carbon Dioxide 25 mmol/L (22.0-30.0); Creatinine Clearance Estimated 88 mL/min (50-200); Estimated Glomerular Filt Rate 56 ml/min (>60); GFR (African American) 68 ML/MIN (>60)
[2022-03-07 09:26] LABS: Albumin Level 3.6 g/dl (3.5-5.0); Albumin/Globulin Ratio 1.6 (1.1-1.8); Calcium 8.1 mg/dl (8.4-10.2); Globulin 2.2 g/dL (1.3-3.2); Glucose 113 mg/dl (74-100); Magnesium 1.9 mg/dl (1.6-2.3); Total Protein,Serum 5.8 g/dl (6.3-8.2)
--- NOTE | 2022-03-07 12:21 | EXP.DC.SUM ---
General Admission date:: 03/06/22 Discharge date: 03/07/22 HPI HPI HPI: Mr. Denis is a 61-year-old male with significant past medical history of diabetes, hypertension, coronary artery disease, who presented to the ER with chest pain that is pressure-like occurring after exerting himself today. Of note he performed a stress test earlier this week that showed reversible ischemic changes and was in the process of being scheduled for an outpatient work-up. Unfortunately his pain has become more acute and is not remitting at home while at rest. He came to the ER for further evaluation. On arrival EKG was obtained, chest x-ray, serial troponins. Initial troponins and EKG with no acute changes however given unstable nature of his chest pain, medicine was consulted for admission and monitoring overnight. On interview after arriving to the floor, patient states he has become very anxious about finding out that his stress test was abnormal. His substernal pain is reminiscent of his last heart attack. He denies any acute shortness of breath, confusion, dizziness. No nausea or vomiting. No dysuria, diarrhea. Due to high risk persistent chest pain the case was discussed with cardiology and they recommend admission.? Stephanie score intermediate risk. Cardiac history as follows: Hx of SOHEILA in 2017 with STEMI. Medical management in 01/2019. On Plavix. HTN-BP acceptable. HLD-LDL goal is < 55 Hospital Course Hospital Course Hospital Course: 61-year-old male with unstable angina and recent abnormal stress test.? Admitted to medicine for management of anginal symptoms, serial troponins, and observation overnight.? Serial troponins remained undetectable. Taken to the [facility] for left heart cath. Findings as below. No change to regimen. Medically stable for discharge home. We will follow-up in the outpatient setting to further address atypical chest pain. Coronary artery disease unstable angina CCS 3 - STEMI/SOHEILA 2016, medical management heart cath 2018. Positive stress test this past week (03/03/2022) showed evidence of reversible ischemia involving apex and inferior lateral wall. Admitted for serial troponins as above. Cardiology was consulted. Heart cath performed. Continued home regimen of aspirin 81 mg p.o. daily, Plavix 75 mg p.o. daily, metoprolol 50 mg p.o. daily, and atorvastatin 80 mg p.o. daily. Plan to continue this regimen in the outpatient setting. No further changes today. Medically stable for discharge home. Continued home regimen for diabetes, GERD, chronic conditions. Cath performed today, findings as follows: IMPRESSION 1.? Mild diffuse coronary artery disease 2.? Normal left ventricular systolic function 3.? Normal left ventricular end-diastolic pressure 4.? Successful placement of an Angio-Seal device in the right common femoral artery PLAN 1. Mild diffuse coronary artery disease.? Left ventricular systolic function is normal.? Look for noncardiac causes of chest pain.? Follow-up in cardiology clinic in 1 to 2 weeks for further evaluation and treatment Exam Data for Last 24 hours Vital signs and Labs for Last 24 Hours: Temp Pulse Resp BP Pulse Ox 97.8 F 97 H 20 113/76 95 03/07/22 08:00 03/07/22 08:00 03/07/22 08:00 03/07/22 08:00 03/07/22 08:00 Laboratory Results - last 24 hr 03/06/22 12:31: SARS-CoV-2 (PCR) Not detected, Influenza A Untype (PCR) Not detected, Influenza Type B (PCR) Not detected 03/06/22 14:18: Troponin I < 0.01 03/06/22 14:46: POC Glucose 95 03/06/22 16:34: POC Glucose 116 H 03/06/22 18:54: Troponin I < 0.01 03/06/22 21:13: POC Glucose 109 03/07/22 06:20: POC Glucose 103 03/07/22 07:35: WBC 6.2, RBC 4.52 L, Hgb 11.5 L, Hct 35.1 L, MCV 77.5 L, MCH 25.4 L, MCHC 32.7, RDW 15.9, Plt Count 230, MPV 9.7, Neut % (Auto) 63.8, Lymph % (Auto) 23.7, Kitt[place] % (Auto) 8.6, Eos % (Auto) 3.0, Baso % (Auto) 0.9, Neut # (Auto) 4.0, Lymph # (Auto) 1.5, Kittson # (Auto) 0.5, Eos # (Auto) 0.2, Baso #
--- NOTE | 2022-03-09 13:12 | CARE MANAGER ---
Spoke with patient for post-discharge phone interview, he states that he is doing well and has no issues at this time.
== END 2022-03-07 15:42 | disposition home or self-care (01) ==
LOC: ER 13:56 → 2ND 14:32
PROVIDERS: Internal Medicine; Admitting Provider Internal Medicine Adolescent Medicine; Emergency Provider Emergency Medicine; PCP Family Medicine; Visit Provider Internal Medicine Adolescent Medicine
DX: I25.110 Atherosclerotic heart disease of native coronary artery with unstable angina pectoris (principal); I10 Essential (primary) hypertension; E11.9 Type 2 diabetes mellitus without complications; N17.9 Acute kidney failure, unspecified; K21.9 Gastro-esophageal reflux disease without esophagitis
CPT/HCPCS: 36415; 71045; 80053; 82962; 83735; 84484; 85025; 93005; 93458; 99152; 99285; C1725; C1760; C1769; C9803; G0378; J1644; J2405; Q9967; U0003; U0005

== ENCOUNTER → 2022-06-12 07:30 | Outpatient (CLI) | payer BC, OTHER, SELFPAY ==
--- NOTE | 2022-06-12 07:30 | US_ITS ---
FINAL REPORT TECHNIQUE: Ultrasound images of the kidneys were obtained. CLINICAL HISTORY: .bilateral flank pain FINDINGS: US RETROPERITONEAL The right kidney measures 9.1 cm in length. It is normal in echogenicity. There is no hydronephrosis. The left kidney measures 9.6 cm in length. It is normal in echogenicity. There is no hydronephrosis. Questionable small amount of perinephrotic fluid bilaterally. The liver has increased echogenicity consistent with fatty infiltration. The liver is borderline enlarged measuring up to 12.9 cm. IMPRESSION: Kidneys are unremarkable. Questionable perinephrotic fluid bilaterally. Fatty infiltration of the liver. Borderline splenomegaly. Reviewed, Interpreted and Dictated by Vlad Fernandes III, MD Transcribed by Oralia Pradhan Authenticated and [facility]
--- NOTE | 2022-06-12 07:30 | XR_ITS ---
FINAL REPORT CLINICAL HISTORY: CVA pain bilateral FINDINGS: ABDOMEN SINGLE VIEW There is a nonspecific, nonobstructive bowel gas pattern. No bowel dilation is identified. No abnormal calcification is seen. IMPRESSION: No acute process. Reviewed, Interpreted and Dictated by Vlad Fernandes III, MD Transcribed by Ivis Kee Authenticated and [facility]
== END ==
PROVIDERS: PCP Family Medicine; Visit Provider Family Medicine
DX: M54.50 Low back pain, unspecified (principal)
CPT/HCPCS: 74018; 76770

== ENCOUNTER → 2022-06-22 20:47 | Outpatient (CLI) | payer BC, OTHER, SELFPAY ==
[2022-06-22 22:52] LABS: Basophils # 0.1 K/mm3 (0-0.2); Basophils % 0.9 % (0.1-2.0); Eosinophils # 0.3 K/mm3 (0.0-0.4); Eosinophils % 2.4 % (0.1-12.0); Hematocrit 44.6 % (42.0-52.0); Hemoglobin 13.2 g/dL (14.1-18.0); Lymphocytes # 1.8 K/mm3 (0.7-4.5); Lymphocytes % 15.8 % (10-50); Mean Corpuscular HGB Conc 29.5 g/dL (31.8-35.4); Mean Corpuscular Hemoglobin 22.3 pg (27.0-31.2); Mean Corpuscular Volume 75.6 fl (80-94); Mean Platelet Volume 10.8 fl (7.4-10.4); Monocytes # 0.6 K/mm3 (0.1-1.0); Monocytes % 5.1 % (1.7-9.3); Neutrophils # 8.6 K/mm3 (1.8-7.8); Neutrophils % 75.9 % (37.0-80.0); Platelet Count 270 K/mm3 (142-424); Red Cell Distribution Width 17.3 % (11.5-17.5); White Blood Count 11.4 K/mm3 (4.8-10.8)
[2022-06-22 23:04] LABS: Chloride 107 mmol/L (98-107); Potassium 5.8 mmoL/L (3.5-5.1); Sodium 143 mmol/L (136-145)
[2022-06-22 23:07] LABS: Blood Urea Nitrogen 16 mg/dl (9-20); Estimated Glomerular Filt Rate 48 ml/min (>60); GFR (African American) 58 ML/MIN (>60)
[2022-06-22 23:08] LABS: Anion Gap 19.8 mEq/L (5-15); Carbon Dioxide 22 mmol/L (22.0-30.0); Glucose 125 mg/dl (74-100)
[2022-06-24 23:41] LABS: Erythropoietin 20.8 mIU/mL (2.6-18.5)
== END ==
PROVIDERS: PCP Family Medicine; Visit Provider Family Medicine
DX: I25.110 Atherosclerotic heart disease of native coronary artery with unstable angina pectoris (principal); I10 Essential (primary) hypertension
CPT/HCPCS: 80048; 82668; 85025

== ENCOUNTER → 2022-08-04 07:28 | Outpatient (CLI) | payer BC, OTHER, SELFPAY ==
[2022-08-05 15:33] LABS: C difficile Toxins AB, EIA Negative (Negative)
== END ==
PROVIDERS: PCP Family Medicine; Visit Provider Family Medicine
DX: R19.7 Diarrhea, unspecified (principal)
CPT/HCPCS: 87177; 87324

== ENCOUNTER → 2022-11-04 09:30 | Outpatient (CLI) | payer BC, OTHER, SELFPAY ==
[2022-11-04 17:39] LABS: Basophils % 0.4 % (0.1-2.0); Eosinophils # 0.2 K/mm3 (0.0-0.4); Eosinophils % 2.4 % (0.1-12.0); Hematocrit 42.4 % (42.0-52.0); Hemoglobin 12.7 g/dL (14.1-18.0); Lymphocytes # 1.7 K/mm3 (0.7-4.5); Lymphocytes % 22.3 % (10-50); Mean Corpuscular Hemoglobin 21.7 pg (27.0-31.2); Mean Corpuscular Volume 72.2 fl (80-94); Mean Platelet Volume 9.7 fl (7.4-10.4); Monocytes # 0.6 K/mm3 (0.1-1.0); Monocytes % 7.9 % (1.7-9.3); Neutrophils # 5.1 K/mm3 (1.8-7.8); Neutrophils % 66.9 % (37.0-80.0); Platelet Count 235 K/mm3 (142-424); Red Blood Count 5.88 M/mm3 (4.60-6.20); Red Cell Distribution Width 17.6 % (11.5-17.5); White Blood Count 7.6 K/mm3 (4.8-10.8)
[2022-11-04 18:16] LABS: Alanine Aminotransferase 49 U/L (12-78); Albumin Level 4.2 g/dl (3.5-5.0); Albumin/Globulin Ratio 1.6 (1.1-1.8); Alkaline Phosphatase 105 U/L (38-126); Anion Gap 16.4 mEq/L (5-15); Aspartate Amino Transferase 40 U/L (17-59); Bilirubin,Total 0.7 mg/dl (0.2-1.3); Blood Urea Nitrogen 15 mg/dl (9-20); Calcium 9.3 mg/dl (8.4-10.2); Carbon Dioxide 23 mmol/L (22.0-30.0); Chloride 106 mmol/L (98-107); Chol/HDL Ratio 4.2 (1-3.5); Cholesterol 147 mg/dl (140-200); Estimated Glomerular Filt Rate 56 ml/min (>60); GFR (African American) 68 ML/MIN (>60); Globulin 2.6 g/dL (1.3-3.2); Glucose 130 mg/dl (74-100); HDL Cholesterol 35 mg/dl (40-60); Potassium 4.4 mmoL/L (3.5-5.1); Sodium 141 mmol/L (136-145); Total Protein,Serum 6.8 g/dl (6.3-8.2); Triglycerides 143 mg/dl (30-150); VLDL Cholesterol 29 mg/dL (0-40)
[2022-11-04 18:27] LABS: Direct LDL Cholesterol 87.25 mg/dL (100-129)
[2022-11-04 18:47] LABS: Thyroid Stimulating Hormone 3.53 uIU/mL (0.465-4.68)
[2022-11-04 19:00] LABS: Hemoglobin A1C 7.5 % (4.0-6.0)
[2022-11-04 20:46] LABS: Creatinine,Urine Random 92 mg/dL (Not Estab.)
[2022-11-04 21:03] LABS: Microalbumin < 6.000 mg/L (0-16.7)
== END ==
PROVIDERS: PCP Family Medicine; Visit Provider Family Medicine
DX: R06.00 Dyspnea, unspecified (principal); I10 Essential (primary) hypertension; E78.2 Mixed hyperlipidemia; E11.9 Type 2 diabetes mellitus without complications; Z79.84 Long term (current) use of oral hypoglycemic drugs
CPT/HCPCS: 80053; 80061; 82043; 82570; 83036; 84443; 85025

== ENCOUNTER → 2023-01-01 07:00 | Outpatient (CLI) | payer BC, OTHER, SELFPAY ==
--- NOTE | 2023-01-01 07:00 | CT_ITS ---
FINAL REPORT CLINICAL HISTORY: lung cancer screening, former x6 years ago. 2 1 ppd x 40 years COMPARISON: 07/22/2021 FINDINGS: CT CHEST LOW DOSE SCREENING HISTORY: Screening exam for lung cancer. Former smoker, 100 pack year smoking history DOSE: CTDIvol: 2.9 mGy, DLP: 109.42 mGy*cm COMPARISON: 07/22/2021. TECHNIQUE: Axial CT without IV contrast administration using low dose protocol FINDINGS: No acute lung disease is present . No pulmonary lesions are seen suspicious for neoplasm. There is a 3 mm right upper lobe nodule noted on the prior examination, juxtapleural, which is stable. There is another 3.8 mm right upper lobe lateral nodule, also stable since the prior exam. There is a 2 mm nodule in the right base best seen on axial image #65, also stable. A calcified granuloma is present in the left lower lobe. No pleural or pericardial effusion is seen . No adenopathy or mass lesion is present . IMPRESSION: Stable chest CT with no new masses or nodules identified. LUNG RADS CATEGORY 2 RECOMMENDATION: 12 month LDCT follow up Reviewed, Interpreted and Dictated by Vlad Fernandes III, MD Transcribed by Thi Shah Authenticated and [facility]
== END ==
PROVIDERS: PCP Family Medicine; Visit Provider Family Medicine
DX: Z87.891 Personal history of nicotine dependence (principal); Z12.2 Encounter for screening for malignant neoplasm of respiratory organs
CPT/HCPCS: 71271

== ENCOUNTER → 2023-02-19 16:58 | Outpatient (CLI) | payer BC, OTHER, SELFPAY ==
[2023-02-19 16:48] LABS: Alanine Aminotransferase 46 U/L (12-78); Albumin Level 4.2 g/dl (3.5-5.0); Albumin/Globulin Ratio 1.6 (1.1-1.8); Alkaline Phosphatase 115 U/L (38-126); Anion Gap 14.4 mEq/L (5-15); Aspartate Amino Transferase 38 U/L (17-59); Bilirubin,Total 0.6 mg/dl (0.2-1.3); Blood Urea Nitrogen 15 mg/dl (9-20); Calcium 9.4 mg/dl (8.4-10.2); Carbon Dioxide 23 mmol/L (22.0-30.0); Chloride 107 mmol/L (98-107); Estimated Glomerular Filt Rate 56 ml/min (>60); GFR (African American) 68 ML/MIN (>60); Globulin 2.7 g/dL (1.3-3.2); Glucose 157 mg/dl (74-100); Potassium 4.4 mmoL/L (3.5-5.1); Sodium 140 mmol/L (136-145); Total Protein,Serum 6.9 g/dl (6.3-8.2)
[2023-02-19 16:55] LABS: Hemoglobin A1C 7.7 % (4.0-6.0)
== END ==
PROVIDERS: PCP Family Medicine; Visit Provider Family Medicine
DX: E11.9 Type 2 diabetes mellitus without complications (principal); E78.5 Hyperlipidemia, unspecified; Z79.84 Long term (current) use of oral hypoglycemic drugs
CPT/HCPCS: 80053; 83036

== ENCOUNTER → 2023-05-19 16:52 | Outpatient (CLI) | payer BC, OTHER, SELFPAY ==
[2023-05-19 16:38] LABS: Blood Urea Nitrogen 13 mg/dl (9-20); Carbon Dioxide 24 mmol/L (22.0-30.0); Chloride 103 mmol/L (98-107); Estimated Glomerular Filt Rate 56 ml/min (>60); GFR (African American) 68 ML/MIN (>60); Glucose 116 mg/dl (74-100); Hemoglobin A1C 7.4 % (4.0-6.0); Sodium 135 mmol/L (136-145)
== END ==
PROVIDERS: PCP Family Medicine; Visit Provider Family Medicine
DX: E11.9 Type 2 diabetes mellitus without complications (principal); Z79.84 Long term (current) use of oral hypoglycemic drugs; Z79.85 Long-term (current) use of injectable non-insulin antidiabetic drugs
CPT/HCPCS: 80048; 83036

== ENCOUNTER 2023-08-17 16:43 | Outpatient (CLI) | payer BC, OTHER, SELFPAY ==
[2023-08-17 16:49] LABS: Alanine Aminotransferase 61 U/L (12-78); Albumin/Globulin Ratio 1.7 (1.1-1.8); Alkaline Phosphatase 104 U/L (38-126); Anion Gap 12.1 mEq/L (5-15); Aspartate Amino Transferase 44 U/L (17-59); Bilirubin,Total 0.6 mg/dl (0.2-1.3); Calcium 9.2 mg/dl (8.4-10.2); Carbon Dioxide 21 mmol/L (22.0-30.0); Chloride 111 mmol/L (98-107); Globulin 2.4 g/dL (1.3-3.2); Glucose 155 mg/dl (74-100); Potassium 4.1 mmoL/L (3.5-5.1); Sodium 140 mmol/L (136-145); Total Protein,Serum 6.4 g/dl (6.3-8.2)
[2023-08-17 16:53] LABS: Blood Urea Nitrogen 17 mg/dl (9-20); Estimated Glomerular Filt Rate 56 ml/min (>60); GFR (African American) 68 ML/MIN (>60)
[2023-08-17 16:55] LABS: Hemoglobin A1C 8.3 % (4.0-6.0)
== END 2023-08-17 23:59 ==
LOC: LAB.DROPOF 16:44
PROVIDERS: PCP Family Medicine; Visit Provider Family Medicine
DX: E78.5 Hyperlipidemia, unspecified (principal); E11.9 Type 2 diabetes mellitus without complications; Z79.84 Long term (current) use of oral hypoglycemic drugs
CPT/HCPCS: 80053; 83036

== ENCOUNTER 2023-09-06 08:21 | Outpatient (CLI) | payer BC, OTHER, SELFPAY ==
--- NOTE | 2023-09-06 08:22 | CT_ITS ---
FINAL REPORT CLINICAL HISTORY: abdominal pain, pt was on ozempic now having abd pain, nausea COMPARISON: 11/29/2020 FINDINGS: CT OF THE ABDOMEN AND PELVIS WITH CONTRAST Axial CT images of the abdomen and pelvis were obtained after the administration of oral and iv contrast. Coronal and sagittal reformatted images were also obtained and reviewed.This study was performed with techniques to keep radiation doses as low as reasonably achievable (ALARA). Individualized dose reduction techniques using automated exposure control or adjustment of mA and/or kV according to the patient's size were employed. Abdomen: There is mild atelectasis versus scar in the lung bases.. The heart is normal in size. There is fatty infiltration of the liver. The spleen is unremarkable. No adrenal mass is present. The pancreas has an unremarkable appearance. Small bilateral renal cysts are present. No evidence of hydronephrosis is seen. The aorta is normal in caliber, with moderate vascular calcifications. There is no free fluid or adenopathy. No mass or abnormal fluid collection is seen. Pelvis: The appendix is not well-visualized. The urinary bladder is unremarkable. No inflammatory process is seen. There are presumed postoperative changes in the umbilical region, and small bilateral inguinal hernias are present containing fat. There is no evidence of mass or adenopathy. There is no evidence of bowel obstruction. IMPRESSION: Fatty infiltration of the liver, unchanged since the prior MR of 2020. Presumed postoperative change in the umbilical region, with small bilateral inguinal hernias containing fat. Reviewed, Interpreted and Dictated by Vlad Fernandes III, MD Transcribed by Thi Shah Authenticated and [facility]
[2023-09-06] MEDS: SODIUM CHLORIDE 0.9% 10ML SYR (RAD ONLY) 10 ML IV (08:51)
[2023-09-06] MEDS: BARIUM SULFATE(READI-CAT2);450ML BOTTLE 450 ML PO (08:51)
[2023-09-06] MEDS: IOPAMIDOL-370 (76%);100ML BOTTLE 75 ML IV (08:51)
== END 2023-09-06 23:59 ==
LOC: RAD 08:22
PROVIDERS: PCP Family Medicine; Visit Provider Surgery
DX: R10.9 Unspecified abdominal pain (principal)
CPT/HCPCS: 74177; Q9967

== ENCOUNTER 2023-11-15 18:00 | Outpatient (CLI) | payer BC, OTHER, SELFPAY ==
[2023-11-15 16:23] LABS: Basophils # 0.1 K/mm3 (0-0.2); Basophils % 0.7 % (0.1-2.0); Eosinophils # 0.2 K/mm3 (0.0-0.4); Hematocrit 49.9 % (42.0-52.0); Hemoglobin 15.9 g/dL (14.1-18.0); Lymphocytes # 1.4 K/mm3 (0.7-4.5); Lymphocytes % 17.9 % (10-50); Mean Corpuscular HGB Conc 31.9 g/dL (31.8-35.4); Mean Corpuscular Hemoglobin 29.8 pg (27.0-31.2); Mean Corpuscular Volume 93.3 fl (80-94); Mean Platelet Volume 10.8 fl (7.4-10.4); Monocytes # 0.5 K/mm3 (0.1-1.0); Monocytes % 6.6 % (1.7-9.3); Neutrophils # 5.8 K/mm3 (1.8-7.8); Neutrophils % 72.8 % (37.0-80.0); Platelet Count 191 K/mm3 (142-424); Red Blood Count 5.35 M/mm3 (4.60-6.20); Red Cell Distribution Width 14.5 % (11.5-17.5)
[2023-11-15 16:48] LABS: Alanine Aminotransferase 58 U/L (12-78); Albumin Level 4.4 g/dl (3.5-5.0); Albumin/Globulin Ratio 1.7 (1.1-1.8); Alkaline Phosphatase 103 U/L (38-126); Anion Gap 17.5 mEq/L (5-15); Aspartate Amino Transferase 43 U/L (17-59); Bilirubin,Total 0.6 mg/dl (0.2-1.3); Blood Urea Nitrogen 18 mg/dl (9-20); Calcium 9.4 mg/dl (8.4-10.2); Carbon Dioxide 24 mmol/L (22.0-30.0); Chloride 105 mmol/L (98-107); Chol/HDL Ratio 5.4 (1-3.5); Cholesterol 178 mg/dl (140-200); Estimated Glomerular Filt Rate 56 ml/min (>60); GFR (African American) 67 ML/MIN (>60); Globulin 2.6 g/dL (1.3-3.2); Glucose 157 mg/dl (74-100); HDL Cholesterol 33 mg/dl (40-60); Potassium 4.5 mmoL/L (3.5-5.1); Sodium 142 mmol/L (136-145); Triglycerides 204 mg/dl (30-150); VLDL Cholesterol 41 mg/dL (0-40)
[2023-11-15 16:59] LABS: Direct LDL Cholesterol 99.87 mg/dL (100-129)
[2023-11-15 17:18] LABS: Prostate Specific Ag Screen 0.4 ng/ml (0.0-4.0); Thyroid Stimulating Hormone 2.86 uIU/mL (0.465-4.68)
[2023-11-15 19:03] LABS: Hemoglobin A1C 9.2 % (4.0-6.0)
== END 2023-11-15 23:59 | disposition home or self-care (01) ==
LOC: LAB.DROPOF 11-16 08:07
PROVIDERS: PCP Family Medicine; Visit Provider Family Medicine
DX: Z12.5 Encounter for screening for malignant neoplasm of prostate (principal); E11.9 Type 2 diabetes mellitus without complications; E78.2 Mixed hyperlipidemia; I10 Essential (primary) hypertension; I25.10 Atherosclerotic heart disease of native coronary artery without angina pectoris; Z87.891 Personal history of nicotine dependence; Z79.84 Long term (current) use of oral hypoglycemic drugs; Z79.85 Long-term (current) use of injectable non-insulin antidiabetic drugs
CPT/HCPCS: 80050; 80053; 80061; 83036; 84443; 85025; G0103

== ENCOUNTER 2024-02-21 06:09 | Outpatient (CLI) | payer BC, OTHER, SELFPAY ==
--- NOTE | 2024-02-21 06:18 | CT_ITS ---
FINAL REPORT CLINICAL HISTORY: lung cancer screening former smoker quit 7 years ago, 2ppd x40 years when smoking COMPARISON: 01/01/2023 FINDINGS: CTDI vol (mGy): 2.90 DLP: 104.[address] images of the chest were obtained using the low-dose protocol for screening. There is no evidence of mediastinal or hilar mass or adenopathy. No axillary mass or adenopathy is identified. On the lung window images, there is a 3 mm right upper lobe nodule seen on image 39 of series 3. No new suspicious pulmonary mass or nodule is seen. IMPRESSION: Lung RADS category 2 . Recommend 12 month followup low-dose CT for further evaluation. Reviewed, Interpreted and Dictated by Samanta Miller MD Transcribed by Linette Dominguez Authenticated and [facility]
== END 2024-02-21 23:59 | disposition home or self-care (01) ==
LOC: RAD 06:10
PROVIDERS: PCP Family Medicine; Visit Provider Family Medicine
DX: Z87.891 Personal history of nicotine dependence (principal)
CPT/HCPCS: 71271

== ENCOUNTER 2024-05-15 19:18 | Outpatient (CLI) | payer BC, OTHER, SELFPAY ==
[2024-05-15 19:48] LABS: Basophils # 0.1 K/mm3 (0-0.2); Basophils % 0.9 % (0.1-2.0); Eosinophils # 0.1 K/mm3 (0.0-0.4); Eosinophils % 1.4 % (0.1-12.0); Hematocrit 53.9 % (42.0-52.0); Hemoglobin 17.6 g/dL (14.1-18.0); Lymphocytes # 1.5 K/mm3 (0.7-4.5); Lymphocytes % 18.4 % (10-50); Mean Corpuscular HGB Conc 32.6 g/dL (31.8-35.4); Mean Corpuscular Hemoglobin 29.8 pg (27.0-31.2); Mean Corpuscular Volume 91.2 fl (80-94); Mean Platelet Volume 10.9 fl (7.4-10.4); Monocytes # 0.8 K/mm3 (0.1-1.0); Monocytes % 9.6 % (1.7-9.3); Neutrophils # 5.6 K/mm3 (1.8-7.8); Neutrophils % 69.7 % (37.0-80.0); Platelet Count 171 K/mm3 (142-424); Red Blood Count 5.91 M/mm3 (4.60-6.20); Red Cell Distribution Width 14.1 % (11.5-17.5)
[2024-05-15 20:00] LABS: Albumin Level 4.5 g/dl (3.5-5.0); Chloride 105 mmol/L (98-107); Potassium 4.4 mmoL/L (3.5-5.1); Sodium 133 mmol/L (136-145)
[2024-05-15 20:01] LABS: Creatinine,Urine Random 102 mg/dL (Not Estab.)
[2024-05-15 20:03] LABS: Alanine Aminotransferase 62 U/L (12-78); Alkaline Phosphatase 82 U/L (38-126); Anion Gap 14.4 mEq/L (5-15); Aspartate Amino Transferase 49 U/L (17-59); Bilirubin,Total 0.7 mg/dl (0.2-1.3); Blood Urea Nitrogen 21 mg/dl (9-20); Calcium 9.1 mg/dl (8.4-10.2); Carbon Dioxide 18 mmol/L (22.0-30.0); Estimated Glomerular Filt Rate 51 ml/min (>60); GFR (African American) 62 ML/MIN (>60); Globulin 2.3 g/dL (1.3-3.2); Glucose 76 mg/dl (74-100); Total Protein,Serum 6.8 g/dl (6.3-8.2)
[2024-05-15 20:03] LABS: Microalbumin < 6.000 mg/L (0-16.7)
[2024-05-15 20:08] LABS: Magnesium 2.2 mg/dl (1.6-2.3)
[2024-05-15 20:20] LABS: Free T4 (Free Thyroxine) 0.99 ng/dl (0.78-2.19)
[2024-05-15 20:38] LABS: Thyroid Stimulating Hormone 3.88 uIU/mL (0.465-4.68)
[2024-05-16 14:51] LABS: HIV Combo NEGATIVE (Negative)
[2024-05-17 06:22] LABS: HCV Ab Non Reactive (Non Reactive)
== END 2024-05-15 23:59 | disposition home or self-care (01) ==
LOC: LAB.DROPOF 19:19
PROVIDERS: PCP Family Medicine; Visit Provider Physician Assistant
DX: I25.2 Old myocardial infarction (principal); Z95.5 Presence of coronary angioplasty implant and graft; I10 Essential (primary) hypertension; I25.10 Atherosclerotic heart disease of native coronary artery without angina pectoris; E78.2 Mixed hyperlipidemia; R10.9 Unspecified abdominal pain; E11.9 Type 2 diabetes mellitus without complications; K21.9 Gastro-esophageal reflux disease without esophagitis; Z11.59 Encounter for screening for other viral diseases; Z11.4 Encounter for screening for human immunodeficiency virus [HIV]; Z79.84 Long term (current) use of oral hypoglycemic drugs
CPT/HCPCS: 80050; 80053; 82043; 82570; 83036; 83735; 84439; 84443; 85025; 86803; 87389

== ENCOUNTER 2024-08-15 16:00 | Outpatient (CLI) | payer BC, OTHER, SELFPAY ==
[2024-08-15 20:03] LABS: Basophils # 0.1 K/mm3 (0-0.2); Basophils % 0.9 % (0.1-2.0); Eosinophils # 0.1 K/mm3 (0.0-0.4); Eosinophils % 1.9 % (0.1-12.0); Hematocrit 54.3 % (42.0-52.0); Hemoglobin 17.4 g/dL (14.1-18.0); Lymphocytes # 1.4 K/mm3 (0.7-4.5); Lymphocytes % 18.7 % (10-50); Mean Corpuscular Hemoglobin 29.4 pg (27.0-31.2); Mean Corpuscular Volume 91.7 fl (80-94); Mean Platelet Volume 11.5 fl (7.4-10.4); Monocytes # 0.6 K/mm3 (0.1-1.0); Monocytes % 8.4 % (1.7-9.3); Neutrophils # 5.2 K/mm3 (1.8-7.8); Neutrophils % 69.6 % (37.0-80.0); Platelet Count 185 K/mm3 (142-424); Red Blood Count 5.92 M/mm3 (4.60-6.20); Red Cell Distribution Width 13.6 % (11.5-17.5); White Blood Count 7.5 K/mm3 (4.8-10.8)
[2024-08-15 21:30] LABS: Albumin Level 4.7 g/dl (3.5-5.0); Chloride 110 mmol/L (98-107); Potassium 4.5 mmoL/L (3.5-5.1); Sodium 140 mmol/L (136-145)
[2024-08-15 21:32] LABS: Blood Urea Nitrogen 17 mg/dl (9-20)
[2024-08-15 21:33] LABS: Alanine Aminotransferase 52 U/L (12-78); Alkaline Phosphatase 95 U/L (38-126); Anion Gap 18.5 mEq/L (5-15); Aspartate Amino Transferase 41 U/L (17-59); Bilirubin,Total 0.6 mg/dl (0.2-1.3); Calcium 9.7 mg/dl (8.4-10.2); Carbon Dioxide 16 mmol/L (22.0-30.0); Chol/HDL Ratio 5.2 (1-3.5); Cholesterol 196 mg/dl (140-200); Estimated Glomerular Filt Rate 61 ml/min (>60); GFR (African American) 74 ML/MIN (>60); Globulin 2.3 g/dL (1.3-3.2); Glucose 153 mg/dl (74-100); HDL Cholesterol 38 mg/dl (40-60); Iron 126 ug/dL (49-181); Triglycerides 227 mg/dl (30-150); VLDL Cholesterol 45 mg/dL (0-40)
[2024-08-15 21:49] LABS: Total Iron Binding Capacity 333 ug/dL (261-462)
[2024-08-15 21:53] LABS: Direct LDL Cholesterol 108.23 mg/dL (100-129)
[2024-08-16 07:53] LABS: Hemoglobin A1C 7.5 % (4.0-6.0)
== END 2024-08-15 23:59 | disposition home or self-care (01) ==
LOC: LAB.DROPOF 08-16 09:18
PROVIDERS: PCP Family Medicine; Visit Provider Family Medicine
DX: E11.9 Type 2 diabetes mellitus without complications (principal); E78.2 Mixed hyperlipidemia; I10 Essential (primary) hypertension
CPT/HCPCS: 80053; 80061; 83036; 83540; 83550; 85025

== ENCOUNTER 2024-11-13 08:08 | Outpatient (CLI) | payer BC, OTHER, SELFPAY ==
--- OUTSIDE RECORDS SUMMARY | 2024-09-02 17:30 | XMS_ITS ---
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 If intended option is not [...] review and pick correct strength-formulati on from [facility] options. If intended option is not [...] Active Encounters Encounter Location Date Provider Diagnosis [facility] PED [facility]ESS[facility] [address] [facility] [address] [place] [address] 09/02/2024 Provider Migration Plan Of Treatment No Information Progress Notes * Santhosh DENIS CDOB: [birth year] (64 yo M)Acc No.[id number]:09/02/2024 Patient: Santhosh MURPHY [place] Provider: Shama zhang Migration :1960 A ge:64 Y S ex:Male Date:09/02/2024 Address:[address] [place] [address], [place], [id number] Pcp:Piyush Malik Subjective: * Chief Complaints: * 1 . [facility]. * Medical History: * Medications: T aking Vitamin C 500 MG Tablet 1 tab(s) orally once a day , Taking Mounjaro 2.5 MG/0.5 ML SOLUTION DIRECTED SUBCUTANEOUSLY ONCE A WEEK , Notes to Pharmacist: *Please review and pick correct strength-formulation from [employer] options. If intended option is not shown, [...] *Please review and pick correct strength-formulation from [employer] options. If intended option is not shown, discontinue and re-order from [employer]*, Taking Jardiance 25 MG Tablet TAKE ONE TABLET BY MOUTH EVERY DAY IN THE MORNING , Taking traZODone HCl 50 MG Tablet 1 tab(s) orally once a day at bedtime Objective: * Vitals: Assessment: Plan: * Treatment: * * Electronic signature of Prov julietar Migration on 11/13/2024 at 08:10 AM EDT Sign off status: Pending * Provider: Shama zhang Migration Date: 0 09/02/2024 Generated for Alexandrea krishna/Jarad/Jan on: 0 11/13/2024 08:10 AM EDT
--- OUTSIDE RECORDS SUMMARY | 2024-11-13 08:09 | XMS_ITS | Continuity of Care Document ---
Author Name [facility] Organization [facility] Care Team Providers Care Powder Monkey Name Role Phone [facility] Unavailable Unavailable Problems Combined list of problems from [facility] and [facility] facilities. It does not include entries that were removed or entered in error. 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 [place] Obesity Active Condition [place] Obstructive sleep apnea Active Condition [place] Pure hypercholesterolemia Active Condition [facility] Type 2 diabetes mellitus Active Condition [place] Diagnosis: ICD-10-CM I10 Essential (primary) hypertension Active Diagnosis [facility] Ontiveros Medications Combined list of outpatient medications from [facility] and [facility] facilities.Medications provided include 1) outpatient medications from the last 15 months, and 2) patient-reported medications. Medication Details Route Status Patient Instructions Prescription Expires Prescription Number Last Dispense Date Ordering Provider Order Date Order Qty Source AIRSUPRA (albuterol sulfate/bud esonide), 90-80 MCG, HFA AER AD, INHALATION, ASTRAZENECA , 10.7 g AER W/ADAP Active [id number] 2023 10.7 Pharmac y Data Transac tion Service Facilit y AIRSUPRA (albuterol sulfate/bud esonide), 90-80 MCG, HFA AER AD, INHALATION, ASTRAZENECA , 10.7 g AER W/ADAP Active [id number] 2023 10.7 Pharmac y Data Transac tion Service Facilit y AIRSUPRA (albuterol sulfate/bud esonide), 90-80 MCG, HFA AER AD, INHALATION, ASTRAZENECA , 10.7 g AER W/ADAP Active [id number] 2023 10.7 Pharmac y Data Transac tion Service Facilit y ALBUTEROL SO4 90MCG/ACTUA T (CFC-F) INHL,ORAL,8 .5GM INHALE 1 PUFF BY MOUTH FOUR TIMES A DAY RESPIR ATORY (INHAL ATION) ACTIVE FADUMO FERRO 2021 [facility] ASCORBIC ACID 500MG TAB TAKE ONE TABLET BY MOUTH DAILY ORAL ACTIVE FADUMO FERRO 2022 [facility] ATORVASTATI N CA 80MG TAB TAKE ONE TABLET BY MOUTH DAILY ORAL ACTIVE FADUMO FERRO 2023 [facility] ATORVASTATI N CALCIUM (atorvastat in calcium), 80 MG, TABLET, ORAL, NOVSOLOMONZ PHARMAC, 90 ea. BOTTLE Active [id number] 2023 90 Pharmac y Data Transac tion Service Facilit y CLOPIDOGREL BISULFATE 75MG TAB TAKE ONE TABLET BY MOUTH DAILY ORAL ACTIVE FADUMO FERRO 2021 [facility] EMPAGLIFLOZ IN 25MG TAB TAKE ONE TABLET BY MOUTH EVERY MORNING ORAL ACTIVE FADUMO FERRO 2021 [facility] FLUTICASONE 200MCG/LYDIA NTEROL 25MCG INHL,ORAL,3 0D INHALE 1 INHALATI ON BY MOUTH DAILY ORAL ACTIVE FADUMO FERRO 2021 [facility] FLUTICASONE PROPIONATE (FLUTICASON E PROPIONATE) , 50MCG, SPRAY SUSP, NASAL, APOTEX KATHARINE, 16 g AER W/ADAP Active [id number] 2023 16 Pharmac y Data Transac tion Service Facilit y FLUTICASONE PROPIONATE (FLUTICASON E PROPIONATE) , 50MCG, SPRAY SUSP, NASAL, APOTEX KATHARINE, 16 g AER W/ADAP Active [id number] 2023 16 Pharmac y Data Transac tion Service Facilit y FLUTICASONE PROPIONATE 50MCG/SPRAY SOLN,NASAL, 16GM USE 1 SPRAY IN EACH NOSTRIL DAILY NASAL ACTIVE FADUMO FERRO 2021 [facility] GLIPIZIDE 10MG TAB TAKE ONE-HALF TABLET BY MOUTH DAILY ORAL ACTIVE FADUMO FERRO 2023 [facility] JARDIANCE (EMPAGLIFLO ZIN), 25 MG, TABLET, ORAL, BOEHRINGER ING., 30 ea. BOTTLE Active [id number] 2023 30 Pharmac y Data Transac tion Service Facilit y JARDIANCE (EMPAGLIFLO ZIN), 25 MG, TABLET, ORAL, BOEHRINGER ING., 30 ea. BOTTLE Active [id number] 2023 30 Pharmac y Data Transac tion Service Facilit y JARDIANCE (EMPAGLIFLO ZIN), 25 MG, TABLET, ORAL, BOEHRINGER ING., 30 ea. BOTTLE Active [id number] 2023 30 Pharmac y Data Transac tion Service Facilit y JARDIANCE (EMPAGLIFLO ZIN), 25 MG, TABLET, ORAL, BOEHRINGER ING., 30 ea. BOTTLE Active [id number] 2023 30 Pharmac y Data Transac tion Service Facilit y LOSARTAN 25MG TAB TAKE ONE TABLET BY MOUTH DAILY ORAL ACTIVE FADUMO FERRO 2021 [facility] METOPROLOL SUCCINATE 100MG TAB,SA TAKE ONE-HALF TABLET BY MOUTH DAILY ORAL ACTIVE FADUMO FERRO 2021 [facility] MONTELUKAST NA 10MG TAB TAKE ONE TABLET BY MOUTH ORAL ACTIVE FADUMO FERRO 2021 [facility] MOUNJARO (tirzepatid e), 2.5 MG/0.5, PEN INJCTR, SUBCUT, [employer] .5 ml SYRINGE Active [id number] 2023 2 Pharmac y Data Transac tion Service Facilit y PANTOPRAZOL E NA 40MG TAB,EC TAKE ONE TABLET BY MOUTH TWICE A DAY ORAL ACTIVE FADUMO FERRO 2021 [facility] TAMSULOSIN HCL (TAMSULOSIN HCL), 0.4 MG, CAP.SR 24H, ORAL, ZYDUS PHARMACEU, 1000 ea. BOTTLE Active [id number] 2023 90 Pharmac y Data Transac tion Service Facilit y TAMSULOSIN HCL 0.4MG CAP TAKE 1 CAPSULE BY MOUTH EVERY EVENING ORAL ACTIVE FADUMO FERRO 2021 [facility] TIRZEPATIDE 2.5MG/0.5ML INJ,SOLN PACK,4 INJECT 2.5MG/0. 5ML (1 PEN) UNDER THE SKIN EVERY WEEK SUBCUT ANEOUS ACTIVE FADUMO FERRO 2023 [facility] TRAZODONE HCL 50MG TAB TAKE ONE TABLET BY MOUTH AT BEDTIME ORAL ACTIVE FADUMO FERRO 2021 [facility] Immunizations Combined list of available immunizations from the Department of Defense and [facility] facilities. Immunization Series Date Given Administered By Site Reaction Lot Number CVX Code Drug Information Assurance Officer Status Comments Source PNEUMOCOCCAL CONJUGATE PCV20, POLYSACCHARID E [id number] CONJUGATE, ADJUVANT, PF 2023 DAPHNE MCNAIR LEFT DELTO ID [id number] 216 complet ed Completed Series, [place]ISTE [place], [facility] INFLUENZA, SPLIT VIRUS, TRIVALENT, PF 2023 140 complet ed HISTORICA L INFORMATI ON - FROM OTHER REGISTRY, [facility] INFLUENZA, INJECTABLE, QUADRIVALENT, PRESERVATIVE FREE 2022 150 complet ed HISTORICA L INFORMATI ON - FROM OTHER REGISTRY, [facility] INFLUENZA, INJECTABLE, QUADRIVALENT, PRESERVATIVE FREE 8 2021 150 complet ed HISTORICA L INFORMATI ON - FROM OTHER REGISTRY, [facility] PNEUMOCOCCAL POLYSACCHARID E PPV23 1 2021 33 complet ed HISTORICA L INFORMATI ON - FROM OTHER REGISTRY, [facility] COVID-19 (MODERNA), MRNA, LNP-S, PF, 100 MCG/0.5ML DOSE OR 50 MCG/0.25ML DOSE 3 2020 207 complet ed HISTORICA L INFORMATI ON - FROM OTHER REGISTRY, [facility] INFLUENZA, RECOMBINANT, QUADRIVALENT, INJECTABLE, PRESERVATIVE FREE 7 2020 185 complet ed HISTORICA L INFORMATI ON - FROM OTHER REGISTRY, [facility] COVID-19 (MODERNA), MRNA, LNP-S, PF, 100 MCG/0.5ML DOSE OR 50 MCG/0.25ML DOSE 2 2020 207 complet ed HISTORICA L INFORMATI ON - FROM OTHER REGISTRY, [facility] COVID-19 (MODERNA), MRNA, LNP-S, PF, 100 MCG/0.5ML DOSE OR 50 MCG/0.25ML DOSE 1 2020 207 complet ed HISTORICA L INFORMATI ON - FROM OTHER REGISTRY, [facility] INFLUENZA, RECOMBINANT, QUADRIVALENT, INJECTABLE, PRESERVATIVE FREE 6 2019 185 complet ed HISTORICA L INFORMATI ON - FROM OTHER REGISTRY, [facility] INFLUENZA, INJECTABLE, QUADRIVALENT, PRESERVATIVE FREE 5 2018 150 complet ed HISTORICA L INFORMATI ON - FROM OTHER REGISTRY, [facility] TDAP 2 2018 115 complet ed HISTORICA L INFORMATI ON - FROM OTHER REGISTRY, [facility] HEP A, ADULT 2 2017 52 complet ed HISTORICA L INFORMATI ON - FROM OTHER REGISTRY, [facility] INFLUENZA, INJECTABLE, QUADRIVALENT 4 2017 158 complet ed HISTORICA L INFORMATI ON - FROM OTHER REGISTRY, [facility] HEP A, ADULT 1 2017 52 complet ed HISTORICA L INFORMATI ON - FROM OTHER REGISTRY, [facility] INFLUENZA, INJECTABLE, QUADRIVALENT 3 2016 158 complet ed HISTORICA L INFORMATI ON - FROM OTHER REGISTRY, [facility] INFLUENZA, SEASONAL, INJECTABLE, PRESERVATIVE FREE 2 2015 140 complet ed HISTORICA L INFORMATI ON - [facility] OTHER REGISTRY, [facility] INFLU[facility]ZA, INJECTABLE, QUADRIVALENT, PRESERVATIVE FREE 1 2014 150 complet ed HISTORICA L INFORMATI ON - FROM OTHER REGISTRY, [facility] TDAP 1 2013 115 complet ed HISTORICA L INFORMATI ON - [facility] OTHER [facility]ISTRY, [facility] Results Combined list of recent chemistry, hematology and other laboratory results from [facility] and [facility], ranging from 15 months to all on record, depending upon the facility. Order Name Results Value Reference Range Date Interpretation Specimen Comments Source MICROALBU MIN/CREAT RATIO CREATININE [MASS/VOLUM E] IN URINE 39.6 mg/dL 04/07 Specimen Type: URINE Comment: Unable to calculate ratio due to low Microalbumi n result. Ordering Provider: ANN FERRO Report Released Date/Time: Apr 07, 2024 08:44 AM Reporting Lab: [place] [address] Performing Lab: [address] MICROALBU MIN/CREAT RATIO MICROALBUMI N [MASS/VOLUM E] IN URINE <5.0mg /L 0.0 - 30.0 04/07 Specimen Type: URINE Comment: Unable to calculate ratio due to low Microalbumi n result. Ordering Provider: ANN FERRO Report Released Date/Time: Apr 07, 2024 08:44 AM Reporting Lab: [place] [address] Performing Lab: [address] MICROALBU MIN/CREAT RATIO MICROALBUMI N/CREATININ E [MASS RATIO] IN URINE commen tug/mg {creat } 04/07 Specimen Type: URINE Comment: Unable to calculate ratio due to low Microalbumi n result. Ordering Provider: ANN FERRO Report Released Date/Time: Apr 07, 2024 08:44 AM Reporting Lab: [address] [place] [address] Performing Lab: [place] SALAMANCA [address] [address] [facility] LIPID PROFILE CHOLESTEROL [MASS/VOLUM E] IN SERUM OR PLASMA 160 mg/dL 0 - 199 04/07 Specimen Type: PLASMA Comment: Estimated Glomerular Filtration Rate (eGFR) calculated using the 2020 Chronic Kidney Disease-Epi demiology (CKD-EPI) Collaborati on creatinine equation; units of measure are mL/min/1.73 m2. Results are only valid for adults (>=18 years) whose serum creatinine is in a steady state. eGFR calculation s are not valid for patients with acute kidney injury and for patients on dialysis. Creatinine- based estimates of kidney function may also be inaccurate in patients with reduced creatinine generation due to decreased muscle mass (e.g., malnutritio n, severe hypoalbumin emia, sarcopenia, chronic neuromuscul ar disease, amputations , severe heart failure or liver disease) and in patients with increased creatinine generation due to increased muscle mass (e.g., muscle builders, anabolic steroids) or increased dietary intake. As drug clearance is proportiona l to total GFR and not GFR indexed to body surface area (BSA), in individuals with a BSA substantial ly different than 1.73 m2, drug dosing should be based on the reported eGFR value de-indexed from BSA by multiplying by the individual' s BSA and dividing by 1.73. CKD is diagnosed based on abnormaliti es of kidney structure or function, present for >3 months, with implication s for health and disease. CKD is classified and staged based on cause, eGFR and albuminuria (quantified as urine albumin to creatinine ratio). An eGFR >60 mL/min/1.73 m2 in the absence of increased urine albumin excretion or structural abnormaliti es does not represent CKD. eGFR CKD Interpretat ion (mL/min/1.7 3 m2) stage >=90 G1 Normal 60-89 G2 Mild decrease 45-59 G3A Mild to moderate decrease 30-44 G3B Moderate to severe decrease 15-29 G4 Severe decrease <15 G5 Kidney failure Vitamin B12 test may not yield results when protein level of sample is too elevated. Ordering Provider: ANN FERRO Report Released Date/Time: Apr 07, 2024 08:44 AM Reporting Lab: D[facility] SALAMAN[facility] [place] [id number] [facility] [address] Performing Lab: DIEGO SALAMANCA [place] [address] [facility] [address] [facility] LIPID PROFILE TRIGLYCERID E [MASS/VOLUM E] IN SERUM OR PLASMA 277 mg/dL 0 - 149 04/07 H Specimen Type: PLASMA Comment: Estimated Glomerular Filtration Rate (eGFR) calculated using the 2020 Chronic Kidney Disease-Epi demiology (CKD-EPI) Collaborati on creatinine equation; units of measure are mL/min/1.73 m2. Results are only valid for adults (>=18 years) whose serum creatinine is in a steady state. eGFR calculation s are not valid for patients with acute kidney injury and for patients on dialysis. Creatinine- based estimates of kidney function may also be inaccurate in patients with reduced creatinine generation due to decreased muscle mass (e.g., malnutritio n, severe hypoalbumin emia, sarcopenia, chronic neuromuscul ar disease, amputations , severe heart failure or liver disease) and in patients with increased creatinine generation due to increased muscle mass (e.g., muscle builders, anabolic steroids) or increased dietary intake. As drug clearance is proportiona l to total GFR and not GFR indexed to body surface area (BSA), in individuals with a BSA substantial ly different than 1.73 m2, drug dosing should be based on the reported eGFR value de-indexed from BSA by multiplying by the individual' s BSA and dividing by 1.73. CKD is diagnosed based on abnormaliti es of kidney structure or function, present for >3 months, with implication s for health and disease. CKD is classified and staged based on cause, eGFR and albuminuria (quantified as urine albumin to creatinine ratio). An eGFR >60 mL/min/1.73 m2 in the absence of increased urine albumin excretion or structural abnormaliti es does not represent CKD. eGFR CKD Interpretat ion (mL/min/1.7 3 m2) stage >=90 G1 Normal 60-89 G2 Mild decrease 45-59 G3A Mild to moderate decrease 30-44 G3B Moderate to severe decrease 15-29 G4 Severe decrease <15 G5 Kidney failure Vitamin B12 test may not yield results when protein level of sample is too elevated. Ordering Provider: ANN FERRO Report Released Date/Time: Apr 07, 2024 08:44 AM Reporting Lab: [facility] [address] [address] Performing Lab: [place]Mar[place] [address] [address] [facility] LIPID PROFILE CHOLESTEROL IN HDL [MASS/VOLUM E] IN SERUM OR PLASMA 36 mg/dL 40 - 69 04/07 L Specimen Type: PLASMA Comment: Estimated Glomerular Filtration Rate (eGFR) calculated using the 2020 Chronic Kidney Disease-Epi demiology (CKD-EPI) Collaborati on creatinine equation; units of measure are mL/min/1.73 m2. Results are only valid for adults (>=18 years) whose serum creatinine is in a steady state. eGFR calculation s are not valid for patients with acute kidney injury and for patients on dialysis. Creatinine- based estimates of kidney function may also be inaccurate in patients with reduced creatinine generation due to decreased muscle mass (e.g., malnutritio n, severe hypoalbumin emia, sarcopenia, chronic neuromuscul ar disease, amputations , severe heart failure or liver disease) and in patients with increased creatinine generation due to increased muscle mass (e.g., muscle builders, anabolic steroids) or increased dietary intake. As drug clearance is proportiona l to total GFR and not GFR indexed to body surface area (BSA), in individuals with a BSA substantial ly different than 1.73 m2, drug dosing should be based on the reported eGFR value de-indexed from BSA by multiplying by the individual' s BSA and dividing by 1.73. CKD is diagnosed based on abnormaliti es of kidney structure or function, present for >3 months, with implication s for health and disease. CKD is classified and staged based on cause, eGFR and albuminuria (quantified as urine albumin to creatinine ratio). An eGFR >60 mL/min/1.73 m2 in the absence of increased urine albumin excretion or structural abnormaliti es does not represent CKD. eGFR CKD Interpretat ion (mL/min/1.7 3 m2) stage >=90 G1 Normal 60-89 G2 Mild decrease 45-59 G3A Mild to moderate decrease 30-44 G3B Moderate to severe decrease 15-29 G4 Severe decrease <15 G5 Kidney failure Vitamin B12 test may not yield results when protein level of sample is too elevated. Ordering Provider: ANN FERRO Report Released Date/Time: Apr 07, 2024 08:44 AM Reporting Lab: [place]AM[place] [address] [address] Performing Lab: DIE[place] SALAMANCA [address] [address] [facility] LIPID PROFILE CHOLESTEROL IN LDL [MASS/VOLUM E] IN SERUM OR PLASMA BY DIRECT ASSAY 93 mg/dL 0 - 100 04/07 Specimen Type: PLASMA Comment: Estimated Glomerular Filtration Rate (eGFR) calculated using the 2020 Chronic Kidney Disease-Epi demiology (CKD-EPI) Collaborati on creatinine equation; units of measure are mL/min/1.73 m2. Results are only valid for adults (>=18 years) whose serum creatinine is in a steady state. eGFR calculation s are not valid for patients with acute kidney injury and for patients on dialysis. Creatinine- based estimates of kidney function may also be inaccurate in patients with reduced creatinine generation due to decreased muscle mass (e.g., malnutritio n, severe hypoalbumin emia, sarcopenia, chronic neuromuscul ar disease, amputations , severe heart failure or liver disease) and in patients with increased creatinine generation due to increased muscle mass (e.g., muscle builders, anabolic steroids) or increased dietary intake. As drug clearance is proportiona l to total GFR and not GFR indexed to body surface area (BSA), in individuals with a BSA substantial ly different than 1.73 m2, drug dosing should be based on the reported eGFR value de-indexed from BSA by multiplying by the individual' s BSA and dividing by 1.73. CKD is diagnosed based on abnormaliti es of kidney structure or function, present for >3 months, with implication s for health and disease. CKD is classified and staged based on cause, eGFR and albuminuria (quantified as urine albumin to creatinine ratio). An eGFR >60 mL/min/1.73 m2 in the absence of increased urine albumin excretion or structural abnormaliti es does not represent CKD. eGFR CKD Interpretat ion (mL/min/1.7 3 m2) stage >=90 G1 Normal 60-89 G2 Mild decrease 45-59 G3A Mild to moderate decrease 30-44 G3B Moderate to severe decrease 15-29 G4 Severe decrease <15 G5 Kidney failure Vitamin B12 test may not yield results when protein level of sample is too elevated. Ordering Provider: ANN FERRO Report Released Date/Time: Apr 07, 2024 08:44 AM Reporting Lab: [place] [address] Performing Lab: [place] [id number] [facility] CBC/PLT LEUKOCYTES [#/VOLUME] IN BLOOD BY AUTOMATED COUNT 8.2 10*3/u L 5.0 - 10.0 04/07 Specimen Type: BLOOD No comment entered. Ordering Provider: ANN FERRO Report Released Date/Time: Apr 07, 2024 08:44 AM Reporting Lab: [place] [phone] Performing Lab: [place] [phone] [facility] CBC/PLT ERYTHROCYTE S [#/VOLUME] IN BLOOD BY AUTOMATED COUNT 5.79 10*6/u L 4.6 - 6.2 04/07 Specimen Type: BLOOD No comment entered. Ordering Provider: ANN FERRO Report Released Date/Time: Apr 07, 2024 08:44 AM Reporting Lab: [place] [phone] Performing Lab: [place] [phone] [facility] CBC/PLT HEMOGLOBIN [MASS/VOLUM E] IN BLOOD 16.8 g/dL 14.0 - 18.0 04/07 Specimen Type: BLOOD No comment entered. Ordering Provider: ANN FERRO Report Released Date/Time: Apr 07, 2024 08:44 AM Reporting Lab: [place] [phone] Performing Lab: [place] [id number] CBC/PLT HEMATOCRIT [VOLUME FRACTION] OF BLOOD BY AUTOMATED COUNT 52.5 42.0 - 52.0 04/07 H Specimen Type: BLOOD No comment entered. Ordering Provider: ANN FERRO Report Released Date/Time: Apr 07, 2024 08:44 AM Reporting Lab: [place] [phone] Performing Lab: [place] [address] [place] [address] CBC/PLT MCV [ENTITIC VOLUME] BY AUTOMATED COUNT 90.7 fL 80.0 - 94.0 04/07 Specimen Type: BLOOD No comment entered. Ordering Provider: ANN FERRO Report Released Date/Time: Apr 07, 2024 08:44 AM Reporting Lab: [place] [phone] Performing Lab: [address] CBC/PLT MCH [ENTITIC MASS] BY AUTOMATED COUNT 29.0 pg 27.0 - 31.0 04/07 Specimen Type: BLOOD No comment entered. Ordering Provider: ANN FERRO Report Released Date/Time: Apr 07, 2024 08:44 AM Reporting Lab: [place] [phone] Performing Lab: [place] [address] [place] [address] CBC/PLT MCHC [MASS/VOLUM E] BY AUTOMATED COUNT 32.0 g/dL 32.0 - 36.0 04/07 Specimen Type: BLOOD No comment entered. Ordering Provider: ANN FERRO Report Released Date/Time: Apr 07, 2024 08:44 AM Reporting Lab: [place] [phone] Performing Lab: [place] [id number] [place] [address] CBC/PLT PLATELETS [#/VOLUME] IN BLOOD 196 10*3/u L 150 - 450 04/07 Specimen Type: BLOOD No comment entered. Ordering Provider: ANN FERRO Report Released Date/Time: Apr 07, 2024 08:44 AM Reporting Lab: [place] [phone] Performing Lab: [place] [address] [place] [address] CBC/PLT PLATELET MEAN VOLUME [ENTITIC VOLUME] IN BLOOD 11.1 fL 9.0 - 13.1 04/07 Specimen Type: BLOOD No comment entered. Ordering Provider: ANN FERRO Report Released Date/Time: Apr 07, 2024 08:44 AM Reporting Lab: [place] [phone] Performing Lab: [place] [id number] [place] [address] CBC/PLT ERYTHROCYTE DISTRIBUTIO N WIDTH [ENTITIC VOLUME] BY AUTOMATED COUNT 13.6 11.0 - 16.0 04/07 Specimen Type: BLOOD No comment entered. Ordering Provider: ANN FERRO Report Released Date/Time: Apr 07, 2024 08:44 AM Reporting Lab: [address] [address] Performing Lab: [place] [phone] [place] [address] CBC/PLT NUCLEATED ERYTHROCYTE S/100 ERYTHROCYTE S IN BLOOD 0.0 0.0 - 0.0 04/07 Specimen Type: BLOOD No comment entered. Ordering Provider: ANN FERRO Report Released Date/Time: Apr 07, 2024 08:44 AM Reporting Lab: [address] [address] Performing Lab: [place] SALAMANCA [facility] [address] [facility] [address] [facility] PANEL 5 CREATININE [MASS/VOLUM E] IN SERUM OR PLASMA 1.53 mg/dL 0.72 - 1.25 04/07 H Specimen Type: PLASMA Comment: Estimated Glomerular Filtration Rate (eGFR) calculated using the 2020 Chronic Kidney Disease-Epi demiology (CKD-EPI) Collaborati on creatinine equation; units of measure are mL/min/1.73 m2. Results are only valid for adults (>=18 years) whose serum creatinine is in a steady state. eGFR calculation s are not valid for patients with acute kidney injury and for patients on dialysis. Creatinine- based estimates of kidney function may also be inaccurate in patients with reduced creatinine generation due to decreased muscle mass (e.g., malnutritio n, severe hypoalbumin emia, sarcopenia, chronic neuromuscul ar disease, amputations , severe heart failure or liver disease) and in patients with increased creatinine generation due to increased muscle mass (e.g., muscle builders, anabolic steroids) or increased dietary intake. As drug clearance is proportiona l to total GFR and not GFR indexed to body surface area (BSA), in individuals with a BSA substantial ly different than 1.73 m2, drug dosing should be based on the reported eGFR value de-indexed from BSA by multiplying by the individual' s BSA and dividing by 1.73. CKD is diagnosed based on abnormaliti es of kidney structure or function, present for >3 months, with implication s for health and disease. CKD is classified and staged based on cause, eGFR and albuminuria (quantified as urine albumin to creatinine ratio). An eGFR >60 mL/min/1.73 m2 in the absence of increased urine albumin excretion or structural abnormaliti es does not represent CKD. eGFR CKD Interpretat ion (mL/min/1.7 3 m2) stage >=90 G1 Normal 60-89 G2 Mild decrease 45-59 G3A Mild to moderate decrease 30-44 G3B Moderate to severe decrease 15-29 G4 Severe decrease <15 G5 Kidney failure Vitamin B12 test may not yield results when protein level of sample is too elevated. Ordering Provider: ANN FERRO Report Released Date/Time: Apr 07, 2024 08:44 AM Reporting Lab: [facility] [address] [address] Performing Lab: [facility] [address] [address] [facility] PANEL 5 UREA NITROGEN [MASS/VOLUM E] IN SERUM OR PLASMA 16 mg/dL 04/07 Specimen Type: PLASMA Comment: Estimated Glomerular Filtration Rate (eGFR) calculated using the 2020 Chronic Kidney Disease-Epi demiology (CKD-EPI) Collaborati on creatinine equation; units of measure are mL/min/1.73 m2. Results are only valid for adults (>=18 years) whose serum creatinine is in a steady state. eGFR calculation s are not valid for patients with acute kidney injury and for patients on dialysis. Creatinine- based estimates of kidney function may also be inaccurate in patients with reduced creatinine generation due to decreased muscle mass (e.g., malnutritio n, severe hypoalbumin emia, sarcopenia, chronic neuromuscul ar disease, amputations , severe heart failure or liver disease) and in patients with increased creatinine generation due to increased muscle mass (e.g., muscle builders, anabolic steroids) or increased dietary intake. As drug clearance is proportiona l to total GFR and not GFR indexed to body surface area (BSA), in individuals with a BSA substantial ly different than 1.73 m2, drug dosing should be based on the reported eGFR value de-indexed from BSA by multiplying by the individual' s BSA and dividing by 1.73. CKD is diagnosed based on abnormaliti es of kidney structure or function, present for >3 months, with implication s for health and disease. CKD is classified and staged based on cause, eGFR and albuminuria (quantified as urine albumin to creatinine ratio). An eGFR >60 mL/min/1.73 m2 in the absence of increased urine albumin excretion or structural abnormaliti es does not represent CKD. eGFR CKD Interpretat ion (mL/min/1.7 3 m2) stage >=90 G1 Normal 60-89 G2 Mild decrease 45-59 G3A Mild to moderate decrease 30-44 G3B Moderate to severe decrease 15-29 G4 Severe decrease <15 G5 Kidney failure Vitamin B12 test may not yield results when protein level of sample is too elevated. Ordering Provider: ANN FERRO Report Released Date/Time: Apr 07, 2024 08:44 AM Reporting Lab: [address] [address] Performing Lab: [address] [address] [facility] PANEL 5 GLUCOSE [MASS/VOLUM E] IN SERUM OR PLASMA 216 mg/dL 74 - 100 04/07 H Specimen Type: PLASMA Comment: Estimated Glomerular Filtration Rate (eGFR) calculated using the 2020 Chronic Kidney Disease-Epi demiology (CKD-EPI) Collaborati on creatinine equation; units of measure are mL/min/1.73 m2. Results are only valid for adults (>=18 years) whose serum creatinine is in a steady state. eGFR calculation s are not valid for patients with acute kidney injury and for patients on dialysis. Creatinine- based estimates of kidney function may also be inaccurate in patients with reduced creatinine generation due to decreased muscle mass (e.g., malnutritio n, severe hypoalbumin emia, sarcopenia, chronic neuromuscul ar disease, amputations , severe heart failure or liver disease) and in patients with increased creatinine generation due to increased muscle mass (e.g., muscle builders, anabolic steroids) or increased dietary intake. As drug clearance is proportiona l to total GFR and not GFR indexed to body surface area (BSA), in individuals with a BSA substantial ly different than 1.73 m2, drug dosing should be based on the reported eGFR value de-indexed from BSA by multiplying by the individual' s BSA and dividing by 1.73. CKD is diagnosed based on abnormaliti es of kidney structure or function, present for >3 months, with implication s for health and disease. CKD is classified and staged based on cause, eGFR and albuminuria (quantified as urine albumin to creatinine ratio). An eGFR >60 mL/min/1.73 m2 in the absence of increased urine albumin excretion or structural abnormaliti es does not represent CKD. eGFR CKD Interpretat ion (mL/min/1.7 3 m2) stage >=90 G1 Normal 60-89 G2 Mild decrease 45-59 G3A Mild to moderate decrease 30-44 G3B Moderate to severe decrease 15-29 G4 Severe decrease <15 G5 Kidney failure Vitamin B12 test may not yield results when protein level of sample is too elevated. Ordering Provider: ANN FERRO Report Released Date/Time: Apr 07, 2024 08:44 AM Reporting Lab: [facility] [address] [address] Performing Lab: [facility] [address] [address] [facility] PANEL 5 SODIUM [MOLES/VOLU ME] IN SERUM OR PLASMA 139 mmol/L 136 - 145 04/07 Specimen Type: PLASMA Comment: Estimated Glomerular Filtration Rate (eGFR) calculated using the 2020 Chronic Kidney Disease-Epi demiology (CKD-EPI) Collaborati on creatinine equation; units of measure are mL/min/1.73 m2. Results are only valid for adults (>=18 years) whose serum creatinine is in a steady state. eGFR calculation s are not valid for patients with acute kidney injury and for patients on dialysis. Creatinine- based estimates of kidney function may also be inaccurate in patients with reduced creatinine generation due to decreased muscle mass (e.g., malnutritio n, severe hypoalbumin emia, sarcopenia, chronic neuromuscul ar disease, amputations , severe heart failure or liver disease) and in patients with increased creatinine generation due to increased muscle mass (e.g., muscle builders, anabolic steroids) or increased dietary intake. As drug clearance is proportiona l to total GFR and not GFR indexed to body surface area (BSA), in individuals with a BSA substantial ly different than 1.73 m2, drug dosing should be based on the reported eGFR value de-indexed from BSA by multiplying by the individual' s BSA and dividing by 1.73. CKD is diagnosed based on abnormaliti es of kidney structure or function, present for >3 months, with implication s for health and disease. CKD is classified and staged based on cause, eGFR and albuminuria (quantified as urine albumin to creatinine ratio). An eGFR >60 mL/min/1.73 m2 in the absence of increased urine albumin excretion or structural abnormaliti es does not represent CKD. eGFR CKD Interpretat ion (mL/min/1.7 3 m2) stage >=90 G1 Normal 60-89 G2 Mild decrease 45-59 G3A Mild to moderate decrease 30-44 G3B Moderate to severe decrease 15-29 G4 Severe decrease <15 G5 Kidney failure Vitamin B12 test may not yield results when protein level of sample is too elevated. Ordering Provider: ANN FERRO Report Released Date/Time: Apr 07, 2024 08:44 AM Reporting Lab: [facility] [address] [address] Performing Lab: [facility] [address] [address] [facility] 5 POTASSIUM [MOLES/VOLU ME] IN SERUM OR PLASMA 4.3 mmol/L 3.5 - 5.1 04/07 Specimen Type: PLASMA Comment: Estimated Glomerular Filtration Rate (eGFR) calculated using the 2020 Chronic Kidney Disease-Epi demiology (CKD-EPI) Collaborati on creatinine equation; units of measure are mL/min/1.73 m2. Results are only valid for adults (>=18 years) whose serum creatinine is in a steady state. eGFR calculation s are not valid for patients with acute kidney injury and for patients on dialysis. Creatinine- based estimates of kidney function may also be inaccurate in patients with reduced creatinine generation due to decreased muscle mass (e.g., malnutritio n, severe hypoalbumin emia, sarcopenia, chronic neuromuscul ar disease, amputations , severe heart failure or liver disease) and in patients with increased creatinine generation due to increased muscle mass (e.g., muscle builders, anabolic steroids) or increased dietary intake. As drug clearance is proportiona l to total GFR and not GFR indexed to body surface area (BSA), in individuals with a BSA substantial ly different than 1.73 m2, drug dosing should be based on the reported eGFR value de-indexed from BSA by multiplying by the individual' s BSA and dividing by 1.73. CKD is diagnosed based on abnormaliti es of kidney structure or function, present for >3 months, with implication s for health and disease. CKD is classified and staged based on cause, eGFR and albuminuria (quantified as urine albumin to creatinine ratio). An eGFR >60 mL/min/1.73 m2 in the absence of increased urine albumin excretion or structural abnormaliti es does not represent CKD. eGFR CKD Interpretat ion (mL/min/1.7 3 m2) stage >=90 G1 Normal 60-89 G2 Mild decrease 45-59 G3A Mild to moderate decrease 30-44 G3B Moderate to severe decrease 15-29 G4 Severe decrease <15 G5 Kidney failure Vitamin B12 test may not yield results when protein level of sample is too elevated. Ordering Provider: ANN EFRRO Report Released Date/Time: Apr 07, 2024 08:44 AM Reporting Lab: [facility] [address] [address] Performing Lab: [facility] [address] [address] [facility] PANEL 5 CHLORIDE [MOLES/VOLU ME] IN SERUM OR PLASMA 109 mmol/L 98 - 107 04/07 H Specimen Type: PLASMA Comment: Estimated Glomerular Filtration Rate (eGFR) calculated using the 2020 Chronic Kidney Disease-Epi demiology (CKD-EPI) Collaborati on creatinine equation; units of measure are mL/min/1.73 m2. Results are only valid for adults (>=18 years) whose serum creatinine is in a steady state. eGFR calculation s are not valid for patients with acute kidney injury and for patients on dialysis. Creatinine- based estimates of kidney function may also be inaccurate in patients with reduced creatinine generation due to decreased muscle mass (e.g., malnutritio n, severe hypoalbumin emia, sarcopenia, chronic neuromuscul ar disease, amputations , severe heart failure or liver disease) and in patients with increased creatinine generation due to increased muscle mass (e.g., muscle builders, anabolic steroids) or increased dietary intake. As drug clearance is proportiona l to total GFR and not GFR indexed to body surface area (BSA), in individuals with a BSA substantial ly different than 1.73 m2, drug dosing should be based on the reported eGFR value de-indexed from BSA by multiplying by the individual' s BSA and dividing by 1.73. CKD is diagnosed based on abnormaliti es of kidney structure or function, present for >3 months, with implication s for health and disease. CKD is classified and staged based on cause, eGFR and albuminuria (quantified as urine albumin to creatinine ratio). An eGFR >60 mL/min/1.73 m2 in the absence of increased urine albumin excretion or structural abnormaliti es does not represent CKD. eGFR CKD Interpretat ion (mL/min/1.7 3 m2) stage >=90 G1 Normal 60-89 G2 Mild decrease 45-59 G3A Mild to moderate decrease 30-44 G3B Moderate to severe decrease 15-29 G4 Severe decrease <15 G5 Kidney failure Vitamin B12 test may not yield results when protein level of sample is too elevated. Ordering Provider: ANN FERRO Report Released Date/Time: Apr 07, 2024 08:44 AM Reporting Lab: [facility] [address] [address] Performing Lab: [facility] [address] [address] [facility] PANEL 5 CARBON DIOXIDE, TOTAL [MOLES/VOLU ME] IN SERUM OR PLASMA 20 mmol/L 22 - 29 04/07 L Specimen Type: PLASMA Comment: Estimated Glomerular Filtration Rate (eGFR) calculated using the 2020 Chronic Kidney Disease-Epi demiology (CKD-EPI) Collaborati on creatinine equation; units of measure are mL/min/1.73 m2. Results are only valid for adults (>=18 years) whose serum creatinine is in a steady state. eGFR calculation s are not valid for patients with acute kidney injury and for patients on dialysis. Creatinine- based estimates of kidney function may also be inaccurate in patients with reduced creatinine generation due to decreased muscle mass (e.g., malnutritio n, severe hypoalbumin emia, sarcopenia, chronic neuromuscul ar disease, amputations , severe heart failure or liver disease) and in patients with increased creatinine generation due to increased muscle mass (e.g., muscle builders, anabolic steroids) or increased dietary intake. As drug clearance is proportiona l to total GFR and not GFR indexed to body surface area (BSA), in individuals with a BSA substantial ly different than 1.73 m2, drug dosing should be based on the reported eGFR value de-indexed from BSA by multiplying by the individual' s BSA and dividing by 1.73. CKD is diagnosed based on abnormaliti es of kidney structure or function, present for >3 months, with implication s for health and disease. CKD is classified and staged based on cause, eGFR and albuminuria (quantified as urine albumin to creatinine ratio). An eGFR >60 mL/min/1.73 m2 in the absence of increased urine albumin excretion or structural abnormaliti es does not represent CKD. eGFR CKD Interpretat ion (mL/min/1.7 3 m2) stage >=90 G1 Normal 60-89 G2 Mild decrease 45-59 G3A Mild to moderate decrease 30-44 G3B Moderate to severe decrease 15-29 G4 Severe decrease <15 G5 Kidney failure Vitamin B12 test may not yield results when protein level of sample is too elevated. Ordering Provider: ANN FERRO Report Released Date/Time: Apr 07, 2024 08:44 AM Reporting Lab: [facility] [address] [address] Performing Lab: [facility] [address] [address] [facility] PANEL 5 CALCIUM [MASS/VOLUM E] IN SERUM OR PLASMA 9.6 mg/dL 8.4 - 10.2 04/07 Specimen Type: PLASMA Comment: Estimated Glomerular Filtration Rate (eGFR) calculated using the 2020 Chronic Kidney Disease-Epi demiology (CKD-EPI) Collaborati on creatinine equation; units of measure are mL/min/1.73 m2. Results are only valid for adults (>=18 years) whose serum creatinine is in a steady state. eGFR calculation s are not valid for patients with acute kidney injury and for patients on dialysis. Creatinine- based estimates of kidney function may also be inaccurate in patients with reduced creatinine generation due to decreased muscle mass (e.g., malnutritio n, severe hypoalbumin emia, sarcopenia, chronic neuromuscul ar disease, amputations , severe heart failure or liver disease) and in patients with increased creatinine generation due to increased muscle mass (e.g., muscle builders, anabolic steroids) or increased dietary intake. As drug clearance is proportiona l to total GFR and not GFR indexed to body surface area (BSA), in individuals with a BSA substantial ly different than 1.73 m2, drug dosing should be based on the reported eGFR value de-indexed from BSA by multiplying by the individual' s BSA and dividing by 1.73. CKD is diagnosed based on abnormaliti es of kidney structure or function, present for >3 months, with implication s for health and disease. CKD is classified and staged based on cause, eGFR and albuminuria (quantified as urine albumin to creatinine ratio). An eGFR >60 mL/min/1.73 m2 in the absence of increased urine albumin excretion or structural abnormaliti es does not represent CKD. eGFR CKD Interpretat ion (mL/min/1.7 3 m2) stage >=90 G1 Normal 60-89 G2 Mild decrease 45-59 G3A Mild to moderate decrease 30-44 G3B Moderate to severe decrease 15-29 G4 Severe decrease <15 G5 Kidney failure Vitamin B12 test may not yield results when protein level of sample is too elevated. Ordering Provider: ANN FERRO Report Released Date/Time: Apr 07, 2024 08:44 AM Reporting Lab: [facility] [address] [address] Performing Lab: [facility] [address] [address] [facility] PANEL 5 PROTEIN [MASS/VOLUM E] IN SERUM OR PLASMA 7.1 g/dL 6.4 - 8.3 11/08 /2024 Specimen Type: PLASMA Comment: Estimated Glomerular Filtration Rate (eGFR) calculated using the 2020 Chronic Kidney Disease-Epi demiology (CKD-EPI) Collaborati on creatinine equation; units of measure are mL/min/1.73 m2. Results are only valid for adults (>=18 years) whose serum creatinine is in a steady state. eGFR calculation s are not valid for patients with acute kidney injury and for patients on dialysis. Creatinine- based estimates of kidney function may also be inaccurate in patients with reduced creatinine generation due to decreased muscle mass (e.g., malnutritio n, severe hypoalbumin emia, sarcopenia, chronic neuromuscul ar disease, amputations , severe heart failure or liver disease) and in patients with increased creatinine generation due to increased muscle mass (e.g., muscle builders, anabolic steroids) or increased dietary intake. As drug clearance is proportiona l to total GFR and not GFR indexed to body surface area (BSA), in individuals with a BSA substantial ly different than 1.73 m2, drug dosing should be based on the reported eGFR value de-indexed from BSA by multiplying by the individual' s BSA and dividing by 1.73. CKD is diagnosed based on abnormaliti es of kidney structure or function, present for >3 months, with implication s for health and disease. CKD is classified and staged based on cause, eGFR and albuminuria (quantified as urine albumin to creatinine ratio). An eGFR >60 mL/min/1.73 m2 in the absence of increased urine albumin excretion or structural abnormaliti es does not represent CKD. eGFR CKD Interpretat ion (mL/min/1.7 3 m2) stage >=90 G1 Normal 60-89 G2 Mild decrease 45-59 G3A Mild to moderate decrease 30-44 G3B Moderate to severe decrease 15-29 G4 Severe decrease <15 G5 Kidney failure Vitamin B12 test may not yield results when protein level of sample is too elevated. Ordering Provider: ANN FERRO Report Released Date/Time: Apr 07, 2024 08:44 AM Reporting Lab: [facility] [address] [facility] [address] Performing Lab: [facility] [address] [facility] [address] [facility] PANEL 5 ALBUMIN [MASS/VOLUM E] IN SERUM OR PLASMA 4.4 g/dL 3.5 - 5.2 04/07 Specimen Type: PLASMA Comment: Estimated Glomerular Filtration Rate (eGFR) calculated using the 2020 Chronic Kidney Disease-Epi demiology (CKD-EPI) Collaborati on creatinine equation; units of measure are mL/min/1.73 m2. Results are only valid for adults (>=18 years) whose serum creatinine is in a steady state. eGFR calculation s are not valid for patients with acute kidney injury and for patients on dialysis. Creatinine- based estimates of kidney function may also be inaccurate in patients with reduced creatinine generation due to decreased muscle mass (e.g., malnutritio n, severe hypoalbumin emia, sarcopenia, chronic neuromuscul ar disease, amputations , severe heart failure or liver disease) and in patients with increased creatinine generation due to increased muscle mass (e.g., muscle builders, anabolic steroids) or increased dietary intake. As drug clearance is proportiona l to total GFR and not GFR indexed to body surface area (BSA), in individuals with a BSA substantial ly different than 1.73 m2, drug dosing should be based on the reported eGFR value de-indexed from BSA by multiplying by the individual' s BSA and dividing by 1.73. CKD is diagnosed based on abnormaliti es of kidney structure or function, present for >3 months, with implication s for health and disease. CKD is classified and staged based on cause, eGFR and albuminuria (quantified as urine albumin to creatinine ratio). An eGFR >60 mL/min/1.73 m2 in the absence of increased urine albumin excretion or structural abnormaliti es does not represent CKD. eGFR CKD Interpretat ion (mL/min/1.7 3 m2) stage >=90 G1 Normal 60-89 G2 Mild decrease 45-59 G3A Mild to moderate decrease 30-44 G3B Moderate to severe decrease 15-29 G4 Severe decrease <15 G5 Kidney failure Vitamin B12 test may not yield results when protein level of sample is too elevated. Ordering Provider: ANN FERRO Report Released Date/Time: Apr 07, 2024 08:44 AM Reporting Lab: [facility] [address] [address] Performing Lab: [facility] [place] [id number] [facility] [address] [facility] PANEL 5 BILIRUBIN.T OTAL [MASS/VOLUM E] IN SERUM OR PLASMA 0.6 mg/dL 0.2 - 1.2 04/07 Specimen Type: PLASMA Comment: Estimated Glomerular Filtration Rate (eGFR) calculated using the 2020 Chronic Kidney Disease-Epi demiology (CKD-EPI) Collaborati on creatinine equation; units of measure are mL/min/1.73 m2. Results are only valid for adults (>=18 years) whose serum creatinine is in a steady state. eGFR calculation s are not valid for patients with acute kidney injury and for patients on dialysis. Creatinine- based estimates of kidney function may also be inaccurate in patients with reduced creatinine generation due to decreased muscle mass (e.g., malnutritio n, severe hypoalbumin emia, sarcopenia, chronic neuromuscul ar disease, amputations , severe heart failure or liver disease) and in patients with increased creatinine generation due to increased muscle mass (e.g., muscle builders, anabolic steroids) or increased dietary intake. As drug clearance is proportiona l to total GFR and not GFR indexed to body surface area (BSA), in individuals with a BSA substantial ly different than 1.73 m2, drug dosing should be based on the reported eGFR value de-indexed from BSA by multiplying by the individual' s BSA and dividing by 1.73. CKD is diagnosed based on abnormaliti es of kidney structure or function, present for >3 months, with implication s for health and disease. CKD is classified and staged based on cause, eGFR and albuminuria (quantified as urine albumin to creatinine ratio). An eGFR >60 mL/min/1.73 m2 in the absence of increased urine albumin excretion or structural abnormaliti es does not represent CKD. eGFR CKD Interpretat ion (mL/min/1.7 3 m2) stage >=90 G1 Normal 60-89 G2 Mild decrease 45-59 G3A Mild to moderate decrease 30-44 G3B Moderate to severe decrease 15-29 G4 Severe decrease <15 G5 Kidney failure Vitamin B12 test may not yield results when protein level of sample is too elevated. Ordering Provider: ANN FERRO Report Released Date/Time: Apr 07, 2024 08:44 AM Reporting Lab: [address] [address] Performing Lab: [address] [address] [facility] PANEL 5 ASPARTATE AMINOTRANSF ERASE [ENZYMATIC ACTIVITY/VO LUME] IN SERUM OR PLASMA 31 U/L 5 - 34 04/07 Specimen Type: PLASMA Comment: Estimated Glomerular Filtration Rate (eGFR) calculated using the 2020 Chronic Kidney Disease-Epi demiology (CKD-EPI) Collaborati on creatinine equation; units of measure are mL/min/1.73 m2. Results are only valid for adults (>=18 years) whose serum creatinine is in a steady state. eGFR calculation s are not valid for patients with acute kidney injury and for patients on dialysis. Creatinine- based estimates of kidney function may also be inaccurate in patients with reduced creatinine generation due to decreased muscle mass (e.g., malnutritio n, severe hypoalbumin emia, sarcopenia, chronic neuromuscul ar disease, amputations , severe heart failure or liver disease) and in patients with increased creatinine generation due to increased muscle mass (e.g., muscle builders, anabolic steroids) or increased dietary intake. As drug clearance is proportiona l to total GFR and not GFR indexed to body surface area (BSA), in individuals with a BSA substantial ly different than 1.73 m2, drug dosing should be based on the reported eGFR value de-indexed from BSA by multiplying by the individual' s BSA and dividing by 1.73. CKD is diagnosed based on abnormaliti es of kidney structure or function, present for >3 months, with implication s for health and disease. CKD is classified and staged based on cause, eGFR and albuminuria (quantified as urine albumin to creatinine ratio). An eGFR >60 mL/min/1.73 m2 in the absence of increased urine albumin excretion or structural abnormaliti es does not represent CKD. eGFR CKD Interpretat ion (mL/min/1.7 3 m2) stage >=90 G1 Normal 60-89 G2 Mild decrease 45-59 G3A Mild to moderate decrease 30-44 G3B Moderate to severe decrease 15-29 G4 Severe decrease <15 G5 Kidney failure Vitamin B12 test may not yield results when protein level of sample is too elevated. Ordering Provider: ANN FERRO Report Released Date/Time: Apr 07, 2024 08:44 AM Reporting Lab: [facility] [address] [address] Performing Lab: [facility] [address] [address] [facility] PANEL 5 ALANINE AMINOTRANSF ERASE [ENZYMATIC ACTIVITY/VO LUME] IN SERUM OR PLASMA 55 U/L 0 - 55 04/07 Specimen Type: PLASMA Comment: Estimated Glomerular Filtration Rate (eGFR) calculated using the 2020 Chronic Kidney Disease-Epi demiology (CKD-EPI) Collaborati on creatinine equation; units of measure are mL/min/1.73 m2. Results are only valid for adults (>=18 years) whose serum creatinine is in a steady state. eGFR calculation s are not valid for patients with acute kidney injury and for patients on dialysis. Creatinine- based estimates of kidney function may also be inaccurate in patients with reduced creatinine generation due to decreased muscle mass (e.g., malnutritio n, severe hypoalbumin emia, sarcopenia, chronic neuromuscul ar disease, amputations , severe heart failure or liver disease) and in patients with increased creatinine generation due to increased muscle mass (e.g., muscle builders, anabolic steroids) or increased dietary intake. As drug clearance is proportiona l to total GFR and not GFR indexed to body surface area (BSA), in individuals with a BSA substantial ly different than 1.73 m2, drug dosing should be based on the reported eGFR value de-indexed from BSA by multiplying by the individual' s BSA and dividing by 1.73. CKD is diagnosed based on abnormaliti es of kidney structure or function, present for >3 months, with implication s for health and disease. CKD is classified and staged based on cause, eGFR and albuminuria (quantified as urine albumin to creatinine ratio). An eGFR >60 mL/min/1.73 m2 in the absence of increased urine albumin excretion or structural abnormaliti es does not represent CKD. eGFR CKD Interpretat ion (mL/min/1.7 3 m2) stage >=90 G1 Normal 60-89 G2 Mild decrease 45-59 G3A Mild to moderate decrease 30-44 G3B Moderate to severe decrease 15-29 G4 Severe decrease <15 G5 Kidney failure Vitamin B12 test may not yield results when protein level of sample is too elevated. Ordering Provider: ANN FERRO Report Released Date/Time: Apr 07, 2024 08:44 AM Reporting Lab: [facility] [address] [address] Performing Lab: [facility] [address] [address] [facility] PANEL 5 ANION GAP 3 IN SERUM OR PLASMA 10 meq/L 3 - 19 04/07 Specimen Type: PLASMA Comment: Estimated Glomerular Filtration Rate (eGFR) calculated using the 2020 Chronic Kidney Disease-Epi demiology (CKD-EPI) Collaborati on creatinine equation; units of measure are mL/min/1.73 m2. Results are only valid for adults (>=18 years) whose serum creatinine is in a steady state. eGFR calculation s are not valid for patients with acute kidney injury and for patients on dialysis. Creatinine- based estimates of kidney function may also be inaccurate in patients with reduced creatinine generation due to decreased muscle mass (e.g., malnutritio n, severe hypoalbumin emia, sarcopenia, chronic neuromuscul ar disease, amputations , severe heart failure or liver disease) and in patients with increased creatinine generation due to increased muscle mass (e.g., muscle builders, anabolic steroids) or increased dietary intake. As drug clearance is proportiona l to total GFR and not GFR indexed to body surface area (BSA), in individuals with a BSA substantial ly different than 1.73 m2, drug dosing should be based on the reported eGFR value de-indexed from BSA by multiplying by the individual' s BSA and dividing by 1.73. CKD is diagnosed based on abnormaliti es of kidney structure or function, present for >3 months, with implication s for health and disease. CKD is classified and staged based on cause, eGFR and albuminuria (quantified as urine albumin to creatinine ratio). An eGFR >60 mL/min/1.73 m2 in the absence of increased urine albumin excretion or structural abnormaliti es does not represent CKD. eGFR CKD Interpretat ion (mL/min/1.7 3 m2) stage >=90 G1 Normal 60-89 G2 Mild decrease 45-59 G3A Mild to moderate decrease 30-44 G3B Moderate to severe decrease 15-29 G4 Severe decrease <15 G5 Kidney failure Vitamin B12 test may not yield results when protein level of sample is too elevated. Ordering Provider: ANN FERRO Report Released Date/Time: Apr 07, 2024 08:44 AM Reporting Lab: [facility] [address] [address] Performing Lab: [facility] [address] [address] [facility] PANEL 5 ALKALINE PHOSPHATASE [ENZYMATIC ACTIVITY/VO LUME] IN SERUM OR PLASMA 89 U/L 40 - 150 04/07 Specimen Type: PLASMA Comment: Estimated Glomerular Filtration Rate (eGFR) calculated using the 2020 Chronic Kidney Disease-Epi demiology (CKD-EPI) Collaborati on creatinine equation; units of measure are mL/min/1.73 m2. Results are only valid for adults (>=18 years) whose serum creatinine is in a steady state. eGFR calculation s are not valid for patients with acute kidney injury and for patients on dialysis. Creatinine- based estimates of kidney function may also be inaccurate in patients with reduced creatinine generation due to decreased muscle mass (e.g., malnutritio n, severe hypoalbumin emia, sarcopenia, chronic neuromuscul ar disease, amputations , severe heart failure or liver disease) and in patients with increased creatinine generation due to increased muscle mass (e.g., muscle builders, anabolic steroids) or increased dietary intake. As drug clearance is proportiona l to total GFR and not GFR indexed to body surface area (BSA), in individuals with a BSA substantial ly different than 1.73 m2, drug dosing should be based on the reported eGFR value de-indexed from BSA by multiplying by the individual' s BSA and dividing by 1.73. CKD is diagnosed based on abnormaliti es of kidney structure or function, present for >3 months, with implication s for health and disease. CKD is classified and staged based on cause, eGFR and albuminuria (quantified as urine albumin to creatinine ratio). An eGFR >60 mL/min/1.73 m2 in the absence of increased urine albumin excretion or structural abnormaliti es does not represent CKD. eGFR CKD Interpretat ion (mL/min/1.7 3 m2) stage >=90 G1 Normal 60-89 G2 Mild decrease 45-59 G3A Mild to moderate decrease 30-44 G3B Moderate to severe decrease 15-29 G4 Severe decrease <15 G5 Kidney failure Vitamin B12 test may not yield results when protein level of sample is too elevated. Ordering Provider: ANN FERRO Report Released Date/Time: Apr 07, 2024 08:44 AM Reporting Lab: [facility] [address] [address] Performing Lab: [facility] [address] [address] [facility] PANEL 5 GLOMERULAR FILTRATION RATE/1.73 SQ M.PREDICTED [VOLUME RATE/AREA] IN SERUM, PLASMA OR BLOOD BY CREATININE- BASED FORMULA (CKD-EPI 2020) 51 04/07 Specimen Type: PLASMA Comment: Estimated Glomerular Filtration Rate (eGFR) calculated using the 2020 Chronic Kidney Disease-Epi demiology (CKD-EPI) Collaborati on creatinine equation; units of measure are mL/min/1.73 m2. Results are only valid for adults (>=18 years) whose serum creatinine is in a steady state. eGFR calculation s are not valid for patients with acute kidney injury and for patients on dialysis. Creatinine- based estimates of kidney function may also be inaccurate in patients with reduced creatinine generation due to decreased muscle mass (e.g., malnutritio n, severe hypoalbumin emia, sarcopenia, chronic neuromuscul ar disease, amputations , severe heart failure or liver disease) and in patients with increased creatinine generation due to increased muscle mass (e.g., muscle builders, anabolic steroids) or increased dietary intake. As drug clearance is proportiona l to total GFR and not GFR indexed to body surface area (BSA), in individuals with a BSA substantial ly different than 1.73 m2, drug dosing should be based on the reported eGFR value de-indexed from BSA by multiplying by the individual' s BSA and dividing by 1.73. CKD is diagnosed based on abnormaliti es of kidney structure or function, present for >3 months, with implication s for health and disease. CKD is classified and staged based on cause, eGFR and albuminuria (quantified as urine albumin to creatinine ratio). An eGFR >60 mL/min/1.73 m2 in the absence of increased urine albumin excretion or structural abnormaliti es does not represent CKD. eGFR CKD Interpretat ion (mL/min/1.7 3 m2) stage >=90 G1 Normal 60-89 G2 Mild decrease 45-59 G3A Mild to moderate decrease 30-44 G3B Moderate to severe decrease 15-29 G4 Severe decrease <15 G5 Kidney failure Vitamin B12 test may not yield results when protein level of sample is too elevated. Ordering Provider: ANN FERRO Report Released Date/Time: Apr 07, 2024 08:44 AM Reporting Lab: [facility] [address] [address] Performing Lab: [facility] [address] [address] [facility] 25-OH VITAMIN D 25-HYDROXYV ITAMIN D3 [MASS/VOLUM E] IN SERUM OR PLASMA 31.1 ng/mL 20.0 - 50.0 04/07 Specimen Type: SERUM Comment: The National Institutes of Health (NIH) recommendat ions state: <12 ng/mL - Deficient 20 - 50 ng/mL - Optimal Levels - adequate for most people. >50 ng/mL - Increased risk of hypercalciu roz/other health problems - clinical correlation is required. These reference ranges represent clinical decision values rather than population- based reference values. Ordering Provider: ANN FERRO Report Released Date/Time: Apr 07, 2024 08:44 AM Reporting Lab: [facility] [address] [facility] [address] Performing Lab: [facility] [address] [facility] [address] [facility] B12 VITAMIN COBALAMIN (VITAMIN B12) [MASS/VOLUM E] IN SERUM OR PLASMA >2000p g/mL 213 - 816 04/07 H Specimen Type: PLASMA Comment: Estimated Glomerular Filtration Rate (eGFR) calculated using the 2020 Chronic Kidney Disease-Epi demiology (CKD-EPI) Collaborati on creatinine equation; units of measure are mL/min/1.73 m2. Results are only valid for adults (>=18 years) whose serum creatinine is in a steady state. eGFR calculation s are not valid for patients with acute kidney injury and for patients on dialysis. Creatinine- based estimates of kidney function may also be inaccurate in patients with reduced creatinine generation due to decreased muscle mass (e.g., malnutritio n, severe hypoalbumin emia, sarcopenia, chronic neuromuscul ar disease, amputations , severe heart failure or liver disease) and in patients with increased creatinine generation due to increased muscle mass (e.g., muscle builders, anabolic steroids) or increased dietary intake. As drug clearance is proportiona l to total GFR and not GFR indexed to body surface area (BSA), in individuals with a BSA substantial ly different than 1.73 m2, drug dosing should be based on the reported eGFR value de-indexed from BSA by multiplying by the individual' s BSA and dividing by 1.73. CKD is diagnosed based on abnormaliti es of kidney structure or function, present for >3 months, with implication s for health and disease. CKD is classified and staged based on cause, eGFR and albuminuria (quantified as urine albumin to creatinine ratio). An eGFR >60 mL/min/1.73 m2 in the absence of increased urine albumin excretion or structural abnormaliti es does not represent CKD. eGFR CKD Interpretat ion (mL/min/1.7 3 m2) stage >=90 G1 Normal 60-89 G2 Mild decrease 45-59 G3A Mild to moderate decrease 30-44 G3B Moderate to severe decrease 15-29 G4 Severe decrease <15 G5 Kidney failure Vitamin B12 test may not yield results when protein level of sample is too elevated. Ordering Provider: ANN FERRO Report Released Date/Time: Apr 07, 2024 08:44 AM Reporting Lab: [address] [address] Performing Lab: [address] [address] [facility] PSA PROSTATE SPECIFIC AG [MASS/VOLUM E] IN SERUM OR PLASMA 0.431 ng/mL 0 - 3.999 04/07 Specimen Type: SERUM Comment: The National Institutes of Health (NIH) recommendat ions state: <12 ng/mL - Deficient 20 - 50 ng/mL - Optimal Levels - adequate for most people. >50 ng/mL - Increased risk of hypercalciu roz/other health problems - clinical correlation is required. These reference ranges represent clinical decision values rather than population- based reference values. Ordering Provider: ANN FERRO Report Released Date/Time: Apr 07, 2024 08:44 AM Reporting Lab: [address] [address] Performing Lab: [address] [address] [facility] GLYCOHEMO GLOBIN HEMOGLOBIN A1C/HEMOGLO BIN.TOTAL IN BLOOD BY HPLC 6.9 4.4 - 6.4 04/07 H Specimen Type: BLOOD Comment: [place] guidelines for A1c interpretat ion: Glycemic control targets are based on Shared Decision Making between clinicians and patients. Criteria used to establish an A1c target recommendat ion can be found at https://www .[place].gov/kierra lityandpati entsafety/ and include the use of result accuracy and precision(C V) of the A1c tests clinicians utilize at their own sites of practice. Values obtained from A1C measurement s can vary. For typical A1C assays, a reported value of 7.0 could actually be between 6.72 and 7.28 if measured by a reference method. A reported value of 9.0 could actually be between 8.73 and 9.27. Ref: https://ngs p.org/CAPda ta.asp. The in-house UNX-Casero D-100 analyzer has a historical CV <= 2%. Contact the laboratory for further performance characteris tics of this assay. Ordering Provider: ANN FERRO Report Released Date/Time: Apr 07, 2024 08:44 AM Reporting Lab: [facility] [address] [address] Performing Lab: [facility] [address] [address] [facility] Vital Signs Combined list of inpatient and outpatient Vital Signs from Department of [facility] and [facility], ranging from 12 months to all on record, depending upon the facility. Vital Sign Value Date Comments Source SYSTOLIC BLOOD PRESSURE 130 04/07/2024 08:26:56 [facility] DIASTOLIC BLOOD PRESSURE 87 04/07/2024 08:26:56 [facility] PULSE OXIMETRY 93 04/07/2024 08:26:56 [facility] WEIGHT 235 04/07/2024 08:26:56 [place] [facility] BMI 38 kg/m2 04/07/2024 08:26:56 [place] [facility] [facility] PAIN 0 04/07/2024 08:26:56 [place] [facility] HEIGHT 66 04/07/2024 08:26:56 [place] [facility] TEMPERATURE 97.6 04/07/2024 08:26[facility] 77 04/07/2024 08:26:56 [place] [facility] [facility] RESPIRATION 12 04/07/2024 08:26:56 [facility] Encounters Combined list of: 1) Encounters from [facility] facilities going backup to the last 18 months, not all [place] inpatient encounters are included; 2) Encounters from the Department of [facility] facilities going backup to 280 months. Location Location Details Encounter Type Encounter Number Reason For Visit Attending Provider ADM Date DC Date Status Disposition Source [facility] Outpatient Encounter [id number] 05/31 [place] [facility] Outpatient Encounter [id number] 08/25 [place] [facility] Outpatient Encounter [id number] 03/01 [place] Outpatient Encounter [id number] 03/09 [place] [facility] Outpatient Encounter [id number] 03/14 [place] Outpatient Encounter [id number] 04/06 [place] OFFICE O/P EST MOD 30 MIN [id number] Diagnos is: ICD-10- CM I10 Essenti al (primar y) hyperte nsion KASIE,RON TTANY L 04/07 [place] [facility] Procedures Combined list of: 1) Procedures from [facility] facilities going back up to thelast 18 months, not all [place] non-surgical procedures are included; 2) All procedures from the Department of [facility] facilities. Procedure Procedure Type Code Date Perfomer Comments Sourc e VISUAL FIELD EXAMINATION, UN I OR BILATERAL, WITH MEDICAL DIAGNOSTIC EVAL; LIMITED EXAM (EG, TANGENT SCREEN, AUTOPLOT, ARC PERIMETER, OR SINGLE STIMULUS LEVEL AUTO TEST, EG OCTOPUS 3 OR 7 EQUIVALENT) 01/03/2002 [facility] ELECTROCARDIOGRAM, ROUTINE ECG WITH AT LEAST 12 LEADS; WITH INTERPRETATION AND REPORT 01/03/2002 [facility] SCREENING TEST, PURE TONE, AIR ONLY 01/03/2002 [facility] Social History Combined list of available smoking, tobacco, and other social history from Department of Defense and Veterans Affairs facilities. Social History Type Response Date Comment [facility] e Tobacco smoking status NHIS [facility] FORMER USER 04/07/2024 [facility] History of tobacco use [place] 5 TO < 15 YRS 04/07/2024 [facility] History of tobacco use [place] FORMER USER 04/02/2023 [facility] History of tobacco use [place] FORMER USER 04/30/2022 [facility] This section is an empty social history section. [facility]
--- OUTSIDE RECORDS SUMMARY | 2024-11-13 08:11 | XMS_ITS | Clinical Summary ---
Author Organization Healthcare Address [address] [id number] Care Team Providers Care Cash Processing Specialist Name Role Phone Anna Wheeler Primary Care Provider Immunizations Immunization Administration Dates Next Due Influenza, seasonal, injectable 02/28/2014,03/31,02/28/2013 Family History Medical History Relation Name Comments Other cancer Father Arrhythmia Mother Relation Name Status Comments Father Mother Social History Tobacco Use Types Packs/Day Years Used Date Smoking Tobacco: Former Sex and Gender Information Value Date Recorded Sex Assigned at Not on file Legal Sex Male 6:33 PM EDT Gender Identity Not on file Sexual Orientation Not on file Last Filed Vital Signs Vital Sign Reading Time Taken Comments Blood Pressure - - Pulse - - Temperature - - Respiratory Rate - - Oxygen Saturation - - Inhaled Oxygen Concentration - - Weight 97.5 kg (214 lb 15.9 oz) 02/02/2017 3:24 PM EDT Height 167.6 cm (5' 6 ) 02/02/2017 3:24 PM EDT Body Mass Index 34.7 02/02/2017 3:24 PM EDT Plan of Treatment Not on file Care Teams Cash Processing Specialist Relationship Specialty Start Date End Date Anna Wheeler PA [address] [place] [address] [address] PCP - General 10/11/20
--- OUTSIDE RECORDS SUMMARY | 2024-11-13 08:11 | XMS_ITS | Patient Health Record ---
Author Organization [facility] JESSICA Address [address] [place] [address] Care Team Providers Care Kiln Operator Helper Name Role Phone Yohannescornelia Piyush Primary Care Provider Mague Cruz Unavailable [phone] Migration, Provider Unavailable Unavailable Allergies No Known Allergies Results Component Value Reference Range Notes Urinalysis Reviewed date:08/16/2024 10:15:06 AM Interpretation: Performing Lab: Notes/Report: Color/Clarity yellow Leuk neg Nitrite neg Urobili 0.2 Protein neg pH 5.5 Blood neg Sp. Gr. 1.015 Ketone neg Bili neg Glucose neg Reason For Referral No Information Medications Medication SIG (Take, Route, Frequency, Duration) Notes Start Date End Date Status GLIPIZIDE XL 5 MG 1 TAB(S) ORALLY ONCE A DAY *Please review for potential replacement for e-prescription and drug interaction check* Active Mounjaro 2.5 MG/0.5 ML DIRECTED SUBCUTANEOUSLY ONCE A WEEK *Please review and pick correct strength-formulati on from Factery options. If intended option is not shown, discontinue and re-order from Quick Search* Active Tamsulosin HCl 0.4 MG 1 cap(s) orally once a day for 90 days Active Vitamin C 500 MG 1 tab(s) orally once a day Active Atorvastatin Calcium 80 MG 1 tab(s) orally [...] tab(s) sublinguall y every 5 minutes Active traZODone HCl 50 MG 1 tab(s) orally once a day at bedtime for 90 days Active ONE TOUCH DELICA LANCET 33G FOR DIABETIC TESTING ONCE DAILY for 30 DAYS diagnosis: E11.9 *Please review for potential replacement for e-prescription and drug interaction check* 06/20/2019 Active Jardiance 25 MG TAKE ONE TABLET BY MOUTH EVERY DAY IN THE MORNING for 30 Active Metoprolol Succinate ER 50 MG 1 tab(s) orally once a day for 30 day(s) Active Breo Ellipta 200 MCG-25 MCG/INH INHALE 1 PUFF BY MOUTH EVERY DAY for 30 *Please review and pick correct strength-formulati on from Factery options. If intended option is not shown, discontinue and re-order from Quick Search* Active ACCU-CHECK VICENTE DIRECTED GLUCOMETER DX: E11.69 *Please review for potential replacement for e-prescription and drug interaction check* 06/17/2018 Active Pantoprazole Sodium 40 MG TAKE ONE TABLET BY MOUTH TWICE DAILY for 90 Active Plavix 75 MG 1 tab(s) orally once a day Active Losartan Potassium 25 MG 1 tab(s) orally once a day for 90 days Active Montelukast Sodium 10 MG 1 tab(s) orally once a day for 90 days Active Immunizations Vaccine Route Administration Date Status Comme nts Pneumovax 23 IM Intramuscular 07/08/2021 Administered Influenza-Fluzone 3+years (NON-MEDICARE) IM Intramuscular 02/02/2017 Administered Influenza-Fluzone 3+years (NON-MEDICARE) IM Intramuscular 02/08/2018 Administered Hep A Adult 2 Dose IM Intramuscular 10/13/2017 Administere d Hep A Adult 2 Dose IM Intramuscular 04/26/2018 Administere d FLUZONE 6MO - OLDER IM Intramuscular 02/28/2019 Administer ed Flublok IM Intramuscular 04/02/2020 Administered Flublok IM Intramuscular 03/18/2021 Administered Covid Moderna Unknown 08/01/2020 Administered Covid Moderna Unknown 08/29/2020 Administered Adacel (Tdap) Unknown 01/30/2014 Administered Social History Tobacco Use: Social History Observation Description Date Details (start date - stop date) Former Smoker NA - NA Smoking: Question Answer Notes Are you a: former smoker How long has it been since you last smoked? 1-5 years Problems Problem Type SNOMED Code ICD Code Onset Dates Problem Status W/U Status Risk Notes Problem 65424938 Other viral wart s (B07.8) Active confirmed Problem 78009492 Type 2 diabetes mellitus with other specified complication (E11.69) Active confirmed Problem Old myocardial infarction (9839542) Old myocardial infarction (I25.2) Active confirmed Problem 42143005 Hypertension, essential (I10) Active confirmed Problem 302937511 COPD exacerbatio n (J44.1) Active confirmed Problem 896241135 Obesity (BMI 30-39.9) (E66.9) Active confirmed Problem 401916363 Gastroesophageal reflux disease without esophagitis (K21.9) Active confirmed Problem 5043265077251 Atherosclerosis of the [place] coronary artery of the [place] heart without angina pectoris (I25.10) Active confirmed Problem 37899388 Pulmonary emphysema, unspecified emphysema type (J43.9) Active confirmed Problem Acute prostatitis (79521173) Prostatitis, acute (N41.0) Active confirmed Problem Chronic bronchiolitis (958193698) Chronic bronchiolitis (J44.9) Active confirmed Problem 849382205 Benign non-nodul ar prostatic hyperplasia with lower urinary tract symptoms (N40.1) Active confirmed Problem Urinary hesitancy (2513663) Urinary hesitancy (R39.11) Active confirmed Problem 470829468 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 confirmed Problem Atherosclerosis of coronary artery (683850988) Atherosclerosis of [place] coronary artery of [place] heart with other form of angina pectoris (I25.118) Active confirmed Problem 043137263 Diastolic CHF wi th preserved left ventricular function, NYHA class 2 (I50.30) Active confirmed Problem 741213102 Chronic GERD (K21.9) Active confirmed Problem 339926640 Type 2 diabetes mellitus without complication, without long-term current use of insulin (E11.9) Active confirmed Problem 01537134 MARIELENA on CPAP (G47.33) Active confirmed Problem Gastro-esophageal reflux (630873539) Gastro-esophageal reflux (K21.9) Active confirmed Problem 647167665 Tobacco use disorder (F17.200) Active confirmed Problem 248744843 Controlled type 2 diabetes mellitus without complication, without long-term current use of insulin (E11.9) Active confirmed Problem Type II diabetes mellitus without complication (223675322) Controlled type 2 diabetes mellitus without complication, unspecified correction insulin use status (E11.9) Active confirmed Problem 346521106 Adenomatous poly p of colon, unspecified part of colon (D12.6) Active confirmed Problem 025917858 ST elevation myocardial infarction involving right coronary artery (I21.11) Active confirmed Problem 526774362 History of coron opal artery disease (Z86.79) Active confirmed Problem 678947873 Skin cancer (C44.90) Active confirmed Problem Stented coronary artery (590667718) Stented coronary artery (Z95.5) Active confirmed Vital Signs Heart Rate 88 /min 08/16/2024 Temperature 97.6 degrees Fahrenheit 08/16/2024 Blood pressure diastolic 80 mm Hg 08/16/2024 Height 5 ft 6 in in 08/16/2024 Blood pressure systolic 125 mm Hg 08/16/2024 Weight 233 lbs 08/16/2024 BMI 37.6 kg/m2 08/16/2024 Encounters Encounter Location Date Provider Diagnosis [facility] JESSICA [address] [place] [address] 09/02/2024 Provider Migration [facility] [place] [address] [facility] [address] [place] [address] 08/16/2024 Mague Cruz 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 Z02.4 ; Atherosclerosis of [place] coronary artery of the [place] heart without angina pectoris I25.10 ; Type 2 diabetes mellitus with other specified complication E11.69 and MARIELENA on CPAP G47.33 Assessments Encounter Date Diagnosis (ICD Code) Assessment Notes Treatment Notes Treatment Clinical Notes Section Notes 08/16/2024 Atherosclerosis of [place] coronary artery of [place] heart without angina pectoris (ICD-10 - I25.10) 08/16/2024 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 This indicates good control of chronic disease, has been compliant with follow-up. Meets standard for 1 year certification with glasses and hearing aids present. Follow-up at that time secondary to CAD and diabetes history. 08/16/2024 Type 2 diabetes mellitus with other specified complication (ICD-10 - E11.69) 08/16/2024 MARIELENA on CPAP (ICD-10 - G47.33) Plan Of Treatment Pending Test Test Name Order Date Barium : Small Bowel Follow Through 07/2020 Small Bowel Follow Through 01/02/2021 Echocardiogram 2017 Holter Monitor : Event Recorder 07/19/19 Physical Therapy 07/29/2018 Physical Therapy 08/03/2018 Dietary Consult 06/06/2018 H-H.PYLORI ANTIGEN 03/16/2017 M-Complete Blood Count Man Dif CT Scan : Chest, Lung Cancer Screening 1 M-COVID PCR SINGLE RAPID 01/08/2020 Insurance Providers Payer Name Payer Address Payer Phone Subscriber Number Group Number Insured Name Patient Relationship to Insured Coverage Start Date Coverage End Date [facility] [address] [place] [address] [id number] Santhosh Denis Self - patient is the insured [facility] CLAIMS [address] [place] [address] [id number] Santhosh Denis Self - patient is the insured Medications Administered Medication Instructions Date of Administration Dosage Notes Dexamethasone 4mg Injection 07/14/2021 4 mg Kenalog 40mg 11/10/2016 40 mg Kenalog 40mg 02/02/2017 40 mg Kenalog 40mg 07/02/2017 40 mg Kenalog 40mg 07/06/2017 40 mg Triamcinolone Acetonide 40mg Injection 03/31/2018 1 mL Triamcinolone Acetonide 40mg Injection 01/24/2019 1 mL Medical (General) History Medical History History ICD Code [place] HLD HTN GERD STEMI 2016, followed by Dr Gurjit flores colonoscopy May 2017 wit h 3 tubular adenomas without high-grade dysplasia MARIELENA, previously on CPAP BPH COPD, seen by Dr Tobin in the past seasonal allergies EGD July 2018 with gastritis/esophag itis, no metaplasia or H. pylori. normal low-dose lung cancer screening CT scan February 2019 and again 03/2020 and normal 04/20 Surgical History Surgery Date(Month/Year) Cardiac stent x 1 07/2016 umbilical hernia repair colonoscopy, EGD 05/2017 cardiac cath 01/2019 wisdom tooth 03/2019 Hospitalization History Reason Date(Month/Year) epigastric pain/hiatal hernia 04/2018 hyperglycemia 03/2018 chest pain/acid reflux 2005 [place] 07/2016
--- OUTSIDE RECORDS SUMMARY | 2024-11-13 08:11 | XMS_ITS | Data Portability ---
Author Organization [place] [facility] Address [address] [place] [address] [address] [place] [address] Assessment No assessment recorded. Plan of Treatment Reminders Order Date Submit Date Provider Last Modified By Organization Details Last Modified Time Details Appointments None record ed. Lab None record ed. Referral None record ed. Procedures None record ed. Surgeries None record ed. Imaging None record ed. Medication Orders None record ed. Patient TargetsNo targets recorded. Patient InstructionsNo instructions recorded. Reason for Referral None Reported. Results Created Date Observation Date Name Description Value Unit Range Abnormal Flag Note LastModifiedBy Organization Detail LastModifiedTime 04/19/20 23 04/19/2023 SURGI CHRISTOPHER surgical SEE BELOW normal Depar tment of Patho logy Surgi christopher Patho logy Repor t NAME: MARU WestonYOKO CODY PATH. :-[phone] Copy to: Diagn osis: A) Gastr ic biops y: -Esse ntial ly withi n ruel l limit s. -No signi fican t activ e infla mmati on or react reba mucos al cordero es. B) Sigmo id colon polyp : -Hype rplas tic polyp . SOURC E OF SPECI MEN: GASTR IC BIOPS Y COLON POLYP , SIGMO ID CLINI CHRISTOPHER INFOR MATIO N: COLLE CTION : SPECI MEN REMOV AL: [address] IN FIXAT REBA: [address] COLD ISCHE ANDREA TIME: 0 MINUT ES TOTAL FIXAT ION TIME: 9.75 HOURS R/O H-PYL NATANAEL Z 12.11 R 13.10 Gross Descr iptio n: A) Recei kellie in forma ash label ed with the patie nt's name and desig nated as pancho nicky biops y are two fragm ents of pale paige tissu e measu ring 0.4 cm and 0.7 cm. Entir patricia submi tted in one casse tte. B) Recei kellie in forma ash label ed with the patie nt's name and desig nated as sigm oid colon polyp is a singl e fragm ent of pale paige tissu e measu ring 0.4 cm. Entir patricia submi tted in one casse tte. [place] 04/19 12:34 PM Micro scopi c Descr iptio n: A micro scopi c exami natio n was perfo rmed with findi ngs as indic ated in the diagn osis. COREY CAMARENA MD Paola d Out Date: 04/20 13:27 Page 1 of 1 Not Available [facility] [address] [place], [address], 04/20/2023 13:27:20 Result Notes None recorded. Medical Equipment None Reported. Medications Name Sig Start Date Stop Date Status Note LastModified by Organization Details LastModified Time atorvastatin 80 mg tablet TAKE ONE TABLET BY MOUTH EVERY DAY active Not Available Not Available No t Available Vitamin C 500 mg tablet TAKE ONE TABLET BY MOUTH EVERY DAY active Not Available Not Available No t Available trazodone 50 mg tablet TAKE ONE TABLET BY MOUTH EVERY DAY AT BEDTIME active Not Available Not Available No t Available azithromycin 250 mg tablet TAKE 2 TABLETS BY MOUTH ON DAY 1, THEN TAKE 1 TABLET DAILY ON DAYS 2-5 active Not Available Not Available No t Available metoprolol succinate ER 50 mg tablet,exten ded release 24 hr TAKE ONE TABLET BY MOUTH EVERY DAY FOR BLOOD PRESSURE active Not Available Not Available No t Available cyanocobalam in (vit B-12) 1,000 mcg tablet active Not Available Not Available N ot Available clopidogrel 75 mg tablet TAKE ONE TABLET BY MOUTH EVERY DAY active Not Available Not Available No t Available sulfamethoxa zole 800 mg-trimethop rim 160 mg tablet active Not Available Not Available Not Available tamsulosin 0.4 mg capsule TAKE ONE CAPSULE BY MOUTH EVERY DAY active Not Available Not Available No t Available glipizide ER 2.5 mg tablet, extended release 24 hr TAKE TWO TABLETS BY MOUTH EVERY DAY active Not Available Not Available No t Available pantoprazole 40 mg tablet,delay ed release TAKE ONE TABLET BY MOUTH TWICE DAILY active Not Available Not Available No t Available metformin 1,000 mg tablet TAKE ONE TABLET BY MOUTH TWICE DAILY active Not Available Not Available No t Available losartan 25 mg tablet TAKE ONE TABLET BY MOUTH EVERY DAY active Not Available Not Available No t Available Advair Diskus 250 mcg-50 mcg/dose powder for inhalation INHALE 1 PUFF BY MOUTH TWICE DAILY --RINSE MOUTH AFTER USE-- active Not Available Not Available No t Available montelukast 10 mg tablet TAKE ONE TABLET BY MOUTH EVERY DAY active Not Available Not Available No t Available codeine 10 mg-guaifenes in 100 mg/5 mL oral liquid TAKE 2 TEASPOONSFU L (10 ML) BY MOUTH EVERY 4 TO 6 HOURS NEEDED FOR cough active Not Available Not Available No t Available fluticasone propionate 50 mcg/actuatio n nasal spray,suspen mary instill 1 SPRAY IN EACH NOSTRIL EVERY DAY FOR ALLERGY symptoms active Not Available Not Available No t Available Januvia 100 mg tablet TAKE ONE TABLET BY MOUTH EVERY DAY active Not Available Not Available No t Available ferrous sulfate 324 mg (65 mg iron) tablet,delay ed release TAKE ONE TABLET BY MOUTH EVERY DAY active Not Available Not Available No t Available Accu-Chek Rowena Plus test strips USE TO test blood sugar TWICE DAILY NEEDED active Not Available Not Available No t Available Jardiance 25 mg tablet TAKE ONE TABLET BY MOUTH EVERY DAY active Not Available Not Available No t Available Breo Ellipta 200 mcg-25 mcg/dose powder for inhalation INHALE 1 PUFF BY MOUTH EVERY DAY active Not Available Not Available No t Available Plenvu 140 gram-9 gram-5.2 gram powder packs take BY MOUTH DIRECTED active Not Available Not Available No t Available Ozempic 0.25 mg or 0.5 mg (2 mg/3 mL) subcutaneous pen injector INJECT 0.25 MG SUBCUTANEOU SLY ONCE A WEEK FOR diabetes FOR 4 WEEKS active Not Available Not Available Not Available Vitals None Recorded Social History None recorded. Functional Status None recorded. Mental Status None recorded. Family History Nothing Reported. Medical History No medical history recorded. Past Encounters Encounter ID Performer Location Encounter Start Date Encounter Closed Date Diagnosis/Indication Diagnosis SNOMED-CT Code Diagnosis ICD10 Code Diagnosis Note [id number] URMILA CAI MD SURGERY SCHEDULE [address] [place] [address] 04/19/2023 07:27:38 04/19/2023 07:34:48 Health Concerns Section Related Observation LastModified by Organization Detai ls LastModified Time None Recorded Concern Status LastModified by Organization Details LastModified Time None Recorded Advance Directives Directive None Recorded Payers Insurance Date Sequence Insurance Name Policy Number Policy Figueroa Covered Member ID Figueroa Member ID Guarantor Name 04/27/2023 1 [place] [id number] 1 Santhosh Denis [id number] Santhosh Denis
--- NOTE | 2024-11-13 08:45 | CA_ITS ---
APPROVED REPORT EXAM: Comprehensive 2D, Doppler, and color-flow Echocardiogram Oral Communication Instructor: Yamel Claudio CRT Ht: 5 ft 6 in Wt: 229lbs BSA: 2.12 BP: 133/88 mmHg Indications: CAD 2D Dimensions LA Volume 65.90 mL LA Volume Index 30.40 mL/m2 (M/F) 16-34 M-Mode Dimensions RVDd 2.94 cm (0.9-2.6) LA Diam 3.47 cm (1.9-4.0) LVDd 3.79 cm (3.5-5.7) LVDs 2.56 cm (3.5-5.7) IVSd 1.49 cm (0.6-1.1) PWd 1.11 cm (0.6-1.1) EF (Teich) 61.50% FS 32.50% EDV (Teich) 61.60 mL TAPSE 1.79 (<1.7) ESV (Teich) 23.70 mL LV Diastology E Decel Time 97 (160-240 msec) E/A Ratio 0.86 MED A' 8.80 cm/s LAT A' 8.70 cm/s Aortic Valve AO Peak GR. 4.70 mmHg Mitral Valve MV A Velocity 66.0 (40-130 cm/s) E/A Ratio 0.86 Pulmonary Valve PV Peak Velocity 61.0 (50-150 cm/s) Left Ventricle The left ventricle is normal size. The left ventricular systolic function is normal. The left ventricular ejection fraction is within the normal range. There is increased LV wall thickness. There is normal LV segmental wall motion. Transmitral Doppler flow pattern suggests impaired LV relaxation. LVEF is 55%. Right Ventricle The right ventricle is normal size. The right ventricular systolic function is normal. Atria The left atrium size is normal. The right atrium size is normal. There is no Doppler evidence of interatrial shunt. Aortic Valve Aortic valve is mildly thickened. There is no aortic valvular stenosis. No aortic regurgitation is present. Mitral Valve The mitral valve is normal in structure. No evidence of mitral valve stenosis. Trace mitral regurgitation. Tricuspid Valve Tricuspid valve is grossly normal in structure and function. Trace tricuspid regurgitation. There is insufficient TR jet to estimate RVSP. Pulmonic Valve The pulmonary valve is normal in structure. Trace pulmonic regurgitation. Great Vessels The aortic root is normal in size. IVC is normal in size and collapses >50% with inspiration. Pericardium There is no pericardial effusion. Other Information Study Quality: Technically Difficult Conclusion Technically difficult study due to poor acoustic windows. Normal biventricular systolic function. No significant valvular stenosis or regurgitation. Electronically signed by : Karen Arguello MD 11/18/2024 21:31:13
== END 2024-11-13 23:59 | disposition home or self-care (01) ==
LOC: RT 08:08
PROVIDERS: PCP Family Medicine; Visit Provider Physician Assistant
DX: I25.10 Atherosclerotic heart disease of native coronary artery without angina pectoris (principal); I25.2 Old myocardial infarction; I51.89 Other ill-defined heart diseases
CPT/HCPCS: 93306

== ENCOUNTER 2024-11-14 09:05 | Outpatient (CLI) | payer BC, OTHER, SELFPAY ==
--- OUTSIDE RECORDS SUMMARY | 2024-09-02 17:30 | XMS_ITS ---
Author Organization [facility] JESSICA Address [address] [place] [address] Care Team Providers Care Brass Instrument Repair Technician Name Role Phone Piyush Malik Primary Care Provider Migration, Provider Unavailable Unavailable REASON FOR VISIT [facility] Conversion Encounter Medications Medication SIG (Take, Route, Frequency, Duration) Notes Start Date End Date Status Atorvastatin Calcium 80 MG 1 tab(s) orally once a day for 90 days Active Meloxicam 7.5 MG 1 tab(s) orally once a day for 90 Active ACCU-CHECK AVIA PLUS TEST STRIPS 1 TEST STRIP FINGERSTICK TWICE TO THREE TIMES DAILY for 30 DAYS *Please review for potential replacement for e-prescription and drug interaction check* Active C-PAP MASK AND SUPPLIES DIRECTED for 30 DAYS *Please review for potential replacement [...] LANCET 33G FOR DIABETIC TESTING ONCE DAILY for 30 DAYS diagnosis: E11.9 *Please review for potential replacement for e-prescription and drug interaction check* 06/20/2019 Active Metoprolol Succinate ER 50 MG 1 tab(s) orally once a day for 30 day(s) Active ACCU-CHECK VICENTE DIRECTED GLUCOMETER DX: E11.69 *Please review for potential replacement for e-prescription and drug interaction check* 06/17/2018 Active Mounjaro 2.5 MG/0.5 ML DIRECTED SUBCUTANEOUSLY ONCE A WEEK *Please review and pick correct strength-formulati on from [facility] options. If intended option is not shown, discontinue and re-order from Quick Search* Active Vitamin C 500 MG 1 tab(s) orally once a day Active traZODone HCl 50 MG 1 tab(s) orally once a day at bedtime for 90 days Active Jardiance 25 MG TAKE ONE TABLET BY MOUTH EVERY DAY IN THE MORNING for 30 Active Breo Ellipta 200 MCG-25 MCG/INH INHALE 1 PUFF BY MOUTH EVERY DAY for 30 *Please review and pick correct strength-formulati on from [facility] options. If intended option is not shown, discontinue and re-order from Quick Search* Active Losartan Potassium 25 MG 1 tab(s) orally once a day for 90 days Active Montelukast Sodium 10 MG 1 tab(s) orally once a day for 90 days Active Tamsulosin HCl 0.4 MG 1 cap(s) orally once a day for 90 days Active Pantoprazole Sodium 40 MG TAKE ONE TABLET BY MOUTH TWICE DAILY for 90 Active Encounters Encounter Location Date Provider Diagnosis [facility] PED JESSICA [address] [facility] [address] [place] [address] 09/02/2024 Provider Migration Plan Of Treatment No Information Progress Notes * Santhosh DENIS CDOB: [birth year] (64 yo M)Acc No.[id number]:09/02/2024 Patient: Santhosh MURPHY [place] Provider: Shama zhang Migration :1960 A ge:64 Y S ex:Male Date:09/02/2024 Address:[address] [place] [address], [place], [id number] Pcp:Piyush Malik Subjective: * Chief Complaints: * 1 . [facility] Conversion Encounter. * Medical History: * Medications: T aking Vitamin C 500 MG Tablet 1 tab(s) orally once a day , Taking Mounjaro 2.5 MG/0.5 ML SOLUTION DIRECTED SUBCUTANEOUSLY ONCE A WEEK , Notes to Pharmacist: *Please review and pick correct strength-formulation from [employer] options. If intended option is not shown, [...] *Please review and pick correct strength-formulation from [address] [employer] options. If intended option is not shown, discontinue and re-order from Quick Search*, Taking Jardiance 25 MG Tablet TAKE ONE TABLET BY MOUTH EVERY DAY IN THE MORNING , Taking traZODone HCl 50 MG Tablet 1 tab(s) orally once a day at bedtime Objective: * Vitals: Assessment: Plan: * Treatment: * * Electronic signature of Prov julietar Migration on 11/15/2024 at 09:58 AM EDT Sign off status: Pending * Provider: Sahma zhang Migration Date: 0 09/02/2024 Generated for Alexandrea krishna/Jarad/Jan on: 0 11/15/2024 09:58 AM EDT
[2024-11-14 19:38] LABS: Basophils # 0.1 K/mm3 (0-0.2); Basophils % 0.7 % (0.1-2.0); Eosinophils # 0.3 Kmm3 (0.0-0.4); Eosinophils % 3.8 % (0.1-12.0); Hematocrit 53.8 % (42.0-52.0); Hemoglobin 16.8 g/dL (14.1-18.0); Immature Granulocytes # 0.06 10^3uL; Immature Granulocytes % 0.7 %; Lymphocytes # 1.7 K/mm3 (0.7-4.5); Lymphocytes % 21.2 % (10-50); Mean Corpuscular HGB Conc 31.2 g/dL (31.8-35.4); Mean Corpuscular Hemoglobin 28.7 pg (27.0-31.2); Mean Platelet Volume 11.5 fl (7.4-10.4); Monocytes # 0.8 K/mm3 (0.1-1.0); Neutrophils # 5.2 K/mm3 (1.8-7.8); Neutrophils % 63.6 % (37.0-80.0); Nucleated Red Blood Cells # 0 10^3/uL; Nucleated Red Blood Cells % 0 %; Platelet Count 181 K/mm3 (142-424); Red Blood Count 5.85 M/mm3 (4.60-6.20); Red Cell Distribution Width 13.2 % (11.5-17.5); Red Cell Distribution Width-SD 44.7 fL; White Blood Count 8.2 K/mm3 (4.8-10.8)
[2024-11-14 19:51] LABS: Alanine Aminotransferase 64 U/L (12-78); Albumin Level 4.4 g/dl (3.5-5.0); Albumin/Globulin Ratio 1.7 (1.1-1.8); Alkaline Phosphatase 91 U/L (38-126); Anion Gap 15.7 mEq/L (5-15); Aspartate Amino Transferase 49 U/L (17-59); Bilirubin,Total 1.2 mg/dl (0.2-1.3); Blood Urea Nitrogen 22 mg/dl (9-20); Calcium 10.2 mg/dl (8.4-10.2); Carbon Dioxide 21 mmol/L (22.0-30.0); Chloride 104 mmol/L (98-107); Chol/HDL Ratio 5.6 (1-3.5); Cholesterol 200 mg/dl (140-200); Estimated Glomerular Filt Rate 56 ml/min (>60); GFR (African American) 67 ML/MIN (>60); Globulin 2.6 g/dL (1.3-3.2); Glucose 160 mg/dl (74-100); HDL Cholesterol 36 mg/dl (40-60); Potassium 4.7 mmoL/L (3.5-5.1); Sodium 136 mmol/L (136-145); Triglycerides 351 mg/dl (30-150); VLDL Cholesterol 70 mg/dL (0-40)
[2024-11-14 20:02] LABS: Direct LDL Cholesterol 88.03 mg/dL (100-129)
[2024-11-14 20:05] LABS: 25-OH Vitamin D, Total 24.9 ng/mL (30-100)
[2024-11-14 20:24] LABS: Thyroid Stimulating Hormone 2.94 uIU/mL (0.465-4.68)
--- OUTSIDE RECORDS SUMMARY | 2024-11-15 09:49 | XMS_ITS | Continuity of Care Document ---
Author Name [facility] Organization [facility] Care Team Providers Care Felt Hat Pouncing Operator Hand Name Role Phone [facility] Unavailable Unavailable Problems Combined list of problems from [facility] and [facility] facilities. It does not include entries that were removed or entered in error. Problem Status Onset Date Problem Type Date of Resolution Comments Source Allergic rhinitis Active Condition [place] [facility] Benign prostatic hyperplasia Active Condition [place] [facility] Coronary artery disease Active Condition [place] [facility] Essential hypertension Active Condition [place] [facility] Gastroesophageal reflux disease Active Condition [place] [facility] Insomnia Active Condition [place] Nicotine dependence in remission Active Condition [place] [facility] Obesity Active Condition [place] Obstructive sleep apnea Active Condition [place] Pure hypercholesterolemia Active Condition [place] Type 2 diabetes mellitus Active Condition [place] [facility] Diagnosis: ICD-10-CM I10 Essential (primary) hypertension Active Diagnosis [facility] Medications Combined list of outpatient medications from [facility] and [facility] facilities.Medications provided include 1) outpatient medications from the last 15 months, and 2) patient-reported medications. Medication Details Route Status Patient Instructions Prescription Expires Prescription Number Last Dispense Date Ordering Provider Order Date Order Qty Source AIRSUPRA (albuterol sulfate/bud esonide), 90-80 MCG, HFA AER AD, INHALATION, ASTRAZENECA , 10.7 g AER W/ADAP Active [id number] 2023 10.7 Pharmac y Data Transac tion Service Facilit y AIRSUPRA (albuterol sulfate/bud esonide), 90-80 MCG, HFA AER AD, INHALATION, ASTRAZENECA , 10.7 g AER W/ADAP Active [id number] 4 2023 10.7 Pharmac y Data Transac tion Service Facilit y AIRSUPRA (albuterol sulfate/bud esonide), 90-80 MCG, HFA AER AD, INHALATION, ASTRAZENECA , 10.7 g AER W/ADAP Active [id number] 4 2023 10.7 Pharmac y Data Transac tion Service Facilit y ALBUTEROL SO4 90MCG/ACTUA T (CFC-F) INHL,ORAL,8 .5GM INHALE 1 PUFF BY MOUTH FOUR TIMES A DAY RESPIR ATORY (INHAL ATION) ACTIVE FADUMO FERRO 2021 [place] [facility] ASCORBIC ACID 500MG TAB TAKE ONE TABLET BY MOUTH DAILY ORAL ACTIVE FADUMO FERRO 2022 [place] [facility] ATORVASTATI N CA 80MG TAB TAKE ONE TABLET BY MOUTH DAILY ORAL ACTIVE FADUMO FERRO 2023 [place] [facility] ATORVASTATI N CALCIUM (atorvastat in calcium), 80 MG, TABLET, ORAL, NOVSOLOMONZ PHARMAC, 90 ea. BOTTLE Active [id number] 2023 90 Pharmac y Data Transac tion Service Facilit y CLOPIDOGREL BISULFATE 75MG TAB TAKE ONE TABLET BY MOUTH DAILY ORAL ACTIVE FADUMO FERRO 2021 [place] [facility] EMPAGLIFLOZ IN 25MG TAB TAKE ONE TABLET BY MOUTH EVERY MORNING ORAL ACTIVE FADUMO FERRO 2021 [place] [facility] FLUTICASONE 200MCG/LYDIA NTEROL 25MCG INHL,ORAL,3 0D INHALE 1 INHALATI ON BY MOUTH DAILY ORAL ACTIVE FADUMO FERRO 2021 [place] [facility] FLUTICASONE PROPIONATE (FLUTICASON E PROPIONATE) , 50MCG, SPRAY SUSP, NASAL, APOTEX KATHARINE, 16 g AER W/ADAP Active [id number] 2023 16 Pharmac y Data Transac tion Service Facilit y FLUTICASONE PROPIONATE (FLUTICASON E PROPIONATE) , 50MCG, SPRAY SUSP, NASAL, APOTEX KATHARINE, 16 g AER W/ADAP Active [id number] 2023 16 Pharmac y Data Transac tion Service Facilit y FLUTICASONE PROPIONATE 50MCG/SPRAY SOLN,NASAL, 16GM USE 1 SPRAY IN EACH NOSTRIL DAILY NASAL ACTIVE FADUMO FERRO 2021 [place] [facility] GLIPIZIDE 10MG TAB TAKE ONE-HALF TABLET BY MOUTH DAILY ORAL ACTIVE FADUMO FERRO 2023 [place] [facility] JARDIANCE (EMPAGLIFLO ZIN), 25 MG, TABLET, ORAL, BOEHRINGER ING., 30 ea. BOTTLE Active [id number] 2023 30 Pharmac y Data Transac tion Service Facilit y JARDIANCE (EMPAGLIFLO ZIN), 25 MG, TABLET, ORAL, BOEHRINGER ING., 30 ea. BOTTLE Active [id number] 2023 30 Pharmac y Data Transac tion Service Facilit y JARDIANCE (EMPAGLIFLO ZIN), 25 MG, TABLET, ORAL, BOEHRINGER ING., 30 ea. BOTTLE Active [id number] 2023 30 Pharmac y Data Transac tion Service Facilit y JARDIANCE (EMPAGLIFLO ZIN), 25 MG, TABLET, ORAL, BOEHRINGER ING., 30 ea. BOTTLE Active [id number] 2023 30 Pharmac y Data Transac tion Service Facilit y LOSARTAN 25MG TAB TAKE ONE TABLET BY MOUTH DAILY ORAL ACTIVE FADUMO FERRO 2021 [place] [facility] METOPROLOL SUCCINATE 100MG TAB,SA TAKE ONE-HALF TABLET BY MOUTH DAILY ORAL ACTIVE FADUMO FERRO 2021 [place] [facility] MONTELUKAST NA 10MG TAB TAKE ONE TABLET BY MOUTH ORAL ACTIVE FADUMO FERRO 2021 [place] [facility] MOUNJARO (tirzepatid e), 2.5 MG/0.5, PEN INJCTR, SUBCUT, [employer] .5 ml SYRINGE Active [id number] 2023 2 Pharmac y Data Transac tion Service Facilit y PANTOPRAZOL E NA 40MG TAB,EC TAKE ONE TABLET BY MOUTH TWICE A DAY ORAL ACTIVE FADUMO FERRO 2021 [place] [facility] TAMSULOSIN HCL (TAMSULOSIN HCL), 0.4 MG, CAP.SR 24H, ORAL, ZYDUS PHARMACEU, 1000 ea. BOTTLE Active [id number] 4 2023 90 Pharmac y Data Transac tion Service Facilit y TAMSULOSIN HCL 0.4MG CAP TAKE 1 CAPSULE BY MOUTH EVERY EVENING ORAL ACTIVE FADUMO FERRO 2021 [place] [facility] TIRZEPATIDE 2.5MG/0.5ML INJ,SOLN PACK,4 INJECT 2.5MG/0. 5ML (1 PEN) UNDER THE SKIN EVERY WEEK SUBCUT ANEOUS ACTIVE FADUMO FERRO 2023 [place] [facility] TRAZODONE HCL 50MG TAB TAKE ONE TABLET BY MOUTH AT BEDTIME ORAL ACTIVE FADUMO FERRO 2021 [place] [facility] Immunizations Combined list of available immunizations from the Department of Defense and [facility] facilities. Immunization Series Date Given Administered By Site Reaction Lot Number CVX Code Drug Financial Services Assistant Status Comments Source PNEUMOCOCCAL CONJUGATE PCV20, POLYSACCHARID E [id number] CONJUGATE, ADJUVANT, PF 2023 DAPHNE MCNAIR LEFT DELTO ID [id number] 216 complet ed Completed Series, ADMINISTE [place] AT [place], [place] [facility] INFLUENZA, SPLIT VIRUS, TRIVALENT, PF 2023 140 complet ed HISTORICA L INFORMATI ON - FROM OTHER REGISTRY, [place] [facility] INFLUENZA, INJECTABLE, QUADRIVALENT, PRESERVATIVE FREE 2022 150 complet ed HISTORICA L INFORMATI ON - FROM OTHER REGISTRY, [place] [facility] INFLUENZA, INJECTABLE, QUADRIVALENT, PRESERVATIVE FREE 8 2021 150 complet ed HISTORICA L INFORMATI ON - FROM OTHER REGISTRY, [place] [facility] PNEUMOCOCCAL POLYSACCHARID E PPV23 1 2021 33 complet ed HISTORICA L INFORMATI ON - FROM OTHER REGISTRY, [place] [facility] COVID-19 (MODERNA), MRNA, LNP-S, PF, 100 [...] L INFORMATI ON - [facility] OTHER REGISTRY, [facility] INFLUENZA, INJECTABLE, QUADRIVALENT, PRESERVATIVE FREE 1 2014 150 complet ed HISTORICA L INFORMATI ON - FROM OTHER REGISTRY, [facility] TDAP 1 2013 115 complet ed HISTORICA L INFORMATI ON - FROM OTHER REGISTRY, [facility] Results Combined list of recent chemistry, [...] Apr 07, 2024 08:44 AM Reporting Lab: [place] [address] Performing Lab: [address] MICROALBU MIN/CREAT RATIO MICROALBUMI N [MASS/VOLUM E] IN URINE <5.0mg /L 0.0 - 30.0 04/07 Specimen Type: URINE Comment: Unable to calculate ratio due to low Microalbumi n result. Ordering Provider: ANN FERRO Report Released Date/Time: Apr 07, 2024 08:44 AM Reporting Lab: [place] [address] Performing Lab: [address] MICROALBU MIN/CREAT RATIO MICROALBUMI N/CREATININ E [MASS RATIO] IN URINE commen tug/mg {creat } 04/07 Specimen Type: URINE Comment: Unable to calculate ratio due to low Microalbumi n result. Ordering Provider: ANN FERRO Report Released Date/Time: Apr 07, 2024 08:44 AM Reporting Lab: [address] [place] [address] Performing Lab: [place] [address] [address] [facility] LIPID PROFILE CHOLESTEROL [MASS/VOLUM E] IN [...] 2024 08:44 AM Reporting Lab: [place] [id number] [facility] [address] Performing Lab: [place] SALAM[place] [id number] [facility] [address] [facility] LIPID PROFILE TRIGLYCERID E [MASS/VOLUM E] [...] Apr 07, 2024 08:44 AM Reporting Lab: [facility] [address] [address] Performing Lab: YARELISMarlen [address] [address] [facility] LIPID PROFILE CHOLESTEROL IN HDL [MASS/VOLUM [...] 2024 08:44 AM Reporting Lab: [place] [address] [address] Performing Lab: [place] SALAMNACA [address] [address] [facility] LIPID PROFILE CHOLESTEROL IN LDL [MASS/VOLUM [...] Apr 07, 2024 08:44 AM Reporting Lab: [place] [address] Performing Lab: [place] [id number] [facility] CBC/PLT LEUKOCYTES [#/VOLUME] IN BLOOD BY AUTOMATED COUNT 8.2 10*3/u L 5.0 - 10.0 04/07 Specimen Type: BLOOD No comment entered. Ordering Provider: ANN FERRO Report Released Date/Time: Apr 07, 2024 08:44 AM Reporting Lab: [place] [id number] Performing Lab: [place] [phone] [facility] CBC/PLT ERYTHROCYTE S [#/VOLUME] IN BLOOD BY AUTOMATED COUNT 5.79 10*6/u L 4.6 - 6.2 04/07 Specimen Type: BLOOD No comment entered. Ordering Provider: ANN FERRO Report Released Date/Time: Apr 07, 2024 08:44 AM Reporting Lab: [place] [phone] Performing Lab: [place] [phone] [facility] CBC/PLT HEMOGLOBIN [MASS/VOLUM E] IN BLOOD 16.8 g/dL 14.0 - 18.0 04/07 Specimen Type: BLOOD No comment entered. Ordering Provider: ANN FERRO Report Released Date/Time: Apr 07, 2024 08:44 AM Reporting Lab: [place] [phone] Performing Lab: [place] [id number] CBC/PLT HEMATOCRIT [VOLUME FRACTION] OF BLOOD BY AUTOMATED COUNT 52.5 42.0 - 52.0 04/07 H Specimen Type: BLOOD No comment entered. Ordering Provider: ANN FERRO Report Released Date/Time: Apr 07, 2024 08:44 AM Reporting Lab: [place] [phone] Performing Lab: [place] [address] [place] [address] CBC/PLT MCV [ENTITIC VOLUME] BY AUTOMATED COUNT 90.7 fL 80.0 - 94.0 04/07 Specimen Type: BLOOD No comment entered. Ordering Provider: ANN FERRO Report Released Date/Time: Apr 07, 2024 08:44 AM Reporting Lab: [place] [phone] Performing Lab: [address] CBC/PLT MCH [ENTITIC MASS] BY AUTOMATED COUNT 29.0 pg 27.0 - 31.0 04/07 Specimen Type: BLOOD No comment entered. Ordering Provider: ANN FERRO Report Released Date/Time: Apr 07, 2024 08:44 AM Reporting Lab: [place] [phone] Performing Lab: [place] [address] [place] [address] CBC/PLT MCHC [MASS/VOLUM E] BY AUTOMATED COUNT 32.0 g/dL 32.0 - 36.0 04/07 Specimen Type: BLOOD No comment entered. Ordering Provider: ANN FERRO Report Released Date/Time: Apr 07, 2024 08:44 AM Reporting Lab: [place] [phone] Performing Lab: [place] [id number] [place] [address] CBC/PLT PLATELETS [#/VOLUME] IN BLOOD 196 10*3/u L 150 - 450 04/07 Specimen Type: BLOOD No comment entered. Ordering Provider: ANN FERRO Report Released Date/Time: Apr 07, 2024 08:44 AM Reporting Lab: [place] [phone] Performing Lab: [place] [address] [place] [address] CBC/PLT PLATELET MEAN VOLUME [ENTITIC VOLUME] IN BLOOD 11.1 fL 9.0 - 13.1 04/07 Specimen Type: BLOOD No comment entered. Ordering Provider: ANN FERRO Report Released Date/Time: Apr 07, 2024 08:44 AM Reporting Lab: [place] [phone] Performing Lab: [place] [id number] [place] [address] CBC/PLT ERYTHROCYTE DISTRIBUTIO N WIDTH [ENTITIC VOLUME] BY AUTOMATED COUNT 13.6 11.0 - 16.0 04/07 Specimen Type: BLOOD No comment entered. Ordering Provider: ANN FERRO Report Released Date/Time: Apr 07, 2024 08:44 AM Reporting Lab: [address] [address] Performing Lab: [place] [phone] [place] [address] CBC/PLT NUCLEATED ERYTHROCYTE S/100 ERYTHROCYTE S IN BLOOD 0.0 0.0 - 0.0 04/07 Specimen Type: BLOOD No comment entered. Ordering Provider: ANN FERRO Report Released Date/Time: Apr 07, 2024 08:44 AM Reporting Lab: [address] [address] Performing Lab: [place] [facility] [address] [facility] [address] [facility] PANEL 5 CREATININE [MASS/VOLUM E] IN [...] 2024 08:44 AM Reporting Lab: [place] [address] [address] Performing Lab: [place] [address] [address] [facility] PANEL 5 UREA NITROGEN [MASS/VOLUM E] [...] Apr 07, 2024 08:44 AM Reporting Lab: [address] [address] Performing Lab: [address] [address] [facility] PANEL 5 GLUCOSE [MASS/VOLUM E] IN [...] 2024 08:44 AM Reporting Lab: [place] [address] [address] Performing Lab: [place] [address] [address] [facility] PANEL 5 SODIUM [MOLES/VOLU ME] IN [...] 2024 08:44 AM Reporting Lab: [place] [address] [address] Performing Lab: [place] [address] [address] [facility] 5 POTASSIUM [MOLES/VOLU [...] 2024 08:44 AM Reporting Lab: [place] [address] [address] Performing Lab: [place] [address] [address] [facility] PANEL 5 CHLORIDE [MOLES/VOLU ME] IN [...] 2024 08:44 AM Reporting Lab: [place] [address] [address] Performing Lab: [place] [address] [address] [facility] PANEL 5 CARBON DIOXIDE, TOTAL [MOLES/VOLU [...] 2024 08:44 AM Reporting Lab: [place] [address] [address] Performing Lab: [place] [address] [address] [facility] PANEL 5 CALCIUM [MASS/VOLUM E] IN [...] 2024 08:44 AM Reporting Lab: [place] [address] [address] Performing Lab: [place] [address] [address] [facility] PANEL 5 PROTEIN [MASS/VOLUM E] IN [...] 2024 08:44 AM Reporting Lab: [place] [facility] [address] [facility] [address] Performing Lab: [place] [facility] [address] [facility] [address] [facility] PANEL 5 ALBUMIN [MASS/VOLUM E] IN [...] 2024 08:44 AM Reporting Lab: [place] [address] [address] Performing Lab: [place] [id number] [facility] [address] [facility] PANEL 5 BILIRUBIN.T OTAL [MASS/VOLUM E] [...] Apr 07, 2024 08:44 AM Reporting Lab: [address] [address] Performing Lab: [address] [address] [facility] PANEL 5 ASPARTATE AMINOTRANSF ERASE [ENZYMATIC [...] 2024 08:44 AM Reporting Lab: [place] [address] [address] Performing Lab: [place] [address] [address] [facility] PANEL 5 ALANINE AMINOTRANSF ERASE [ENZYMATIC [...] 2024 08:44 AM Reporting Lab: [place] [address] [address] Performing Lab: [place] [address] [address] [facility] PANEL 5 ANION GAP 3 IN [...] 2024 08:44 AM Reporting Lab: [place] [address] [address] Performing Lab: [place] [address] [address] [facility] PANEL 5 ALKALINE PHOSPHATASE [ENZYMATIC ACTIVITY/VO [...] 2024 08:44 AM Reporting Lab: [place] [address] [address] Performing Lab: [place] [address] [address] [facility] PANEL 5 GLOMERULAR FILTRATION RATE/1.73 SQ [...] 2024 08:44 AM Reporting Lab: [place] [address] [address] Performing Lab: [place] [address] [address] [facility] 25-OH VITAMIN D 25-HYDROXYV ITAMIN D3 [...] 2024 08:44 AM Reporting Lab: [place] [facility] [address] [facility] [address] Performing Lab: [place] [facility] [address] [facility] [address] [facility] B12 VITAMIN COBALAMIN (VITAMIN B12) [MASS/VOLUM [...] Apr 07, 2024 08:44 AM Reporting Lab: [address] [address] Performing Lab: [address] [address] [facility] PSA PROSTATE SPECIFIC AG [MASS/VOLUM E] [...] Apr 07, 2024 08:44 AM Reporting Lab: [address] [address] Performing Lab: [address] [address] [facility] GLYCOHEMO GLOBIN HEMOGLOBIN A1C/HEMOGLO BIN.TOTAL IN BLOOD BY HPLC 6.9 4.4 - 6.4 04/07 H Specimen Type: BLOOD Comment: [facility] guidelines for A1c interpretat ion: Glycemic control targets are based on Shared Decision Making between clinicians and patients. Criteria used to establish an A1c target recommendat ion can be found at https://www .al.gov/kierra lityandpati entsafety/ and include the use of [...] 9.27. Ref: https://ngs p.org/CAPda ta.asp. The in-house [employer] D-100 analyzer has a historical CV <= 2%. Contact the laboratory for further performance characteris tics of this assay. Ordering Provider: ANN FERRO Report Released Date/Time: Apr 07, 2024 08:44 AM Reporting Lab: [place] [address] [address] Performing Lab: [place] [address] [address] [facility] Vital Signs Combined list of inpatient and outpatient Vital Signs from Department of Defense and [facility], ranging from 12 months to all on record, depending upon the facility. Vital Sign Value Date Comments Source SYSTOLIC BLOOD PRESSURE 130 04/07/2024 08:26:56 [facility] DIASTOLIC BLOOD PRESSURE 87 04/07/2024 08:26:56 [facility] PULSE OXIMETRY 93 04/07/2024 08:26:56 [facility] WEIGHT 235 04/07/2024 08:26:56 [place] [facility] BMI 38 kg/m2 04/07/2024 08:26:56 [place] [facility] [place] PAIN 0 04/07/2024 08:26:56 [place] [facility] HEIGHT 66 04/07/2024 08:26:56 [place] [facility] TEMPERATURE 97.6 04/07/2024 08:26[facility]56 [facility] 77 04/07/2024 08:26:56 [place] [facility] [place] RESPIRATION 12 04/07/2024 08:26:56 [place] [facility] Encounters Combined list of: 1) Encounters from Department of Veterans Affairs facilities going backup to the last 18 months, not all [place] inpatient encounters are included; 2) Encounters from the Department of [facility] facilities going backup to 280 months. Location Location Details Encounter Type Encounter Number Reason For Visit Attending Provider ADM Date DC Date Status Disposition Source [facility] Outpatient Encounter [id number] 05/31 [place] [facility] Outpatient Encounter [id number] 08/25 [place] [facility] Outpatient Encounter [id number] 03/01 [place]counter [id number] 03/09 [place] [facility] Outpatient Encounter [id number] 03/14 [place] Outpatient Encounter [id number] 04/06 [place] OFFICE O/P EST MOD 30 MIN [id number] Diagnos is: ICD-10- CM I10 Essenti al (primar y) hyperte nsion KASIE,RON TTANY L 04/07 [place] [facility] Procedures Combined list of: 1) Procedures from Department of Veterans Affairs facilities going back up to thelast 18 months, not all [place] non-surgical procedures are included; 2) All procedures from the Department of [facility] facilities. Procedure Procedure Type Code Date Perfomer Comments Sourc e VISUAL FIELD EXAMINATION, UN I OR BILATERAL, WITH MEDICAL DIAGNOSTIC EVAL; LIMITED EXAM (EG, TANGENT SCREEN, AUTOPLOT, ARC PERIMETER, OR SINGLE STIMULUS LEVEL AUTO TEST, EG OCTOPUS 3 OR 7 EQUIVALENT) 01/03/2002 [facility] ELECTROCARDIOGRAM, ROUTINE ECG WITH AT LEAST 12 LEADS; WITH INTERPRETATION AND REPORT 01/03/2002 [facility] SCREENING TEST, PURE TONE, AIR ONLY 01/03/2002 [facility] Social History Combined list of available smoking, tobacco, and other social history from Department of Defense and Veterans Affairs facilities. Social History Type Response Date Comment [facility] e Tobacco smoking status NHIS [facility]-TO[facility]ACCO FORMER USER 04/07/2024 [facility] History of tobacco use [place]-TO[place] QUIT 5 TO < 15 YRS 04/07/2024 [facility] History of tobacco use [place]-TOBACCO FORMER USER 04/02/2023 [facility] History of tobacco use [place]-TOBACCO FORMER USER 04/30/2022 [facility] This section is an empty social history section. [facility]
--- OUTSIDE RECORDS SUMMARY | 2024-11-15 09:58 | XMS_ITS | Clinical Summary ---
Author Organization Healthcare Address [address] [id number] Care Team Providers Care Medical Service Technician Name Role Phone Anna Wheeler Primary Care Provider [phone] Immunizations Immunization Administration Dates Next Due Influenza, [...] of Treatment Not on file Care Teams Medical Service Technician Relationship Specialty Start Date End Date Anna Wheeler PA [address] [place] [address] [address] PCP - General 10/11/20
--- OUTSIDE RECORDS SUMMARY | 2024-11-15 09:59 | XMS_ITS | Data Portability ---
Author Organization [place] - GEOVANNA Chavis [facility] Address [address] [place] [address] [address] [place] [address] Assessment No assessment recorded. Plan of Treatment [...] Page 1 of 1 Not Available [facility] [place], [address], 04/20/2023 13:27:20 Result Notes None recorded. Medical [...] SNOMED-CT Code Diagnosis ICD10 Code Diagnosis Note [id number] URMILA CAI MD SURGERY SCHEDULE [address] [place] [address] 04/19/2023 07:27:38 04/19/2023 07:34:48 Health Concerns Section Related Observation LastModified by Organization Detai ls LastModified Time None Recorded Concern Status LastModified by Organization Details LastModified Time None Recorded Advance Directives Directive None Recorded Payers Insurance Date Sequence Insurance Name Policy Number Policy Figueroa Covered Member ID Figueroa Member ID Guarantor Name 04/27/2023 1 [id number] [id number] Santhosh Denis [id number] Santhosh Denis
--- OUTSIDE RECORDS SUMMARY | 2024-11-15 09:59 | XMS_ITS | Patient Health Record ---
Author Organization [facility] JESSICA Address [address] [place] [address] Care Team Providers Care Polysom Tech Name Role Phone Yohannescornelia Piyush Primary Care Provider Mague Cruz Unavailable [phone] Migration, Provider Unavailable Unavailable Allergies No Known [...] review and pick correct strength-formulati on from [employer] options. If intended option is not shown, [...] review and pick correct strength-formulati on from [employer] options. If intended option is not shown, [...] Vaccine Route Administration Date Status Comme nts Adacel (Tdap) Unknown 01/30/2014 Administered Covid Moderna Unknown 08/01/2020 Administered Covid Moderna Unknown 08/29/2020 Administered Flublok IM Intramuscular 04/02/2020 Administered Flublok IM Intramuscular 03/18/2021 Administered FLUZONE 6MO - OLDER IM Intramuscular 02/28/2019 Administer ed Hep A Adult 2 Dose IM Intramuscular 10/13/2017 Administere d Hep A Adult 2 Dose IM Intramuscular 04/26/2018 Administere d Influenza-Fluzone 3+years (NON-MEDICARE) IM Intramuscular 02/02/2017 Administered Influenza-Fluzone 3+years (NON-MEDICARE) IM Intramuscular 02/08/2018 Administered Pneumovax 23 IM Intramuscular 07/08/2021 Administered Social History Tobacco Use: Social History Observation Description Date Details (start date - stop date) Former Smoker NA - NA Smoking: Question Answer Notes Are you a: former smoker How long has it been since you last smoked? 1-5 years Problems Problem Type SNOMED Code ICD Code Onset Dates Problem Status W/U Status Risk Notes Problem 83738453 Other viral wart s (B07.8) Active confirmed Problem 70081025 Type 2 diabetes mellitus with other specified complication (E11.69) Active confirmed Problem Old myocardial infarction (4107152) Old myocardial infarction (I25.2) Active confirmed Problem 87933291 Hypertension, essential (I10) Active confirmed Problem 471190526 COPD exacerbatio n (J44.1) Active confirmed Problem 721793101 Obesity (BMI 30-39.9) (E66.9) Active confirmed Problem 793115362 Gastroesophageal reflux disease without esophagitis (K21.9) Active confirmed Problem 9329846101390 Atherosclerosis of [place] coronary artery of [place] heart without angina pectoris (I25.10) Active confirmed Problem 03072797 Pulmonary emphysema, unspecified emphysema type (J43.9) Active confirmed Problem Acute prostatitis (29570748) Prostatitis, acute (N41.0) Active confirmed Problem Chronic bronchiolitis (971026009) Chronic bronchiolitis (J44.9) Active confirmed Problem 791754781 Benign non-nodul ar prostatic hyperplasia with lower urinary tract symptoms (N40.1) Active confirmed Problem Urinary hesitancy (2634192) Urinary hesitancy (R39.11) Active confirmed Problem 285399814 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 confirmed Problem Atherosclerosis of coronary artery (952785167) Atherosclerosis of [place] coronary artery of [place] heart with other form of angina pectoris (I25.118) Active confirmed Problem 766217257 Diastolic CHF wi th preserved left ventricular function, NYHA class 2 (I50.30) Active confirmed Problem 954930819 Chronic GERD (K21.9) Active confirmed Problem 525169321 Type 2 diabetes mellitus without complication, without long-term current use of insulin (E11.9) Active confirmed Problem 07557638 MARIELENA on CPAP (G47.33) Active confirmed Problem Gastro-esophageal reflux (357319814) Gastro-esophageal reflux (K21.9) Active confirmed Problem 552995150 Tobacco use disorder (F17.200) Active confirmed Problem 821565074 Controlled type 2 diabetes mellitus without complication, without long-term current use of insulin (E11.9) Active confirmed Problem Type II diabetes mellitus without complication (556600946) Controlled type 2 diabetes mellitus without complication, unspecified halfway insulin use status (E11.9) Active confirmed Problem 575912550 Adenomatous poly p of colon, unspecified part of colon (D12.6) Active confirmed Problem 536343932 ST elevation myocardial infarction involving right coronary artery (I21.11) Active confirmed Problem 185538215 History of coron opal artery disease (Z86.79) Active confirmed Problem 719953587 Skin cancer (C44.90) Active confirmed Problem Stented coronary artery (050775659) Stented coronary artery (Z95.5) Active confirmed Vital Signs Heart Rate 88 /min 08/16/2024 Temperature 97.6 degrees Fahrenheit 08/16/2024 Blood pressure diastolic 80 mm Hg 08/16/2024 Height 5 ft 6 in in 08/16/2024 Blood pressure systolic 125 mm Hg 08/16/2024 Weight 233 lbs 08/16/2024 BMI 37.6 kg/m2 08/16/2024 Encounters Encounter Location Date Provider Diagnosis [facility] JESSICA [address] [place] [address] 09/02/2024 Provider Migration [facility] PED WALDO [address] [facility] [address] [place] [address] 08/16/2024 Mague Cruz 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 Z02.4 ; Atherosclerosis of [place] coronary artery of [place] heart without angina pectoris I25.10 ; Type 2 diabetes mellitus with other specified complication E11.69 and MARIELENA on CPAP G47.33 Assessments Encounter Date Diagnosis (ICD Code) Assessment Notes Treatment Notes Treatment Clinical Notes Section Notes 08/16/2024 Atherosclerosis of [place] coronary artery of [place] heart without angina pectoris (ICD-10 - I25.10) [...] Insured Coverage Start Date Coverage End Date [facility] [address] [place] [address] [id number] Santhosh Denis Self - patient is the insured [facility] CLAIMS [address] [place] [address] [id number] Santhosh Denis Self - patient is the [...]
[2024-11-15 11:05] LABS: Hemoglobin A1C 8.6 % (4.0-6.0)
[2024-11-16 08:13] LABS: Hepatitis B Surface Antigen Negative (Negative)
== END 2024-11-14 23:59 | disposition home or self-care (01) ==
LOC: LAB.DROPOF 11-15 09:48
PROVIDERS: PCP Family Medicine; Visit Provider Family Medicine
DX: E11.9 Type 2 diabetes mellitus without complications (principal); Z11.59 Encounter for screening for other viral diseases
CPT/HCPCS: 80053; 80061; 82306; 83036; 84443; 85025; 87340

== ENCOUNTER 2025-03-01 06:56 | Outpatient (CLI) | payer BC, OTHER, SELFPAY ==
--- OUTSIDE RECORDS SUMMARY | 2024-09-02 17:30 | XMS_ITS ---
Author Organization [facility] JESSICA Address [address] [place] [address] Care Team Providers Care Woodworking Bench Carpenter Name Role Phone Piyush Malik Primary Care Provider Migration, Provider Unavailable Unavailable REASON FOR VISIT [facility] To [facility] Conversion Encounter Medications Medication SIG (Take, Route, [...] review and pick correct strength-formulati on [facility] options. If intended option is not [...] review and pick correct strength-formulati on from [facility] options. If intended option is not [...] Active Encounters Encounter Location Date Provider Diagnosis [facility] PED JESSICA [address] [facility] [address] [place] [address] 09/02/2024 Provider Migration Plan Of Treatment No Information Progress Notes * Santhosh DENIS CDOB: [birth year] (64 yo M)Acc No.[id number]:09/02/2024 Patient: Santhosh MURPHY [place] Provider: Shama zhang Migration :1960 A ge:64 Y S ex:Male Date:09/02/2024 [facility] [place], [id number] Pcp:Piyush Malik Subjective: * Chief Complaints: * [address] [address] [facility] Encounter. * Medical History: * Medications: T aking Vitamin C 500 MG Tablet 1 tab(s) orally once a day , Taking Mounjaro 2.5 MG/0.5 ML SOLUTION DIRECTED SUBCUTANEOUSLY ONCE A WEEK , Notes to Pharmacist: *Please review and pick correct strength-formulation from [employer] options. If intended option is not shown, [...] *Please review and pick correct strength-formulation from [employer] options. If intended option is not shown, discontinue and re-order from Quick Search*, Taking Jardiance 25 MG Tablet TAKE ONE TABLET BY MOUTH EVERY DAY IN THE MORNING , Taking traZODone HCl 50 MG Tablet 1 tab(s) orally once a day at bedtime Objective: * Vitals: Assessment: Plan: * Treatment: * * Electronic signature of Jackson ballard Migration on 03/01/2025 at 06:59 AM EDT Sign off status: Pending * Provider: Shama zhang Migration Date: 0 09/02/2024 Generated for Alexandrea krishna/Jarad/Jan on: 1 06:59 AM EDT
--- OUTSIDE RECORDS SUMMARY | 2025-03-01 06:59 | XMS_ITS | Clinical Summary ---
Author Organization [facility] Address [address] [place] [address] Care Team Providers Care Bow Machine Operator Name Role Phone Piyush Malik MD Primary Care Provider [phone] Allergies No known active allergies Medications clopidogrel (PLAVIX) 75 MG tablet Daily. 09/22/2017 Active losartan (COZAAR) 25 MG tablet Daily. 08/30/2017 Active atorvastatin (LIPITOR) 80 MG tablet Daily. 09/22/2017 Active bumetanide (BUMEX) 2 MG tablet 2 (Two) Times a Day. 09/15/2017 Active carvedilol (COREG) 6.25 MG tablet 2 (Two) Times a Day. 09/22/2017 Active metoclopramide (REGLAN) 5 MG tablet 4 (Four) Times a Day. 08/19/2017 Active montelukast (SINGULAIR) 10 MG tablet Daily. 09/22/2017 Active raNITIdine (ZANTAC) 300 MG tablet Daily. 09/15/2017 Active tamsulosin (FLOMAX) 0.4 MG capsule 24 hr capsule Daily. 08/25/2017 Active nitroglycerin (NITROSTAT) 0.4 MG SL tablet As Needed. 07/16/2017 Activ e BREO ELLIPTA 200-25 MCG/INH aerosol powder Daily. 08/30/2017 Acti ve fluticasone (FLONASE) 50 MCG/ACT nasal spray 2 (Two) Times a Day. 08/30/2017 Active pantoprazole (PROTONIX) 40 MG EC tablet Take 40 mg by mouth 2 (Two) Times a Day. Active aspirin 81 MG EC tablet Take 81 mg by mouth Daily. Active polyethylene glycol (MIRALAX) packet Take 17 g by mouth Daily. Active psyllium (METAMUCIL) 58.6 % packet Take 1 packet by mouth Daily. Active tiotropium (SPIRIVA) 18 MCG per inhalation capsule Place 1 capsule into inhaler and inhale Daily. Active metoprolol tartrate (LOPRESSOR) 25 MG tablet Take 0.5 tablets by mouth 2 (Two) Times a Day. 30 tablet 6 09/27/2017 Active Active Problems Problem Noted Date Diagnosed Date Vasovagal syncope 09/27/2017 Hypertension 09/27/2017 Coronary artery disease invo lving [place] coronary artery without angina pectoris 09/27/2017 Family History Medical History Relation Name Comments No Known Problems Brother Cancer Father No Known Problems Mother Relation Name Status Comments Brother Alive Father Mother Alive Social History Tobacco Use Types Packs/Day Years Used Date Smoking Tobacco: Former Cigarettes 0 07/14/1976 - 07/14/2016 Smokeless Tobacco: Never Alcohol Use Standard Drinks/Week Comments No 0 (1 standard drink = 0.6 oz pur e alcohol) Abuse Screen Answer Date Recorded Unsafe at Home or Work/School Not on file Feels Threatened by Someone? Not on file 04/2023 Does Anyone Keep You from Co ntacting Others or Doint Things Outside the Home? Not on file 03/11/2023 Physical Sign of Abuse Present Not on file 1 Housing Stability Answer Date Recorded Current Living Arrangements Not on file 02/28 Potentially Unsafe Housing Conditions Not on delaney e 03/11/2023 Family and Community Support Answer Maurizio e Recorded Help with Day-to-Day Activities Not on file 03/11/2023 Lonely or Isolated Not on file 03/11/2023 Employment Answer Date Recorded Do you want help finding or keeping work or a margarita b? Not on file 03/11/2023 Disabilities Answer Date Recorded Concentrating, Remembering, or Making Decisions Difficulty Not on file 03/11/2023 Doing Errands Independently Difficulty Not on fi le 03/11/2023 Education Answer Date Recorded Help with school or training? Not on file Preferred Language Not on file 03/11/2023 Sex and Gender Information Value Date Recorded Sex Assigned at Not on file Legal Sex Male 3:26 PM EDT Gender Identity Not on file Sexual Orientation Not on file Last Filed Vital Signs Vital Sign Reading Time Taken Comments Blood Pressure 110/74 09/27/2017 9:25 AM EDT Pulse 100 09/27/2017 9:25 AM EDT Temperature - - Respiratory Rate - - Oxygen Saturation - - Inhaled Oxygen Concentration - - Weight 103 kg (227 lb 9.6 oz) 09/27/2017 9:25 AM EDT Height 167.6 cm (5' 6 ) 09/27/2017 9:25 AM EDT Body Mass Index 36.74 09/27/2017 9:25 AM EDT Plan of Treatment Health Maintenance Due Date Last Done Comments TDAP/TD VACCINES (1 - Tdap) 09/01/1979 COLOGUARD 2005 COLON CANCER SCREENING 5 YEAR SIGMOIDOSCOPY 2005 COLONOSCOPY [address] S[address]EN[address] COLONOGRAPHY 2005 FECAL OCCULT BLOOD TEST 2005 FIT Testing (1 year) 2005 Pneumococcal Vaccine 50+ (1 of 1 - PCV) 2010 ZOSTER VACCINE (1 of 2) 2010 ANNUAL PHYSICAL 09/27/2017 HEPATITIS C SCREENING 09/27/2017 INFLUENZA VACCINE 12/29/2024 Insurance EMPLOYEE Care Teams Bow Machine Operator Relationship Specialty Start Date End Date Piyush Malik MD [address] [place] [address] [place] [address] PCP - General Adolescent Medicine 08/27/17
--- OUTSIDE RECORDS SUMMARY | 2025-03-01 06:59 | XMS_ITS | Clinical Summary ---
Author Organization [facility] Address [address] [id number] Care Team Providers Care Field Cane Scaler Name Role Phone Anna Wheeler Primary Care [...] of Treatment Not on file Care Teams Field Cane Scaler Relationship Specialty Start Date End Date Anna Wheeler PA [address] [place] [address] [address] PCP - General 10/11/20
--- OUTSIDE RECORDS SUMMARY | 2025-03-01 06:59 | XMS_ITS | Patient Health Record ---
Author Organization [facility] JESSICA Address [address] [place] [address] Care Team Providers Care Well Service Floorperson Name Role Phone Yohannescornelia Piyush Primary Care Provider Mague Cruz Unavailable [phone] Migration, Provider Unavailable Unavailable Allergies No Known [...] review and pick correct strength-formulati on from [employer] options. If intended option is not shown, discontinue and re-order from [employer]* Active Tamsulosin HCl 0.4 MG 1 cap(s) orally once a day; Duration: 90 days Active Vitamin C 500 MG [...] day at bedtime; Duration: 90 days Active ONE TOUCH DELICA LANCET 33G FOR DIABETIC TESTING ONCE DAILY; Duration: 30 DAYS diagnosis: E11.9 *Please review for potential replacement for e-prescription and drug interaction check* 06/20/2019 Active Jardiance 25 MG TAKE ONE TABLET BY MOUTH EVERY DAY IN THE MORNING; Duration: 30 Active Metoprolol Succinate ER 50 MG 1 tab(s) orally once a day; Duration: 30 day(s) Active Breo Ellipta 200 MCG-25 MCG/INH INHALE 1 PUFF BY MOUTH EVERY DAY; Duration: 30 *Please review and pick correct strength-formulati on from [employer] options. If intended option is not shown, discontinue and re-order from Quick Search* Active ACCU-CHECK VICENTE DIRECTED GLUCOMETER DX: E11.69 *Please review for potential replacement for e-prescription and drug interaction check* 06/17/2018 Active Pantoprazole Sodium 40 MG TAKE ONE TABLET BY MOUTH TWICE DAILY; Duration: 90 Active Plavix 75 MG 1 tab(s) orally once a day Active Losartan Potassium 25 MG 1 tab(s) orally once a day; Duration: 90 days Active Montelukast Sodium 10 MG 1 tab(s) orally once a day; Duration: 90 days Active Immunizations Vaccine Route Administration [...] Problem Status W/U Status Risk Notes Problem Viral wart (71566762) Other viral warts (B07.8) Active confirmed Problem Type 2 diabetes mellitus with other specified complication (E11.69) Active confirmed Problem Old myocardial infarction (6719425) Old myocardial infarction (I25.2) Active confirmed Problem Essential hypertension (83703043) Hypertension, essential (I10) Active confirmed Problem Acute exacerbation of chronic obstructive airways disease (348719969) COPD exacerbation (J44.1) Active confirmed Problem Obesity (525356710) Obesity (BMI 30-39.9) (E66.9) Active confirmed Problem Gastroesophageal reflux disease without esophagitis (272612405) Gastroesophageal reflux disease without esophagitis (K21.9) Active confirmed Problem Atherosclerosis of coronary artery without angina pectoris (121587757911983) Atherosclerosis of kaw coronary artery of kaw heart without angina pectoris (I25.10) Active confirmed Problem Pulmonary emphysema (83616644) Pulmonary emphysema, unspecified emphysema type (J43.9) Active confirmed Problem Acute prostatitis (92422159) Prostatitis, acute (N41.0) Active confirmed Problem Chronic bronchiolitis (057051563) Chronic bronchiolitis (J44.9) Active confirmed Problem Lower urinary tract symptoms due to benign prostatic hypertrophy (56907671735241) Benign non-nodular prostatic hyperplasia with lower urinary tract symptoms (N40.1) Active confirmed Problem Urinary hesitancy (9356503) Urinary hesitancy (R39.11) Active confirmed Problem 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 confirmed Problem Atherosclerosis of coronary artery (008782783) Atherosclerosis of [place] coronary artery of [place]aw heart with other form of angina pectoris (I25.118) Active confirmed Problem Left ventricular diastolic dysfunction (850510018) Diastolic CHF with preserved left ventricular function, NYHA class 2 (I50.30) Active confirmed Problem Gastroesophageal reflux disease (disorder) (838781424) Chronic GERD (K21.9) Active confirmed Problem Type II diabetes mellitus without complication (176641378) Type 2 diabetes mellitus without complication, without long-term current use of insulin (E11.9) Active confirmed Problem Obstructive sleep apnea syndrome (44092703) MARIELENA on CPAP (G47.33) Active confirmed Problem Gastro-esophageal reflux (635909905) Gastro-esophageal reflux (K21.9) Active confirmed Problem Tobacco use (927775432) Tobacco use disorder (F17.200) Active confirmed Problem Type II diabetes mellitus without complication (298398926) Controlled type 2 diabetes mellitus without complication, without long-term current use of insulin (E11.9) Active confirmed Problem Type II diabetes mellitus without complication (331412558) Controlled type 2 diabetes mellitus without complication, unspecified terminal computer operator insulin use status (E11.9) Active confirmed Problem Benign neoplasm of colon (48262435) Adenomatous polyp of colon, unspecified part of colon (D12.6) Active confirmed Problem Acute ST segment elevation myocardial infarction due to right coronary artery occlusion (58450118948630737) ST elevation myocardial infarction involving right coronary artery (I21.11) Active confirmed Problem History of circulatory system disease (042620985) History of coronary artery disease (Z86.79) Active confirmed Problem Skin cancer (773534037) Skin cancer (C44.90) Active confirmed Problem Stented coronary artery (588772506) Stented coronary artery (Z95.5) Active confirmed Vital Signs Heart Rate 88 /min 08/16/2024 Temperature 97.6 degrees Fahrenheit 08/16/2024 Blood pressure diastolic 80 mm Hg 08/16/2024 Height 5 ft 6 in in 08/16/2024 Blood pressure systolic 125 mm Hg 08/16/2024 Weight 233 lbs 08/16/2024 BMI 37.6 kg/m2 08/16/2024 Encounters Encounter Location Date Provider Diagnosis [facility] PED JESSICA [address] [place] [address] 09/02/2024 Provider Migration [facility] PED ISAIAH [address] [facility] [address] [place] [address] 08/16/2024 Mague Cruz 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 Z02.4 ; Atherosclerosis of kaw coronary artery of [place]aw heart without angina pectoris I25.10 ; Type 2 diabetes mellitus with other specified complication E11.69 and MARIELENA on CPAP G47.33 Assessments Encounter Date Diagnosis (ICD Code) Assessment Notes Treatment Notes Treatment Clinical Notes Section Notes 08/16/2024 Atherosclerosis of kaw coronary artery of kaw heart without angina pectoris (ICD-10 - I25.10) [...] 2017 Holter Monitor : Event Recorder 07/19/19 18 Physical Therapy 08/03/2018 Physical Therapy 07/29/2018 Dietary Consult 06/06/2018 H-H.PYLORI ANTIGEN 03/16/2017 M-Complete Blood Count Man Dif CT Scan : Chest, Lung Cancer Screening 1 M-COVID PCR SINGLE RAPID 01/08/2020 Insurance Providers Payer Name Payer Address Payer Phone Subscriber Number Group Number Insured Name Patient Relationship to Insured Coverage Start Date Coverage End Date [facility] [address] [place] [address] [phone] [id number] Santhosh Denis Self - patient is the insured [facility] CLAIMS [address] [place] [address] [id number] Santhosh Denis Self - patient is the [...] (General) History Medical History History ICD Code [place] HLD HTN GERD STEMI 2016, followed by [...] hernia 04/2018 hyperglycemia 03/2018 chest pain/acid reflux 2006 [place] 07/2016
--- NOTE | 2025-03-01 07:30 | CT_ITS ---
FINAL REPORT TECHNIQUE: Axial images were obtained from the lung apex to the mid abdomen by computed tomography. This study was performed with techniques to keep radiation doses as low as reasonably achievable (ALARA). Individualized dose reduction techniques using automated exposure control or adjustment of mA and/or kV according to the patient's size were employed. CLINICAL HISTORY: lung cancer screening former smoker , quit 8 years ago. smoked 2.5 pdd x 20 years COMPARISON: 02/21/2024 FINDINGS: CHEST CT LOW DOSE CTDI vol (mGy): 2.90 DLP (mGy-cm): 106.55 There is no axillary adenopathy. There is no hilar or mediastinal adenopathy. The heart is normal in size. There is no pericardial or pleural effusion. There is a 3 mm peripheral right upper lobe nodule which is stable, well-seen on image 36 of series 3. Limited images of the upper abdomen are unremarkable. IMPRESSION: Stable right upper lobe nodule. Lung RADS category 2. Recommend 12 month follow-up low-dose chest CT. Reviewed, Interpreted and Dictated by Abram Sin MD Transcribed by Ivis Kee Authenticated and [facility]
== END 2025-03-01 23:59 | disposition home or self-care (01) ==
LOC: RAD 06:57
PROVIDERS: PCP Family Medicine; Visit Provider Family Medicine
DX: R91.1 Solitary pulmonary nodule (principal); Z12.2 Encounter for screening for malignant neoplasm of respiratory organs; Z87.891 Personal history of nicotine dependence
CPT/HCPCS: 71271

== ENCOUNTER 2025-04-02 09:45 | Observation (INO) | payer BC, OTHER, SELFPAY ==
[2025-04-02] VITALS (25 sets, daily range): BP systolic 97–147; BP diastolic 61–89; PULSE 70–99; RESP 11–20; TEMP 36.4–36.7; O2SAT 92–100; BMI 37.1; BMI 35.9
--- NOTE | 2025-04-02 09:46 | ECG_ITS ---
APPROVED REPORT Exam: Resting ECG HR:90 bpm ECG Measurements Heart Rate 90 AXES RI 160 P 55 QRSd 100 QRS 83 QT 345 T 47 QTc 392 Conclusion SINUS RHYTHM LOW QRS VOLTAGE IN PRECORDIAL LEADS [QRS DEFLECTION < 1.0 mV IN CHEST LEADS] BORDERLINE ECG UNCONFIRMED REPORT Electronically signed by : Piyush Malik MD 04/03/2025 08:48:12
--- NOTE | 2025-04-02 09:51 | XR_ITS ---
FINAL REPORT CLINICAL HISTORY: chest pain, jaw pain, dizziness, hx of two stents COMPARISON: 03/06/2022 FINDINGS: A portable view of the chest was obtained. Cardiac and mediastinal silhouettes are within normal limits. The lungs are clear. There is no pleural effusion or pneumothorax. IMPRESSION: No acute process on this portable exam. Reviewed, Interpreted and Dictated by Elaine Simpson MD Transcribed by Thi Shah Authenticated and [facility]
[2025-04-02] MEDS: ASPIRIN 325MG TABLET 325 MG PO (09:57)
[2025-04-02] MEDS: NITROGLYCERIN 0.4MG SL TABLET 0.4 MG SL (09:57)
--- OUTSIDE RECORDS SUMMARY | 2025-04-02 10:04 | XMS_ITS | Clinical Summary ---
Author Organization [facility] Address [address] [place] [address] Care Team Providers Care Receivables Specialist Name Role Phone Piyush Malik MD Primary Care Provider [phone] Allergies No known active allergies Medications clopidogrel [...] Hypertension 09/27/2017 Coronary artery disease invo lving [place] coronary artery without angina pectoris 09/27/2017 Family [...] INFLUENZA VACCINE 12/29/2024 Insurance EMPLOYEE Care Teams Receivables Specialist Relationship Specialty Start Date End Date Piyush Malik MD [address] [place] [address] PCP - General Adolescent Medicine 08/27/17
--- OUTSIDE RECORDS SUMMARY | 2025-04-02 10:04 | XMS_ITS | Data Portability ---
Author Organization [facility] Address [address] [facility] [address] [place] [address] Assessment No assessment recorded. Plan of Treatment [...] Surgi christopher Patho logy Repor t NAME: YOKO EPPS AM PATH. :ST-2 3-123 11 Copy to: Diagn osis: A) [...] FIXAT ION TIME: 9.75 HOURS R/O H-PYL NTAANAEL Z 12.11 R 13.10 Gross Descr iptio [...] 13:27 Page 1 of 1 Not Available [facility], [place], [address], 04/20/2023 13:27:20 Result Notes None recorded. Medical [...] Diagnosis SNOMED-CT Code Diagnosis ICD10 Code Diagnosis IMO Codes Diagnosis Note [id number] URMILA CAI MD SURGERY SCHEDULE [address] [place] [address] 04/19/2023 07:27:38 04/19/2023 07:34:48 Health Concerns Section Related Observation LastModified by Organization Detai ls LastModified Time None Recorded Concern Status LastModified by Organization Details LastModified Time None Recorded Advance Directives Directive None Recorded Payers Insurance Date Sequence Insurance Name Policy Number Policy Figueroa Covered Member ID Figueroa Member ID Guarantor Name 04/27/2023 1 [place] [id number] 1 Santhosh Denis [id number] Santhosh Denis
--- OUTSIDE RECORDS SUMMARY | 2025-04-02 10:04 | XMS_ITS | Clinical Summary ---
Author Organization [facility] Address [address] [id number] Care Team Providers Care Shoveler Name Role Phone Anna Wheeler Primary Care [...] of Treatment Not on file Care Teams Shoveler Relationship Specialty Start Date End Date Anna Wheeler PA [address] [place] [address] [address] PCP - General 10/11/20
--- NOTE | 2025-04-02 10:06 | ED_ITS ---
<Statement entered by Saeed Dennis MD - 04/02/25 17:37> I consulted the SALVATORE, and we discussed the complexity of the problems being addressed. I approved the treatment and management plan for this patient's care in the emergency department, thus performing a substantial portion of the medical decision making. Will MD Sonny Discharge Plan Disposition Patient Disposition: Admitted Condition: Fair Clinical Impressions Clinical Impression: Unstable angina Discharge ED Provider: Saeed Dennis [facility] General Chief Complaint: Chest Pain Stated Complaint: Chest Pain Time Seen by Provider: 04/02/25 09:49 Mode of Arrival: Ambulatory Source of Information: Patient Description of Symptoms (Recalled from ER Triage Doc. by RN): pt presents to ED c/o chest pain that started on Wednesday. pt reports on Wednesday morning he had chest pain and dizziness that was resolved by taking 2 nitroglycerin. pt reports this morning he is experiencing jaw pain and pressure. pt hx of 2 stents. History of Present Illness HPI narrative: 64-year-old male presents to the ED today with complaint of chest pain that started Wednesday. He had dizziness and chest pain that was resolved by taking 2 nitro. Patient reports Wednesday was okay and then this morning started center of his chest pressure with jaw pain. He does have shortness of air with exertion. Patient did go to Dr. Smith's office but they told him to come to the emergency department. Patient has history of AR, 2 stents placed, diabetes, reflux, diastolic dysfunction. Patient does take Plavix, aspirin atorvastatin, Jardiance, metoprolol, Protonix, tirzepatide and trazodone as his home medications. He sees Dr. Walden in [place] as a primary care physician. Related Data Home Medications ?Medication ?Instructions ?Recorded ?Confirmed albuterol 90 mcg-budesonide 80 2 inh inhalation BID PA N Shortness 04/02/25 04/02/25 mcg/actuation HFA aerosol inhaler Of Breath (Airsupra) ascorbic acid (vitamin C) 500 mg 500 mg PO DAILY 04/0204/02/25 tablet (Vitamin C) blood-glucose meter (Accu-Chek #1 ea 04/02/25 04/02/25 Guide Me Glucose Meter) clopidogrel 75 mg tablet 75 mg PO DAILY 04/02/2508/22 empagliflozin 25 mg tablet 25 mg PO DAILY 04/02/2508/22 (Jardiance) glipizide 10 mg tablet, extended 20 mg PO DAILY 04/02/25 release 24 hr lancets (Accu-Chek Softclix #100 ea 04/02/25 04/02/25 Lancets) losartan 25 mg tablet 25 mg PO DAILY 04/02/2508/22 metoprolol succinate 50 mg 50 mg PO DAILY 04/02/2508/22 tablet,extended release 24 hr montelukast 10 mg tablet 10 mg PO HS 04/02/25 5 tamsulosin 0.4 mg capsule 0.4 mg PO HS 04/02/25 tirzepatide 5 mg/0.5 mL 5 mg SQ WEEKLY 04/02/2508/22 subcutaneous pen injector (Krzysztof) trazodone 50 mg tablet 50 mg PO HS 04/02/25 5 Previous Rx's ?Medication ?Instructions ?Recorded blood sugar diagnostic (Accu-Chek #100 ea 09/17/22 Rowena Plus test strips) nitroglycerin 0.4 mg sublingual 0.4 mg sublingual Q5-1 5M PRN Chest 07/17/24 tablet Pain #30 tabs albuterol sulfate 90 mcg/actuation 2 puff inhalation Q 4-6H PRN 10/24/24 aerosol inhaler shortness of breath or wheez ing #8.5 grams evolocumab 140 mg/mL subcutaneous 140 mg SQ Q2W #2 mL 11/02/24 pen injector (Izzy Ojeda) blood sugar diagnostic (Blood #100 ea 01/09/25 Glucose Test strips) blood-glucose meter (Blood Glucose #1 ea 01/09/25 Monitoring kit) lancets 28 gauge (Easy Touch #100 ea 01/09/25 Lancets) pantoprazole 40 mg tablet,delayed 40 mg PO BID 90 days #180 tabs 01/12/25 release atorvastatin 40 mg tablet (Lipitor) 40 mg PO HS 90 day s #90 tabs 02/28/25 fluticasone propionate 50 2 spray intranasal DAILY All ergy 03/14/25 mcg/actuation nasal symptoms 90 days #16 grams spray,suspension Allergies Allergy/AdvReac Type Severity Reaction Status Date / Time No Known Allergies Allergy Verified 04/02/25 09:13 [facility] Disclaimer: The information contained in this section may have been updated after the patient was seen, as this information can be updated by other users. 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 Hernia Diastolic dysfunction HLD (hyperlipidemia) Diabetes mellitus Coronary artery disease Type 2 diabetes mellitus with hyperglycemia Hypertension Surgical History History of colonoscopy History of esophagogastroduodenoscopy (EGD) Hx of cardiac cath H/O removal of cyst History of appendectomy Family History Other Family history of Alzheimer's disease Family history of acute heart failure Family history of arthritis Family history of cataracts Family history of diabetes mellitus type II Family history of gout Family history of hypertension Family history of myocardial infarction Family history of prostate cancer Prostate cancer Social History (Updated 04/02/25 @ 13:20 by Camelia Brower RN) Smoking Status: Former smoker tobacco type: cigarettes second hand exposure: No alcohol intake: current alcohol intake frequency: holidays/special occasions only substance use type: denies use current occupational status: employed Travel in the last 8 weeks?: Inside the [place] household members: spouse housing: house 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 current occupational exposures/hazards: No caffeine: Yes Have you lived/traveled outside US in past 30 days?: No Contact w/someone who lives/traveled outside US past 30 days?: No Exposure to someone with infectious disease in past 14 days?: No Do you have a fever (greater than 100.4 F or 38 C)?: No Have you tested positive for COVID-19?: No Exposed to someone with COVID-19 in past 14 days?: No Do you have a sore throat?: No Do you have a cough?: No Do you have any weakness?: No Are you experiencing any nausea/vomitting?: No Do you have any diarrhea?: No Are you experiencing any unusual bleeding?: No Do you have any muscle aches/pain?: No Do you have any abdominal pain?: No Are you experiencing loss of taste or smell?: No Other Medical History Have you received the Flu Vaccine for this season: No Have you received the Pneumonia Vaccine: Yes ROS Obtained: Yes Systems reviewed as appropriate & no additional complaints except as documented Constitutional Constitutional: Reports as per HPI Physical Exam General General appearance: alert and in no apparent distress Head Head exam: normocephalic Eye Eye exam: Present normal appearance and PERRL ENT ENT exam: Present mucous membranes moist Neck Neck exam: Present trachea midline Chest Chest inspection: Present symmetric chest wall rise Respiratory Respiratory exam: Present normal lung sounds bilaterally Cardiovascular Cardiovascular exam: Present regular rate, normal rhythm, normal heart sounds, +S1 and +S2 Abdominal Exam Abdominal exam: Present soft and normal bowel sounds Extremities Exam Extremities exam: Present normal inspection, full ROM and normal capillary refill Back Exam Back exam: Present full ROM Neurological Exam Neurological exam: Present alert, oriented X3 and normal gait Psychiatric Psychiatric exam: Present normal affect and normal mood Skin Skin exam: Present warm and dry HEART Score HEART Score HEART Score assessment performed?: Yes History (anamnesis): Slightly suspicious ECG: Normal Age: 45-65 years Risk factors: 1-2 risk factors Troponin: </= normal limit HEART Score: 2 Critical Care Critical Care Time Critical Care Time: No Medical Decision Making Theodore Inquiry Pt receiving controlled substance: No Theodore was queried for this patient: No Vital Signs Vital Signs: 04/02/25 09:48 04/02/25 09:58 04/02/25 10:03 Temperature 98.1 F Temperature Source Oral Pulse Rate 86 95 H Pulse Rate [Right Radial] 99 H Respiratory Rate 18 18 Blood Pressure 124/76 Blood Pressure [Right Arm] 147/89 H Blood Pressure Mean Blood Pressure Mean [Right Arm] 108 Blood Pressure Source Automatic Cuff Blood Pressure Source [Right Arm] Automatic Cuff Blood Pressure Position Supine Blood Pressure Position [Right Arm] Sitting 02 Sat by Pulse Oximetry 100 92 L Oxygen Delivery Method Room Air Room Air 04/02/25 10:04 04/02/25 10:16 04/02/25 10:40 Temperature 98.0 F Temperature Source Pulse Rate 90 90 90 Pulse Rate [Right Radial] Respiratory Rate 12 11 L 12 Blood Pressure 107/74 L 121/71 121/71 Blood Pressure [Right Arm] Blood Pressure Mean 85 88 Blood Pressure Mean [Right Arm] Blood Pressure Source Blood Pressure Source [Right Arm] Blood Pressure Position Blood Pressure Position [Right Arm] 02 Sat by Pulse Oximetry 92 L 92 L Oxygen Delivery Method Lab Data Labs: Lab Results 04/02/25 09:53: WBC 9.3, RBC 5.64, Hgb 15.5, Hct 48.3, MCV 85.6, MCH 27.5, MCHC 32.1, RDW 13.0, Plt Count 205, MPV 10.4, Neut % (Auto) 70.0, Lymph % (Auto) 17.1, [place] % (Auto) 10.1 H, Eos % (Auto) 1.7, Baso % (Auto) 0.5, Neut # (Auto) 6.5, Lymph # (Auto) 1.6, [place] # (Auto) 0.9, Eos # (Auto) 0.2, Baso # (Auto) 0.1, D-Dimer 0.54 H, Sodium 136, Potassium 4.2, Chloride 108 H, Carbon Dioxide 20 L, Anion Gap 12.2, BUN 28 H, Creatinine 1.40 H, Estimated Creat Clear 79, Estimated GFR 51 L, Est GFR ( Amer) 62, Glucose 134 H, Calcium 9.2, Magnesium 2.0, Total Bilirubin 0.7, AST 30, ALT 33, Alkaline Phosphatase 96, Troponin I < 0.01, NT-Pro-B Natriuret Pep 36.2, Total Protein 7.5, Albumin 4.5, Globulin 3.0, Albumin/Globulin Ratio 1.5, Lipase 141 04/02/25 09:53 04/02/25 09:53 Response Orders (Tests/Meds): ED MEDICATIONS Generic Name Dose Route Start Last Admin Trade Name Harshq PRN Reason Stop Dose Admin Acetaminophen 650 mg 04/02/25 12:27 Acetaminophen 325mg Tab PO 05/02/25 12:26 Q4HP PRN Fever or Mild Pain (1-3) Atorvastatin Calcium 40 mg 04/02/25 21:00 Atorvastatin 40mg Tablet PO 05/02/25 20:59 HS ILENE Clopidogrel Bisulfate 75 mg 04/03/25 09:00 Clopidogrel 75mg Tab PO 05/03/25 08:59 DAILY ILENE Diazepam 5 mg 04/02/25 10:22 Diazepam 5mg Tablet PO 04/02/25 22:22 ONCE PRN Anxiety Empagliflozin 25 mg 04/03/25 09:00 Empagliflozin 25mg Tablet PO 05/03/25 08:59 DAILY [facility] Enoxaparin Sodium 40 mg 04/03/25 09:00 Enoxaparin 40mg/0.4ml Syringe SUBCUT 05/03/25 08:59 DAILY [facility] Fentanyl Citrate 50 mcg 04/02/25 10:22 04/02/25 10:38 Fentanyl 100mcg/2ml Vial IV 04/02/25 22:22 100 mcg Q3MINP PRN Administration Sedation Fentanyl Citrate 25 mcg 04/02/25 10:22 Fentanyl 100mcg/2ml Vial IV 04/02/25 22:22 Q3MINP PRN Sedation Flumazenil 0.2 mg 04/02/25 10:22 Flumazenil 0.1mg/Ml 5ml Vial IV 04/02/25 22:22 NEEDED PRN Sedation Furosemide 40 mg 04/02/25 18:00 Furosemide 40mg/4ml Vial IV 04/02/25 18:01 DAILY [facility] Furosemide 40 mg 04/03/25 09:00 Furosemide 40 Mg Tablet PO 05/03/25 08:59 BIDL [facility] Sodium Chloride 500 mls @ 25 mls/hr 04/02/25 10:30 04/02/25 12:02 Sod Chloride 0.9% 500ml Bag IV 04/03/25 10:22 Infused .Q20H [facility] Infusion Insulin Human Lispro 0 unit 04/02/25 16:30 Humalog 100 Units/Ml 10ml Vial (Ssi) SUBCUT 05/02/25 16:29 ACHS [facility] Protocol Irbesartan 25 mg 04/03/25 09:00 Irbesartan 75mg Tablet PO 05/03/25 08:59 DAILY [facility] Metoprolol Succinate 50 mg 04/03/25 09:00 Metoprolol Succinate Xl 50mg Tablet PO 05/03/25 08:59 DAILY [facility] Midazolam HCl 1 mg 04/02/25 10:22 Midazolam 2mg/2ml Vial IV 04/02/25 22:22 Q3MINP PRN Sedation Midazolam HCl 1 mg 04/02/25 10:22 04/02/25 10:38 Midazolam Hcl 1mg/Ml 5ml Vial IV 04/02/25 22:22 5 mg Q3MINP PRN Administration Sedation Montelukast Sodium 10 mg 04/02/25 21:00 Montelukast Sodium 10mg Tab PO 05/02/25 20:59 HS ILENE Naloxone HCl 0.4 mg 04/02/25 10:22 Naloxone 0.4mg/Ml Vial IV 04/02/25 22:22 Q5MINP PRN Decreased Respirations Nitroglycerin 0.4 mg 04/02/25 09:53 04/02/25 09:57 Nitroglycerin 0.4mg Sl Tablet SL 05/02/25 09:52 0.4 mg Q5MINP PRN Administration Chest Pain Non-Formulary Medication 2 inh 04/02/25 14:24 Albuterol-Budesonide [Airsupra] IH BID PRN Shortness Of Breath Ondansetron HCl 4 mg 04/02/25 10:22 Ondansetron 4mg/2ml Vial IV 04/02/25 22:22 NEEDED PRN Nausea Ondansetron HCl 4 mg 04/02/25 12:27 Ondansetron 4mg/2ml Vial IV 05/02/25 12:26 Q8HP PRN Nausea Pantoprazole Sodium 40 mg 04/02/25 21:00 Pantoprazole 40mg Tablet PO 05/02/25 20:59 BID [facility] Promethazine HCl 25 mg 04/02/25 10:22 Promethazine Hcl 25mg/Ml 1ml Vial IV 04/02/25 22:22 NEEDED PRN Nausea And Vomiting Sodium Chloride 10 ml 04/02/25 09:53 Sodium Chloride 0.9% 10ml Flush Syringe IV 05/02/25 09:52 NEEDED PRN Maintain IV Site Tamsulosin HCl 0.4 mg 04/02/25 21:00 Tamsulosin 0.4mg Capsule PO 05/02/25 20:59 HS [facility] Trazodone HCl 50 mg 04/02/25 21:00 Trazodone 50mg Tablet PO 05/02/25 20:59 HS [facility] Discontinued Medications Generic Name Dose Route Start Last Admin Trade Name Freq PRN Reason Stop Dose Admin Aspirin 325 mg 04/02/25 09:53 04/02/25 09:57 Aspirin 325mg Tablet PO 04/02/25 09:54 325 mg ONCE ONE Administration Diphenhydramine HCl 50 mg 04/02/25 10:22 04/02/25 10:38 Diphenhydramine 50mg/Ml Vial IV 04/02/25 10:23 50 mg ONCE ONE Administration Furosemide 40 mg 04/02/25 12:32 04/02/25 12:49 Furosemide 40mg/4ml Vial IV 04/02/25 12:33 40 mg ONCE ONE Administration Heparin Sodium (Porcine) 5,000 unit 04/02/25 10:22 04/02/25 10:37 Heparin 1,000 Units/Ml 10ml Vial ([facility]) IV 04/02/25 14:22 5,000 unit NEEDED PRN Administration 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 Heparin Sodium/Sodium Chloride 3,000 unit 04/02/25 10:22 04/02/25 10:37 Heparin 1,000 Units/500ml Ns ([facility]) IV 04/02/25 10:23 3,000 unit ONCE ONE Administration Hydralazine HCl 20 mg 04/02/25 10:22 Hydralazine 20mg/Ml Vial IV 04/02/25 14:22 ONCE PRN sbp>160 Adenosine 180 mg/ Sodium 90 mls @ 563.36 mls/hr 04/02/25 10:22 Chloride IV 04/02/25 14:22 ONCE PRN fractional flow reserve 180 MCG/KG/MIN Adenosine 90 mg/ Sodium 90 mls @ 1,126.721 mls/hr 04/02/25 10:22 Chloride IV 04/02/25 14:22 ONCE PRN fractional flow reserve 180 MCG/KG/MIN Iopamidol 50 ml 04/02/25 12:55 04/02/25 12:57 Iopamidol-370 (76%);100ml Bottle IV 04/02/25 12:56 50 ml ONCE ONE Administration Labetalol HCl 20 mg 04/02/25 10:22 Labetalol 20mg/4ml Syringe IV 04/02/25 14:22 ONCE PRN sbp>160 Lidocaine HCl 10 ml 04/02/25 10:22 04/02/25 10:37 Lidocaine 1% 10ml Mdv IJ 04/02/25 10:23 10 ml ONCE ONE Administration Lidocaine HCl 10 ml 04/02/25 10:22 04/02/25 13:16 Lidocaine 1% 5ml Pf Vial IJ 04/02/25 10:23 Not Given ONCE ONE Morphine Sulfate 4 mg 04/02/25 10:05 04/02/25 10:12 Morphine 4mg/Ml Syringe IV 04/02/25 10:06 4 mg ONCE ONE Administration Morphine Sulfate 4 mg 04/02/25 10:22 04/02/25 13:16 Morphine 4mg/Ml Syringe IV 04/02/25 10:23 Not Given ONCE ONE Nitroglycerin 800 mcg 04/02/25 10:22 04/02/25 10:37 Nitroglycerin 800mcg/8ml Syr ([facility]) IA 04/02/25 14:22 800 mcg NEEDED PRN Administration 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 Ondansetron HCl 4 mg 04/02/25 10:05 04/02/25 10:11 Ondansetron 4mg/2ml Vial IV 04/02/25 10:06 4 mg ONCE ONE Administration Protamine Sulfate 50 mg 04/02/25 10:22 Protamine Sulfate 50mg/5ml Vial ([facility]) IV 04/02/25 14:22 ONCE PRN act>200 Sodium Chloride 25 ml 04/02/25 10:22 04/02/25 13:16 Sodium Chloride 0.9% 25ml Bag IV 04/02/25 10:23 Not Given ONCE ONE Verapamil HCl 2.5 mg 04/02/25 10:22 04/02/25 10:38 Verapamil 2.5mg/Ml 2ml Vial IV 04/02/25 10:23 2.5 mg ONCE ONE Administration ORDERS Category Date Time Status Cardiology Consult [Consult to Cardiology] [CONS] Cons 04/02/25 12:32 Active Routine CA echo limited Routine Exams 04/02/25 12:32 Completed XR chest portable Stat Exams 04/02/25 09:51 Completed BNP [NT Pro Brain Natriuretic Pep.] Stat Lab 04/02/25 09:53 Completed Complete Blood Count Auto Diff AMLAB Lab 04/03/25 06:00 Ordered Complete Blood Count Auto Diff Stat Lab 04/02/25 09:53 Completed Comprehensive Metabolic Panel AMLAB Lab 04/03/25 06:00 Ordered Comprehensive Metabolic Panel Stat Lab 04/02/25 09:53 Completed D-Dimer Stat Lab 04/02/25 09:53 Completed HIV Combo Stat Lab 04/02/25 09:53 Received Hepatitis C Ab Qual. W/ RFX Stat Lab 04/02/25 09:53 Received Lipase Stat Lab 04/02/25 09:53 Completed Magnesium AMLAB Lab 04/03/25 06:00 Ordered Magnesium Stat Lab 04/02/25 09:53 Completed Troponin I Q3H Lab 04/02/25 16:00 Ordered Troponin I Stat Lab 04/02/25 09:53 Completed ECG initial [place] Routine Y 04/02/25 09:46 Completed MDM Narrative Medical Decision Narrative: patient is a 64-year-old male presenting to the emergency department for evaluation of chest pain, jaw pain. Patient is hemodynamically stable and nontoxic-appearing upon arrival, afebrile. Differential diagnosis includes ACS, stable angina, among. Workup will be conducted with hematologic labs, specific imaging, provocative tests, cath. Initial inventions include crystalloid bolus, analgesics. This patient is going to be taken to the [facility] and his case will be coming up next it is 10:14 AM.
[2025-04-02 10:09] LABS: Hematocrit 48.3 % (42.0-52.0); Hemoglobin 15.5 g/dL (14.1-18.0); Immature Granulocytes % 0.6 %; Mean Corpuscular HGB Conc 32.1 g/dL (31.8-35.4); Mean Corpuscular Hemoglobin 27.5 pg (27.0-31.2); Mean Corpuscular Volume 85.6 fl (80-94); Nucleated Red Blood Cells % 0 %; Platelet Count 205 K/mm3 (142-424); Red Blood Count 5.64 M/mm3 (4.60-6.20); Red Cell Distribution Width-SD 40.2 fL; White Blood Count 9.3 K/mm3 (4.8-10.8)
[2025-04-02] MEDS: ONDANSETRON 4MG/2ML VIAL 4 MG IV (10:11)
[2025-04-02] MEDS: MORPHINE 4MG/ML SYRINGE 4 MG IV (10:12)
--- NOTE | 2025-04-02 10:19 | PC.NURSE ---
pt states npo since 629. pt clipped right wrist and bilateral groins. pt educated and updated on poc.
--- NOTE | 2025-04-02 10:19 | PC.NURSE ---
Samanta Cosme speaking with hospitalist at this time.
--- NOTE | 2025-04-02 10:20 | IR_ITS ---
APPROVED REPORT Patient Location: Inpatient Chemical Technician: AMANDA Tovar RT (R) PROCEDURES Left heart catheterization Left ventriculogram Selective coronary angiogram INDICATION Unstable angina Informed consent was obtained prior to the procedure. COMPLICATIONS NONE Estimated Blood Loss: LESS THAN 10 ML TECHNIQUE One percent lidocaine used to anesthetize the right anterior aspect of the wrist. The right radial artery was accessed via the Seldinger technique. A 6 [place] sheath was placed in the right radial artery. 2.5 mg of Verapamil, 800 mcg of nitroglycerin, 1mg Lidocaine and 5000 U Heparin were given through the arterial sheath. The JL3 catheter was also used to perform left heart catheterization, left ventriculogram and selective coronary angiogram. At the end of the procedure the sheath was removed good hemostasis was achieved using Traclet band, patient was transferred to the postop holding area in stable condition. ANGIOGRAPHIC RESULTS The left main artery Normal The left anterior descending artery Has a stent in the proximal side which is widely patent free of in-stent restenosis with excellent proximal distal transitioning. The remaining vessel is widely patent The circumflex artery Nondominant widely patent The right coronary artery Dominant widely patent with minimal 20% stenosis The MENJIVAR ventriculogram reveals Preserved at 55% The left ventricular end-diastolic pressure Severely elevated at 45 mmHg IMPRESSION Widely patent coronary arteries Severe to critically elevated LVEDP Preserved ejection fraction PLAN 1. Patient needs admission with aggressive diuresis. Patient's symptoms stem from severe to critical elevated LVEDP 2. Consider Cordella device for management of CHF 3. Risk factor modification Electronically signed by : Christopher Smith MD 04/02/2025 17:52:24
[2025-04-02 10:28] LABS: Alanine Aminotransferase 33 U/L (12-78); Albumin Level 4.5 g/dl (3.5-5.0); Albumin/Globulin Ratio 1.5 (1.1-1.8); Anion Gap 12.2 mEq/L (5-15); Aspartate Amino Transferase 30 U/L (17-59); Blood Urea Nitrogen 28 mg/dl (9-20); Calcium 9.2 mg/dl (8.4-10.2); Carbon Dioxide 20 mmol/L (22.0-30.0); Chloride 108 mmol/L (98-107); Creatinine Clearance Estimated 79 mL/min (50-200); Creatinine,Serum 1.40 mg/dl (0.66-1.25); Estimated Glomerular Filt Rate 51 ml/min (>60); GFR (African American) 62 ML/MIN (>60); Globulin 3.0 g/dL (1.3-3.2); Glucose 134 mg/dl (74-100); Potassium 4.2 mmoL/L (3.5-5.1); Sodium 136 mmol/L (136-145); Total Protein,Serum 7.5 g/dl (6.3-8.2)
[2025-04-02 10:32] LABS: D-Dimer 0.54 ug/mL (0.0-0.5)
[2025-04-02] MEDS: HEPARIN 1,000 UNITS/500ML NS (CATH LAB) 3000 UNIT IV (10:37)
[2025-04-02] MEDS: HEPARIN 1,000 UNITS/ML 10ML VIAL (CATH LAB) 5000 UNIT IV (10:37)
[2025-04-02] MEDS: NITROGLYCERIN 800MCG/8ML SYR (CATH LAB) 800 MCG IA (10:37)
[2025-04-02] MEDS: LIDOCAINE 1% 10ML MDV 10 ML IJ (10:37)
[2025-04-02] MEDS: 0.9 % SODIUM CHLORIDE 500 ML 25 ML IV (10:37)
[2025-04-02] MEDS: FENTANYL 100MCG/2ML VIAL 50 MCG IV (10:38)
[2025-04-02] MEDS: MIDAZOLAM HCL 1MG/ML 5ML VIAL 1 MG IV (10:38)
[2025-04-02] MEDS: VERAPAMIL 2.5MG/ML 2ML VIAL 2.5 MG IV (10:38)
[2025-04-02 10:39] LABS: Troponin I < 0.01 ng/ml (0.00-0.034)
[2025-04-02 10:54] LABS: NT Pro Brain Natriuretic Pep. 36.2 pg/mL (0-125)
[2025-04-02 11:09] LABS: Lipase 141 U/L (23-300); Magnesium 2.0 mg/dl (1.6-2.3)
[2025-04-02 12:03] LABS: Alkaline Phosphatase 96 U/L (38-126); Bilirubin,Total 0.7 mg/dl (0.2-1.3)
--- NOTE | 2025-04-02 12:32 | CA_ITS ---
APPROVED REPORT EXAM: Limited 2D Echocardiogram Piano Bench Assembler: Katarzyna ParksJULIANNE Ht: 5 ft 6 in Wt: 230lbs BSA: 2.12 BP: 124/76 mmHg Indications: CHEST PAIN,CORONARY ARTERY DISEASE 2D Dimensions IVSd 0.99 cm M: 0.6-1.2 LVEF (Visual) 53.20 % PWd 0.93 cm M: 0.6 - 1.2 LVDd 5.46 cm M: 4.2 - 5.9 LVDs 3.95 cm M: 2.5 - 4.0 M-Mode Dimensions RVDd 1.62 cm (0.9-2.6) LVDd 5.65 cm (3.5-5.7) LVDs 4.07 cm (3.5-5.7) IVSd 0.89 cm (0.6-1.1) PWd 0.54 cm (0.6-1.1) EF (Teich) 53.50% FS 28.00% EDV (Teich) 156.80 mL ESV (Teich) 72.90 mL Other Information Study Quality: Fair Conclusion This is a limited TTE to evaluate for LV systolic function. Limited windows are obtained. The left ventricle is normal in size. There is increased LV wall thickness. There is low-normal global LV systolic function. LVEF is 50%. The RV is mildly dilated with normal RV function. There is increased RV wall thickness. There is a small-sized, anterior, loculated pericardial effusion present. No echo indications of tamponade. Electronically signed by : Karen Arguello MD 04/03/2025 12:42:58
--- NOTE | 2025-04-02 12:34 | P.HP_ITS ---
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 History of Present Illness *Admission Date: 04/02/25 *Reason for visit:: HFpEF, stable angina *History of present illness: Mr. Denis is a 64-year-old male who presented to the cardiac clinic today with complaints of chest pain that started on Wednesday. He describes the pain as a lot of pressure in his chest, shortness of breath, intermittent dizziness/lightheadedness, numbness/tingling in his left shoulder and increased fatigue. He has been taking nitro which he states has helped but does not last long. Patient was sent from the cardiology office to the emergency department for further evaluation and workup of his unstable angina. Patient does have a history of cardiac cath with SOHEILA in 2017 with STEMI. He has a known primary medical history of CAD, diastolic dysfunction, type 2 diabetes, GERD, hypertension, hyperlipidemia. Workup in the emergency department was significant for CKD, creatinine 1.4 appears to be baseline. No anemia, no leukocytosis, no electrolyte abnormalities. Patient had lipid panel 02/22 which showed LDL less than 30, total cholesterol 69. Last A1c was 6.3%. Patient had echo 10/2024 which showed a LVEF of 55%, normal BiV systolic function, no stenosis or regurgitation. Chest x-ray done in the emergency department shows no acute process. Patient was taken to the cardiac [facility] Professional [facility] for [facility] to evaluate his unstable angina. Left heart cath shows elevated LVEDP. Patient's last echo was October/2024 which showed a normal EF. [facility] Disclaimer: The information contained in this section may have been updated after the patient was seen, as this information can be updated by other users. 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 Hernia Diastolic dysfunction HLD (hyperlipidemia) Diabetes mellitus Coronary artery disease Type 2 diabetes mellitus with hyperglycemia Hypertension Surgical History History of colonoscopy History of esophagogastroduodenoscopy (EGD) Hx of cardiac cath H/O removal of cyst History of appendectomy Family History Other Family history of Alzheimer's disease Family history of acute heart failure Family history of arthritis Family history of cataracts Family history of diabetes mellitus type II Family history of gout Family history of hypertension Family history of myocardial infarction Family history of prostate cancer Prostate cancer Social History Smoking Status: Former smoker tobacco type: cigarettes second hand exposure: No alcohol intake: current alcohol intake frequency: holidays/special occasions only substance use type: denies use current occupational status: employed Travel in the last 8 weeks?: [place] the [place] household members: spouse housing: house 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 current occupational exposures/hazards: No caffeine: Yes Other Medical History Have you received the Flu Vaccine for this season: No Have you received the Pneumonia Vaccine: Yes Review of Systems Constitutional Constitutional: Denies fatigue, Denies fever(s) and Denies weakness *Cardiovascular Cardiovascular: Denies chest pain, Denies dyspnea, Reports dyspnea on exertion and Denies leg edema *Respiratory Respiratory: Denies cough, Denies dyspnea and Reports dyspnea on exertion *Gastrointestinal Gastrointestinal: Denies loose stools and Denies vomiting *Genitourinary Genitourinary: Denies dysuria *Musculoskeletal Musculoskeletal: Denies numbness *Neurologic Neurologic: Denies confusion, Denies localized weakness, Denies numbness and Denies weakness Psychiatric Psychiatric: Denies confusion Endocrine Endocrine: Denies fatigue Meds Home Medications and Allergies Home Medications ?Medication ?Instructions ?Recorded ?Confirmed ?Type blood sugar diagnostic (Accu-Chek #100 ea 09/17/2208/22 Rx Rowena Plus test strips) nitroglycerin 0.4 mg sublingual 0.4 mg sublingual Q5-1 5M PRN Chest 07/17/24 04/02/25 Rx tablet Pain #30 tabs albuterol sulfate 90 mcg/actuation 2 puff inhalation Q 4-6H PRN 10/24/24 04/02/25 Rx aerosol inhaler shortness of breath or wheez ing #8.5 grams evolocumab 140 mg/mL subcutaneous 140 mg SQ Q2W #2 mL 11/02/24 04/02/25 Rx pen injector (Izzy Ojeda) blood sugar diagnostic (Blood #100 ea 01/09/25 5 Rx Glucose Test strips) blood-glucose meter (Blood Glucose #1 ea 01/09/2508/22 Rx Monitoring kit) lancets 28 gauge (Easy Touch #100 ea 01/09/25 04/02/25 Rx Lancets) pantoprazole 40 mg tablet,delayed 40 mg PO BID 90 days #180 tabs 01/12/25 04/02/25 Rx release atorvastatin 40 mg tablet (Lipitor) 40 mg PO HS 90 day s #90 tabs 02/28/25 04/02/25 Rx fluticasone propionate 50 2 spray intranasal DAILY All ergy 03/14/25 04/02/25 Rx mcg/actuation nasal symptoms 90 days #16 grams spray,suspension albuterol 90 mcg-budesonide 80 2 inh inhalation BID CA N Shortness 04/02/25 04/02/25 History mcg/actuation HFA aerosol inhaler Of Breath (Airsupra) ascorbic acid (vitamin C) 500 mg 500 mg PO DAILY 04/0204/02/25 History tablet (Vitamin C) blood-glucose meter (Accu-Chek #1 ea 04/02/25 04/02/25 History Guide Me Glucose Meter) clopidogrel 75 mg tablet 75 mg PO DAILY 04/02/2508/22 History empagliflozin 25 mg tablet 25 mg PO DAILY 04/02/2508/22 History (Jardiance) glipizide 10 mg tablet, extended 20 mg PO DAILY 04/02/25 History release 24 hr lancets (Accu-Chek Softclix #100 ea 04/02/25 04/02/25 History Lancets) losartan 25 mg tablet 25 mg PO DAILY 04/02/2508/22 History metoprolol succinate 50 mg 50 mg PO DAILY 04/02/2508/22 History tablet,extended release 24 hr montelukast 10 mg tablet 10 mg PO HS 04/02/25 5 History tamsulosin 0.4 mg capsule 0.4 mg PO HS 04/02/25 History tirzepatide 5 mg/0.5 mL 5 mg SQ WEEKLY 04/02/2508/22 History subcutaneous pen injector (Mounjaro) trazodone 50 mg tablet 50 mg PO HS 04/02/25 5 History New Prescriptions to Start Prescriptions: Allergies Allergy/AdvReac Type Severity Reaction Status Date / Time No Known Allergies Allergy Verified 04/02/25 09:13 Exam Data for Last 24 hours Vital signs and Labs for Last 24 Hours: Temp Pulse Resp BP Pulse Ox O2 Del Method 98.0 F 77 18 101/70 L 95 Room Air 04/02/25 10:40 04/02/25 12:25 04/02/25 12:25 04/02/25 12:25 04/02/25 12:25 04/02/25 12:25 Laboratory Results - last 24 hr 04/02/25 09:53: WBC 9.3, RBC 5.64, Hgb 15.5, Hct 48.3, MCV 85.6, MCH 27.5, MCHC 32.1, RDW 13.0, Plt Count 205, MPV 10.4, Neut % (Auto) 70.0, Lymph % (Auto) 17.1, [place] % (Auto) 10.1 H, Eos % (Auto) 1.7, Baso % (Auto) 0.5, Neut # (Auto) 6.5, Lymph # (Auto) 1.6, [place] # (Auto) 0.9, Eos # (Auto) 0.2, Baso # (Auto) 0.1, D-Dimer 0.54 H, Sodium 136, Potassium 4.2, Chloride 108 H, Carbon Dioxide 20 L, Anion Gap 12.2, BUN 28 H, Creatinine 1.40 H, Estimated Creat Clear 79, Estimated GFR 51 L, Est GFR ( Amer) 62, Glucose 134 H, Calcium 9.2, Magnesium 2.0, Total Bilirubin 0.7, AST 30, ALT 33, Alkaline Phosphatase 96, Troponin I < 0.01, NT-Pro-B Natriuret Pep 36.2, Total Protein 7.5, Albumin 4.5, Globulin 3.0, Albumin/Globulin Ratio 1.5, Lipase 141 Temp Pulse Resp BP Pulse Ox 98.2 F 74 18 132/80 95 03/06/22 14:35 03/06/22 14:35 03/06/22 14:35 03/06/22 14:35 03/06/22 14:01 Laboratory Results - last 24 hr 03/06/22 11:20: WBC 7.9, RBC 5.03, Hgb 11.6 L, Hct 41.2 L, MCV 81.9, MCH 23.2 L, MCHC 28.3 L, RDW 14.7, Plt Count 235, MPV 8.4, Neut % (Auto) 70.6, Lymph % (Auto) 19.9, [place] % (Auto) 7.2, Eos % (Auto) 1.9, Baso % (Auto) 0.5, Neut # (Auto) 5.6, Lymph # (Auto) 1.6, [place] # (Auto) 0.6, Eos # (Auto) 0.2, Baso # (Auto) 0.0 03/06/22 11:20: Sodium 142, Potassium 3.9, Chloride 107, Carbon Dioxide 25, Anion Gap 13.9, BUN 13, Creatinine 1.30 H, Estimated Creat Clear 88, Estimated GFR 56 L, Est GFR ( Amer) 68, Glucose 176 H, Calcium 8.8, Total Bilirubin 0.3, AST 40, ALT 38, Alkaline Phosphatase 86, Troponin I < 0.01, Total Protein 6.5, Albumin 4.2, Globulin 2.3, Albumin/Globulin Ratio 1.8 03/06/22 12:31: SARS-CoV-2 (PCR) Not detected, Influenza A Untype (PCR) Not detected, Influenza Type B (PCR) Not detected 03/06/22 14:18: Troponin I < 0.01 I & O for Last 24 hours: Intake & Output 03/30/25 03/31/25 04/01/25 04/02/25 23:59 23:59 22:59 23:59 Intake Total 35.417 / 35.417 Balance 35.417 / 35.417 Weight 104.326 kg Intake & Output 03/03/22 03/04/22 03/05/22 03/06/22 23:59 23:59 23:59 23:59 Weight 104.326 kg Constitutional Constitutional: no acute distress, obese and cooperative *Routine HEENT Exam Head: Present normocephalic and atraumatic Eye: Present EOMI and PERRL ENT: Present mucous membranes moist *Routine Neck Exam Neck: Present supple; Absent JVD Routine Chest/Breast/Axilla Exam Chest wall: Absent tenderness *Routine Respiratory Exam Respiratory: Present CTA bilaterally; Absent accessory muscle use, respiratory distress, rhonchi, wheezes or crackles *Routine Cardiovascular Exam Cardiovascular: Present RRR, Normal S1 and Normal S2; Absent murmur *Routine Abdominal Exam Abdominal: Present soft, normoactive bowel sounds and obese; Absent tenderness or distended *Routine Rectal Exam Rectal:: deferred *Routine Genitalia Exam Genitalia:: deferred *Routine Extremities Exam Extremities: Present full ROM; Absent cyanosis, clubbing or edema *Routine Skin Exam Skin: Present intact; Absent cyanosis or erythema *Routine Neurological Exam Neurological: Present alert, oriented X3 and CN II-XII intact; Absent sensory deficit Routine Psychiatric Exam Psychiatric: Present normal affect and normal thought process; Absent suicidal ideation or homicidal ideation Assessment and Plan *Assessment and plan (1) Unstable angina: Status: Acute Category: Medical Code(s): I20.0 - Unstable angina (2) Elevated left ventricular end-diastolic pressure (LVEDP): Status: Acute Category: Medical Code(s): R94.30 - Abnormal result of cardiovascular function study, unspecified (3) Chest pressure: Status: Acute Category: Medical Code(s): R07.89 - Other chest pain (4) CKD (chronic kidney disease), stage III: Status: Acute Category: Medical Code(s): N18.30 - Chronic kidney disease, stage 3 unspecified (5) Diabetes mellitus: Status: Chronic Qualifiers: Diabetes mellitus complication status: without complication Diabetes mellitus correction insulin use: without correction use Diabetes mellitus type: type 2 Qualified Code(s): E11.9 - Type 2 diabetes mellitus without complications Category: Medical Code(s): E11.9 - Type 2 diabetes mellitus without complications (6) Coronary artery disease: Status: Chronic Qualifiers: Associated angina: without angina Coronary Disease-Associated Artery/Lesion type: [place] artery [place] vs. transplanted heart: [place] heart Qualified Code(s): I25.10 - Atherosclerotic heart disease of [place] coronary artery without angina pectoris Category: Medical Code(s): I25.10 - Atherosclerotic heart disease of [place] coronary artery without angina pectoris (7) Hypertension: Status: Chronic Qualifiers: Hypertension type: primary hypertension Qualified Code(s): I10 - Essential (primary) hypertension Category: Medical Code(s): I10 - Essential (primary) hypertension (8) HLD (hyperlipidemia): Status: Chronic Qualifiers: Hyperlipidemia type: mixed hyperlipidemia Qualified Code(s): E78.2 - Mixed hyperlipidemia Category: Medical Code(s): E78.5 - Hyperlipidemia, unspecified (9) Diastolic dysfunction: Status: Chronic Category: Medical Code(s): I51.89 - Other ill-defined heart diseases Plan Mr. Denis is a 64-year-old male who presented to the cardiac clinic today with complaints of chest pain that started on Wednesday. He describes the pain as a lot of pressure in his chest, shortness of breath, intermittent dizziness/lightheadedness, numbness/tingling in his left shoulder and increased fatigue. He has been taking nitro which he states has helped but does not last long. Patient was sent from the cardiology office to the emergency department for further evaluation and workup of his unstable angina. Patient does have a history of cardiac cath with SOHEILA in 2016 with STEMI. He has a known primary medical history of CAD, diastolic dysfunction, type 2 diabetes, GERD, hypertension, hyperlipidemia. Workup in the emergency department was significant for CKD, creatinine 1.4 appears to be baseline. No anemia, no leukocytosis, no electrolyte abnormalities. Patient had lipid panel 02/22 which showed LDL less than 30, total cholesterol 69. Last A1c was 6.3%. Patient had echo 10/2024 which showed a LVEF of 55%, normal BiV systolic function, no stenosis or regurgitation. Chest x-ray done in the emergency department shows no acute process. Patient was taken to the cardiac [facility]ified Professional [facility] for [facility] to evaluate his unstable angina. Left heart cath shows elevated LVEDP. Patient's last echo was October/2024 which showed a normal EF. Repeat limited echo today pending. Patient denies chest pain, shortness of breath, abdominal pain upon admission. Hospital medicine was consulted for admission, I agreed to admit the patient. Plan of care as follows: #Unstable angina #CHF #Elevated LVEDP ? Patient admitted to the medical surgical floor with continuous cardiac telemetry. Patient getting Lasix 40 mg twice daily for diuresis. Evaluation of patient he has no complaints of chest pain, shortness of breath at this time. ? Patient does not currently take diuretics at home, cardiology consulted for further medication management. ?Continue home regimen cardiac medications: Aspirin 81 mg daily, Plavix 75 mg daily, atorvastatin 40 mg at bedtime, Jardiance 25 mg daily, losartan 25 mg daily, metoprolol 50 mg daily. ?CBC, CMP, magnesium ordered for the a.m. #CKD, stage III ? Patient kidney function elevated, BUN 28, creatinine 1.4. Appears to be patient baseline. Will continue to monitor kidney function in the AM. #Diabetes mellitus, type II ? A1c 02/27/2025 was 6.3%. Patient currently on Mounjaro weekly and glipizide 20 mg daily. Holding both during admission, sliding scale insulin ordered, ACHS fingersticks. Continue tamsulosin 0.4 mg at bedtime, trazodone 50 mg at bedtime, pantoprazole 40 mg twice daily, singular 10 mg at bedtime. Full code Diabetic diet Ambulate as tolerated?no heavy lifting RUE VTE?Lovenox
[2025-04-02] MEDS: FUROSEMIDE 40MG/4ML VIAL 40 MG IV (12:49)
[2025-04-02] MEDS: IOPAMIDOL-370 (76%);100ML BOTTLE 50 ML IV (12:57)
--- NOTE | 2025-04-02 12:58 | PC.NURSE ---
arrived by casser from [facility]
[2025-04-02 17:21] LABS: POC Glucose,Bedside 161 gm/dL (70-110)
[2025-04-02 18:47] LABS: Hepatitis C Ab Qual. W/ RFX NEGATIVE (Negative)
--- NOTE | 2025-04-02 19:45 | PC.NURSE ---
PT IS RESTING IN BED. ALERT AND ORIENTED X4. EATING AND DRINKING WELL. CATH VSS. PT HAS DIURESED WELL. LUNG SOUNDS CLEAR. ABDOMEN SOFT/LARGE/NON TENDER WITH ACTIVE BOWEL SOUNDS. DRESSING TO RIGHT RADIAL CATH SITE C/D/I. AMBULATES TO THE BATHROOM. WILL CONTINUE TO MONITOR.
[2025-04-02] MEDS: TRAZODONE 50MG TABLET 50 MG PO (20:42)
[2025-04-02] MEDS: TAMSULOSIN 0.4MG CAPSULE 0.4 MG PO (20:42)
[2025-04-02] MEDS: MONTELUKAST SODIUM 10MG TAB 10 MG PO (20:42)
[2025-04-02] MEDS: PANTOPRAZOLE 40MG TABLET 40 MG PO (20:42)
[2025-04-02] MEDS: ATORVASTATIN 40MG TABLET 40 MG PO (20:42)
[2025-04-03] VITALS: BP 105/60; PULSE 80; PULSE 88; RESP 12; TEMP 36.9; O2SAT 94
--- NOTE | 2025-04-03 03:52 | PC.NURSE ---
Pt is A&OX4 and has tolerated room air. He has denied any chest pain or soa. Dressing over right radial cath site has remained c/d/i. He has ambulated room independently. No complaints at this time, call light within reach.
[2025-04-03 04:00] VITALS: BP 102/44; PULSE 71; PULSE 90; RESP 18; TEMP 36.6; O2SAT 93; BMI 35.5
[2025-04-03 04:15] LABS: POC Glucose,Bedside 150 gm/dL (70-110)
[2025-04-03 06:25] LABS: POC Glucose,Bedside 114 gm/dL (70-110)
[2025-04-03 06:30] LABS: Hematocrit 48.9 % (42.0-52.0); Hemoglobin 15.7 g/dL (14.1-18.0); Immature Granulocytes % 0.6 %; Mean Corpuscular HGB Conc 32.1 g/dL (31.8-35.4); Mean Corpuscular Hemoglobin 27.6 pg (27.0-31.2); Mean Corpuscular Volume 85.9 fl (80-94); Nucleated Red Blood Cells % 0 %; Platelet Count 204 K/mm3 (142-424); Red Blood Count 5.69 M/mm3 (4.60-6.20); Red Cell Distribution Width-SD 40.9 fL; White Blood Count 8.7 K/mm3 (4.8-10.8)
[2025-04-03 06:36] LABS: Albumin Level 4.7 g/dl (3.5-5.0); Chloride 104 mmol/L (98-107)
[2025-04-03 06:37] LABS: Potassium 4.5 mmoL/L (3.5-5.1); Sodium 138 mmol/L (136-145)
[2025-04-03 06:39] LABS: Alanine Aminotransferase 31 U/L (12-78); Alkaline Phosphatase 95 U/L (38-126); Aspartate Amino Transferase 31 U/L (17-59); Bilirubin,Total 0.7 mg/dl (0.2-1.3); Blood Urea Nitrogen 26 mg/dl (9-20); Creatinine Clearance Estimated 66 mL/min (50-200); Creatinine,Serum 1.60 mg/dl (0.66-1.25); Estimated Glomerular Filt Rate 44 ml/min (>60); GFR (African American) 53 ML/MIN (>60)
[2025-04-03 06:40] LABS: Albumin/Globulin Ratio 2.2 (1.1-1.8); Anion Gap 12.5 mEq/L (5-15); Calcium 8.5 mg/dl (8.4-10.2); Carbon Dioxide 26 mmol/L (22.0-30.0); Globulin 2.1 g/dL (1.3-3.2); Glucose 125 mg/dl (74-100); Magnesium 2.2 mg/dl (1.6-2.3); Total Protein,Serum 6.8 g/dl (6.3-8.2)
[2025-04-03 08:00] VITALS: BP 115/65; PULSE 89; PULSE 90; RESP 18; TEMP 36.6; O2SAT 96
[2025-04-03] MEDS: CLOPIDOGREL 75MG TAB 75 MG PO (08:12)
[2025-04-03] MEDS: IRBESARTAN 75MG TABLET 25 MG PO (08:12)
[2025-04-03] MEDS: METOPROLOL SUCCINATE XL 50MG TABLET 50 MG PO (08:13)
[2025-04-03] MEDS: PANTOPRAZOLE 40MG TABLET 40 MG PO (08:13)
[2025-04-03] MEDS: EMPAGLIFLOZIN 25MG TABLET 25 MG PO (08:13)
[2025-04-03] MEDS: FUROSEMIDE 40 MG TABLET PO (08:15)
--- NOTE | 2025-04-03 08:17 | HMH.PHAINT1 ---
Pharmacy Intervention Comments: HOME MEDICATION LIST VERIFIED USING LIST FROM OUTPATIENT PHARMACY AND PT INTERVIEW
--- NOTE | 2025-04-03 08:29 | P.DS_ITS ---
<Statement entered by Eliu Cornejo MD - 04/07/25 14:19> Agree with the plan of care as outlined by the MORTGAGE ACCOUNTING CLERK. General Admission date:: 04/02/25 Discharge date: 04/03/25 HPI HPI HPI: Mr. Denis is a 64-year-old male who presented to the cardiac clinic today with complaints of chest pain that started on Wednesday. He describes the pain as a lot of pressure in his chest, shortness of breath, intermittent dizziness/lightheadedness, numbness/tingling in his left shoulder and increased fatigue. He has been taking nitro which he states has helped but does not last long. Patient was sent from the cardiology office to the emergency department for further evaluation and workup of his unstable angina. Patient does have a history of cardiac cath with [facility] in 2016 with STEMI. He has a known primary medical history of CAD, diastolic dysfunction, type 2 diabetes, GERD, hypertension, hyperlipidemia. Workup in the emergency department was significant for CKD, creatinine 1.4 appears to be baseline. No anemia, no leukocytosis, no electrolyte abnormalities. Patient had lipid panel 02/22 which showed LDL less than 30, total cholesterol 69. Last A1c was 6.3%. Patient had echo 10/2024 which showed a LVEF of 55%, normal BiV systolic function, no stenosis or regurgitation. Chest x-ray done in the emergency department shows no acute process. Patient was taken to the cardiac [facility] for [facility] to evaluate his unstable angina. Left heart cath shows elevated LVEDP. Patient's last echo was October/2024 which showed a normal EF. Hospital Course Hospital Course Hospital Course: Mr. Denis is a 64-year-old male who presented to the cardiac clinic yesterday with complaints of chest pain that started on Wednesday. He describes the pain as a lot of pressure in his chest, shortness of breath, intermittent dizziness/lightheadedness, numbness/tingling in his left shoulder and increased fatigue. He has been taking nitro which he states has helped but does not last long. Patient was sent from the cardiology office to the emergency department for further evaluation and workup of his unstable angina. Patient does have a history of cardiac cath with [facility] in 2017 with STEMI. He has a known primary medical history of CAD, diastolic dysfunction, type 2 diabetes, GERD, hypertension, hyperlipidemia. Workup in the emergency department was significant for CKD, creatinine 1.4 appears to be baseline. No anemia, no leukocytosis, no electrolyte abnormalities. Patient had lipid panel 02/22 which showed LDL less than 30, total cholesterol 69. Last A1c was 6.3%. Patient had echo 10/2024 which showed a LVEF of 55%, normal BiV systolic function, no stenosis or regurgitation. Chest x-ray done in the emergency department shows no acute process. Patient was taken to the cardiac [facility] for [facility] to evaluate his unstable angina. Left heart cath shows elevated LVEDP. Patient's last echo was October/2024 which showed a normal EF. Repeat limited echo shows no change. Patient denies chest pain, shortness of breath, abdominal pain upon admission. Hospital medicine was consulted for admission, I agreed to admit the patient. Patient did well overnight, has no complaints of chest pain or shortness of breath today. Patient was diuresed with Lasix 40 mg twice daily L. Patient's blood pressure slightly low overnight. Cardiology consulted this morning, recommendations for metoprolol to be reduced to half home regimen dose (metoprolol 25 mg daily) and Lasix 40 mg 3 days/week. #Unstable angina #CHF #Elevated LVEDP ?Patient will go home with Lasix 40 mg 3 days/week, continue cardiac medications of atorvastatin 40 mg at bedtime, Plavix 75 mg daily, Repatha every 2 weeks, Jardiance 25 mg daily, losartan 25 mg daily, nitro sublingual as needed. ?Patient will follow-up in the cardiology office in 1 to 2 weeks for assessment of symptoms and medication tolerance. #CKD, stage III ?Patient kidney function slightly elevated on admission, creatinine 1.4. Appears to be patient baseline. Creatinine 1.60 of discharge, patient should have a repeat BMP in approximately 1 week. #Diabetes mellitus, type II ? A1c 02/27/2025 was 6.3%. Patient currently on Mounjaro weekly and glipizide 20 mg daily. Continue at discharge. Continue tamsulosin 0.4 mg at bedtime, trazodone 50 mg at bedtime, pantoprazole 40 mg twice daily, singular 10 mg at bedtime at discharge. Total time spent on discharge 32 minutes in counseling, documentation, chart review, and direct care with patient. Exam Data for Last 24 hours Vital signs and Labs for Last 24 Hours: Temp Pulse Resp BP Pulse Ox O2 Del Method 97.8 F 89 18 115/65 96 Room Air 04/03/25 08:00 04/03/25 08:00 04/03/25 08:00 04/03/25 08:00 04/03/25 08:00 04/03/25 08:00 Laboratory Results - last 24 hr 04/02/25 09:53: WBC 9.3, RBC 5.64, Hgb 15.5, Hct 48.3, MCV 85.6, MCH 27.5, MCHC 32.1, RDW 13.0, Plt Count 205, MPV 10.4, Neut % (Auto) 70.0, Lymph % (Auto) 17.1, [place] % (Auto) 10.1 H, Eos % (Auto) 1.7, Baso % (Auto) 0.5, Neut # (Auto) 6.5, Lymph # (Auto) 1.6, [place] # (Auto) 0.9, Eos # (Auto) 0.2, Baso # (Auto) 0.1, D-Dimer 0.54 H, Sodium 136, Potassium 4.2, Chloride 108 H, Carbon Dioxide 20 L, Anion Gap 12.2, BUN 28 H, Creatinine 1.40 H, Estimated Creat Clear 79, Estimated GFR 51 L, Est GFR ( Amer) 62, Glucose 134 H, Calcium 9.2, Magnesium 2.0, Total Bilirubin 0.7, AST 30, ALT 33, Alkaline Phosphatase 96, Troponin I < 0.01, NT-Pro-B Natriuret Pep 36.2, Total Protein 7.5, Albumin 4.5, Globulin 3.0, Albumin/Globulin Ratio 1.5, Lipase 141, HCV Ab HANY w/Rflx PCR Qn Negative, HIV Ag/Ab Combo Qual Negative 04/02/25 17:02: POC Glucose 161 H 04/02/25 20:43: POC Glucose 150 H 04/03/25 06:00: WBC 8.7, RBC 5.69, Hgb 15.7, Hct 48.9, MCV 85.9, MCH 27.6, MCHC 32.1, RDW 13.1, Plt Count 204, MPV 10.6 H, Neut % (Auto) 67.3, Lymph % (Auto) 18.2, [place] % (Auto) 10.2 H, Eos % (Auto) 3.1, Baso % (Auto) 0.6, Neut # (Auto) 5.9, Lymph # (Auto) 1.6, [place] # (Auto) 0.9, Eos # (Auto) 0.3, Baso # (Auto) 0.1, Sodium 138, Potassium 4.5, Chloride 104, Carbon Dioxide 26, Anion Gap 12.5, BUN 26 H, Creatinine 1.60 H, Estimated Creat Clear 66, Estimated GFR 44 L, Est GFR ( Amer) 53 L, Glucose 125 H, Calcium 8.5, Magnesium 2.2, Total Bilirubin 0.7, AST 31, ALT 31, Alkaline Phosphatase 95, Total Protein 6.8, Albumin 4.7, Globulin 2.1, Albumin/Globulin Ratio 2.2 H 04/03/25 06:04: POC Glucose 114 H Temp Pulse Resp BP Pulse Ox 97.8 F 97 H 20 113/76 95 03/07/22 08:00 03/07/22 08:00 03/07/22 08:00 03/07/22 08:00 03/07/22 08:00 Laboratory Results - last 24 hr 03/06/22 12:31: SARS-CoV-2 (PCR) Not detected, Influenza A Untype (PCR) Not detected, Influenza Type B (PCR) Not detected 03/06/22 14:18: Troponin I < 0.01 03/06/22 14:46: POC Glucose 95 03/06/22 16:34: POC Glucose 116 H 03/06/22 18:54: Troponin I < 0.01 03/06/22 21:13: POC Glucose 109 03/07/22 06:20: POC Glucose 103 03/07/22 07:35: WBC 6.2, RBC 4.52 L, Hgb 11.5 L, Hct 35.1 L, MCV 77.5 L, MCH 25.4 L, MCHC 32.7, RDW 15.9, Plt Count 230, MPV 9.7, Neut % (Auto) 63.8, Lymph % (Auto) 23.7, [place] % (Auto) 8.6, Eos % (Auto) 3.0, Baso % (Auto) 0.9, Neut # (Auto) 4.0, Lymph # (Auto) 1.5, [place] # (Auto) 0.5, Eos # (Auto) 0.2, Baso # (Auto) 0.1 03/07/22 07:35: Sodium 141, Potassium 4.0, Chloride 107, Carbon Dioxide 25, Anion Gap 13.0, BUN 13, Creatinine 1.30 H, Estimated Creat Clear 88, Estimated GFR 56 L, Est GFR ( Amer) 68, Glucose 113 H D, Calcium 8.1 L, Magnesium 1.9, Total Bilirubin < 0.1 L, AST 33, ALT 30, Alkaline Phosphatase 80, Total Protein 5.8 L, Albumin 3.6 D, Globulin 2.2, Albumin/Globulin Ratio 1.6 I & O for Last 24 hours: Intake & Output 03/31/25 04/01/25 04/02/25 04/03/25 23:59 22:59 23:59 23:59 Intake Total 1040 / 1240 200 / 200 Output Total 2700 / 2850 325 / 325 Balance -1660 / -1610 -125 / -125 Weight 100.868 kg 100.272 kg Intake & Output 03/04/22 03/05/22 03/06/22 03/07/22 23:59 23:59 23:59 23:59 Intake Total 360 / 360 Output Total 0 / 0 0 / 0 Balance 360 / 360 0 / 0 Weight 104.326 kg Constitutional Constitutional: no acute distress, obese and cooperative *Routine HEENT Exam Head: Present normocephalic Eye: Present EOMI and PERRL ENT: Present mucous membranes moist *Routine Neck Exam Neck: Present supple; Absent lymphadenopathy *Routine Respiratory Exam Respiratory: Present CTA bilaterally and normal respiratory effort; Absent wheezes or crackles *Routine Cardiovascular Exam Cardiovascular: Present RRR, Normal S1 and Normal S2; Absent murmur *Routine Abdominal Exam Abdominal: Present soft and normoactive bowel sounds; Absent tenderness *Routine Rectal Exam Patient deferred: visual exam *Routine Exam Penile: Absent erythema *Routine Extremities Exam Extremities: Present full ROM; Absent cyanosis, clubbing or edema *Routine Skin Exam Skin: Present warm; Absent rash *Routine Neurological Exam Neurological: Present alert and oriented X3 Results Data Completed and Pending Labs on day of discharge: Labs from last 24 hours 04/03/25 04/03/25 04/02/25 06:04 06:00 20:43 WBC 8.7 RBC 5.69 Hgb 15.7 Hct 48.9 MCV 85.9 MCH 27.6 MCHC 32.1 RDW 13.1 Plt Count 204 MPV 10.6 H Neut % (Auto) 67.3 Lymph % (Auto) 18.2 [place] % (Auto) 10.2 H Eos % (Auto) 3.1 Baso % (Auto) 0.6 Neut # (Auto) 5.9 Lymph # (Auto) 1.6 [place] # (Auto) 0.9 Eos # (Auto) 0.3 Baso # (Auto) 0.1 D-Dimer Sodium 138 Potassium 4.5 Chloride 104 Carbon Dioxide 26 Anion Gap 12.5 BUN 26 H Creatinine 1.60 H Estimated Creat Clear 66 Estimated GFR 44 L Est GFR ( Amer) 53 L Glucose 125 H POC Glucose 114 H 150 H Calcium 8.5 Magnesium 2.2 Total Bilirubin 0.7 AST 31 ALT 31 Alkaline Phosphatase 95 Troponin I NT-Pro-B Natriuret Pep Total Protein 6.8 Albumin 4.7 Globulin 2.1 Albumin/Globulin Ratio 2.2 H Lipase HCV Ab HANY w/Rflx PCR Qn HIV Ag/Ab Combo Qual 04/02/25 04/02/25 17:02 09:53 WBC 9.3 RBC 5.64 Hgb 15.5 Hct 48.3 MCV 85.6 MCH 27.5 MCHC 32.1 RDW 13.0 Plt Count 205 MPV 10.4 Neut % (Auto) 70.0 Lymph % (Auto) 17.1 [place] % (Auto) 10.1 H Eos % (Auto) 1.7 Baso % (Auto) 0.5 Neut # (Auto) 6.5 Lymph # (Auto) 1.6 [place] # (Auto) 0.9 Eos # (Auto) 0.2 Baso # (Auto) 0.1 D-Dimer 0.54 H Sodium 136 Potassium 4.2 Chloride 108 H Carbon Dioxide 20 L Anion Gap 12.2 BUN 28 H Creatinine 1.40 H Estimated Creat Clear 79 Estimated GFR 51 L Est GFR ( Amer) 62 Glucose 134 H POC Glucose 161 H Calcium 9.2 Magnesium 2.0 Total Bilirubin 0.7 AST 30 ALT 33 Alkaline Phosphatase 96 Troponin I < 0.01 NT-Pro-B Natriuret Pep 36.2 Total Protein 7.5 Albumin 4.5 Globulin 3.0 Albumin/Globulin Ratio 1.5 Lipase 141 HCV Ab HANY w/Rflx PCR Qn Negative HIV Ag/Ab Combo Qual Negative DS: Diagnosis Discharge Diagnosis (1) Unstable angina: Status: Acute Code(s): I20.0 - Unstable angina (2) Elevated left ventricular end-diastolic pressure (LVEDP): Status: Acute Code(s): R94.30 - Abnormal result of cardiovascular function study, unspecified (3) Chest pressure: Status: Acute Code(s): R07.89 - Other chest pain (4) CKD (chronic kidney disease), stage III: Status: Acute Code(s): N18.30 - Chronic kidney disease, stage 3 unspecified (5) Diabetes mellitus: Status: Chronic Code(s): E11.9 - Type 2 diabetes mellitus without complications Qualifiers: Diabetes mellitus complication status: without complication Diabetes mellitus usp insulin use: without cops use Diabetes mellitus type: type 2 Qualified Code(s): E11.9 - Type 2 diabetes mellitus without complications (6) Coronary artery disease: Status: Chronic Code(s): I25.10 - Atherosclerotic heart disease of [place] coronary artery without angina pectoris Qualifiers: Associated angina: without angina Coronary Disease-Associated Artery/Lesion type: [place] artery [place] vs. transplanted heart: [place] heart Qualified Code(s): I25.10 - Atherosclerotic heart disease of [place] coronary artery without angina pectoris (7) Hypertension: Status: Chronic Code(s): I10 - Essential (primary) hypertension Qualifiers: Hypertension type: primary hypertension Qualified Code(s): I10 - Essential (primary) hypertension (8) HLD (hyperlipidemia): Status: Chronic Code(s): E78.5 - Hyperlipidemia, unspecified Qualifiers: Hyperlipidemia type: mixed hyperlipidemia Qualified Code(s): E78.2 - Mixed hyperlipidemia (9) Diastolic dysfunction: Status: Chronic Code(s): I51.89 - Other ill-defined heart diseases Meds Home Medications and Allergies Home Medications ?Medication ?Instructions ?Recorded ?Confirmed ?Type blood sugar diagnostic (Accu-Chek #100 ea 09/17/2208/22 Rx Rowena Plus test strips) nitroglycerin 0.4 mg sublingual 0.4 mg sublingual Q5-1 5M PRN Chest 07/17/24 04/02/25 Rx tablet Pain #30 tabs albuterol sulfate 90 mcg/actuation 2 puff inhalation Q 4-6H PRN 10/24/24 04/02/25 Rx aerosol inhaler shortness of breath or whe[place] ing #8.5 grams evolocumab 140 mg/mL subcutaneous 140 mg SQ Q2W #2 mL 11/02/24 04/02/25 Rx pen injector (Repfemia SureClick) blood sugar diagnostic (Blood #100 ea 01/09/25 5 Rx Glucose Test strips) blood-glucose meter (Blood Glucose #1 ea 01/09/2508/22 Rx Monitoring kit) lancets 28 gauge (Easy Touch #100 ea 01/09/25 04/02/25 Rx Lancets) pantoprazole 40 mg tablet,delayed 40 mg PO BID 90 days #180 tabs 01/12/25 04/02/25 Rx release atorvastatin 40 mg tablet (Lipitor) 40 mg PO HS 90 day s #90 tabs 02/28/25 04/02/25 Rx fluticasone propionate 50 2 spray intranasal DAILY All ergy 03/14/25 04/02/25 Rx mcg/actuation nasal symptoms 90 days #16 grams spray,suspension albuterol 90 mcg-budesonide 80 2 inh inhalation BID PA N Shortness 04/02/25 04/02/25 History mcg/actuation HFA aerosol inhaler Of Breath (Airsupra) ascorbic acid (vitamin C) 500 mg 500 mg PO DAILY 04/0204/02/25 History tablet (Vitamin C) blood-glucose meter (Accu-Chek #1 ea 04/02/25 04/02/25 History Guide Me Glucose Meter) clopidogrel 75 mg tablet 75 mg PO DAILY 04/02/2508/22 History empagliflozin 25 mg tablet 25 mg PO DAILY 04/02/2508/22 History (Jardiance) glipizide 10 mg tablet, extended 20 mg PO DAILY 04/02/25 History release 24 hr lancets (Accu-Chek Softclix #100 ea 04/02/25 04/02/25 History Lancets) losartan 25 mg tablet 25 mg PO DAILY 04/02/2508/22 History montelukast 10 mg tablet 10 mg PO HS 04/02/25 5 History tamsulosin 0.4 mg capsule 0.4 mg PO HS 04/02/25 History tirzepatide 5 mg/0.5 mL 5 mg SQ WEEKLY 04/02/2508/22 History subcutaneous pen injector (Mounjaro) trazodone 50 mg tablet 50 mg PO HS 04/02/25 5 History furosemide 40 mg tablet 40 mg PO MOWEFR 30 days #13 tabs 04/03/25 Rx metoprolol succinate 50 mg 25 mg (1/2 x 50 mg) PO BRINDA Y 30 04/03/25 04/02/25 Rx tablet,extended release 24 hr days #15 tabs New Prescriptions to Start Prescriptions: furosemide Nancy Jeffers Allergies Allergy/AdvReac Type Severity Reaction Status Date / Time No Known Allergies Allergy Verified 04/02/25 09:13 Discharge Plan Disposition Patient Disposition: Home, Self-Care Condition: Fair Follow up Plan Follow up with: Trevor Jeffers PA [Physician Installer [employer], Cardiology] - 04/17/25 2:30 pm Drew Walden MD [Primary Care Provider, Internal Medicine] - 04/11/25 10:00 am Prescriptions/Medication Reconciliation: New furosemide 40 mg Tablet 40 mg PO MOWEFR 30 Days Qty: 13 0RF Continued Repatha SureClick 140 mg/mL pen injector 140 mg SQ Q2W Qty: 2 5RF albuterol sulfate 90 mcg/actuation HFA aerosol inhaler 2 puff inhalation Q4-6H PRN (Reason: shortness of breath or wheezing) Qty: 8.5 3RF (DME) blood-glucose meter [Accu-Chek Guide Me Glucose Mtr] Misc See Rx Instructions .ROUTE .MEDSUPPLY Qty: 1 Patient Comments: USE DIRECTED Rx Instructions: As directed (DME) lancets [Accu-Chek Softclix Lancets] Misc See Rx Instructions .ROUTE .MEDSUPPLY Qty: 100 Patient Comments: USE DIRECTED TWICE DAILY Rx Instructions: As directed (DME) Accu-Chek Rowena Plus test strp Strip See Rx Instructions .Route Qty: 100 2RF Rx Instructions: Pt is to test BID prn nitroglycerin 0.4 mg tablet, sublingual 0.4 mg SUBLINGUAL Q5-15M PRN (Reason: Chest Pain) Qty: 30 1RF (DME) Blood Glucose Test Strip See Rx Instructions .ROUTE .MEDSUPPLY Qty: 100 2RF Rx Instructions: As directed (DME) blood-glucose meter [Blood Glucose Monitoring] Kit See Rx Instructions .ROUTE .MEDSUPPLY Qty: 1 0RF Rx Instructions: As directed (DME) lancets [Easy Touch Lancets] 28 gauge misc See Rx Instructions .Route Qty: 100 2RF Rx Instructions: As directed pantoprazole 40 mg tablet,delayed release (DR/EC) 40 mg PO BID 90 Days Qty: 180 0RF atorvastatin [Lipitor] 40 mg tablet 40 mg PO HS 90 Days Qty: 90 0RF fluticasone propionate 50 mcg/actuation spray,suspension 2 spray NS DAILY 90 Days Qty: 16 4RF Rx Instructions: 1 SPRAY EACH NOSTRIL glipizide 10 mg tablet extended release 24hr 20 mg PO DAILY Patient Comments: TAKE TWO TABLETS BY MOUTH EVERY DAY trazodone 50 mg tablet 50 mg PO HS Rx Instructions: TAKE ONE TABLET BY MOUTH EVERY DAY AT BEDTIME clopidogrel 75 mg tablet 75 mg PO DAILY ascorbic acid (vitamin C) [Vitamin C] 500 mg tablet 500 mg PO DAILY tamsulosin 0.4 mg capsule 0.4 mg PO HS losartan 25 mg tablet 25 mg PO DAILY montelukast 10 mg tablet 10 mg PO HS Jardiance 25 mg tablet 25 mg PO DAILY Mounjaro 5 mg/0.5 mL pen injector 5 mg SQ WEEKLY Rx Instructions: INJECT 5 MG (0.5 ML) SUBCUTANEOUSLY ONCE WEEKLY Airsupra 90-80 mcg/actuation HFA aerosol inhaler 2 inh inhalation BID PRN (Reason: Shortness Of Breath) Changed metoprolol succinate 50 mg tablet extended release 24 hr 25 mg PO DAILY 30 Days Qty: 15 0RF Problem Reconciliation Problems Reviewed?: Yes Patient Discharge Instructions ACTIVITY: Continue current activity and No heavy lifting DIET: advance to your usual diet and cardiac Patient Instructions: Cardiac Catheterization, Acute Coronary Syndrome, Surgical Site Infection, Cardiology Catheterization Patient / Family Discharge Instructions, Post TransRadial Cath Discharge Instructions Print Language: Occitan Providers Primary Care Provider: Drew Walden Admit Provider: Christopher Smith Attending Provider: Reed Delgado
[2025-04-03 08:35] LABS: Adenovirus,PCR Not Detected (NotDetected); Chlamydophila Pneumoniae, PCR Not Detected (NotDetected); Coronavirus 19, PCR Not Detected (NotDetected); Coronovirus HKU1,PCR Not Detected (NotDetected); Influenza A, PCR Not Detected (NotDetected); Influenza AH1, 2009 Not Detected (NotDetected); Influenza AH1, PCR Not Detected (NotDetected); Influenza AH3,PCR Not Detected (NotDetected); Influenza B, PCR Not Detected (NotDetected); Mycoplasma Pneumoniae, PCR Not Detected (NotDetected); Parainfluenza 1, PCR Not Detected (NotDetected); Parainfluenza 2, PCR Not Detected (NotDetected); Parainfluenza 3, PCR Not Detected (NotDetected); Parainfluenza 4, PCR Not Detected (NotDetected)
[2025-04-03 08:39] LABS: Thyroid Stimulating Hormone 3.54 uIU/mL (0.465-4.68)
--- NOTE | 2025-04-03 10:17 | EXP.CARD.CON ---
History of Present Illness History of Present Illness Consult date: 04/03/25 Requesting physician: Reed Delgado Consult reason: chest pain and shortness of breath Chief complaint: chest pain, SOA Additional Medical History:: 1. CAD is present. -Medical mgt (FEB 2022) -Hx of SOHEILA in 2017 with STEMI. -On Plavix 2. HLD-LDL goal is < 55, LDL is 88 10/2024 in On statin therapy and repatha. 3. Mitral regurg-mild to moderate, stable (FEB 2022) Echo EF 55% 4. GERD is present. On protonix 5. DM2, A1c 8.6 % (01/2024) 6. MARIELENA, treated History of present illness: 64-year-old white male seen in the office yesterday for chest pain with radiation to the jaw and left arm along with shortness of breath with known history of prior coronary disease and stenting subsequently sent to the ER for further evaluation. Due to symptoms and prior history patient was taken to the cardiac [employer] and underwent cardiac catheterization which revealed stable coronary disease with widely patent stents but severe to critically elevated left ventricular end-diastolic pressure at 45 mmHg. Subsequently admitted for IV diuretics. Patient did put out just under 2 L of fluid overnight and is feeling better this morning with hopes that he can go home. [facility] Disclaimer: The information contained in this section may have been updated after the patient was seen, as this information can be updated by other users. 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 Hernia Diastolic dysfunction HLD (hyperlipidemia) Diabetes mellitus Coronary artery disease Type 2 diabetes mellitus with hyperglycemia Hypertension Surgical History History of colonoscopy History of esophagogastroduodenoscopy (EGD) Hx of cardiac cath H/O removal of cyst History of appendectomy Family History Other Family history of Alzheimer's disease Family history of acute heart failure Family history of arthritis Family history of cataracts Family history of diabetes mellitus type II Family history of gout Family history of hypertension Family history of myocardial infarction Family history of prostate cancer Prostate cancer Social History (Updated 04/02/25 @ 13:20 by Camelia Brower RN) Smoking Status: Former smoker tobacco type: cigarettes second hand exposure: No alcohol intake: current alcohol intake frequency: holidays/special occasions only substance use type: denies use current occupational status: employed Travel in the last 8 weeks?: Inside the [place] household members: spouse housing: house 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 current occupational exposures/hazards: No caffeine: Yes Have you lived/traveled outside US in past 30 days?: No Contact w/someone who lives/traveled outside US past 30 days?: No Exposure to someone with infectious disease in past 14 days?: No Do you have a fever (greater than 100.4 F or 38 C)?: No Have you tested positive for COVID-19?: No Exposed to someone with COVID-19 in past 14 days?: No Do you have a sore throat?: No Do you have a cough?: No Do you have any weakness?: No Are you experiencing any nausea/vomitting?: No Do you have any diarrhea?: No Are you experiencing any unusual bleeding?: No Do you have any muscle aches/pain?: No Do you have any abdominal pain?: No Are you experiencing loss of taste or smell?: No Review of Systems Review of Systems Review of systems:: pertinent systems reviewed and negative unless documented below Constitutional Constitutional: Denies weakness *Cardiovascular Cardiovascular: Reports chest pain and Reports dyspnea *Respiratory Respiratory: Reports dyspnea *Musculoskeletal Musculoskeletal: Denies numbness *Neurologic Neurologic: Denies confusion, Denies localized weakness, Denies numbness and Denies weakness Psychiatric Psychiatric: Denies confusion Exam Data for Last 24 hours Vital signs and Labs for Last 24 Hours: Temp Pulse Resp BP Pulse Ox O2 Del Method 97.8 F 89 18 115/65 96 Room Air 04/03/25 08:00 04/03/25 08:00 04/03/25 08:00 04/03/25 08:00 04/03/25 08:00 04/03/25 08:00 Laboratory Results - last 24 hr 04/02/25 09:53: D-Dimer 0.54 H, Sodium 136, Potassium 4.2, Chloride 108 H, Carbon Dioxide 20 L, Anion Gap 12.2, BUN 28 H, Creatinine 1.40 H, Estimated Creat Clear 79, Estimated GFR 51 L, Est GFR ( Amer) 62, Glucose 134 H, Calcium 9.2, Magnesium 2.0, Total Bilirubin 0.7, AST 30, ALT 33, Alkaline Phosphatase 96, Troponin I < 0.01, NT-Pro-B Natriuret Pep 36.2, Total Protein 7.5, Albumin 4.5, Globulin 3.0, Albumin/Globulin Ratio 1.5, Lipase 141, HCV Ab HANY w/Rflx PCR Qn Negative, HIV Ag/Ab Combo Qual Negative 04/02/25 17:02: POC Glucose 161 H 04/02/25 20:43: POC Glucose 150 H 04/03/25 06:00: WBC 8.7, RBC 5.69, Hgb 15.7, Hct 48.9, MCV 85.9, MCH 27.6, MCHC 32.1, RDW 13.1, Plt Count 204, MPV 10.6 H, Neut % (Auto) 67.3, Lymph % (Auto) 18.2, Atkinson % (Auto) 10.2 H, Eos % (Auto) 3.1, Baso % (Auto) 0.6, Neut # (Auto) 5.9, Lymph # (Auto) 1.6, Atkinson # (Auto) 0.9, Eos # (Auto) 0.3, Baso # (Auto) 0.1, Sodium 138, Potassium 4.5, Chloride 104, Carbon Dioxide 26, Anion Gap 12.5, BUN 26 H, Creatinine 1.60 H, Estimated Creat Clear 66, Estimated GFR 44 L, Est GFR ( Amer) 53 L, Glucose 125 H, Calcium 8.5, Magnesium 2.2, Total Bilirubin 0.7, AST 31, ALT 31, Alkaline Phosphatase 95, Total Protein 6.8, Albumin 4.7, Globulin 2.1, Albumin/Globulin Ratio 2.2 H, TSH 3.54 04/03/25 06:04: POC Glucose 114 H 04/03/25 08:30: Chlamy pneumoniae PCR Not detected, Adenovirus (PCR) Not detected, B. pertussis DNA (PCR) Not detected, Coronavirus OC43 (PCR) Not detected, Coronavirus HKU1 (PCR) Not detected, Coronavirus 229E (PCR) Not detected, SARS-CoV-2 (PCR) Not detected, Coronavirus NL63 (PCR) Not detected, Human Metapneumovir PCR Not detected, Influenza A (H1) PCR Not detected, Influ A (H1N1/09) PCR Not detected, Influenza A (H3) PCR Not detected, Influenza Type A (PCR) Not detected, Influenza Type B (PCR) Not detected, M. pneumoniae (PCR) Not detected, Parainfluenza 1 (PCR) Not detected, Parainfluenza 2 (PCR) Not detected, Parainfluenza 3 (PCR) Not detected, Parainfluenza 4 (PCR) Not detected, RSV (PCR) Not detected, Entero/Rhino (PCR) Not detected I & O for Last 24 hours: Intake & Output 03/31/25 04/01/25 04/02/25 04/03/25 11:59 10:59 11:59 11:59 Intake Total 1840 / 1840 Output Total 3025 / 3025 Balance -1185 / -1185 Weight 230 lb 221 lb 1 oz Constitutional Constitutional: no acute distress *Routine Respiratory Exam Respiratory: Present CTA bilaterally *Routine Cardiovascular Exam Cardiovascular: Present RRR; Absent murmur, gallop or rubs *Routine Extremities Exam Extremities: Absent edema Meds Home Medications and Allergies Home Medications ?Medication ?Instructions ?Recorded ?Confirmed ?Type blood sugar diagnostic (Accu-Chek #100 ea 09/17/22 04/02/25 Rx Rowena Plus test strips) nitroglycerin 0.4 mg sublingual 0.4 mg sublingual Q5-15M PRN Chest 07/17/24 04/02/25 Rx tablet Pain #30 tabs albuterol sulfate 90 mcg/actuation 2 puff inhalation Q4-6H PRN 10/24/24 04/02/25 Rx aerosol inhaler shortness of breath or wheezing #8.5 grams evolocumab 140 mg/mL subcutaneous 140 mg SQ Q2W #2 mL 11/02/24 04/02/25 Rx pen injector (Repatha SureClick) blood sugar diagnostic (Blood #100 ea 01/09/25 04/02/25 Rx Glucose Test strips) blood-glucose meter (Blood Glucose #1 ea 01/09/25 04/02/25 Rx Monitoring kit) lancets 28 gauge (Easy Touch #100 ea 01/09/25 04/02/25 Rx Lancets) pantoprazole 40 mg tablet,delayed 40 mg PO BID 90 days #180 tabs 01/12/25 04/02/25 Rx release atorvastatin 40 mg tablet (Lipitor) 40 mg PO HS 90 days #90 tabs 02/28/25 04/02/25 Rx fluticasone propionate 50 2 spray intranasal DAILY Allergy 03/14/25 04/02/25 Rx mcg/actuation nasal symptoms 90 days #16 grams spray,suspension albuterol 90 mcg-budesonide 80 2 inh inhalation BID PRN Shortness 04/02/25 04/02/25 History mcg/actuation HFA aerosol inhaler Of Breath (Airsupra) ascorbic acid (vitamin C) 500 mg 500 mg PO DAILY 04/02/25 04/02/25 History tablet (Vitamin C) blood-glucose meter (Accu-Chek #1 ea 04/02/25 04/02/25 History Guide Me Glucose Meter) clopidogrel 75 mg tablet 75 mg PO DAILY 04/02/25 04/02/25 History empagliflozin 25 mg tablet 25 mg PO DAILY 04/02/25 04/02/25 History (Jardiance) glipizide 10 mg tablet, extended 20 mg PO DAILY 04/02/25 04/02/25 History release 24 hr lancets (Accu-Chek Softclix #100 ea 04/02/25 04/02/25 History Lancets) losartan 25 mg tablet 25 mg PO DAILY 04/02/25 04/02/25 History metoprolol succinate 50 mg 50 mg PO DAILY 04/02/25 04/02/25 History tablet,extended release 24 hr montelukast 10 mg tablet 10 mg PO HS 04/02/25 04/02/25 History tamsulosin 0.4 mg capsule 0.4 mg PO HS 04/02/25 04/02/25 History tirzepatide 5 mg/0.5 mL 5 mg SQ WEEKLY 04/02/25 04/02/25 History subcutaneous pen injector (Mounjaro) trazodone 50 mg tablet 50 mg PO HS 04/02/25 04/02/25 History furosemide 40 mg tablet 40 mg PO MOWEFR 30 days #13 tabs 04/03/25 Rx New Prescriptions to Start Prescriptions: Nancy Hutchison Allergies Allergy/AdvReac Type Severity Reaction Status Date / Time No Known Allergies Allergy Verified 04/02/25 09:13 Assessment and Plan *Assessment and plan (1) Unstable angina: Status: Acute Category: Medical Code(s): I20.0 - Unstable angina (2) Elevated left ventricular end-diastolic pressure (LVEDP): Status: Acute Category: Medical Code(s): R94.30 - Abnormal result of cardiovascular function study, unspecified (3) CKD (chronic kidney disease), stage III: Status: Acute Qualifiers: Chronic kidney disease stage 3 subtype: stage 3a (GFR 45-59) Qualified Code(s): N18.31 - Chronic kidney disease, stage 3a Category: Medical Code(s): N18.30 - Chronic kidney disease, stage 3 unspecified (4) History of myocardial infarction: Status: Chronic Category: Medical Code(s): I25.2 - Old myocardial infarction (5) History of coronary artery stent placement: Status: Chronic Category: Surgical Code(s): Z95.5 - Presence of coronary angioplasty implant and graft (6) Acute heart failure with preserved ejection fraction (HFpEF): Status: Acute Category: Medical Code(s): I50.31 - Acute diastolic (congestive) heart failure (7) Diabetes mellitus: Status: Chronic Qualifiers: Diabetes mellitus complication status: without complication Diabetes mellitus machinist first class insulin use: without chcf use Diabetes mellitus type: type 2 Qualified Code(s): E11.9 - Type 2 diabetes mellitus without complications Category: Medical Code(s): E11.9 - Type 2 diabetes mellitus without complications (8) HLD (hyperlipidemia): Status: Chronic Qualifiers: Hyperlipidemia type: mixed hyperlipidemia Qualified Code(s): E78.2 - Mixed hyperlipidemia Category: Medical Code(s): E78.5 - Hyperlipidemia, unspecified (9) Hypertension: Status: Chronic Qualifiers: Hypertension type: primary hypertension Qualified Code(s): I10 - Essential (primary) hypertension Category: Medical Code(s): I10 - Essential (primary) hypertension (10) Diastolic dysfunction: Status: Chronic Category: Medical Code(s): I51.89 - Other ill-defined heart diseases Plan 1. Unstable angina felt secondary to elevated LVEDP at 45 mm number -LHC showed widely patent coronary arteries and stents. -Admitted for IV diuresis -Diuresed nearly 2 L with chest pain/shortness of breath resolved 2. CAD with history of STEMI/coronary stents in 2017, widely patent this admission -plavix and statin/repatha -LDL 3. HFpEF/hypertension -On metoprolol, losartan, Jardiance -Add Lasix three times per week -Hold spironolactone due to CKD with mild KEAGAN this admission 4. CKD, stage 3a -Cr 1.3-1.4 at baseline, today 1.6 after diuresis 5. HTN -recent BP's on the low side -will reduce metoprolol to 25 mg daily 6. HLD -on statin and repatha -LDL <30, 01/2025 Stable from cardiac standpoint for discharge home. Medication recommendations: Plavix 75 mg daily Lipitor 40 mg daily Repatha as directed Losartan 25 mg daily Jardiance 25 mg daily Reduce metoprolol succinate 50 mg to 1/2 tablet daily due to borderline low blood pressure Start Lasix 40 mg 3 days/week Discussed reducing his soda intake (Heather 8) Follow-up in the office in 1 to 2 weeks and consider adding either spironolactone or Kerendia
[2025-04-03 11:11] LABS: POC Glucose,Bedside 88 gm/dL (70-110)
[2025-04-03 11:25] VITALS: BP 113/74; BP 118/73; BP 120/72; PULSE 80; PULSE 83; PULSE 86
[2025-04-03 12:00] VITALS: BP 124/74; PULSE 80; PULSE 84; RESP 18; TEMP 36.6; O2SAT 96
--- NOTE | 2025-04-04 10:15 | SW/DCPLANNER ---
Spoke with patient on the phone. Patient stated that he is doing well. Patient stated that he is aware of his upcoming appointments. Patient stated that he was able to get his new medicine picked up from clinic pharmacy. Patient stated that he has no concerns or questions at this time. Virgilio Marr
== END 2025-04-03 13:28 | disposition home or self-care (01) ==
LOC: ER 10:22 → CATHLAB 10:26 → 2ND 12:40
PROVIDERS: Nurse Practitioner; Student in an Organized Health Care Education/Training Program; Admitting Provider Internal Medicine; Emergency Provider Student in an Organized Health Care Education/Training Program; PCP Family Medicine; Visit Provider Internal Medicine Adolescent Medicine
PROC: 4A023N7 Measurement of Cardiac Sampling and Pressure, Left Heart, Percutaneous Approach (ICD-10-PCS; CPT 93452; principal; 2025-04-02 13:30)
DX: I25.110 Atherosclerotic heart disease of native coronary artery with unstable angina pectoris (principal); I13.0 Hypertensive heart and chronic kidney disease with heart failure and stage 1 through stage 4 chronic kidney disease, or unspecified chronic kidney disease; I50.31 Acute diastolic (congestive) heart failure; E11.22 Type 2 diabetes mellitus with diabetic chronic kidney disease; N18.30 Chronic kidney disease, stage 3 unspecified; R94.30 Abnormal result of cardiovascular function study, unspecified; E78.2 Mixed hyperlipidemia; J44.9 Chronic obstructive pulmonary disease, unspecified; R42 Dizziness and giddiness; R06.02 Shortness of breath; R20.0 Anesthesia of skin; R20.2 Paresthesia of skin; K21.9 Gastro-esophageal reflux disease without esophagitis; I25.2 Old myocardial infarction; Z79.899 Other long term (current) drug therapy; Z79.84 Long term (current) use of oral hypoglycemic drugs; Z79.85 Long-term (current) use of injectable non-insulin antidiabetic drugs; Z95.5 Presence of coronary angioplasty implant and graft; Z87.891 Personal history of nicotine dependence; Z79.02 Long term (current) use of antithrombotics/antiplatelets; I34.0 Nonrheumatic mitral (valve) insufficiency
CPT/HCPCS: 0223U; 36415; 71045; 80053; 82962; 83690; 83735; 83880; 84443; 84484; 85025; 85378; 86803; 87389; 93005; 93308; 93458; 96372; 99152; 99285; C1725; C1769; G0378; J1200; J1644; J1650; J1938; J2250; J2270; J2405; J3010; J7040; Q9967

== ENCOUNTER 2025-04-10 14:05 | Outpatient (CLI) | payer BC, OTHER, SELFPAY ==
--- OUTSIDE RECORDS SUMMARY | 2024-09-02 16:30 | XMS_ITS ---
Author Organization [facility] JESSICA Address [address] [place] [address] Care Team Providers Care Medical Office Worker Name Role Phone Piyush Malik Primary Care Provider [phone] Migration, Provider Unavailable Unavailable REASON FOR VISIT [facility] To [facility] Conversion Encounter Medications Medication SIG (Take, Route, Frequency, Duration) Notes Start Date End Date Status Atorvastatin Calcium 80 MG 1 tab(s) orally once a day; Duration: 90 days Active Meloxicam 7.5 MG 1 tab(s) orally once a day; Duration: 90 Active ACCU-CHECK AVIA PLUS TEST STRIPS 1 TEST STRIP FINGERSTICK TWICE TO THREE TIMES DAILY; Duration: 30 DAYS *Please review for potential replacement for e-prescription and drug interaction check* Active C-PAP MASK AND SUPPLIES DIRECTED; Duration: 30 DAYS *Please review for potential replacement for e-prescription and drug interaction check* 05/06/2021 Active Nitrostat 0.4 MG 1 tab(s) sublinguall y every 5 minutes Active Plavix 75 MG 1 tab(s) orally once a day Active GLIPIZIDE XL 5 MG 1 TAB(S) ORALLY ONCE A DAY *Please review for potential replacement for e-prescription and drug interaction check* Active ONE TOUCH DELICA LANCET 33G FOR DIABETIC TESTING ONCE DAILY; Duration: 30 DAYS diagnosis: E11.9 *Please review for potential replacement for e-prescription and drug interaction check* 06/20/2019 Active Metoprolol Succinate ER 50 MG 1 tab(s) orally once a day; Duration: 30 day(s) Active ACCU-CHECK VICENTE DIRECTED GLUCOMETER DX: E11.69 *Please review for potential replacement for e-prescription and drug interaction check* 06/17/2018 Active Mounjaro 2.5 MG/0.5 ML DIRECTED SUBCUTANEOUSLY ONCE A WEEK *Please review and pick correct strength[facility]ati [facility]. If intended option is not shown, discontinue and re-order from Quick Search* Active Vitamin C 500 MG 1 tab(s) orally once a day Active traZODone HCl 50 MG 1 tab(s) orally once a day at bedtime; Duration: 90 days Active Jardiance 25 MG TAKE ONE TABLET BY MOUTH EVERY DAY IN THE MORNING; Duration: 30 Active Breo Ellipta 200 MCG-25 MCG/INH INHALE 1 PUFF BY MOUTH EVERY DAY; Duration: 30 *Please review and pick correct strength-formulati [facility] options. If intended option is not shown, discontinue and re-order from Quick Search* Active Losartan Potassium 25 MG 1 tab(s) orally once a day; Duration: 90 days Active Montelukast Sodium 10 MG 1 tab(s) orally once a day; Duration: 90 days Active Tamsulosin HCl 0.4 MG 1 cap(s) orally once a day; Duration: 90 days Active Pantoprazole Sodium 40 MG TAKE ONE TABLET BY MOUTH TWICE DAILY; Duration: 90 Active Encounters Encounter Location Date Provider Diagnosis [facility] PED JESSICA [address] [facility] [address] [place] [address] 09/02/2024 Provider Migration Plan Of Treatment No Information Progress Notes * Santhosh DENIS CDOB: [birth year] (64 yo M)Acc No.[id number]:09/02/2024 Patient: Santhosh MURPHY [place] Provider: Shama zhang Migration :1960 A ge:64 Y S ex:Male Date:09/02/2024 [facility] [place], [id number] Pcp:Piyush Malik Subjective: * Chief Complaints: * [facility] . [facility] Encounter. * Medical History: * Medications: T aking Vitamin C 500 MG Tablet 1 tab(s) orally once a day , Taking Mounjaro 2.5 MG/0.5 ML SOLUTION DIRECTED SUBCUTANEOUSLY ONCE A WEEK , Notes to Pharmacist: *Please review and pick correct strength-formulation from [employer] options. If intended option is not shown, discontinue and re-order from Quick Search*, Taking GLIPIZIDE XL 5 MG TABLET, EXTENDED RELEASE 1 TAB(S) ORALLY ONCE A DAY , Notes to Pharmacist: *Please review for potential replacement for e-prescription and drug interaction check*, Taking Plavix 75 MG Tablet 1 tab(s) orally once a day , Taking ACCU- CHECK VICENTE DIRECTED GLUCOMETER DX: E11.69 , Notes to Pharmacist: *Please review for potential replacement for e-prescription and drug interaction check*, Taking Metoprolol Succinate ER 50 MG Tablet Extended Release 24 Hour 1 tab(s) orally once a day , Taking ONE TOUCH DELICA LANCET 33G FOR DIABETIC TESTING ONCE DAILY , Notes to Pharmacist: diagnosis: E11.9 *Please review for potential replacement for e-prescription and drug interaction check*, Taking Nitrostat 0.4 MG Tablet Sublingual 1 tab(s) sublingually every 5 minutes , Taking C-PAP MASK AND SUPPLIES DIRECTED , Notes to Pharmacist: *Please review for potential replacement for e-prescription and drug interaction check*, Taking ACCU-CHECK AVIA PLUS TEST STRIPS 1 TEST STRIP FINGERSTICK TWICE TO THREE TIMES DAILY , Notes to Pharmacist: *Please review for potential replacement for e-prescription and drug interaction check*, Taking Meloxicam 7.5 MG Tablet 1 tab(s) orally once a day , Taking Atorvastatin Calcium 80 MG Tablet 1 tab(s) orally once a day , Taking Tamsulosin HCl 0.4 MG Capsule 1 cap(s) orally once a day , Taking Montelukast Sodium 10 MG Tablet 1 tab(s) orally once a day , Taking Losartan Potassium 25 MG Tablet 1 tab(s) orally once a day , Taking Pantoprazole Sodium 40 MG Tablet Delayed Release TAKE ONE TABLET BY MOUTH TWICE DAILY , Taking Breo Ellipta 200 MCG-25 MCG/INH POWDER INHALE 1 PUFF BY MOUTH EVERY DAY , Notes to Pharmacist: *Please review and pick correct strength-formulation from [employer] options. If intended option is not shown, discontinue and re-order from Quick Search*, Taking Jardiance 25 MG Tablet TAKE ONE TABLET BY MOUTH EVERY DAY IN THE MORNING , Taking traZODone HCl 50 MG Tablet 1 tab(s) orally once a day at bedtime Objective: * Vitals: Assessment: Plan: * Treatment: * * Electronic signature of Jackson rendonr Migration on 04/11/2025 at 01:46 PM EST Sign off status: Pending * Provider: Shama zhang Migration Date: 0 09/02/2024 Generated for Alexandrea krishna/Jarad/Jan on: 1 06/11/2024 01:46 PM EST
[2025-04-10 17:08] LABS: Hematocrit 49.8 % (42.0-52.0); Hemoglobin 15.8 g/dL (14.1-18.0); Immature Granulocytes % 0.6 %; Mean Corpuscular HGB Conc 31.7 g/dL (31.8-35.4); Mean Corpuscular Hemoglobin 27.7 pg (27.0-31.2); Mean Corpuscular Volume 87.2 fl (80-94); Nucleated Red Blood Cells % 0 %; Platelet Count 226 K/mm3 (142-424); Red Blood Count 5.71 M/mm3 (4.60-6.20); Red Cell Distribution Width-SD 41.8 fL; White Blood Count 8.7 K/mm3 (4.8-10.8)
[2025-04-10 17:42] LABS: Anion Gap 16.5 mEq/L (5-15); Blood Urea Nitrogen 22 mg/dl (9-20); Calcium 9.5 mg/dl (8.4-10.2); Carbon Dioxide 24 mmol/L (22.0-30.0); Chloride 101 mmol/L (98-107); Creatinine,Serum 1.40 mg/dl (0.66-1.25); Estimated Glomerular Filt Rate 51 ml/min (>60); GFR (African American) 62 ML/MIN (>60); Glucose 171 mg/dl (74-100); Potassium 4.5 mmoL/L (3.5-5.1); Sodium 137 mmol/L (136-145)
--- OUTSIDE RECORDS SUMMARY | 2025-04-11 13:46 | XMS_ITS | Clinical Summary ---
Author Organization Healthcare Address [address] [id number] Care Team Providers Care Mud Jack Nozzleman Name Role Phone Anna Wheeler Primary Care Provider [phone] Immunizations Immunization Administration Dates Next Due Influenza, [...] of Treatment Not on file Care Teams Mud Jack Nozzleman Relationship Specialty Start Date End Date Anna Wheeler PA [address] [place] [address] [address] PCP - General 10/11/20
--- OUTSIDE RECORDS SUMMARY | 2025-04-11 13:46 | XMS_ITS | Clinical Summary ---
Author Organization [facility] Address [address] [place] [address] Care Team Providers Care Greens Tier Name Role Phone Piyush Malik MD Primary Care Provider Allergies No known active allergies Medications clopidogrel [...] Hypertension 09/27/2017 Coronary artery disease invo lving [place] coronary artery without angina pectoris 09/27/2017 Family [...] INFLUENZA VACCINE 12/29/2024 Insurance EMPLOYEE Care Teams Greens Tier Relationship Specialty Start Date End Date Piyush Malik MD [address] [place] [address] PCP - General Adolescent Medicine 08/27/17
--- OUTSIDE RECORDS SUMMARY | 2025-04-11 13:47 | XMS_ITS | Patient Health Record ---
Author Organization [facility] JESSICA Address [address] [place] [address] [place] [address] Care Team Providers Care Production Control Clerk Name Role Phone Yohannescornelia Piyush Primary Care Provider Mague Cruz Unavailable [phone] Migration, Provider Unavailable Unavailable Allergies No Known [...] review and pick correct strength-formulati on from Kairos options. If intended option is not shown, [...] review and pick correct strength-formulati on from Kairos options. If intended option is not shown, [...] W/U Status Risk Notes Problem Viral wart (76575151) Other viral warts (B07.8) Active confirmed Problem Type 2 diabetes mellitus with other specified complication (E11.69) Active confirmed Problem Old myocardial infarction (7959287) Old myocardial infarction (I25.2) Active confirmed Problem Essential hypertension (99041336) Hypertension, essential (I10) Active confirmed Problem Acute exacerbation of chronic obstructive airways disease (603649202) COPD exacerbation (J44.1) Active confirmed Problem Obesity (846262126) Obesity (BMI 30-39.9) (E66.9) Active confirmed Problem Gastroesophageal reflux disease without esophagitis (042143854) Gastroesophageal reflux disease without esophagitis (K21.9) Active confirmed Problem Atherosclerosis of coronary artery without angina pectoris (436714295988142) Atherosclerosis of nenana coronary artery of nenana heart without angina pectoris (I25.10) Active confirmed Problem Pulmonary emphysema (11227058) Pulmonary emphysema, unspecified emphysema type (J43.9) Active confirmed Problem Acute prostatitis (72965989) Prostatitis, acute (N41.0) Active confirmed Problem Chronic bronchiolitis (039056331) Chronic bronchiolitis (J44.9) Active confirmed Problem Lower urinary tract symptoms due to benign prostatic hypertrophy (10286413351554) Benign non-nodular prostatic hyperplasia with lower urinary tract symptoms (N40.1) Active confirmed Problem Urinary hesitancy (5940420) Urinary hesitancy (R39.11) Active confirmed Problem 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 confirmed Problem Atherosclerosis of coronary artery (294960238) Atherosclerosis of nenana coronary artery of nenana heart with other form of angina pectoris (I25.118) Active confirmed Problem Left ventricular diastolic dysfunction (752275044) Diastolic CHF with preserved left ventricular function, NYHA class 2 (I50.30) Active confirmed Problem Gastroesophageal reflux disease (disorder) (470045910) Chronic GERD (K21.9) Active confirmed Problem Type II diabetes mellitus without complication (505307842) Type 2 diabetes mellitus without complication, without long-term current use of insulin (E11.9) Active confirmed Problem Obstructive sleep apnea syndrome (09633252) MARIELENA on CPAP (G47.33) Active confirmed Problem Gastro-esophageal reflux (832485646) Gastro-esophageal reflux (K21.9) Active confirmed Problem Tobacco use (771440542) Tobacco use disorder (F17.200) Active confirmed Problem Type II diabetes mellitus without complication (227560807) Controlled type 2 diabetes mellitus without complication, without long-term current use of insulin (E11.9) Active confirmed Problem Type II diabetes mellitus without complication (285296038) Controlled type 2 diabetes mellitus without complication, unspecified residential insulin use status (E11.9) Active confirmed Problem Benign neoplasm of colon (55935171) Adenomatous polyp of colon, unspecified part of colon (D12.6) Active confirmed Problem Acute ST segment elevation myocardial infarction due to right coronary artery occlusion (57076588646255629) ST elevation myocardial infarction involving right coronary artery (I21.11) Active confirmed Problem History of circulatory system disease (917312482) History of coronary artery disease (Z86.79) Active confirmed Problem Skin cancer (257425389) Skin cancer (C44.90) Active confirmed Problem Stented coronary artery (375930070) Stented coronary artery (Z95.5) Active confirmed Vital Signs Heart Rate 88 /min 08/16/2024 Temperature 97.6 degrees Fahrenheit 08/16/2024 Blood pressure diastolic 80 mm Hg 08/16/2024 Height 5 ft 6 in in 08/16/2024 Blood pressure systolic 125 mm Hg 08/16/2024 Weight 233 lbs 08/16/2024 BMI 37.6 kg/m2 08/16/2024 Encounters Encounter Location Date Provider Diagnosis [place] [facility] [place] [address] [place] [address] [place] [address] 09/02/2024 Provider Migration [place] [facility] ISAIAH [address] [facility] [address] [place] [address] 08/16/2024 Mague Cruz 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 Z02.4 ; Atherosclerosis of nenana coronary artery of nenana heart without angina pectoris I25.10 ; Type 2 diabetes mellitus with other specified complication E11.69 and MARIELENA on CPAP G47.33 Assessments Encounter Date Diagnosis (ICD Code) Assessment Notes Treatment Notes Treatment Clinical Notes Section Notes 08/16/2024 Atherosclerosis of nenana coronary artery of nenana heart without angina pectoris (ICD-10 - I25.10) [...] : Event Recorder 07/19/19 18 Physical Therapy 07/29/2018 Physical Therapy 08/03/2018 Dietary Consult 06/06/2018 H-H.PYLORI ANTIGEN 03/16/2017 M-Complete Blood Count Man Dif CT Scan : Chest, Lung Cancer Screening 1 M-COVID PCR SINGLE RAPID 01/08/2020 Insurance Providers Payer Name Payer Address Payer Phone Subscriber Number Group Number Insured Name Patient Relationship to Insured Coverage Start Date Coverage End Date [facility] [address] [place] [address] [id number] Santhosh Denis Self - patient is the insured [facility] CLAIM[facility] [address] [place] [address] [id number] Santhosh Denis Self - patient is the [...] (General) History Medical History History ICD Code [place] HLD HTN GERD STEMI 2016, followed by [...] 04/2018 hyperglycemia 03/2018 chest pain/acid reflux 2006 [place] 07/2016
== END 2025-04-10 23:59 | disposition home or self-care (01) ==
LOC: LAB.DROPOF 04-11 13:29
PROVIDERS: PCP Family Medicine; Visit Provider Family Medicine
DX: I10 Essential (primary) hypertension (principal)
CPT/HCPCS: 80048; 85025

== ENCOUNTER 2025-04-17 15:33 | Outpatient (CLI) | payer BC, OTHER, SELFPAY ==
[2025-04-17 18:03] LABS: Anion Gap 14.3 mEq/L (5-15); Blood Urea Nitrogen 25 mg/dl (9-20); Calcium 9.6 mg/dl (8.4-10.2); Carbon Dioxide 24 mmol/L (22.0-30.0); Chloride 104 mmol/L (98-107); Creatinine,Serum 1.30 mg/dl (0.66-1.25); Estimated Glomerular Filt Rate 56 ml/min (>60); GFR (African American) 67 ML/MIN (>60); Glucose 126 mg/dl (74-100); Magnesium 2.4 mg/dl (1.6-2.3); Potassium 4.3 mmoL/L (3.5-5.1); Sodium 138 mmol/L (136-145)
[2025-04-17 18:10] LABS: NT Pro Brain Natriuretic Pep. < 20.0 pg/mL (0-125)
--- OUTSIDE RECORDS SUMMARY | 2025-04-17 19:20 | XMS_ITS | Data Portability ---
Author Organization [facility] [place] [facility] Address [address] [facility] [address] [place] [address] Assessment No assessment recorded. Plan of Treatment [...] 13:27 Page 1 of 1 Not Available [facility], [place], [address], 04/20/2023 13:27:20 Result Notes None recorded. Medical [...] ICD10 Code Diagnosis IMO Codes Diagnosis Note [id number] URMILA CAI MD SURGERY SCHEDULE [address] [place] [address] 04/19/2023 07:27:38 04/19/2023 07:34:48 Health Concerns Section Related Observation LastModified by Organization Detai ls LastModified Time None Recorded Concern Status LastModified by Organization Details LastModified Time None Recorded Advance Directives Directive None Recorded Payers Insurance Date Sequence Insurance Name Policy Number Policy Figueroa Covered Member ID Figueroa Member ID Guarantor Name 04/27/2023 1 [place] [id number] Santhosh Denis [id number] Santhosh Denis
== END 2025-04-17 23:59 | disposition home or self-care (01) ==
LOC: LAB 15:34
PROVIDERS: PCP Family Medicine; Visit Provider Physician Assistant
DX: E78.5 Hyperlipidemia, unspecified (principal); I10 Essential (primary) hypertension; I25.10 Atherosclerotic heart disease of native coronary artery without angina pectoris; I25.2 Old myocardial infarction
CPT/HCPCS: 36415; 80048; 83735; 83880

== ENCOUNTER 2025-04-24 17:10 | Outpatient (CLI) | payer BC, OTHER, SELFPAY ==
--- OUTSIDE RECORDS SUMMARY | 2024-09-02 16:30 | XMS_ITS ---
Author Organization [facility] JESSICA Address [address] [place] [address] Care Team Providers Care Mixing Machine Operator Name Role Phone Piyush Malik Primary Care Provider Migration, Provider Unavailable Unavailable REASON FOR VISIT [facility] To [facility] Conversion Encounter Medications Medication SIG (Take, Route, [...] review and pick correct strength-formulati on [facility] options. If intended option is not [...] review and pick correct strength-formulati on from [facility] options. If intended option is not [...] Active Encounters Encounter Location Date Provider Diagnosis [facility] PED JESSICA [address] [facility] [address] [place] [address] 09/02/2024 Provider Migration Plan Of Treatment No Information Progress Notes * Santhosh DENIS CDOB: [birth year] (64 yo M)Acc No.[id number]:09/02/2024 Patient: Santhosh MURPHY [place] Provider: Shama zhang Migration :1960 A ge:64 Y S ex:Male Date:09/02/2024 Address:[facility] [place], [id number] Pcp:Piyush Malik Subjective: * Chief Complaints: * [facility] . [facility] Conversion Encounter. * Medical History: * Medications: T aking Vitamin C 500 MG Tablet 1 tab(s) orally once a day , Taking Mounjaro 2.5 MG/0.5 ML SOLUTION DIRECTED SUBCUTANEOUSLY ONCE A WEEK , Notes to Pharmacist: *Please review and pick correct strength-formulation from [employer] options. If intended option is not shown, [...] *Please review and pick correct strength-formulation from [employer] options. If intended option is not shown, discontinue and re-order from Quick Search*, Taking Jardiance 25 MG Tablet TAKE ONE TABLET BY MOUTH EVERY DAY IN THE MORNING , Taking traZODone HCl 50 MG Tablet 1 tab(s) orally once a day at bedtime Objective: * Vitals: Assessment: Plan: * Treatment: * * Electronic signature of Jackson rendonr Migration on 04/24/2025 at 05:13 PM EST Sign off status: Pending * Provider: Shama zhang Migration Date: 0 09/02/2024 Generated for Alexandrea krishna/Jarad/Jan on: 1 06/24/2024 05:13 PM EST
--- OUTSIDE RECORDS SUMMARY | 2025-04-24 17:14 | XMS_ITS | Patient Health Record ---
Author Organization [facility] JESSICA Address [address] [place] [address] Care Team Providers Care Microscopist Name Role Phone Yohannescornelia Piyush Primary Care Provider Mague Cruz Unavailable [phone] Migration, Provider Unavailable Unavailable Allergies No Known [...] review and pick correct strength-formulati on from Oatmeal options. If intended option is not shown, [...] review and pick correct strength-formulati on from Oatmeal options. If intended option is not shown, [...] W/U Status Risk Notes Problem Viral wart (10921561) Other viral warts (B07.8) Active confirmed Problem Type 2 diabetes mellitus with other specified complication (E11.69) Active confirmed Problem Old myocardial infarction (6058265) Old myocardial infarction (I25.2) Active confirmed Problem Essential hypertension (80101494) Hypertension, essential (I10) Active confirmed Problem Acute exacerbation of chronic obstructive airways disease (634392999) COPD exacerbation (J44.1) Active confirmed Problem Obesity (104655030) Obesity (BMI 30-39.9) (E66.9) Active confirmed Problem Gastroesophageal reflux disease without esophagitis (611767704) Gastroesophageal reflux disease without esophagitis (K21.9) Active confirmed Problem Atherosclerosis of coronary artery without angina pectoris (106850028263272) Atherosclerosis of [place] coronary artery of [place] heart without angina pectoris (I25.10) Active confirmed Problem Pulmonary emphysema (72873554) Pulmonary emphysema, unspecified emphysema type (J43.9) Active confirmed Problem Acute prostatitis (51937181) Prostatitis, acute (N41.0) Active confirmed Problem Chronic bronchiolitis (167430050) Chronic bronchiolitis (J44.9) Active confirmed Problem Lower urinary tract symptoms due to benign prostatic hypertrophy (36134012298118) Benign non-nodular prostatic hyperplasia with lower urinary tract symptoms (N40.1) Active confirmed Problem Urinary hesitancy (2707629) Urinary hesitancy (R39.11) Active confirmed Problem 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 confirmed Problem Atherosclerosis of coronary artery (665556902) Atherosclerosis of [place] coronary artery of [place] heart with other form of angina pectoris (I25.118) Active confirmed Problem Left ventricular diastolic dysfunction (056900314) Diastolic CHF with preserved left ventricular function, NYHA class 2 (I50.30) Active confirmed Problem Gastroesophageal reflux disease (disorder) (524629371) Chronic GERD (K21.9) Active confirmed Problem Type II diabetes mellitus without complication (045164327) Type 2 diabetes mellitus without complication, without long-term current use of insulin (E11.9) Active confirmed Problem Obstructive sleep apnea syndrome (55502227) MARIELENA on CPAP (G47.33) Active confirmed Problem Gastro-esophageal reflux (627665817) Gastro-esophageal reflux (K21.9) Active confirmed Problem Tobacco use (255585904) Tobacco use disorder (F17.200) Active confirmed Problem Type II diabetes mellitus without complication (695386804) Controlled type 2 diabetes mellitus without complication, without long-term current use of insulin (E11.9) Active confirmed Problem Type II diabetes mellitus without complication (347584646) Controlled type 2 diabetes mellitus without complication, unspecified group home insulin use status (E11.9) Active confirmed Problem Benign neoplasm of colon (67898611) Adenomatous polyp of colon, unspecified part of colon (D12.6) Active confirmed Problem Acute ST segment elevation myocardial infarction due to right coronary artery occlusion (84545973968764906) ST elevation myocardial infarction involving right coronary artery (I21.11) Active confirmed Problem History of circulatory system disease (373614460) History of coronary artery disease (Z86.79) Active confirmed Problem Skin cancer (695867242) Skin cancer (C44.90) Active confirmed Problem Stented coronary artery (290199877) Stented coronary artery (Z95.5) Active confirmed Vital Signs Heart Rate 88 /min 08/16/2024 Temperature 97.6 degrees Fahrenheit 08/16/2024 Blood pressure diastolic 80 mm Hg 08/16/2024 Height 5 ft 6 in in 08/16/2024 Blood pressure systolic 125 mm Hg 08/16/2024 Weight 233 lbs 08/16/2024 BMI 37.6 kg/m2 08/16/2024 Encounters Encounter Location Date Provider Diagnosis [facility] [address] [place] [address] 09/02/2024 Provider Migration [facility] ISAIAH [address] [facility] [address] [place] [address] 08/16/2024 Mague Cruz 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 Z02.4 ; Atherosclerosis of [place] coronary artery of [place] heart without angina pectoris I25.10 ; Type 2 diabetes mellitus with other specified complication E11.69 and MARIELENA on CPAP G47.33 Assessments Encounter Date Diagnosis (ICD Code) Assessment Notes Treatment Notes Treatment Clinical Notes Section Notes 08/16/2024 Atherosclerosis of [place] coronary artery of [place] heart without angina pectoris (ICD-10 - I25.10) [...] Insured Coverage Start Date Coverage End Date [employer] [address] [place] [address] [id number] Santhosh Denis Self - patient is the insured [facility] CLAIM[facility] [address] [phone] [id number] Santhosh Denis Self - patient is the [...] (General) History Medical History History ICD Code PA HLD HTN GERD STEMI 2016, followed by [...] 04/2018 hyperglycemia 03/2018 chest pain/acid reflux 2006 PA 07/2016
--- OUTSIDE RECORDS SUMMARY | 2025-04-24 17:14 | XMS_ITS | Clinical Summary ---
Author Organization [facility] Address [address] [place] [address] Care Team Providers Care Timber Sizer Operator Name Role Phone Piyush Malik MD Primary Care Provider [phone] Allergies No known active allergies Medications clopidogrel [...] Hypertension 09/27/2017 Coronary artery disease invo lving [place] coronary artery without angina pectoris 09/27/2017 Family [...] INFLUENZA VACCINE 12/29/2024 Insurance EMPLOYEE Care Teams Timber Sizer Operator Relationship Specialty Start Date End Date Piyush Malik MD [address] [place] [address] PCP - General Adolescent Medicine 08/27/17
--- OUTSIDE RECORDS SUMMARY | 2025-04-24 17:14 | XMS_ITS | Data Portability ---
Author Organization [facility] Address [address] [place] [address] Assessment No assessment recorded. Plan of Treatment [...] 13:27 Page 1 of 1 Not Available [facility], [place], [address], 04/20/2023 13:27:20 Result Notes None recorded. Medical [...] ICD10 Code Diagnosis IMO Codes Diagnosis Note [id number] URMILA CAI MD SURGERY SCHEDULE [address] [place] [address] 04/19/2023 07:27:38 04/19/2023 07:34:48 Health Concerns Section Related Observation LastModified by Organization Detai ls LastModified Time None Recorded Concern Status LastModified by Organization Details LastModified Time None Recorded Advance Directives Directive None Recorded Payers Insurance Date Sequence Insurance Name Policy Number Policy Figueroa Covered Member ID Figueroa Member ID Guarantor Name 04/27/2023 1 [place] [id number] 1 Santhosh Denis [id number] Santhosh Denis
--- OUTSIDE RECORDS SUMMARY | 2025-04-24 17:14 | XMS_ITS | Clinical Summary ---
Author Organization [facility] Address [address] [id number] Care Team Providers Care Call Center Team Leader Name Role Phone Anna Wheeler Primary Care Provider [phone] Immunizations Immunization Administration Dates Next Due Influenza, [...] of Treatment Not on file Care Teams Call Center Team Leader Relationship Specialty Start Date End Date Anna Wheeler PA [address] [id number] PCP - General 10/11/20
[2025-04-24 19:47] LABS: Chloride 101 mmol/L (98-107); Potassium 4.5 mmoL/L (3.5-5.1); Sodium 141 mmol/L (136-145)
[2025-04-24 19:49] LABS: Blood Urea Nitrogen 19 mg/dl (9-20); Creatinine,Serum 1.30 mg/dl (0.66-1.25); Estimated Glomerular Filt Rate 56 ml/min (>60); GFR (African American) 67 ML/MIN (>60)
[2025-04-24 19:50] LABS: Anion Gap 23.5 mEq/L (5-15); Calcium 8.9 mg/dl (8.4-10.2); Carbon Dioxide 21 mmol/L (22.0-30.0); Glucose 128 mg/dl (74-100); Magnesium 2.3 mg/dl (1.6-2.3)
[2025-04-24 19:59] LABS: NT Pro Brain Natriuretic Pep. < 20.0 pg/mL (0-125)
== END 2025-04-24 23:59 | disposition home or self-care (01) ==
LOC: LAB.DROPOF 17:12
PROVIDERS: PCP Family Medicine; Visit Provider Physician Assistant
DX: E78.2 Mixed hyperlipidemia (principal); I10 Essential (primary) hypertension; I25.10 Atherosclerotic heart disease of native coronary artery without angina pectoris; I25.2 Old myocardial infarction
CPT/HCPCS: 80048; 83735; 83880

== ENCOUNTER 2025-04-30 19:14 | Outpatient (CLI) | payer BC, OTHER, SELFPAY ==
--- OUTSIDE RECORDS SUMMARY | 2025-04-30 19:17 | XMS_ITS | Data Portability ---
Author Organization [facility] Address [address] [facility] [address] [place] [address] Assessment No assessment recorded. Plan of Treatment [...] 13:27 Page 1 of 1 Not Available [facility], [place], [address], 04/20/2023 13:27:20 Result Notes None recorded. Medical [...] ICD10 Code Diagnosis IMO Codes Diagnosis Note [id number] URMILA CAI MD SURGERY SCHEDULE [address] [place] [address] 04/19/2023 07:27:38 04/19/2023 07:34:48 Health Concerns Section Related Observation LastModified by Organization Detai ls LastModified Time None Recorded Concern Status LastModified by Organization Details LastModified Time None Recorded Advance Directives Directive None Recorded Payers Insurance Date Sequence Insurance Name Policy Number Policy Figueroa Covered Member ID Figueroa Member ID Guarantor Name 04/27/2023 1 [place] [id number] 1 Santhosh Denis [id number] Santhosh Denis
--- OUTSIDE RECORDS SUMMARY | 2025-04-30 19:17 | XMS_ITS | Clinical Summary ---
Author Organization [facility] Address [address] [place] [address] Care Team Providers Care Visual Designer Name Role Phone Piyush Malik MD Primary Care Provider [phone] Allergies No known active allergies Medications clopidogrel [...] Hypertension 09/27/2017 Coronary artery disease invo lving [place] coronary artery without angina pectoris 09/27/2017 Family [...] INFLUENZA VACCINE 12/29/2024 Insurance EMPLOYEE Care Teams Visual Designer Relationship Specialty Start Date End Date Piyush Malik MD [address] [place] [address] PCP - General Adolescent Medicine 08/27/17
--- OUTSIDE RECORDS SUMMARY | 2025-04-30 19:17 | XMS_ITS | Clinical Summary ---
Author Organization [facility] Address [address] [id number] Care Team Providers Care Timber Killer Name Role Phone Anna Wheeler Primary Care Provider [phone] Immunizations Immunization Administration Dates Next Due Influenza, [...] of Treatment Not on file Care Teams Timber Killer Relationship Specialty Start Date End Date Anna Wheeler PA [address] [id number] PCP - General 10/11/20
[2025-04-30 19:40] LABS: Albumin Level 4.2 g/dl (3.5-5.0); Chloride 102 mmol/L (98-107)
[2025-04-30 19:41] LABS: Potassium 4.2 mmoL/L (3.5-5.1); Sodium 141 mmol/L (136-145)
[2025-04-30 19:43] LABS: Bilirubin,Unconjugated 0.3 mg/dL (0.0-1.1); Blood Urea Nitrogen 16 mg/dl (9-20); Creatinine,Serum 1.20 mg/dl (0.66-1.25); Estimated Glomerular Filt Rate 61 ml/min (>60); GFR (African American) 74 ML/MIN (>60)
[2025-04-30 19:44] LABS: Alanine Aminotransferase 36 U/L (12-78); Alkaline Phosphatase 88 U/L (38-126); Aspartate Amino Transferase 35 U/L (17-59); Bilirubin,Direct 0.2 mg/dl (0.0-0.4); Bilirubin,Indirect 0.4 mg/dL (0.0-0.9); Bilirubin,Total 0.6 mg/dl (0.2-1.3); Calcium 8.6 mg/dl (8.4-10.2); Cholesterol 80 mg/dl (140-200); Glucose 131 mg/dl (74-100); HDL Cholesterol 33 mg/dl (40-60); Total Protein,Serum 6.7 g/dl (6.3-8.2); Triglycerides 248 mg/dl (30-150)
[2025-04-30 21:06] LABS: Anion Gap 21.2 mEq/L (5-15); Carbon Dioxide 22 mmol/L (22.0-30.0)
== END 2025-04-30 23:59 | disposition home or self-care (01) ==
LOC: LAB.DROPOF 19:15
PROVIDERS: PCP Family Medicine; Visit Provider Physician Assistant
DX: I25.2 Old myocardial infarction (principal); Z95.5 Presence of coronary angioplasty implant and graft; I10 Essential (primary) hypertension; I25.10 Atherosclerotic heart disease of native coronary artery without angina pectoris; E78.2 Mixed hyperlipidemia; R10.9 Unspecified abdominal pain; E11.9 Type 2 diabetes mellitus without complications; K21.9 Gastro-esophageal reflux disease without esophagitis
CPT/HCPCS: 80048; 80061; 80076

== ENCOUNTER 2025-05-17 19:11 | Outpatient (CLI) | payer BC, OTHER, SELFPAY ==
--- OUTSIDE RECORDS SUMMARY | 2025-05-17 19:14 | XMS_ITS | Clinical Summary ---
Author Organization [facility] Address [address] [id number] Care Team Providers Care Cleaner Signs Name Role Phone Anna Wheeler Primary Care [...] of Treatment Not on file Care Teams Cleaner Signs Relationship Specialty Start Date End Date Anna Wheeler PA [address] [place] [address] [address] PCP - General 10/11/20
--- OUTSIDE RECORDS SUMMARY | 2025-05-17 19:14 | XMS_ITS ---
Author Organization Unknown ENCOUNTERS Encounter Performer Location Date Diagnosis Diagnosis Status Outpatient [address] [place] [address] [id number] [facility] [address] [place] [address] [id number] A Pre Admit [address] [place] [address] [id number] Outpatient [address] [place] [address] [id number] [facility] Cyril Stephenson [address] [place] [address] [id number] Emergency Denny Hardin [address] [place] [address] [id number] [facility] Piyush Malik [address] [place] [address] [id number] [facility] Emergency Nancy Pitts [address] [place] [address] [id number] *Note: Encounters from your own facility or health system may be excluded. Allergies, Adverse Reactions, Alerts Allergen Type Severity Identification Date Medications Name Date Quantity Days Supplied GPI Number
--- OUTSIDE RECORDS SUMMARY | 2025-05-17 19:14 | XMS_ITS | Clinical Summary ---
Author Organization [facility] Address [address] [place] [address] Care Team Providers Care Liquor Bridge Operator Helper Name Role Phone Unavailable Primary Care Provider Unavailabl e Social History Tobacco Use Types Packs/Day Years Used Date Smoking Tobacco: Never Assessed Sex and Gender Information Value Date Recorded Sex Assigned at Not on file Legal Sex Male 1:01 PM EDT Gender Identity Not on file Sexual Orientation Not on file Plan of Treatment Not on file Medical Devices Not on file
--- OUTSIDE RECORDS SUMMARY | 2025-05-17 19:14 | XMS_ITS | Data Portability ---
Author Organization [facility] Address [address] [facility] [address] [place] [address] Assessment No assessment recorded. Plan of Treatment [...] 1 of 1 Not Available [facility], [place], [address], 04/20/2023 13:27:20 Result Notes None recorded. Medical [...] ICD10 Code Diagnosis IMO Codes Diagnosis Note [id number] URMILA CAI MD SURGERY SCHEDULE [address] [place] [address] 04/19/2023 07:27:38 04/19/2023 07:34:48 Health Concerns Section Related Observation LastModified by Organization Detai ls LastModified Time None Recorded Concern Status LastModified by Organization Details LastModified Time None Recorded Advance Directives Directive None Recorded Payers Insurance Date Sequence Insurance Name Policy Number Policy Figueroa Covered Member ID Figueroa Member ID Guarantor Name 04/27/2023 1 [place] [id number] 1 Santhosh Denis [id number] Santhosh Denis
--- OUTSIDE RECORDS SUMMARY | 2025-05-17 19:14 | XMS_ITS | Clinical Summary ---
Author Organization [facility] Address [address] [place] [address] Care Team Providers Care Talkback Host Name Role Phone Piyush Malik MD Primary Care Provider [phone] Allergies No known active allergies Medications clopidogrel [...] Hypertension 09/27/2017 Coronary artery disease invo lving [place] coronary artery without angina pectoris 09/27/2017 Family [...] INFLUENZA VACCINE 12/29/2024 Insurance EMPLOYEE Care Teams Talkback Host Relationship Specialty Start Date End Date Piyush Malik MD [address] [place] [address] PCP - General Adolescent Medicine 08/27/17
[2025-05-17 20:17] LABS: Anion Gap 18.3 mEq/L (5-15); Blood Urea Nitrogen 27 mg/dl (9-20); Calcium 9.3 mg/dl (8.4-10.2); Carbon Dioxide 23 mmol/L (22.0-30.0); Chloride 101 mmol/L (98-107); Creatinine,Serum 1.40 mg/dl (0.66-1.25); Estimated Glomerular Filt Rate 51 ml/min (>60); GFR (African American) 62 ML/MIN (>60); Glucose 137 mg/dl (74-100); Potassium 4.3 mmoL/L (3.5-5.1); Sodium 138 mmol/L (136-145)
== END 2025-05-17 23:59 | disposition home or self-care (01) ==
LOC: LAB.DROPOF 19:12
PROVIDERS: PCP Family Medicine; Visit Provider Physician Assistant
DX: E78.2 Mixed hyperlipidemia (principal); I10 Essential (primary) hypertension; I25.10 Atherosclerotic heart disease of native coronary artery without angina pectoris
CPT/HCPCS: 80048